=== PATIENT | female | born 1940 | race Caucasian/White ===

== ENCOUNTER 2017-06-26 | Emergency (ER) | payer MEDICARE, MEDICAID ==
[~2017-06-26] VITALS: Ht 157.5 cm; Wt 59.0 kg
[2017-06-26] VITALS: BP 177/62
[~2017-06-26] MED LIST: ATORVASTATIN CA20 MG GT; CELEBREX100 MG GT; DIGOXIN125 MCG GT; KEPPRA500 MG ORAL; LEVOTHYROXINE137 MCG ORAL; LINZESS290 MCG PO; METOPROLOL TART25 MG GT; Morphine Sulfate 2mg/ml Inj IVP ONE; PROCHLORPERAZINE5 MG GT; TEGRETOL100 MG/5 M GT; TRICOR145 MG GT; XARELTO15 MG ORAL; ZANTAC150 MG ORAL
--- NOTE | 2017-06-26 00:02 | Emergency Room Report ---
History of Present Illness General Chief Complaint: Multiple Trauma/Fall Source: Patient Present Illness HPI [facility] She states that her left leg is weak. She hit her hip and also her knee. She has pain there. Worsened when she moves. She denies loss of consciousness. There's no chest pain, cough , nausea, vomiting, diarrhea, dysuria. Pain rated at 3/10, more when pushed or moved. Radiates both hip and knee. She states she fractured her left ankle in the past. She's on Xeralto. Post CVA with L weakness. Post seizures on Tegretal. No observed seizure activity at SNF. She suffers from dementia. Allergies: Coded Allergies: INFLIXIMAB (Verified Allergy, Intermediate, 04/20/16) NIACIN (Verified Allergy, Intermediate, 04/20/16) SULFA (SULFONAMIDE ANTIBIOTICS) (Verified Allergy, Intermediate, 04/20/16) Patient History Past Medical History: see triage record Past Surgical History: other - prior G tube - fracture L hip Social History: Denies: smoking, alcohol use, drug use Social History Narrative Born in [place] Now: No Reviewed Nursing Documentation: PMH: Agreed, PSxH: Agreed Nursing Documentation-PMH Past Medical History: No History, Except For Hx Hypertension: Yes - Atherosclerotic heart disease Hx Diabetes: Yes - Type 2 Review of Systems All Other Systems: negative except mentioned in HPI Physical Exam Vital Signs Date Time Temp Pulse Resp B/P (MAP) Pulse Ox O2 Delivery O2 Flow Rate FiO2 06/25/17 23:40 99.3 71 18 177/62 97 Room Air Sp02 EP Interpretation: reviewed, normal General Appearance: well appearing, no apparent distress, GCS 15 Head: normocephalic Eyes: bilateral eye normal inspection, bilateral eye PERRL ENT: moist mucus membranes, other - Slight facial asymmetry Neck: supple Respiratory: lungs clear, normal breath sounds Cardiovascular #1: regular rate, rhythm Cardiovascular #2: 2+ radial (R) Gastrointestinal: normal inspection, normal bowel sounds, non tender, no mass, non-distended Musculoskeletal: back normal, normal range of motion - but with some pain in knee and hip, pelvis stable, tender - Left hip and left knee. Ligaments are stable. 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 Differential includes contusion, fracture amongst others. X-rays are indicated. In addition to that the patient be treated with analgesics. No labs indicated as not syncopal episode and no seizure noted. Improved with analgesia. Xrays without fractures. Patient stable for outpatient observation and treatment. Other X-Ray Diagnostic Results Other X-Ray Diagnostic Results #1: X-Ray ordered: L hip # of Views/Limited Vs Complete: 3 View Indication: Other Interpretation: no dislocation, no soft tissue swelling, no fractures, other - DJD and old surgery L hip Impression: Other Electronically Signed by: Electronically signed by Joshua Tejada MD Other X-Ray Diagnostic Results #2: X-Ray ordered: L knee # of Views/Limited Vs Complete: 3 View Indication: Other Interpretation: no dislocation, no soft tissue swelling, no fractures, other - DJD Impression: Other Electronically Signed by: Electronically signed by Joshua Tejada MD Other X-Ray Diagnostic Results #3: X-Ray ordered: ap pelvis # of Views/Limited Vs Complete: 1 View Interpretation: no dislocation, no soft tissue swelling, no fractures, other - Prior hip surgery, impaction Impression: Other Electronically Signed by: Electronically signed by Joshua Tejada MD Last Vital Signs Date Time Temp Pulse Resp B/P (MAP) Pulse Ox O2 Delivery O2 Flow Rate FiO2 06/26/17 05:10 99.3 72 16 125/55 97 Room Air Status: improved Disposition: XFER SNF Condition: Improved Scripts Acetaminophen (Tylenol) 325 Mg Tablet 650 MG ORAL Q6H Y for Prn Pain/Headache/Temp > 101, #30 TAB 0 Refills Prov: Joshua Tejada M.D. 06/26/17 Joshua Tejada M.D. Jun 26, 2017 00:02
[2017-06-26 02:00] VITALS: BP 141/59
[2017-06-26] MEDS ORDERED: TYLENOL325 MG ORAL (03:55)
[2017-06-26 04:30] VITALS: BP 125/55
[2017-06-26 05:10] VITALS: BP 125/55
--- NOTE | 2017-06-26 09:39 | Diagnostic Imaging Report ---
Indication: Reason For Exam: TRAUMA Technique: XRAY Pelvis 1v Comparison: None. Findings: The bones are osteopenic. There are screws in the left hip. A large amount of fecal material is noted in the rectum. No fracture. No bone destruction. Impression: Internal fixation of the left hip. Large amount of fecal material in the rectum, likely representing fecal impaction.
--- NOTE | 2017-06-26 09:40 | Diagnostic Imaging Report ---
Indication: Reason For Exam: TRAUMA Technique: XRAY Hip Routine 2v+ L Comparison: None. Findings: 2 views of the left hip demonstrate 3 screws in the hip fixing a previous femoral neck fracture. Vascular calcifications are noted. Large amount of fecal material is noted in the rectum. There is narrowing of the left hip joint with some spurring and irregularity. Impression: Internal fixation of left hip. Degenerative change in the left hip. Fecal impaction. Atherosclerotic change.
--- NOTE | 2017-06-26 09:41 | Diagnostic Imaging Report ---
Indication: Reason For Exam: TRAUMA Technique: XRAY Knee 3v L Comparison: None. Findings: The bones are osteopenic. There is calcification of the vascular structures. No fracture. No bone destruction. No effusion. Impression: Osteopenia. Atherosclerotic change.
== END 2017-06-26 05:10 ==
LOC: EDBD → EMR 00:05
DX: S70.02XA Contusion of left hip, initial encounter (principal); S80.02XA Contusion of left knee, initial encounter; G30.9 Alzheimer's disease, unspecified; F02.80 Dementia in other diseases classified elsewhere, unspecified severity, without behavioral disturbance, psychotic disturbance, mood disturbance, and anxiety; I69.854 Hemiplegia and hemiparesis following other cerebrovascular disease affecting left non-dominant side; K56.41 Fecal impaction; E11.9 Type 2 diabetes mellitus without complications; I25.10 Atherosclerotic heart disease of native coronary artery without angina pectoris; Z88.2 Allergy status to sulfonamides; Z88.8 Allergy status to other drugs, medicaments and biological substances; Z79.01 Long term (current) use of anticoagulants; W18.30XA Fall on same level, unspecified, initial encounter; Y92.129 Unspecified place in nursing home as the place of occurrence of the external cause
CPT/HCPCS: 72170; 73502; 73562; 96374; 96375; 99284; J2270; J2405

== ENCOUNTER 2018-04-28 01:28 | Inpatient (IN) | payer MEDICARE, OTHER ==
[~2018-04-28] VITALS: Ht 157.5 cm; Wt 54.9 kg
[2018-04-28] VITALS (7 sets, daily range): BP systolic 109–157; BP diastolic 60–87
[~2018-04-28 01:28] MED LIST changes: -Morphine Sulfate 2mg/ml Inj IVP ONE; +TYLENOL325 MG ORAL
--- NOTE | 2018-04-28 01:32 | Emergency Room Report ---
History of Present Illness General Chief Complaint: Chest Pain Source: Patient, EMS Present Illness HPI Patient presents from nursing facility with reports of chest pain Patient is a poor historian and cannot provide appropriate history History of present illness remains significantly limited when asked regarding her pain patient reports that she has dental pain Denies any back or flank pain Otherwise not able to answer most questions appropriately Allergies: Coded Allergies: INFLIXIMAB (Verified Allergy, Intermediate, 04/20/16) NIACIN (Verified Allergy, Intermediate, 04/20/16) SULFA (SULFONAMIDE ANTIBIOTICS) (Verified Allergy, Intermediate, 04/20/16) Uncoded Allergies: SULFONAMIDES (Allergy, Unknown, 04/28/18) Patient History Limited by: medical condition Past Medical History: see triage record Pertinent Family History: unable to obtain Last Menstrual Period: na Now: No Reviewed Nursing Documentation: PMH: Agreed; PSxH: Agreed Nursing Documentation-PMH Hx Cardiac Problems: Yes Hx Hypertension: Yes Hx Diabetes: Yes Hx Cancer: No Hx Gastrointestinal Problems: Yes Hx Neurological Problems: Yes Hx Cerebrovascular Accident: Yes Hx Seizures: Yes Hx Epilepsy: Yes Review of Systems All Other Systems: limited - Other than the ones mentioned in the history of present illness all others are reviewed however they do stay limited due to the patient's mental status Physical Exam Vital Signs Date Time Temp Pulse Resp B/P (MAP) Pulse Ox O2 Delivery O2 Flow Rate FiO2 04/28/18 01:02 97.5 130 18 146/91 96 Sp02 EP Interpretation: reviewed, normal General Appearance: no apparent distress Head: normocephalic, atraumatic Eyes: bilateral eye PERRL, bilateral eye EOMI ENT: hearing grossly normal, normal pharynx Neck: full range of motion Respiratory: lungs clear Cardiovascular #1: tachycardia, irregularly irregular Gastrointestinal: non tender, soft Genitourinary: no CVA tenderness Musculoskeletal: other - Patient is drooling, from the left corner of her mouth , I cannot appreciate any obvious focal weakness in the upper extremity Neurologic: alert - Patient is awake and responsive, responsive Skin: normal color, no rash Lymphatic: no adenopathy Medical Decision Making Diagnostic Impression: Primary Impression: Acute coronary syndrome ER Course Patient is a fairly complex patient with multiple differential to consideration including but not limited to cardiac cardiopulmonary and vascular emergencies Patient's initial troponin is borderline intermediate Blood work otherwise appropriate Patient remains improved and asymptomatic EKG is abnormal however no obvious ST elevation patient stable for close inpatient care Labs Test 04/28/18 01:15 04/28/18 02:10 04/28/18 06:50 04/28/18 15:00 White Blood Count 6.2 K/UL (4.8-10.8) Red Blood Count 4.42 M/UL (4.20-5.40) Hemoglobin 12.9 G/DL (12.0-16.0) Hematocrit 38.0 % (37.0-47.0) Mean Corpuscular Volume 86 FL (80-99) Mean Corpuscular Hemoglobin 29.2 PG (27.0-31.0) Mean Corpuscular Hemoglobin Concent 33.9 G/DL (32.0-36.0) Red Cell Distribution Width 11.6 % (11.6-14.8) Platelet Count 113 K/UL (150-450) Mean Platelet Volume 5.8 FL (6.5-10.1) Neutrophils (%) (Auto) 76.3 % (45.0-75.0) Lymphocytes (%) (Auto) 16.3 % (20.0-45.0) Monocytes (%) (Auto) 5.8 % (1.0-10.0) Eosinophils (%) (Auto) 1.3 % (0.0-3.0) Basophils (%) (Auto) 0.3 % (0.0-2.0) Prothrombin Time 10.8 SEC (9.30-11.50) Prothromb Time International Ratio 1.0 (0.9-1.1) Activated Partial Thromboplast Time 26 SEC (23-33) Sodium Level 144 MMOL/L (136-145) Potassium Level 4.0 MMOL/L (3.5-5.1) Chloride Level 106 MMOL/L (98-107) Carbon Dioxide Level 31 MMOL/L (21-32) Anion Gap 7 mmol/L (5-15) Blood Urea Nitrogen 15 mg/dL (7-18) Creatinine 0.9 MG/DL (0.55-1.30) Estimat Glomerular Filtration Rate mL/min (>60) Glucose Level 119 MG/DL (74-106) Lactic Acid Level 0.80 mmol/L (0.4-2.0) Calcium Level 9.5 MG/DL (8.5-10.1) Total Bilirubin 0.5 MG/DL (0.2-1.0) Aspartate Amino Transf (AST/SGOT) 14 U/L (15-37) Alanine Aminotransferase (ALT/SGPT) 14 U/L (12-78) Alkaline Phosphatase 90 U/L (46-116) Total Creatine Kinase 24 U/L (26-308) Creatine Kinase MB < 0.5 NG/ML (0.0-3.6) Creatine Kinase MB Relative Index 2.0 Troponin I 0.042 ng/mL (0.000-0.056) 0.172 ng/mL (0.000-0.056) 0.359 ng/mL (0.000-0.056) Pro-B-Type Natriuretic Peptide 609 pg/mL (0-125) Total Protein 7.6 G/DL (6.4-8.2) Albumin 3.7 G/DL (3.4-5.0) Globulin 3.9 g/dL Albumin/Globulin Ratio 0.9 (1.0-2.7) Lipase 254 U/L (73-393) Urine Color Yellow Urine Appearance Slightly cloudy Urine pH 5 (4.5-8.0) Urine Specific [place] 1.020 (1.005-1.035) Urine Protein 1+ (NEGATIVE) Urine Glucose (UA) Negative (NEGATIVE) Urine Ketones Negative (NEGATIVE) Urine Blood Negative (NEGATIVE) Urine Nitrite Negative (NEGATIVE) Urine Bilirubin Negative (NEGATIVE) Urine Urobilinogen Normal MG/DL (0.0-1.0) Urine Leukocyte Esterase 1+ (NEGATIVE) Urine RBC 2-4 /HPF (0 - 2) Urine WBC 0-2 /HPF (0 - 2) Urine Squamous Epithelial Cells Moderate /LPF (NONE/OCC) Urine Bacteria Few /HPF (NONE) Test 04/29/18 05:20 04/30/18 06:10 White Blood Count 3.8 K/UL (4.8-10.8) Red Blood Count 3.91 M/UL (4.20-5.40) Hemoglobin 11.4 G/DL (12.0-16.0) Hematocrit 33.9 % (37.0-47.0) Mean Corpuscular Volume 87 FL (80-99) Mean Corpuscular Hemoglobin 29.2 PG (27.0-31.0) Mean Corpuscular Hemoglobin Concent 33.8 G/DL (32.0-36.0) Red Cell Distribution Width 11.6 % (11.6-14.8) Platelet Count 101 K/UL (150-450) Mean Platelet Volume 5.9 FL (6.5-10.1) Neutrophils (%) (Auto) 65.7 % (45.0-75.0) Lymphocytes (%) (Auto) 22.6 % (20.0-45.0) Monocytes (%) (Auto) 10.5 % (1.0-10.0) Eosinophils (%) (Auto) 0.9 % (0.0-3.0) Basophils (%) (Auto) 0.4 % (0.0-2.0) Prothrombin Time 13.0 SEC (9.30-11.50) Prothromb Time International Ratio 1.2 (0.9-1.1) Activated Partial Thromboplast Time 42 SEC (23-33) Sodium Level 141 MMOL/L (136-145) Potassium Level 3.9 MMOL/L (3.5-5.1) Chloride Level 105 MMOL/L (98-107) Carbon Dioxide Level 28 MMOL/L (21-32) Anion Gap 8 mmol/L (5-15) Blood Urea Nitrogen 22 mg/dL (7-18) Creatinine 1.0 MG/DL (0.55-1.30) Estimat Glomerular Filtration Rate mL/min (>60) Glucose Level 92 MG/DL (74-106) Hemoglobin A1c 5.1 % (4.3-6.0) Calcium Level 8.8 MG/DL (8.5-10.1) Troponin I 0.215 ng/mL (0.000-0.056) C-Reactive Protein, Quantitative 11.6 mg/dL (0.00-0.90) Pro-B-Type Natriuretic Peptide 1825 pg/mL (0-125) Triglycerides Level 93 MG/DL (30-150) Cholesterol Level 206 MG/DL (< 200) LDL Cholesterol 129 mg/dL (<100) HDL Cholesterol 53 MG/DL (40-60) Cholesterol/HDL Ratio 3.9 (3.3-4.4) Thyroid Stimulating Hormone (TSH) 2.285 uiU/mL (0.358-3.740) EKG Diagnostic Results Rate: normal Rhythm: NSR ST Segments: other - Nonspecific ST changes, no obvious ST elevation Rhythm Strip Diag. Results EP Interpretation: yes Rate: 66 Rhythm: NSR, no PVC's, no ectopy Chest X-Ray Diagnostic Results Chest X-Ray Diagnostic Results : Chest X-Ray Ordered: Yes # of Views/Limited/Complete: 1 View Indication: Chest Pain EP Interpretation: Yes Interpretation: no consolidation, no pneumothorax, other - Mild pulmonary edema, left lower lobe atelectasis, heart size normal Impression: Other - Left lower lobe atelectasis Last Vital Signs Date Time Temp Pulse Resp B/P (MAP) Pulse Ox O2 Delivery O2 Flow Rate FiO2 04/28/18 01:02 97.5 130 18 146/91 96 Status: improved Disposition: ADMITTED INPATIENT Condition: Serious Marisol Pandey DO Apr 28, 2018 01:32
[2018-04-28 01:47] LABS: BASOPHILS % (AUTO) 0.3 % (0.0-2.0); EOSINOPHILS % (AUTO) 1.3 % (0.0-3.0); HEMOGLOBIN 12.9 G/DL (12.0-16.0); LYMPHOCYTES % (AUTO) 16.3 % (20.0-45.0); MEAN CORPUSCULAR VOLUME 86 FL (80-99); MONOCYTES % (AUTO) 5.8 % (1.0-10.0); NEUTROPHILS % (AUTO) 76.3 % (45.0-75.0); PLATELET COUNT 113 K/UL (150-450); RED BLOOD COUNT 4.42 M/UL (4.20-5.40); RED CELL DISTRIBUTION WIDTH 11.6 % (11.6-14.8); WHITE BLOOD COUNT 6.2 K/UL (4.8-10.8)
[2018-04-28 02:00] LABS: ANION GAP 7 mmol/L (5-15); BLOOD UREA NITROGEN 15 mg/dL (7-18); CALCIUM 9.5 MG/DL (8.5-10.1); CARBON DIOXIDE 31 MMOL/L (21-32); CHLORIDE 106 MMOL/L (98-107); CREATININE 0.9 MG/DL (0.55-1.30); SODIUM 144 MMOL/L (136-145)
[2018-04-28 02:13] LABS: ALANINE AMINOTRANSFERASE 14 U/L (12-78); ALBUMIN 3.7 G/DL (3.4-5.0); ALBUMIN/GLOBULIN RATIO 0.9 (1.0-2.7); ALKALINE PHOSPHATASE 90 U/L (46-116); ASPARTATE AMINO TRANSFERASE 14 U/L (15-37); BILIRUBIN,TOTAL 0.5 MG/DL (0.2-1.0); CKMB < 0.5 NG/ML (0.0-3.6); CREATINE KINASE 24 U/L (26-308)
[2018-04-28] MEDS ORDERED: dilTIAZem HCl 25mg/5ml Inj IVP ONE (02:30)
[2018-04-28 02:35] LABS: APPEARANCE,URINE SLIGHTLY CLOUDY; BILIRUBIN, URINE NEGATIVE (NEGATIVE); GLUCOSE, URINE (UA) NEGATIVE (NEGATIVE); KETONES,URINE NEGATIVE (NEGATIVE); LEUKOCYTE ESTERASE ,URINE 1+ (NEGATIVE); NITRITE,URINE NEGATIVE (NEGATIVE); PH,URINE 5 (4.5-8.0); PROTEIN,URINE 1+ (NEGATIVE); UROBILINOGEN,URINE NORMAL MG/DL (0.0-1.0)
[2018-04-28 02:50] LABS: COLOR,URINE YELLOW
--- NOTE | 2018-04-28 03:14 | Diagnostic Imaging Report ---
EXAM: XR Chest, 1 View CLINICAL HISTORY: CP TECHNIQUE: Frontal view of the chest. COMPARISON: 04/24/16 FINDINGS: Lungs: Mild diffuse interstitial opacities in both lungs. Questionable small consolidation/airspace opacities over left retrocardiac region. Pleural space: Small left pleural effusion. No pneumothorax. Heart: Coronary stent prosthetic heart valve are again noted. Mediastinum: Unremarkable. Bones/joints: Sternal wires. IMPRESSION: 1. Mild pulmonary edema. 2. suspect superimposed left lower lung zone atelectasis and/or pneumonia versus aspiration. 3. Small left pleural effusion.
[2018-04-28] MEDS ORDERED: dilTIAZem HCl 50mg/10ml Inj IVP ONE (03:15)
[2018-04-28] MEDS ORDERED: LINZESS290 MCG PO (04:21)
[2018-04-28] MEDS ORDERED: ZANTAC150 MG ORAL (04:21)
[2018-04-28] MEDS ORDERED: ATORVASTATIN CA10 MG ORAL (04:21)
[2018-04-28] MEDS ORDERED: SENNA8.6 M2 PO (04:21)
[2018-04-28] MEDS ORDERED: SIMETHICONE80 MG ORAL (04:21)
[2018-04-28] MEDS ORDERED: ACETAMINOPHEN325 M1 ORAL (04:21)
[2018-04-28] MEDS ORDERED: FISH OIL 1,2001 EAC2 PO (04:21)
[2018-04-28] MEDS ORDERED: TRAMADOL HCL50 MG ORAL (04:21)
[2018-04-28] MEDS ORDERED: DIGOXIN250 MCG/1 IV (04:21)
[2018-04-28] MEDS ORDERED: MIRALAX17 G2 ORAL (04:21)
[2018-04-28] MEDS ORDERED: SYNTHROID50 MCG ORAL (04:21)
[2018-04-28] MEDS ORDERED: MAG-OX 400400 MG ORAL (04:21)
[2018-04-28] MEDS ORDERED: XARELTO15 MG ORAL ×2 (04:21)
[2018-04-28] MEDS ORDERED: FOLIC ACID1 MG ORAL (04:21)
[2018-04-28] MEDS ORDERED: METOPROLOL TART25 MG ORAL (04:21)
[2018-04-28] MEDS ORDERED: TYLENOL EXTRA500 MG ORAL (04:21)
[2018-04-28] MEDS ORDERED: CARBAMAZEPINE200 M4 ORAL (04:21)
[2018-04-28] MEDS ORDERED: SINEMET 25-1001 EAC1 ORAL (04:21)
[2018-04-28] MEDS ORDERED: ASPIRIN81 MG ORAL (04:21)
[2018-04-28] MEDS ORDERED: DOCUSATE SODIU100 MG ORAL (04:21)
[2018-04-28] MEDS ORDERED: CRANBERRY450 M4 PO (04:21)
[2018-04-28] MEDS ORDERED: MILK OF MA400 MG/51 ORAL (04:21)
[2018-04-28] MEDS ORDERED: NITROSTAT0.4 M1 SL (04:22)
[2018-04-28] MEDS ORDERED: Nitroglycerin Subl 0.4mg tab SL PRN (05:00)
[2018-04-28] MEDS ORDERED: Enalaprilat 2.5mg/2ml Inj IV PRN (05:00)
[2018-04-28] MEDS ORDERED: Ketorolac 30mg Inj IV PRN (05:00)
[2018-04-28] MEDS ORDERED: Morphine Sulfate 2mg/ml Inj IVP PRN (05:00)
[2018-04-28] MEDS ORDERED: traMADol 50mg tab ORAL PRN (05:00)
[2018-04-28] MEDS ORDERED: Miralax 17gm pkt ORAL PRN (05:00)
[2018-04-28] MEDS ORDERED: Albuterol/Ipratropium 3ml neb HHN PRN (05:00)
[2018-04-28] MEDS ORDERED: dilTIAZem HCl 25mg/5ml Inj IV PRN (05:00)
[2018-04-28] MEDS: Metoprolol 25mg tab ORAL SCH ×2 (08:07→20:52)
[2018-04-28] MEDS: Levodopa/Carbidopa 25/100 tab ORAL SCH ×3 (08:07→17:39)
--- NOTE | 2018-04-28 08:34 | Consultation ---
History of Present Illness General Date patient seen: Apr 28, 2018 Time patient seen: 08:00 Chief Complaint: Chest Pain Referring physician: dr Junior Reason for Consultation: pulm. consult Present Illness HPI 78 years old female with past medical history of hypertension hyperlipidemia, A fib, history of CVA ,Parkinson disease , seizure disorder , hx of G tube, DNR/ DNI status, was sent from the custodial [facility] [place] for evaluation of chest pain. Patient by herself extremely poor historian unable to provide any information. Upon evaluation patient was tachycardic blood pressure 146/91 pulse oximetry initially was stable in room air. Laboratory workup revealed no leukocytosis stable hemoglobin and hematocrit on urinalysis negative for evidence of [place] First troponin was negative, and the second was elevated 0.172 , pro BNP 699 ECG with A fib with RVR albumin low chest x-ray revealed mild pulmonary edema patient admitted with diagnosis of chest pain , possible acute coronary syndrome Allergies: Coded Allergies: INFLIXIMAB (Verified Allergy, Intermediate, 04/20/16) NIACIN (Verified Allergy, Intermediate, 04/20/16) SULFA (SULFONAMIDE ANTIBIOTICS) (Verified Allergy, Intermediate, 04/20/16) Uncoded Allergies: SULFONAMIDES (Allergy, Unknown, 04/28/18) Medication History Scheduled Aspirin* (Aspirin*), 81 MG ORAL DAILY, (Reported) Atorvastatin Calcium* (Lipitor*), 10 MG ORAL BEDTIME, (Reported) Carbamazepine (Carbamazepine), 200 MG ORAL TWICE A DAY, (Reported) Carbidopa/Levodopa 25-100 Mg* (Sinemet 25-100 Mg Tablet*), 1 TAB ORAL THREE TIMES A DAY, (Reported) Cranberry Fruit Concentrate (Cranberry), 450 MG PO DAILY, (Reported) Digoxin* (Digoxin*), 250 MCG IV DAILY, (Reported) Docusate Sodium* (Docusate Sodium*), 100 MG ORAL TWICE A DAY, (Reported) Fish Oil/Dha/Epa (Fish Oil 1,200 Mg Fish Oil), 2 EACH PO BID, (Reported) Folic Acid* (Folic Acid*), 1 MG ORAL DAILY, (Reported) Levothyroxine Sodium (Synthroid), 50 MCG ORAL DAILY, (Reported) Linaclotide (Linzess), 290 MCG PO AC, (Reported) Magnesium Oxide (Magnesium Oxide), 400 MG ORAL DAILY, (Reported) Metoprolol Tartrate* (Metoprolol Tartrate*), 12.5 MG ORAL EVERY 12 HOURS, ( Reported) Ranitidine Hcl* (Zantac*), 150 MG ORAL TWICE A DAY, (Reported) Rivaroxaban (Xarelto), 15 MG ORAL DAILY, (Reported) Sennosides (Senna), 17.2 MG PO QHS, (Reported) Simethicone* (Simethicone*), 80 MG ORAL TID, (Reported) Scheduled PRN Acetaminophen* (Tylenol Extra Strength*), 500 MG ORAL Q6H PRN for Mild Pain/ Temp > 100.5, (Reported) Acetaminophen* (Acetaminophen 325MG Tablet*), 650 MG ORAL Q6H PRN for Moderate Pain (Pain Scale 4-6), (Reported) Magnesium Hydroxide* (Milk Of Magnesia*), 30 ML ORAL DAILY PRN for Constipation, (Reported) Nitroglycerin (Nitrostat), 0.4 MG SL Q5M X3 DOSES PRN for CHEST PAIN, (Reported) Polyethylene Glycol 3350* (Miralax*), 17 GM ORAL DAILY PRN for Constipation, ( Reported) Tramadol Hcl* (Ultram*), 50 MG ORAL Q6H PRN for Severe Pain (Pain Scale 7-10), ( Reported) Miscellaneous Medications Rivaroxaban (Xarelto), 15 MG ORAL, (Reported) Patient History Healthcare decision maker Resuscitation status DNR/DNI Advanced Directive on File Past Medical/Surgical History Past Medical/Surgical History: (1) Feeding by G-tube (2) 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 (3) Seizure disorder (4) Alzheimer's dementia (5) Dementia Review of Systems ROS Narrative unable to obtain due to patient being a poor historian Physical Exam General Appearance: no apparent distress, alert Lines, tubes and drains: peripheral HEENT: normocephalic, atraumatic Neck: non-tender, supple Cardiovascular/Chest: normal peripheral pulses, irregularly irregular - A fib, rate controlled Abdomen: normal bowel sounds, non tender, soft Extremities: no edema Skin Exam: warm/dry Neurologic: abnormal gait, alert Musculoskeletal: atrophy - BLE Last 24 Hour Vital Signs Date Time Temp Pulse Resp B/P (MAP) Pulse Ox O2 Delivery O2 Flow Rate FiO2 04/28/18 08:07 100 157/74 04/28/18 08:05 98.6 100 20 157/74 (101) 100 04/28/18 04:05 Nasal Cannula 2.0 04/28/18 04:00 128 04/28/18 04:00 98.3 99 20 142/87 (105) 99 04/28/18 03:20 97.6 108 18 112/68 99 Nasal Cannula 2.0 04/28/18 03:20 97.6 108 18 112/68 99 Nasal Cannula 2.0 04/28/18 03:15 135 155/92 04/28/18 02:33 135 158/86 04/28/18 01:40 97.5 115 18 143/80 99 Nasal Cannula 2.0 04/28/18 01:40 115 18 Nasal Cannula 2.0 04/28/18 01:02 97.5 130 18 146/91 96 Laboratory Tests Test 04/28/18 01:15 04/28/18 02:10 04/28/18 06:50 White Blood Count 6.2 K/UL (4.8-10.8) Red Blood Count 4.42 M/UL (4.20-5.40) Hemoglobin 12.9 G/DL (12.0-16.0) Hematocrit 38.0 % (37.0-47.0) Mean Corpuscular Volume 86 FL (80-99) Mean Corpuscular Hemoglobin 29.2 PG (27.0-31.0) Mean Corpuscular Hemoglobin Concent 33.9 G/DL (32.0-36.0) Red Cell Distribution Width 11.6 % (11.6-14.8) Platelet Count 113 K/UL (150-450) L Mean Platelet Volume 5.8 FL (6.5-10.1) L Neutrophils (%) (Auto) 76.3 % (45.0-75.0) H Lymphocytes (%) (Auto) 16.3 % (20.0-45.0) L Monocytes (%) (Auto) 5.8 % (1.0-10.0) Eosinophils (%) (Auto) 1.3 % (0.0-3.0) Basophils (%) (Auto) 0.3 % (0.0-2.0) Prothrombin Time 10.8 SEC (9.30-11.50) Prothromb Time International Ratio 1.0 (0.9-1.1) Activated Partial Thromboplast Time 26 SEC (23-33) Sodium Level 144 MMOL/L (136-145) Potassium Level 4.0 MMOL/L (3.5-5.1) Chloride Level 106 MMOL/L (98-107) Carbon Dioxide Level 31 MMOL/L (21-32) Anion Gap 7 mmol/L (5-15) Blood Urea Nitrogen 15 mg/dL (7-18) Creatinine 0.9 MG/DL (0.55-1.30) Estimat Glomerular Filtration Rate mL/min (>60) Glucose Level 119 MG/DL (74-106) H Lactic Acid Level 0.80 mmol/L (0.4-2.0) Calcium Level 9.5 MG/DL (8.5-10.1) Total Bilirubin 0.5 MG/DL (0.2-1.0) Aspartate Amino Transf (AST/SGOT) 14 U/L (15-37) L Alanine Aminotransferase (ALT/SGPT) 14 U/L (12-78) Alkaline Phosphatase 90 U/L (46-116) Total Creatine Kinase 24 U/L (26-308) L Creatine Kinase MB < 0.5 NG/ML (0.0-3.6) Creatine Kinase MB Relative Index 2.0 Troponin I 0.042 ng/mL (0.000-0.056) 0.172 ng/mL (0.000-0.056) Pro-B-Type Natriuretic Peptide 609 pg/mL (0-125) H Total Protein 7.6 G/DL (6.4-8.2) Albumin 3.7 G/DL (3.4-5.0) Globulin 3.9 g/dL Albumin/Globulin Ratio 0.9 (1.0-2.7) L Lipase 254 U/L (73-393) Urine Color Yellow Urine Appearance Slightly cloudy Urine pH 5 (4.5-8.0) Urine Specific [place] 1.020 (1.005-1.035) Urine Protein 1+ (NEGATIVE) H Urine Glucose (UA) Negative (NEGATIVE) Urine Ketones Negative (NEGATIVE) Urine Blood Negative (NEGATIVE) Urine Nitrite Negative (NEGATIVE) Urine Bilirubin Negative (NEGATIVE) Urine Urobilinogen Normal MG/DL (0.0-1.0) Urine Leukocyte Esterase 1+ (NEGATIVE) H Urine RBC 2-4 /HPF (0 - 2) H Urine WBC 0-2 /HPF (0 - 2) Urine Squamous Epithelial Cells Moderate /LPF (NONE/OCC) H Urine Bacteria Few /HPF (NONE) Microbiology Date/Time Source Procedure Growth Status 04/28/18 02:10 Rectum Received Height (Feet): 5 Height (Inches): 2.00 Weight (Pounds): 107 Medications Current Medications Medications (Trade) Dose Ordered Sig/Zee Route PRN Reason Start Time Stop Time Status Last Admin Dose Admin Acetaminophen (Tylenol) 650 mg Q4H PRN ORAL FEVER 04/28/18 05:00 05/28/18 04:59 Albuterol/ Ipratropium (Albuterol/ Ipratropium) 3 ml Q4H PRN HHN Shortness of Breath 04/28/18 05:00 05/03/18 04:59 Aspirin (ASA) 162 mg DAILY ORAL 04/28/18 09:00 05/28/18 08:59 Carbidopa/Levodopa (Sinemet 25/100) 1 tab THREE TIMES A DAY ORAL 04/28/18 09:00 05/28/18 08:59 04/28/18 08:07 Diltiazem HCl (Cardizem) 10 mg Q1H PRN IV heart rate more than 120, 04/28/18 05:00 05/28/18 04:59 Enalaprilat (Vasotec) 2.5 mg Q6H PRN IV sbp more than 160 04/28/18 05:00 05/28/18 04:59 Ketorolac Tromethamine (Toradol 30mg) 30 mg Q6HR PRN IV moderate pain ( 4-6) 04/28/18 05:00 05/03/18 04:59 UNV Levothyroxine Sodium (Synthroid) 50 mcg DAILY@0600 ORAL 04/28/18 06:00 05/28/18 05:59 04/28/18 05:52 Metoprolol Tartrate (Lopressor) 12.5 mg EVERY 12 HOURS ORAL 04/28/18 09:00 05/28/18 08:59 04/28/18 08:07 Morphine Sulfate (Morphine Sulfate) 2 mg Q4H PRN IVP severe Pain (Pain Scale 7-10) 04/28/18 05:00 05/05/18 04:59 Nitroglycerin (Ntg) 0.4 mg Q5M PRN SL Prn Chest Pain 04/28/18 05:00 05/28/18 04:59 Ondansetron HCl (Zofran) 4 mg Q6H PRN IVP Nausea & Vomiting 04/28/18 05:00 05/28/18 04:59 Polyethylene Glycol (Miralax) 17 gm DAILYPRN PRN ORAL Constipation 04/28/18 05:00 05/28/18 04:59 Rivaroxaban (Xarelto) 15 mg BIOTEC ORAL 04/28/18 21:00 05/28/18 20:59 Temazepam (Restoril) 15 mg HSPRN PRN ORAL Insomnia 04/28/18 05:00 05/05/18 04:59 Tramadol HCl (Ultram) 50 mg Q6H PRN ORAL Severe Pain (Pain Scale 7-10) 04/28/18 05:00 05/05/18 04:59 Assessment/Plan Assessment/Plan ASSESSMENT Chest pain possible acute coronary syndrome atrial fibrillation with rapid ventricular response mild pulmonary edema hypertension diabetes mellitus history of CVA hyperlipidemia Parkinson disease protein calorie malnutrition hypothyroidism PLAN OF CARE SABINO status Serial troponin and EKG Cardio eval ECHO antiplatelet therapy with ASA, on BB and statin/check lipid panel O2 titrate to keep pulse ox above 92 %, pulmonary toilet prn anticoagulation with Xarelto low dose of diuretic with close monitoring of volumes and renal parameters fup with CXR on Monday Venous duplex bilateral lower extremity Pain management nitroglycerin prn resume Sinemet and levothyroxine/ check TSH Blood sugar management with sensitive SSI prn /check hemoglobin A1c dietary evaluation bedside swallow evaluation Supportive care DNR/DNI status case discussed and evaluated by supervising physician Mesha Rosario NP Apr 28, 2018 08:34
[2018-04-28] MEDS ORDERED: Aspirin Baby 81mg ORAL SCH (09:00)
[2018-04-28] MEDS: NovoLOG Insulin Flexpen SUBQ SCH ×3 (13:00→20:53)
--- NOTE | 2018-04-28 13:54 | Cardiology Progress Note ---
Assessment/Plan Assessment/Plan ACS / NSTEMI CAD HS LEFT ATRIAL ONELIA VS ARTIFACT AVR / MVR BIOPROSTHESIS CVA HS REEPAT CARDAIDC ENZYEM EKG WILL KEEP ON ASA / SATIN BB AND DC XARELTO STAT O HEPARIN TOMORROW NEED TO COSNDIER CATH IF AGGRESSIVE CARE IS DESIRED WILL NEED RAGHAV WELL [id number] Objective Last 24 Hour Vital Signs Date Time Temp Pulse Resp B/P (MAP) Pulse Ox O2 Delivery O2 Flow Rate FiO2 04/28/18 12:00 98.7 76 18 109/60 (76) 100 04/28/18 09:00 Nasal Cannula 2.0 04/28/18 08:49 78 04/28/18 08:07 100 157/74 04/28/18 08:05 98.6 100 20 157/74 (101) 100 04/28/18 04:05 Nasal Cannula 2.0 04/28/18 04:00 128 04/28/18 04:00 98.3 99 20 142/87 (105) 99 04/28/18 03:20 97.6 108 18 112/68 99 Nasal Cannula 2.0 04/28/18 03:20 97.6 108 18 112/68 99 Nasal Cannula 2.0 04/28/18 03:15 135 155/92 04/28/18 02:33 135 158/86 04/28/18 01:40 97.5 115 18 143/80 99 Nasal Cannula 2.0 04/28/18 01:40 115 18 Nasal Cannula 2.0 04/28/18 01:02 97.5 130 18 146/91 96 Intake and Output 04/27/18 04/28/18 18:59 06:59 # Voids 1 Laboratory Tests Test 04/28/18 01:15 04/28/18 02:10 04/28/18 06:50 White Blood Count 6.2 K/UL (4.8-10.8) Red Blood Count 4.42 M/UL (4.20-5.40) Hemoglobin 12.9 G/DL (12.0-16.0) Hematocrit 38.0 % (37.0-47.0) Mean Corpuscular Volume 86 FL (80-99) Mean Corpuscular Hemoglobin 29.2 PG (27.0-31.0) Mean Corpuscular Hemoglobin Concent 33.9 G/DL (32.0-36.0) Red Cell Distribution Width 11.6 % (11.6-14.8) Platelet Count 113 K/UL (150-450) L Mean Platelet Volume 5.8 FL (6.5-10.1) L Neutrophils (%) (Auto) 76.3 % (45.0-75.0) H Lymphocytes (%) (Auto) 16.3 % (20.0-45.0) L Monocytes (%) (Auto) 5.8 % (1.0-10.0) Eosinophils (%) (Auto) 1.3 % (0.0-3.0) Basophils (%) (Auto) 0.3 % (0.0-2.0) Prothrombin Time 10.8 SEC (9.30-11.50) Prothromb Time International Ratio 1.0 (0.9-1.1) Activated Partial Thromboplast Time 26 SEC (23-33) Sodium Level 144 MMOL/L (136-145) Potassium Level 4.0 MMOL/L (3.5-5.1) Chloride Level 106 MMOL/L (98-107) Carbon Dioxide Level 31 MMOL/L (21-32) Anion Gap 7 mmol/L (5-15) Blood Urea Nitrogen 15 mg/dL (7-18) Creatinine 0.9 MG/DL (0.55-1.30) Estimat Glomerular Filtration Rate mL/min (>60) Glucose Level 119 MG/DL (74-106) H Lactic Acid Level 0.80 mmol/L (0.4-2.0) Calcium Level 9.5 MG/DL (8.5-10.1) Total Bilirubin 0.5 MG/DL (0.2-1.0) Aspartate Amino Transf (AST/SGOT) 14 U/L (15-37) L Alanine Aminotransferase (ALT/SGPT) 14 U/L (12-78) Alkaline Phosphatase 90 U/L (46-116) Total Creatine Kinase 24 U/L (26-308) L Creatine Kinase MB < 0.5 NG/ML (0.0-3.6) Creatine Kinase MB Relative Index 2.0 Troponin I 0.042 ng/mL (0.000-0.056) 0.172 ng/mL (0.000-0.056) Pro-B-Type Natriuretic Peptide 609 pg/mL (0-125) H Total Protein 7.6 G/DL (6.4-8.2) Albumin 3.7 G/DL (3.4-5.0) Globulin 3.9 g/dL Albumin/Globulin Ratio 0.9 (1.0-2.7) L Lipase 254 U/L (73-393) Urine Color Yellow Urine Appearance Slightly cloudy Urine pH 5 (4.5-8.0) Urine Specific [place] 1.020 (1.005-1.035) Urine Protein 1+ (NEGATIVE) H Urine Glucose (UA) Negative (NEGATIVE) Urine Ketones Negative (NEGATIVE) Urine Blood Negative (NEGATIVE) Urine Nitrite Negative (NEGATIVE) Urine Bilirubin Negative (NEGATIVE) Urine Urobilinogen Normal MG/DL (0.0-1.0) Urine Leukocyte Esterase 1+ (NEGATIVE) H Urine RBC 2-4 /HPF (0 - 2) H Urine WBC 0-2 /HPF (0 - 2) Urine Squamous Epithelial Cells Moderate /LPF (NONE/OCC) H Urine Bacteria Few /HPF (NONE) Microbiology Date/Time Source Procedure Growth Status 04/28/18 02:10 Rectum Received Barber Mack MD Apr 28, 2018 13:54
--- NOTE | 2018-04-28 16:31 | History & Physical ---
History and Physical History & Physicial Dictated for Int Med-Dr Junior no. [id number]. Bryan Jackson MD Apr 28, 2018 16:31
[2018-04-28] MEDS: Nitroglycerin 2% oint pkt TOPIC SCH (17:39)
[2018-04-28] MEDS: Atorvastatin 20mg tab ORAL SCH (20:52)
[2018-04-28] MEDS ORDERED: Xarelto 15mg tab ORAL SCH (21:00)
--- NOTE | 2018-04-28 23:18 | Consultation ---
History of Present Illness General Chief Complaint: Chest Pain Referring physician: dr Junior Reason for Consultation: pulm. consult Present Illness HPI 78-year-old female, presents with chief complaint of chest pain. the pt has hx of anxiety and dementia and is the residence of [facility]. the pt came in due to chest pain the pt is anxious and concern about medical condition. the pt appears older than stated stage and appears depressed and low energy. she is forgetful and has memory impairment. Allergies: Coded Allergies: INFLIXIMAB (Verified Allergy, Intermediate, 04/20/16) NIACIN (Verified Allergy, Intermediate, 04/20/16) SULFA (SULFONAMIDE ANTIBIOTICS) (Verified Allergy, Intermediate, 04/20/16) Uncoded Allergies: SULFONAMIDES (Allergy, Unknown, 04/28/18) Medication History Scheduled Aspirin* (Aspirin*), 81 MG ORAL DAILY, (Reported) Atorvastatin Calcium* (Lipitor*), 10 MG ORAL BEDTIME, (Reported) Carbamazepine (Carbamazepine), 200 MG ORAL TWICE A DAY, (Reported) Carbidopa/Levodopa 25-100 Mg* (Sinemet 25-100 Mg Tablet*), 1 TAB ORAL THREE TIMES A DAY, (Reported) Cranberry Fruit Concentrate (Cranberry), 450 MG PO DAILY, (Reported) Digoxin* (Digoxin*), 250 MCG IV DAILY, (Reported) Docusate Sodium* (Docusate Sodium*), 100 MG ORAL TWICE A DAY, (Reported) Fish Oil/Dha/Epa (Fish Oil 1,200 Mg Fish Oil), 2 EACH PO BID, (Reported) Folic Acid* (Folic Acid*), 1 MG ORAL DAILY, (Reported) Levothyroxine Sodium (Synthroid), 50 MCG ORAL DAILY, (Reported) Linaclotide (Linzess), 290 MCG PO AC, (Reported) Magnesium Oxide (Magnesium Oxide), 400 MG ORAL DAILY, (Reported) Metoprolol Tartrate* (Metoprolol Tartrate*), 12.5 MG ORAL EVERY 12 HOURS, ( Reported) Ranitidine Hcl* (Zantac*), 150 MG ORAL TWICE A DAY, (Reported) Rivaroxaban (Xarelto), 15 MG ORAL DAILY, (Reported) Sennosides (Senna), 17.2 MG PO QHS, (Reported) Simethicone* (Simethicone*), 80 MG ORAL TID, (Reported) Scheduled PRN Acetaminophen* (Tylenol Extra Strength*), 500 MG ORAL Q6H PRN for Mild Pain/ Temp > 100.5, (Reported) Acetaminophen* (Acetaminophen 325MG Tablet*), 650 MG ORAL Q6H PRN for Moderate Pain (Pain Scale 4-6), (Reported) Magnesium Hydroxide* (Milk Of Magnesia*), 30 ML ORAL DAILY PRN for Constipation, (Reported) Nitroglycerin (Nitrostat), 0.4 MG SL Q5M X3 DOSES PRN for CHEST PAIN, (Reported) Polyethylene Glycol 3350* (Miralax*), 17 GM ORAL DAILY PRN for Constipation, ( Reported) Tramadol Hcl* (Ultram*), 50 MG ORAL Q6H PRN for Severe Pain (Pain Scale 7-10), ( Reported) Miscellaneous Medications Rivaroxaban (Xarelto), 15 MG ORAL, (Reported) Patient History Healthcare decision maker Resuscitation status Advanced Directive on File Review of Systems Psychiatric: Reports: prior hx, anxiety, depressed feelings, emotional problems Physical Exam General Appearance: alert, moderate distress Neurologic: oriented x 3, responsive, depressed affect Last 24 Hour Vital Signs Date Time Temp Pulse Resp B/P (MAP) Pulse Ox O2 Delivery O2 Flow Rate FiO2 04/28/18 20:52 86 122/71 04/28/18 20:00 98.6 91 20 122/71 (88) 100 04/28/18 20:00 86 04/28/18 17:39 120/67 04/28/18 16:00 79 04/28/18 15:55 98.3 107 18 120/67 (84) 97 04/28/18 12:00 125 04/28/18 12:00 98.7 76 18 109/60 (76) 100 04/28/18 09:00 Nasal Cannula 2.0 04/28/18 08:49 78 04/28/18 08:07 100 157/74 04/28/18 08:05 98.6 100 20 157/74 (101) 100 04/28/18 04:05 Nasal Cannula 2.0 04/28/18 04:00 128 04/28/18 04:00 98.3 99 20 142/87 (105) 99 04/28/18 03:20 97.6 108 18 112/68 99 Nasal Cannula 2.0 04/28/18 03:20 97.6 108 18 112/68 99 Nasal Cannula 2.0 04/28/18 03:15 135 155/92 04/28/18 02:33 135 158/86 04/28/18 01:40 97.5 115 18 143/80 99 Nasal Cannula 2.0 04/28/18 01:40 115 18 Nasal Cannula 2.0 04/28/18 01:02 97.5 130 18 146/91 96 Intake and Output 04/27/18 04/28/18 19:00 07:00 # Voids 1 Laboratory Tests Test 04/28/18 01:15 04/28/18 02:10 04/28/18 06:50 04/28/18 15:00 White Blood Count 6.2 K/UL (4.8-10.8) Red Blood Count 4.42 M/UL (4.20-5.40) Hemoglobin 12.9 G/DL (12.0-16.0) Hematocrit 38.0 % (37.0-47.0) Mean Corpuscular Volume 86 FL (80-99) Mean Corpuscular Hemoglobin 29.2 PG (27.0-31.0) Mean Corpuscular Hemoglobin Concent 33.9 G/DL (32.0-36.0) Red Cell Distribution Width 11.6 % (11.6-14.8) Platelet Count 113 K/UL (150-450) L Mean Platelet Volume 5.8 FL (6.5-10.1) L Neutrophils (%) (Auto) 76.3 % (45.0-75.0) H Lymphocytes (%) (Auto) 16.3 % (20.0-45.0) L Monocytes (%) (Auto) 5.8 % (1.0-10.0) Eosinophils (%) (Auto) 1.3 % (0.0-3.0) Basophils (%) (Auto) 0.3 % (0.0-2.0) Prothrombin Time 10.8 SEC (9.30-11.50) Prothromb Time International Ratio 1.0 (0.9-1.1) Activated Partial Thromboplast Time 26 SEC (23-33) Sodium Level 144 MMOL/L (136-145) Potassium Level 4.0 MMOL/L (3.5-5.1) Chloride Level 106 MMOL/L (98-107) Carbon Dioxide Level 31 MMOL/L (21-32) Anion Gap 7 mmol/L (5-15) Blood Urea Nitrogen 15 mg/dL (7-18) Creatinine 0.9 MG/DL (0.55-1.30) Estimat Glomerular Filtration Rate mL/min (>60) Glucose Level 119 MG/DL (74-106) H Lactic Acid Level 0.80 mmol/L (0.4-2.0) Calcium Level 9.5 MG/DL (8.5-10.1) Total Bilirubin 0.5 MG/DL (0.2-1.0) Aspartate Amino Transf (AST/SGOT) 14 U/L (15-37) L Alanine Aminotransferase (ALT/SGPT) 14 U/L (12-78) Alkaline Phosphatase 90 U/L (46-116) Total Creatine Kinase 24 U/L (26-308) L Creatine Kinase MB < 0.5 NG/ML (0.0-3.6) Creatine Kinase MB Relative Index 2.0 Troponin I 0.042 ng/mL (0.000-0.056) 0.172 ng/mL (0.000-0.056) 0.359 ng/mL (0.000-0.056) Pro-B-Type Natriuretic Peptide 609 pg/mL (0-125) H Total Protein 7.6 G/DL (6.4-8.2) Albumin 3.7 G/DL (3.4-5.0) Globulin 3.9 g/dL Albumin/Globulin Ratio 0.9 (1.0-2.7) L Lipase 254 U/L (73-393) Urine Color Yellow Urine Appearance Slightly cloudy Urine pH 5 (4.5-8.0) Urine Specific [place] 1.020 (1.005-1.035) Urine Protein 1+ (NEGATIVE) H Urine Glucose (UA) Negative (NEGATIVE) Urine Ketones Negative (NEGATIVE) Urine Blood Negative (NEGATIVE) Urine Nitrite Negative (NEGATIVE) Urine Bilirubin Negative (NEGATIVE) Urine Urobilinogen Normal MG/DL (0.0-1.0) Urine Leukocyte Esterase 1+ (NEGATIVE) H Urine RBC 2-4 /HPF (0 - 2) H Urine WBC 0-2 /HPF (0 - 2) Urine Squamous Epithelial Cells Moderate /LPF (NONE/OCC) H Urine Bacteria Few /HPF (NONE) Microbiology Date/Time Source Procedure Growth Status 04/28/18 02:10 Rectum Received Height (Feet): 5 Height (Inches): 2.00 Weight (Pounds): 107 Medications Current Medications Medications (Trade) Dose Ordered Sig/Zee Route PRN Reason Start Time Stop Time Status Last Admin Dose Admin Acetaminophen (Tylenol) 650 mg Q4H PRN ORAL FEVER 04/28/18 05:00 05/28/18 04:59 Albuterol/ Ipratropium (Albuterol/ Ipratropium) 3 ml Q4H PRN HHN Shortness of Breath 04/28/18 05:00 05/03/18 04:59 Aspirin (ASA) 81 mg DAILY ORAL 04/29/18 09:00 05/29/18 08:59 Atorvastatin Calcium (Lipitor) 40 mg BEDTIME ORAL 04/28/18 21:00 05/28/18 20:59 04/28/18 20:52 Carbidopa/Levodopa (Sinemet 25/100) 1 tab THREE TIMES A DAY ORAL 04/28/18 09:00 05/28/18 08:59 04/28/18 17:39 Dextrose (Dextrose 50%) 25 ml Q30M PRN IV Hypoglycemia 04/28/18 08:30 05/28/18 08:29 Dextrose (Dextrose 50%) 50 ml Q30M PRN IV Hypoglycemia 04/28/18 08:30 05/28/18 08:29 Diltiazem HCl (Cardizem) 10 mg Q1H PRN IV heart rate more than 120, 04/28/18 05:00 05/28/18 04:59 Enalaprilat (Vasotec) 2.5 mg Q6H PRN IV sbp more than 160 04/28/18 05:00 05/28/18 04:59 Furosemide (Lasix) 20 mg DAILY IV 04/28/18 14:00 05/28/18 13:59 04/28/18 15:12 Insulin Aspart (NovoLOG) BEFORE MEALS AND HS SUBQ 04/28/18 11:30 05/28/18 11:29 04/28/18 13:00 Ketorolac Tromethamine (Toradol 30mg) 15 mg Q6HR PRN IV moderate pain ( 4-6) 04/28/18 05:00 05/03/18 04:59 Levothyroxine Sodium (Synthroid) 50 mcg DAILY@0600 ORAL 04/28/18 06:00 05/28/18 05:59 04/28/18 05:52 Metoprolol Tartrate (Lopressor) 12.5 mg EVERY 12 HOURS ORAL 04/28/18 09:00 05/28/18 08:59 04/28/18 20:52 Morphine Sulfate (Morphine Sulfate) 2 mg Q4H PRN IVP severe Pain (Pain Scale 7-10) 04/28/18 05:00 05/05/18 04:59 Nitroglycerin (Nitro-Bid) 1 inch TID@0600,1200,1800 TOPIC 04/28/18 18:00 05/28/18 17:59 04/28/18 17:39 Nitroglycerin (Ntg) 0.4 mg Q5M PRN SL Prn Chest Pain 04/28/18 05:00 05/28/18 04:59 Ondansetron HCl (Zofran) 4 mg Q6H PRN IVP Nausea & Vomiting 04/28/18 05:00 05/28/18 04:59 Polyethylene Glycol (Miralax) 17 gm DAILYPRN PRN ORAL Constipation 04/28/18 05:00 05/28/18 04:59 Rivaroxaban (Xarelto) 15 mg BIOTEC ORAL 04/28/18 21:00 05/28/18 20:59 04/28/18 20:52 Temazepam (Restoril) 15 mg HSPRN PRN ORAL Insomnia 04/28/18 05:00 05/05/18 04:59 Tramadol HCl (Ultram) 50 mg Q6H PRN ORAL Severe Pain (Pain Scale 7-10) 04/28/18 05:00 05/05/18 04:59 Assessment/Plan Status: unchanged Assessment/Plan Anxiety d/o depressive d/o dementia -ativan prn -provided marium/Bryan Venegas MD Apr 28, 2018 23:18
--- NOTE | 2018-04-28 23:30 | History and Physical Report ---
DATE OF ADMISSION: 04/28/2018 CHIEF COMPLAINT: The patient is a 78-year-old female, presents with chief complaint of chest pain. HISTORY OF PRESENT ILLNESS: The patient is a resident of [facility]. According to staff at [facility], history of present illness began yesterday. The patient states she began to experience right lower molar pain. The patient states the pain then radiated to her chest. The patient states the pain then radiated to her stomach. The patient presented to [place] emergency room. The patient is admitted for chest pain to rule out acute coronary syndrome. REVIEW OF SYSTEMS: CONSTITUTIONAL: The patient denies weight loss or weight gain. The patient denies fevers or chills. HEENT: The patient complains of tooth pain as above. The patient denies headache or throat pain. CARDIOVASCULAR: The patient denies palpitations. The patient complains of chest pain as above. ABDOMEN: The patient denies nausea, vomiting, diarrhea, or constipation. GENITOURINARY: The patient denies dysuria or increased of frequency urination. NEUROMUSCULAR: The patient denies generalized weakness. The patient does have a history of seizures. PAST MEDICAL HISTORY: Significant for: 1. Atrial fibrillation. 2. History of coronary artery disease. 3. Diabetes type 2. 4. History of deep venous thrombosis. 5. Hypertension. 6. Hypothyroidism. 7. Seizure disorder. 8. History of cerebrovascular accident. 9. Left hemiparesis. 10. History of subdural hematoma. PAST SURGICAL HISTORY: Significant for: 1. Coronary artery bypass graft. 2. Craniotomy, secondary to subdural hematoma. CURRENT MEDICATIONS: 1. Folic acid 1 mg p.o. daily. 2. Levoxyl 0.05 mg by p.o. daily. 3. Lipitor 10 mg p.o. daily. 4. Magnesium oxide 400 mg p.o. daily. 5. Metoprolol 25 mg one-half tablet p.o. twice daily. 6. Zantac 150 mg p.o. twice daily. 7. Sinemet 25/100 one tablet p.o. three times daily. 8. Carbamazepine 200 mg p.o. twice daily. 9. Xarelto 15 mg p.o. daily. 10. Digoxin 0.25 mg p.o. daily. 11. Aspirin 81 mg p.o. daily. 12. Linzess 290 mcg p.o. daily. ALLERGIES: Sulfa. 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 The patient denies tobacco or alcohol use. PHYSICAL EXAMINATION: VITAL SIGNS: Temperature 98.6, respirations 20, pulse 100, and blood pressure 157/74. GENERAL: The patient is a well-developed and well-nourished white female, in no apparent distress. HEENT: Eyes, pupils equal and responsive to light and accommodation. Extraocular movements are intact. NECK: Supple without lymphadenopathy. CHEST: Lungs are clear to auscultation bilaterally without wheezes or rales. CARDIOVASCULAR: Regular rate. S1, S2 normal without murmurs, rubs, or gallops. ABDOMEN: Soft, nontender, and nondistended. Positive bowel sounds. No evidence of hepatosplenomegaly. Currently, no rebound or guarding noted. EXTREMITIES: Negative for clubbing, cyanosis, or edema. RECTAL: Refused. GENITAL: Refused. NEUROLOGIC: Cranial nerves II through XII are grossly are intact without focal deficits. Motor strength is 5/5 bilaterally. Deep tendon reflexes are 2+ plantar. LABORATORY STUDIES: WBC 6.2, hemoglobin 12.9, hematocrit 36.0, and platelets 113,000. Sodium 144, potassium 4.0, chloride 106, CO2 15, BUN 0.9, and glucose 119. Troponin elevated at 0.042. ASSESSMENT: This is a 78-year-old white female with: 1. Chest pain. 2. Tooth pain. 3. History of coronary artery disease. 4. Diabetes type 2. 5. Hypertension. 6. Hypothyroidism. 7. Seizure disorder. 8. Cerebrovascular disease. 9. Left hemiparesis. 10. History of subdural hematoma. 11. History of deep venous thrombosis. 12. Hypercholesterolemia. TREATMENT: 1. Chest pain. A Cardiology consultation has been obtained with Dr. Barber Mack. We will follow recommendations of Cardiology. Serial troponin levels will be performed. 2. Diabetes type 2. The patient is currently not on antihyperglycemic medications. Serial laboratory studies will be performed. 3. Hypertension. Continue metoprolol as above. 4. Hypothyroidism. Continue Levoxyl as above. 5. Seizure disorder. Continue carbamazepine as above. 6. Cerebrovascular disease. 7. Left hemiparesis. 8. History of subdural hematoma. 9. History of deep venous thrombosis. 10. Hypercholesterolemia. Continue Lipitor as above. Bryan Jackson M.D. DR: ALOK JOB#: [id number] CC:
[2018-04-29] VITALS: BP 130/61
--- NOTE | 2018-04-29 02:30 | Consultation ---
DATE OF CONSULTATION: 04/28/2018 CARDIOLOGY CONSULTATION CONSULTING PHYSICIAN: Barber Mack M.D. REFERRING PHYSICIAN: Carlos Junior M.D. REASON FOR REFERRAL: Abnormal cardiac enzymes. HISTORY OF PRESENT ILLNESS: This is a 78-year-old female, who has a history of multiple medical problems as delineated below. The patient's information was obtained from the patient as well as review of the records from [facility] where she previously had most of her care. She is a resident of [facility] facility came into the hospital because of burning sensation that started in the stomach up to her chest. She states that she had a similar event approximately one week ago and stayed there for all day and then again yesterday. She did get nitroglycerin and some liquid medication for stomach and she tells that seems to have helped. She does not have any chest pain at the present time. She does not have any shortness of breath. There is no PND or orthopnea. She occasionally feels her heart beating fast and she is able to take her pulse, she states. She is comfortable at the present time. PAST MEDICAL HISTORY: From [facility] records is positive for history of coronary artery disease for which she underwent a coronary bypass grafting in 2007 with BELCHER to LAD and saphenous vein graft to right posterior descending artery. She also has a bovine pericardial prosthesis in the aortic valve and [place] epic porcine prosthesis in the mitral valve position, underwent cryo-maze procedure as well at that time. She also has a history of a prior history of prosthetic valve endocarditis, renal failure, atrial fibrillation, history of hypertension, hyperlipidemia, cerebrovascular accident, left-sided hemiparesis, psoriasis, psoriatic arthritis, urinary tract infections. She has had a CVA, chronic constipation, hypothyroidism, anemia of chronic disease and hemorrhoids as well as deep venous thromboses and pulmonary hypertension, history of craniotomy, evaluation of hematoma back in 2013, hypothyroidism, history of transient ischemic attacks, subdural hematoma for which she underwent craniotomy. SOCIAL HISTORY: [facility]. No alcohol, smoking, or tobacco use. 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 She is originally immigrant from [place]. She tells me her old sister and brother have passed on. She has one brother who is not doing well but otherwise she does not have any kids or any other family members to help her make decisions. ALLERGIES: She is allergic to sulfa and infliximab which cause pruritus and also niacin. REVIEW OF SYSTEMS: GASTROINTESTINAL: As mentioned with burning sensation started in the stomach to the chest. No nausea. She did have diarrhea she says. She did have some nausea and vomiting as well. No bloody stools or black tarry stools. She has chronic constipation. CONSTITUTIONAL: Denies any fever, chills, night sweats. PULMONARY: Denies any coughing or wheezing. NEUROLOGIC: Basically limited mobility. She does walk around the facility at times when she has taken around. PHYSICAL EXAMINATION: GENERAL: Shows to be elderly female, in no respiratory distress. NECK: Supple. No jugular venous distention. LUNGS: Appear to be clear to auscultation and percussion. CARDIAC: S1 is normal. S2 is normal. Regular rate and rhythm. No heaves, thrills, gallops, or rubs are noted. ABDOMEN: Soft and nontender. Positive bowel sounds. EXTREMITIES: There is no clubbing, cyanosis, or edema. NEUROLOGIC: She is awake, alert, responsive, in no apparent respiratory distress. LABORATORY AND DIAGNOSTIC DATA: A set of cardiac enzymes from yesterday 0.042 subsequent 0.172 early this morning. The rest of her laboratories, sodium 144, potassium 4.0, chloride 106, bicarb 31, BUN 15, creatinine 0.9, glucose of 119. Liver test relatively normal. CK of 24. ProBNP of only 609 and lipase of 254 which is normal at this hospital. Coags, INR 1.0, PTT of 26. Her urinalysis is rbc's Did have x-ray of her chest that was performed yesterday that basically showed mild pulmonary edema, suspected to be superimposed, left lower lobe atelectasis or pneumonia versus aspiration, small left pleural effusion being noted. EKG basically shows sinus rhythm with ST and T-wave changes and depression, II, III, and aVF, V4, V5, and V6. She does have a history of a bout of tachycardia for which she was admitted to the hospital. The heart rate is 123, possible atrial fibrillation with ST segment depressions being noted. In direct comparison with EKGs from [facility], the last being performed back in 2016 some of those EKG changes in II, III, and aVF were present but the remainder in V4, V5, and V6 are new. Echocardiogram performed which I reviewed LV function was normal. She does have a prior bioprosthetic aortic mitral valve, gradients are not significantly elevated. She does have some increased echoes almost masslike structure in the posterior wall of the left atrium, this mass structure does not appear to be mobile in the limited views that was visualized and I actually had a chance to review the echocardiogram from [facility] personally and in direct comparison it was not present at that time. This requires further evaluation as well. ASSESSMENT AND PLAN: 1. Epigastric chest pain. 2. Proximal episodes of atrial fibrillation. 3. 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 4. Acute coronary syndrome. 5. Coronary artery disease status post coronary artery bypass grafting. 6. History of aortic and mitral valve bioprosthetic replacement. 7. History of endocarditis of the prosthetic valve previously. 8. History of CVA previously. Dr. Junior, this patient was seen in cardiac consultation. Because of her cardiac enzymes being abnormal, I would recommend she be on anticoagulation with heparin if she has not been receiving any anticoagulation. I would discontinue use of Xarelto and then consider putting on anticoagulation with heparin and she will likely require further testing may be invasive cardiac ischemia evaluation and also possibly transesophageal echocardiogram for further delineation of left atrial abnormality noted on the echocardiogram here at [facility]. Beta-blockers should be administered for continuation of heart rate control and low-dose aspirin will be provided in light of chest pain and abnormal cardiac enzymes. Statins will be continued. Digoxin level will be checked. Nitroglycerin paste will be administered. Protonix be administered as well in light of the symptoms some of which may be GI in origin. Barber Mack M.D. DR: James JOB#: [id number] CC:
[2018-04-29 04:00] VITALS: BP 98/46
[2018-04-29] MEDS: Nitroglycerin 2% oint pkt TOPIC SCH ×3 (05:57→18:09)
[2018-04-29] MEDS: NovoLOG Insulin Flexpen SUBQ SCH ×5 (05:57→20:29)
[2018-04-29 07:13] LABS: BASOPHILS % (AUTO) 0.4 % (0.0-2.0); EOSINOPHILS % (AUTO) 0.9 % (0.0-3.0); HEMATOCRIT 33.9 % (37.0-47.0); HEMOGLOBIN 11.4 G/DL (12.0-16.0); LYMPHOCYTES % (AUTO) 22.6 % (20.0-45.0); MEAN CORPUSCULAR VOLUME 87 FL (80-99); MONOCYTES % (AUTO) 10.5 % (1.0-10.0); NEUTROPHILS % (AUTO) 65.7 % (45.0-75.0); PLATELET COUNT 101 K/UL (150-450); RED BLOOD COUNT 3.91 M/UL (4.20-5.40); RED CELL DISTRIBUTION WIDTH 11.6 % (11.6-14.8); WHITE BLOOD COUNT 3.8 K/UL (4.8-10.8)
[2018-04-29 07:27] LABS: INR 1.2 (0.9-1.1)
[2018-04-29 07:38] LABS: ANION GAP 8 mmol/L (5-15); BLOOD UREA NITROGEN 22 mg/dL (7-18); CALCIUM 8.8 MG/DL (8.5-10.1); CARBON DIOXIDE 28 MMOL/L (21-32); CHLORIDE 105 MMOL/L (98-107); POTASSIUM 3.9 MMOL/L (3.5-5.1); SODIUM 141 MMOL/L (136-145)
[2018-04-29 07:54] LABS: CHOLESTEROL 206 MG/DL (< 200); HDL CHOLESTEROL 53 MG/DL (40-60); TRIGLYCERIDES 93 MG/DL (30-150)
[2018-04-29 08:00] VITALS: BP 116/53
--- NOTE | 2018-04-29 08:00 | Pulmonology Progress Note ---
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 elevated troponin, possible ACS mild pulm edema hypertension hypercholesteremia diabetes mellitus history of CVA hyperlipidemia hx of endocarditis Parkinson disease protein calorie malnutrition hypothyroidism moderate pulm HTN PLAN OF CARE tele troponin this am with mild elevation, but trending down ; prior two elevated cardio eval noted and appreciated Cardio recommended a/coagulation with heparin ( and dc Xarelto) , ischemia evaluation and RAGHAV to check for suspected left atrial mass at this time on Xarelto ECHO with pEF 65-70%, RVSP with 46 c/w moderate pulmonary HTN ; +echogenic material L atrium antiplatelet therapy with ASA, on BB and statin lipid panel with elevated TC and LDL , statin dose increased by cardio nitroglycerin prn further management as per cardio - conservative Rx vs transfer to [facility] O2 titrate to keep pulse ox above 92 %, pulmonary toilet prn pro BNP trending up, fup with CXR low dose of diuretic with close monitoring of cardiorenal parameters and volumes Venous duplex bilateral lower extremity Pain management Sinemet and levothyroxine resumed, TSH WNL Blood sugar management with sensitive SSI prn / hemoglobin A1c-5.1 dietary evaluation bedside swallow evaluation Supportive care DNR/DNI status case discussed and evaluated by supervising physician Subjective Allergies: Coded Allergies: INFLIXIMAB (Verified Allergy, Intermediate, 04/20/16) NIACIN (Verified Allergy, Intermediate, 04/20/16) SULFA (SULFONAMIDE ANTIBIOTICS) (Verified Allergy, Intermediate, 04/20/16) Uncoded Allergies: SULFONAMIDES (Allergy, Unknown, 04/28/18) Subjective troponin still with mild elevation, trending down ; prior two troponin elevated cardio seen and evaluated Objective Last 24 Hour Vital Signs Date Time Temp Pulse Resp B/P (MAP) Pulse Ox O2 Delivery O2 Flow Rate FiO2 04/29/18 05:57 90/46 04/29/18 04:00 97.0 71 20 98/46 (63) 97 04/29/18 04:00 59 04/29/18 00:00 98.0 78 20 130/61 (84) 95 04/29/18 00:00 80 04/28/18 21:00 Nasal Cannula 2.0 04/28/18 20:52 86 122/71 04/28/18 20:00 98.6 91 20 122/71 (88) 100 04/28/18 20:00 86 04/28/18 17:39 120/67 04/28/18 16:00 79 04/28/18 15:55 98.3 107 18 120/67 (84) 97 04/28/18 12:00 125 04/28/18 12:00 98.7 76 18 109/60 (76) 100 04/28/18 09:00 Nasal Cannula 2.0 04/28/18 08:49 78 04/28/18 08:07 100 157/74 04/28/18 08:05 98.6 100 20 157/74 (101) 100 Intake and Output 04/28/18 04/29/18 19:00 07:00 Intake Total 360 ml 180 ml Balance 360 ml 180 ml Intake Oral 360 ml 180 ml # Voids 3 4 # Bowel Movements 1 Objective General Appearance: no apparent distress, alert HEENT: normocephalic, atraumatic, awake, responsive Neck: non-tender, supple Cardiovascular/Chest: normal peripheral pulses, SR on tele Abdomen: normal bowel sounds, non tender, soft Extremities: no edema Skin Exam: warm/dry Neurologic: abnormal gait, alert, awake and resposnive Musculoskeletal: atrophy - BLE Microbiology Date/Time Source Procedure Growth Status 04/28/18 02:10 Rectum Received Laboratory Tests 04/28/18 15:00: Troponin I 0.359H 04/29/18 05:20: Troponin I [Pending], White Blood Count 3.8L, Red Blood Count 3.91L, Hemoglobin 11.4L, Hematocrit 33.9L, Mean Corpuscular Volume 87, Mean Corpuscular Hemoglobin 29.2, Mean Corpuscular Hemoglobin Concent 33.8, Red Cell Distribution Width 11.6, Platelet Count 101L, Mean Platelet Volume 5.9L, Neutrophils (%) (Auto) 65.7, Lymphocytes (%) (Auto) 22.6, Monocytes (%) (Auto) 10.5H, Eosinophils (%) (Auto) 0.9, Basophils (%) (Auto) 0.4, Prothrombin Time 13.0H, Prothromb Time International Ratio 1.2H, Activated Partial Thromboplast Time 42H, Sodium Level 141, Potassium Level 3.9, Chloride Level 105, Carbon Dioxide Level 28, Anion Gap 8, Blood Urea Nitrogen 22H, Creatinine 1.0, Estimat Glomerular Filtration Rate , Glucose Level 92, Hemoglobin A1c 5.1, Calcium Level 8.8, C-Reactive Protein, Quantitative [Pending], Pro-B-Type Natriuretic Peptide [Pending], Triglycerides Level [Pending], Cholesterol Level [Pending], LDL Cholesterol [Pending], HDL Cholesterol [Pending], Cholesterol/HDL Ratio [ Pending], Thyroid Stimulating Hormone (TSH) [Pending] Current Medications Medications (Trade) Dose Ordered Sig/Zee Route PRN Reason Start Time Stop Time Status Last Admin Dose Admin Acetaminophen (Tylenol) 650 mg Q4H PRN ORAL FEVER 04/28/18 05:00 05/28/18 04:59 Albuterol/ Ipratropium (Albuterol/ Ipratropium) 3 ml Q4H PRN HHN Shortness of Breath 04/28/18 05:00 05/03/18 04:59 Aspirin (ASA) 81 mg DAILY ORAL 04/29/18 09:00 05/29/18 08:59 Atorvastatin Calcium (Lipitor) 40 mg BEDTIME ORAL 04/28/18 21:00 05/28/18 20:59 04/28/18 20:52 Carbidopa/Levodopa (Sinemet 25/100) 1 tab THREE TIMES A DAY ORAL 04/28/18 09:00 05/28/18 08:59 04/28/18 17:39 Dextrose (Dextrose 50%) 25 ml Q30M PRN IV Hypoglycemia 04/28/18 08:30 05/28/18 08:29 Dextrose (Dextrose 50%) 50 ml Q30M PRN IV Hypoglycemia 04/28/18 08:30 05/28/18 08:29 Diltiazem HCl (Cardizem) 10 mg Q1H PRN IV heart rate more than 120, 04/28/18 05:00 05/28/18 04:59 Enalaprilat (Vasotec) 2.5 mg Q6H PRN IV sbp more than 160 04/28/18 05:00 05/28/18 04:59 Furosemide (Lasix) 20 mg DAILY IV 04/28/18 14:00 05/28/18 13:59 04/28/18 15:12 Insulin Aspart (NovoLOG) BEFORE MEALS AND HS SUBQ 04/28/18 11:30 05/28/18 11:29 04/28/18 13:00 Ketorolac Tromethamine (Toradol 30mg) 15 mg Q6HR PRN IV moderate pain ( 4-6) 04/28/18 05:00 05/03/18 04:59 Levothyroxine Sodium (Synthroid) 50 mcg DAILY@0600 ORAL 04/28/18 06:00 05/28/18 05:59 04/29/18 06:00 Metoprolol Tartrate (Lopressor) 12.5 mg EVERY 12 HOURS ORAL 04/28/18 09:00 05/28/18 08:59 04/28/18 20:52 Morphine Sulfate (Morphine Sulfate) 2 mg Q4H PRN IVP severe Pain (Pain Scale 7-10) 04/28/18 05:00 05/05/18 04:59 Nitroglycerin (Nitro-Bid) 1 inch TID@0600,1200,1800 TOPIC 04/28/18 18:00 05/28/18 17:59 04/28/18 17:39 Nitroglycerin (Ntg) 0.4 mg Q5M PRN SL Prn Chest Pain 04/28/18 05:00 05/28/18 04:59 Ondansetron HCl (Zofran) 4 mg Q6H PRN IVP Nausea & Vomiting 04/28/18 05:00 05/28/18 04:59 Polyethylene Glycol (Miralax) 17 gm DAILYPRN PRN ORAL Constipation 04/28/18 05:00 05/28/18 04:59 Rivaroxaban (Xarelto) 15 mg QHS ORAL 04/29/18 21:00 05/28/18 20:59 Temazepam (Restoril) 15 mg HSPRN PRN ORAL Insomnia 04/28/18 05:00 05/05/18 04:59 Tramadol HCl (Ultram) 50 mg Q6H PRN ORAL Severe Pain (Pain Scale 7-10) 04/28/18 05:00 05/05/18 04:59 Mesha Rosario EDUCATIONAL ADVISER Apr 29, 2018 08:00
[2018-04-29] MEDS: Levodopa/Carbidopa 25/100 tab ORAL SCH ×3 (08:58→18:09)
[2018-04-29] MEDS: Aspirin Baby 81mg ORAL SCH (08:58)
[2018-04-29] MEDS: Metoprolol 25mg tab ORAL SCH ×2 (08:58→20:26)
[2018-04-29 12:00] VITALS: BP 103/53
--- NOTE | 2018-04-29 13:10 | Internal Med Progress Note ---
Subjective Date of Service: Apr 29, 2018 Physician Name Jackson,Bryan Attending Physician Carlos Junior MD Current Medications Medications (Trade) Dose Ordered Sig/Zee Route PRN Reason Start Time Stop Time Status Last Admin Dose Admin Acetaminophen (Tylenol) 650 mg Q4H PRN ORAL FEVER 04/28/18 05:00 05/28/18 04:59 Albuterol/ Ipratropium (Albuterol/ Ipratropium) 3 ml Q4H PRN HHN Shortness of Breath 04/28/18 05:00 05/03/18 04:59 Aspirin (ASA) 81 mg DAILY ORAL 04/29/18 09:00 05/29/18 08:59 04/29/18 08:58 Atorvastatin Calcium (Lipitor) 40 mg BEDTIME ORAL 04/28/18 21:00 05/28/18 20:59 04/28/18 20:52 Carbidopa/Levodopa (Sinemet 25/100) 1 tab THREE TIMES A DAY ORAL 04/28/18 09:00 05/28/18 08:59 04/29/18 08:58 Dextrose (Dextrose 50%) 25 ml Q30M PRN IV Hypoglycemia 04/28/18 08:30 05/28/18 08:29 Dextrose (Dextrose 50%) 50 ml Q30M PRN IV Hypoglycemia 04/28/18 08:30 05/28/18 08:29 Diltiazem HCl (Cardizem) 10 mg Q1H PRN IV heart rate more than 120, 04/28/18 05:00 05/28/18 04:59 Enalaprilat (Vasotec) 2.5 mg Q6H PRN IV sbp more than 160 04/28/18 05:00 05/28/18 04:59 Furosemide (Lasix) 20 mg DAILY IV 04/28/18 14:00 05/28/18 13:59 04/29/18 08:59 Insulin Aspart (NovoLOG) BEFORE MEALS AND HS SUBQ 04/28/18 11:30 05/28/18 11:29 04/28/18 13:00 Ketorolac Tromethamine (Toradol 30mg) 15 mg Q6HR PRN IV moderate pain ( 4-6) 04/28/18 05:00 05/03/18 04:59 Levothyroxine Sodium (Synthroid) 50 mcg DAILY@0600 ORAL 04/28/18 06:00 05/28/18 05:59 04/29/18 06:00 Metoprolol Tartrate (Lopressor) 12.5 mg EVERY 12 HOURS ORAL 04/28/18 09:00 05/28/18 08:59 04/29/18 08:58 Morphine Sulfate (Morphine Sulfate) 2 mg Q4H PRN IVP severe Pain (Pain Scale 7-10) 04/28/18 05:00 05/05/18 04:59 Nitroglycerin (Nitro-Bid) 1 inch TID@0600,1200,1800 TOPIC 04/28/18 18:00 05/28/18 17:59 04/28/18 17:39 Nitroglycerin (Ntg) 0.4 mg Q5M PRN SL Prn Chest Pain 04/28/18 05:00 05/28/18 04:59 Ondansetron HCl (Zofran) 4 mg Q6H PRN IVP Nausea & Vomiting 04/28/18 05:00 05/28/18 04:59 Polyethylene Glycol (Miralax) 17 gm DAILYPRN PRN ORAL Constipation 04/28/18 05:00 05/28/18 04:59 Rivaroxaban (Xarelto) 15 mg QHS ORAL 04/29/18 21:00 05/28/18 20:59 Temazepam (Restoril) 15 mg HSPRN PRN ORAL Insomnia 04/28/18 05:00 05/05/18 04:59 Tramadol HCl (Ultram) 50 mg Q6H PRN ORAL Severe Pain (Pain Scale 7-10) 04/28/18 05:00 05/05/18 04:59 Allergies: Coded Allergies: INFLIXIMAB (Verified Allergy, Intermediate, 04/20/16) NIACIN (Verified Allergy, Intermediate, 04/20/16) SULFA (SULFONAMIDE ANTIBIOTICS) (Verified Allergy, Intermediate, 04/20/16) Uncoded Allergies: SULFONAMIDES (Allergy, Unknown, 04/28/18) ROS Limited/Unobtainable: No Constitutional: Reports: no symptoms HEENT: Reports: no symptoms Cardiovascular: Reports: no symptoms Respiratory: Reports: no symptoms Gastrointestinal/Abdominal: Reports: no symptoms Genitourinary: Reports: no symptoms Neurologic/Psychiatric: Reports: no symptoms Subjective 78 YO F admitted with chief complaint chest pain. Now elevated cardiac enzymes. Cover for Int Med-Dr Junior. Objective Last Vital Signs Date Time Temp Pulse Resp B/P (MAP) Pulse Ox O2 Delivery O2 Flow Rate FiO2 04/29/18 12:00 63 04/29/18 12:00 97.8 18 103/53 (70) 99 04/29/18 09:00 Nasal Cannula 2.0 General Appearance: WD/WN, no apparent distress, alert EENT: PERRL/EOMI, normal ENT inspection Neck: non-tender, normal alignment, supple, normal inspection Cardiovascular: normal peripheral pulses, normal rate, regular rhythm, no gallop/murmur, no JVD Respiratory/Chest: chest wall non-tender, lungs clear, normal breath sounds, no respiratory distress, no accessory muscle use Abdomen: normal bowel sounds, non tender, soft, no organomegaly, no mass Extremities: normal range of motion, non-tender 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 II-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 grossly normal, no motor/sensory deficits Skin: normal pigmentation, warm/dry Laboratory Tests Test 04/28/18 15:00 04/29/18 05:20 Troponin I 0.359 ng/mL (0.000-0.056) 0.215 ng/mL (0.000-0.056) White Blood Count 3.8 K/UL (4.8-10.8) L Red Blood Count 3.91 M/UL (4.20-5.40) L Hemoglobin 11.4 G/DL (12.0-16.0) L Hematocrit 33.9 % (37.0-47.0) L Mean Corpuscular Volume 87 FL (80-99) Mean Corpuscular Hemoglobin 29.2 PG (27.0-31.0) Mean Corpuscular Hemoglobin Concent 33.8 G/DL (32.0-36.0) Red Cell Distribution Width 11.6 % (11.6-14.8) Platelet Count 101 K/UL (150-450) L Mean Platelet Volume 5.9 FL (6.5-10.1) L Neutrophils (%) (Auto) 65.7 % (45.0-75.0) Lymphocytes (%) (Auto) 22.6 % (20.0-45.0) Monocytes (%) (Auto) 10.5 % (1.0-10.0) H Eosinophils (%) (Auto) 0.9 % (0.0-3.0) Basophils (%) (Auto) 0.4 % (0.0-2.0) Prothrombin Time 13.0 SEC (9.30-11.50) H Prothromb Time International Ratio 1.2 (0.9-1.1) H Activated Partial Thromboplast Time 42 SEC (23-33) H Sodium Level 141 MMOL/L (136-145) Potassium Level 3.9 MMOL/L (3.5-5.1) Chloride Level 105 MMOL/L (98-107) Carbon Dioxide Level 28 MMOL/L (21-32) Anion Gap 8 mmol/L (5-15) Blood Urea Nitrogen 22 mg/dL (7-18) H Creatinine 1.0 MG/DL (0.55-1.30) Estimat Glomerular Filtration Rate mL/min (>60) Glucose Level 92 MG/DL (74-106) Hemoglobin A1c 5.1 % (4.3-6.0) Calcium Level 8.8 MG/DL (8.5-10.1) C-Reactive Protein, Quantitative 11.6 mg/dL (0.00-0.90) H Pro-B-Type Natriuretic Peptide 1825 pg/mL (0-125) H Triglycerides Level 93 MG/DL (30-150) Cholesterol Level 206 MG/DL (< 200) H LDL Cholesterol 129 mg/dL (<100) H HDL Cholesterol 53 MG/DL (40-60) Cholesterol/HDL Ratio 3.9 (3.3-4.4) Thyroid Stimulating Hormone (TSH) 2.285 uiU/mL (0.358-3.740) Microbiology Date/Time Source Procedure Growth Status 04/28/18 01:45 Blood Blood Culture - Preliminary NO GROWTH AFTER 24 HOURS Resulted 04/28/18 01:30 Blood Blood Culture - Preliminary NO GROWTH AFTER 24 HOURS Resulted 04/28/18 02:10 Rectum Received Intake and Output 04/28/18 04/29/18 19:00 07:00 Intake Total 360 ml 180 ml Balance 360 ml 180 ml Intake Oral 360 ml 180 ml # Voids 3 4 # Bowel Movements 1 Assessment/Plan Problem List: (1) Cerebral vascular disease (2) Left hemiparesis (3) Hypercholesterolemia Assessment & Plan: Continue lipitor (4) History of DVT (deep vein thrombosis) (5) History of subdural hematoma (6) Elevated troponin Assessment & Plan: See cardiology note. (7) CHF (congestive heart failure) (8) CAD (coronary artery disease) (9) Diabetes mellitus type II, controlled Assessment & Plan: continue novolog sliding scale (10) HTN (hypertension) Assessment & Plan: continue lopressor (11) Hypothyroidism Assessment & Plan: continue levoxyl (12) Chest pain (13) Seizure disorder (14) Tooth abscess Assessment & Plan: continue augmentin Status: stable Bryan Jackson MD Apr 29, 2018 13:10
--- NOTE | 2018-04-29 14:03 | Cardiology Progress Note ---
Assessment/Plan Assessment/Plan 1. Epigastric chest pain /NSTEMI 2. Proximal episodes of atrial fibrillation. 3. 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 4. Acute coronary syndrome. 5. Coronary artery disease status post coronary artery bypass grafting. 6. History of aortic and mitral valve bioprosthetic replacement. 7. History of endocarditis of the prosthetic valve previously. 8. History of CVA previously. trop patterne suggestive of nstemi trop now down trending i have d/s tp option on invasive [facility] with it associated risk for coronary events i have also d/w pt regarding need to [facility] to idenitify if lesion in the left atrium is a true mass vs artifact she wants to think about the options she will let me know for nwo on xarelto and ecotrin and lipitor ekg still show s st depression in inferolateral lead (bnew in v4-v6) repeat trop in am Subjective Cardiovascular: Denies: chest pain, lightheadedness, palpitations Respiratory: Denies: shortness of breath Gastrointestinal/Abdominal: Denies: abdominal pain Genitourinary: Denies: burning Objective Last 24 Hour Vital Signs Date Time Temp Pulse Resp B/P (MAP) Pulse Ox O2 Delivery O2 Flow Rate FiO2 04/29/18 12:00 63 04/29/18 12:00 97.8 66 18 103/53 (70) 99 04/29/18 12:00 103/53 04/29/18 09:00 Nasal Cannula 2.0 04/29/18 08:58 68 116/53 04/29/18 08:00 71 04/29/18 08:00 97.9 68 18 116/53 (74) 98 04/29/18 05:57 90/46 04/29/18 04:00 97.0 71 20 98/46 (63) 97 04/29/18 04:00 59 04/29/18 00:00 98.0 78 20 130/61 (84) 95 04/29/18 00:00 80 04/28/18 21:00 Nasal Cannula 2.0 04/28/18 20:52 86 122/71 04/28/18 20:00 98.6 91 20 122/71 (88) 100 04/28/18 20:00 86 04/28/18 17:39 120/67 04/28/18 16:00 79 04/28/18 15:55 98.3 107 18 120/67 (84) 97 General Appearance: no apparent distress, alert Neck: non-tender Cardiovascular: normal rate, regular rhythm Respiratory/Chest: lungs clear Abdomen: normal bowel sounds, non tender, soft Extremities: no swelling Intake and Output 04/28/18 04/29/18 18:59 06:59 Intake Total 360 ml 180 ml Balance 360 ml 180 ml Intake Oral 360 ml 180 ml # Voids 3 4 # Bowel Movements 1 Laboratory Tests Test 04/28/18 15:00 04/29/18 05:20 Troponin I 0.359 ng/mL (0.000-0.056) 0.215 ng/mL (0.000-0.056) White Blood Count 3.8 K/UL (4.8-10.8) L Red Blood Count 3.91 M/UL (4.20-5.40) L Hemoglobin 11.4 G/DL (12.0-16.0) L Hematocrit 33.9 % (37.0-47.0) L Mean Corpuscular Volume 87 FL (80-99) Mean Corpuscular Hemoglobin 29.2 PG (27.0-31.0) Mean Corpuscular Hemoglobin Concent 33.8 G/DL (32.0-36.0) Red Cell Distribution Width 11.6 % (11.6-14.8) Platelet Count 101 K/UL (150-450) L Mean Platelet Volume 5.9 FL (6.5-10.1) L Neutrophils (%) (Auto) 65.7 % (45.0-75.0) Lymphocytes (%) (Auto) 22.6 % (20.0-45.0) Monocytes (%) (Auto) 10.5 % (1.0-10.0) H Eosinophils (%) (Auto) 0.9 % (0.0-3.0) Basophils (%) (Auto) 0.4 % (0.0-2.0) Prothrombin Time 13.0 SEC (9.30-11.50) H Prothromb Time International Ratio 1.2 (0.9-1.1) H Activated Partial Thromboplast Time 42 SEC (23-33) H Sodium Level 141 MMOL/L (136-145) Potassium Level 3.9 MMOL/L (3.5-5.1) Chloride Level 105 MMOL/L (98-107) Carbon Dioxide Level 28 MMOL/L (21-32) Anion Gap 8 mmol/L (5-15) Blood Urea Nitrogen 22 mg/dL (7-18) H Creatinine 1.0 MG/DL (0.55-1.30) Estimat Glomerular Filtration Rate mL/min (>60) Glucose Level 92 MG/DL (74-106) Hemoglobin A1c 5.1 % (4.3-6.0) Calcium Level 8.8 MG/DL (8.5-10.1) C-Reactive Protein, Quantitative 11.6 mg/dL (0.00-0.90) H Pro-B-Type Natriuretic Peptide 1825 pg/mL (0-125) H Triglycerides Level 93 MG/DL (30-150) Cholesterol Level 206 MG/DL (< 200) H LDL Cholesterol 129 mg/dL (<100) H HDL Cholesterol 53 MG/DL (40-60) Cholesterol/HDL Ratio 3.9 (3.3-4.4) Thyroid Stimulating Hormone (TSH) 2.285 uiU/mL (0.358-3.740) Microbiology Date/Time Source Procedure Growth Status 04/28/18 01:45 Blood Blood Culture - Preliminary NO GROWTH AFTER 24 HOURS Resulted 04/28/18 01:30 Blood Blood Culture - Preliminary NO GROWTH AFTER 24 HOURS Resulted 04/28/18 02:10 Rectum Received Barber Mack MD Apr 29, 2018 14:03
--- NOTE | 2018-04-29 14:24 | Cardiology Report ---
APPROVED REPORT EXAM: Two-dimensional and M-mode echocardiogram with Doppler and color Doppler. INDICATION LV FUNCTION M-Mode DIMENSIONS IVSd1.4 (0.7-1.1cm)Left Atrium (MM)4.0 (1.6-4.0cm) LVDd4.4 (3.5-5.6cm)Aortic Root2.8 (2.0-3.7cm) PWd1.3 (0.7-1.1cm)Aortic Cusp Exc.1.0 (1.5-2.0cm) IVSs1.6 cm LVDs3.4 (2.5-4.0cm) PWs1.9 cm Technically difficult study due to poor acoustical windows. Normal left ventricular chamber size, abnormal septal motion , basal hypokinesis. Left ventricular ejection fraction estimated to be 65-70 %. Study quality precludes accurate assessment of regional wall motion. Mild left ventricular hypertrophy. No evidence of pericardial effusion. Mild Left atrial enlargement. Bright echogenic material at size 3.1 x2.8 cm on left atrial chamber posterior wall is noted on the apical views , there does not appear to be any mobility of this mass , reverberration artrifact is felt to be less likley. IN MY DIRECT REVIEW OF ECHOCARDIOGRAM IMAGES AT [facility] PERFORMED IN 2010 THIS ECHOGENESITY WAS NOT PRESENT TO SUGGEST REVERBERRATION ARTIFACT. RAGHAV MAY BE INDICATED TO FURTHER CLARIFY IF AGGRESSIVE MANAGMENT IS DESIRED Right cardiac chamber sizes are within normal limits. Aortic valve bioprothesis is noted Mitral vavle bioprostheis is noted Pulmonic valve not well visualized. Normal tricuspid valve structure. A color flow and spectral Doppler study was performed and revealed: Mild aortic regurgitation.Peak gradient recorded across the aortic valve is 10 mmhg and mean gradient is 5 mmhg Peak gwen valve gradient of 15 mm Hg and a mean of 4 mmHg. Mild mitral regurgitation. Left ventricular diastolic function can not determined due to arrhythmia . Mild to Moderate tricuspid regurgitation. Tricuspid systolic velocities suggests peak right ventricular systolic pressure of 46 mmHg,consistent with moderate pulmonary hypertension. Trace Pulmonic regurgitation present.
[2018-04-29 16:00] VITALS: BP 123/52
[2018-04-29 20:00] VITALS: BP 110/57
[2018-04-29] MEDS: Atorvastatin 20mg tab ORAL SCH (20:25)
[2018-04-29] MEDS: Xarelto 15mg tab ORAL SCH (20:26)
[2018-04-30] VITALS: BP 109/57
[2018-04-30 04:00] VITALS: BP 125/69
[2018-04-30] MEDS: Nitroglycerin 2% oint pkt TOPIC SCH ×3 (06:06→17:30)
[2018-04-30] MEDS: NovoLOG Insulin Flexpen SUBQ SCH ×4 (06:08→21:00)
[2018-04-30 06:50] LABS: HEMATOCRIT 34.1 % (37.0-47.0); HEMOGLOBIN 11.6 G/DL (12.0-16.0); MEAN CORPUSCULAR VOLUME 86 FL (80-99); PLATELET COUNT 106 K/UL (150-450); RED BLOOD COUNT 3.95 M/UL (4.20-5.40); RED CELL DISTRIBUTION WIDTH 11.7 % (11.6-14.8); WHITE BLOOD COUNT 3.2 K/UL (4.8-10.8)
[2018-04-30 07:13] LABS: ANION GAP 6 mmol/L (5-15); BLOOD UREA NITROGEN 25 mg/dL (7-18); CARBON DIOXIDE 29 MMOL/L (21-32); CHLORIDE 106 MMOL/L (98-107); CREATININE 0.8 MG/DL (0.55-1.30); POTASSIUM 3.9 MMOL/L (3.5-5.1); SODIUM 141 MMOL/L (136-145)
[2018-04-30 07:53] VITALS: BP 144/61
[2018-04-30] MEDS: Metoprolol 25mg tab ORAL SCH ×2 (09:01→21:15)
[2018-04-30] MEDS: Aspirin Baby 81mg ORAL SCH (09:01)
[2018-04-30] MEDS: Levodopa/Carbidopa 25/100 tab ORAL SCH ×3 (09:01→17:29)
--- NOTE | 2018-04-30 11:18 | Pulmonology Progress Note ---
Assessment/Plan Problems: (1) Non-ST elevation (NSTEMI) myocardial infarction (2) Acute coronary syndrome (3) History of subdural hematoma (4) History of DVT (deep vein thrombosis) (5) Alzheimer's dementia (6) Diabetes mellitus type II, controlled (7) HTN (hypertension) (8) Left hemiparesis Assessment/Plan troponin trending down f/u cardiology recommendation symptomatic treatment might need transfer to higher level of care on Xarelto and Ecotrin for now Subjective ROS Limited/Unobtainable: No Constitutional: Reports: no symptoms Respiratory: Reports: no symptoms Allergies: Coded Allergies: INFLIXIMAB (Verified Allergy, Intermediate, 04/20/16) NIACIN (Verified Allergy, Intermediate, 04/20/16) SULFA (SULFONAMIDE ANTIBIOTICS) (Verified Allergy, Intermediate, 04/20/16) Uncoded Allergies: SULFONAMIDES (Allergy, Unknown, 04/28/18) Objective Last 24 Hour Vital Signs Date Time Temp Pulse Resp B/P (MAP) Pulse Ox O2 Delivery O2 Flow Rate FiO2 04/30/18 09:01 70 144/61 04/30/18 09:00 Nasal Cannula 2.0 04/30/18 08:00 90 04/30/18 07:53 97.6 70 20 144/61 (88) 95 04/30/18 06:06 125/69 04/30/18 04:00 97.0 69 20 125/69 (87) 97 04/30/18 04:00 67 04/30/18 00:00 97.2 60 18 109/57 (74) 98 04/30/18 00:00 80 04/29/18 21:00 Nasal Cannula 2.0 04/29/18 20:26 61 110/57 04/29/18 20:00 60 04/29/18 20:00 97.3 61 20 110/57 (74) 97 04/29/18 18:09 127/65 04/29/18 16:00 98.1 64 18 123/52 (75) 98 04/29/18 16:00 63 04/29/18 12:00 63 04/29/18 12:00 97.8 66 18 103/53 (70) 99 04/29/18 12:00 103/53 Intake and Output 04/29/18 04/30/18 19:00 07:00 Intake Total 420 ml 120 ml Output Total 250 ml Balance 170 ml 120 ml Intake Oral 420 ml 120 ml Output Urine Total 250 ml # Voids 4 General Appearance: WD/WN HEENT: normocephalic, atraumatic Respiratory/Chest: chest wall non-tender, lungs clear Abdomen: normal bowel sounds, soft, non tender Genitourinary: normal external genitalia Extremities: no clubbing Skin: no rash Microbiology Date/Time Source Procedure Growth Status 04/28/18 01:45 Blood Blood Culture - Preliminary NO GROWTH AFTER 48 HOURS Resulted 04/28/18 01:30 Blood Blood Culture - Preliminary NO GROWTH AFTER 48 HOURS Resulted 04/28/18 02:10 Nasal Nares MRSA Culture - Final NO METHICILLIN RESISTANT STAPH AUREUS... Complete 04/28/18 02:10 Rectum - Final NO CARBAPENEM-RESISTANT ENTEROBACTERI... Complete 04/28/18 02:10 Rectum VRE Culture - Final Enterococcus Faecalis - Vre Complete Laboratory Tests 04/30/18 06:10: White Blood Count 3.2L, Red Blood Count 3.95L, Hemoglobin 11.6L, Hematocrit 34.1L, Mean Corpuscular Volume 86, Mean Corpuscular Hemoglobin 29.4, Mean Corpuscular Hemoglobin Concent 34.0, Red Cell Distribution Width 11.7, Platelet Count 106L, Mean Platelet Volume 6.3L, Neutrophils (%) (Auto) , Lymphocytes (%) (Auto) , Monocytes (%) (Auto) , Eosinophils (%) (Auto) , Basophils (%) (Auto) , Neutrophils % (Manual) [Pending], Lymphocytes % (Manual) [Pending], Platelet Estimate [Pending], Platelet Morphology [Pending], Sodium Level 141, Potassium Level 3.9, Chloride Level 106, Carbon Dioxide Level 29, Anion Gap 6, Blood Urea Nitrogen 25H, Creatinine 0.8, Estimat Glomerular Filtration Rate , Glucose Level 98, Calcium Level 9.0, Troponin I 0.140H, Pro-B-Type Natriuretic Peptide 581H Current Medications Medications (Trade) Dose Ordered Sig/Zee Route PRN Reason Start Time Stop Time Status Last Admin Dose Admin Acetaminophen (Tylenol) 650 mg Q4H PRN ORAL FEVER 04/28/18 05:00 05/28/18 04:59 Albuterol/ Ipratropium (Albuterol/ Ipratropium) 3 ml Q4H PRN HHN Shortness of Breath 04/28/18 05:00 05/03/18 04:59 Aspirin (ASA) 81 mg DAILY ORAL 04/29/18 09:00 05/29/18 08:59 04/30/18 09:01 Atorvastatin Calcium (Lipitor) 40 mg BEDTIME ORAL 04/28/18 21:00 05/28/18 20:59 04/29/18 20:25 Carbidopa/Levodopa (Sinemet 25/100) 1 tab THREE TIMES A DAY ORAL 04/28/18 09:00 05/28/18 08:59 04/30/18 09:01 Dextrose (Dextrose 50%) 25 ml Q30M PRN IV Hypoglycemia 04/28/18 08:30 05/28/18 08:29 Dextrose (Dextrose 50%) 50 ml Q30M PRN IV Hypoglycemia 04/28/18 08:30 05/28/18 08:29 Diltiazem HCl (Cardizem) 10 mg Q1H PRN IV heart rate more than 120, 04/28/18 05:00 05/28/18 04:59 Enalaprilat (Vasotec) 2.5 mg Q6H PRN IV sbp more than 160 04/28/18 05:00 05/28/18 04:59 Furosemide (Lasix) 20 mg DAILY IV 04/28/18 14:00 05/28/18 13:59 04/30/18 09:01 Insulin Aspart (NovoLOG) BEFORE MEALS AND HS SUBQ 04/28/18 11:30 05/28/18 11:29 04/30/18 06:08 Ketorolac Tromethamine (Toradol 30mg) 15 mg Q6HR PRN IV moderate pain ( 4-6) 04/28/18 05:00 05/03/18 04:59 Levothyroxine Sodium (Synthroid) 50 mcg DAILY@0600 ORAL 04/28/18 06:00 05/28/18 05:59 04/30/18 06:06 Metoprolol Tartrate (Lopressor) 12.5 mg EVERY 12 HOURS ORAL 04/28/18 09:00 05/28/18 08:59 04/30/18 09:01 Morphine Sulfate (Morphine Sulfate) 2 mg Q4H PRN IVP severe Pain (Pain Scale 7-10) 04/28/18 05:00 05/05/18 04:59 Nitroglycerin (Nitro-Bid) 1 inch TID@0600,1200,1800 TOPIC 04/28/18 18:00 05/28/18 17:59 04/30/18 06:06 Nitroglycerin (Ntg) 0.4 mg Q5M PRN SL Prn Chest Pain 04/28/18 05:00 05/28/18 04:59 Ondansetron HCl (Zofran) 4 mg Q6H PRN IVP Nausea & Vomiting 04/28/18 05:00 05/28/18 04:59 Polyethylene Glycol (Miralax) 17 gm DAILYPRN PRN ORAL Constipation 04/28/18 05:00 05/28/18 04:59 Rivaroxaban (Xarelto) 15 mg QHS ORAL 04/29/18 21:00 05/28/18 20:59 04/29/18 20:26 Temazepam (Restoril) 15 mg HSPRN PRN ORAL Insomnia 04/28/18 05:00 05/05/18 04:59 Tramadol HCl (Ultram) 50 mg Q6H PRN ORAL Severe Pain (Pain Scale 7-10) 04/28/18 05:00 05/05/18 04:59 Koko Gee MD Apr 30, 2018 11:18
[2018-04-30 12:00] VITALS: BP 129/85
--- NOTE | 2018-04-30 12:18 | Diagnostic Imaging Report ---
APPROVED REPORT CPT Code: 77999 Present Symptoms Comments: R/O DVT BILATERAL: Imaging reveals a patent deep venous system bilaterally. There is no evidence of thrombus within the femoral, popliteal or tibial segments. The greater saphenous veins are also within normal limits. Doppler indicates normal spontaneous flow within these segments.
--- NOTE | 2018-04-30 13:13 | Diagnostic Imaging Report ---
Indication: Dyspnea Comparison: 04/28/2018 A single view chest radiograph was obtained. Findings: Mechanical aortic valve again noted with cardiomegaly and mild left basilar reticulation probably fibrosis. No infiltrate identified. Bones are osteopenic. IMPRESSION: No acute findings
--- NOTE | 2018-04-30 15:17 | General Progress Note ---
Assessment/Plan Assessment/Plan Anxiety d/o depressive d/o dementia -ativan prn -provided ro/st Subjective Date patient seen: Apr 30, 2018 Neurologic/Psychiatric: Reports: anxiety, depressed, emotional problems Allergies: Coded Allergies: INFLIXIMAB (Verified Allergy, Intermediate, 04/20/16) NIACIN (Verified Allergy, Intermediate, 04/20/16) SULFA (SULFONAMIDE ANTIBIOTICS) (Verified Allergy, Intermediate, 04/20/16) Uncoded Allergies: SULFONAMIDES (Allergy, Unknown, 04/28/18) Subjective the pt had concerns about POTTS Objective Last 24 Hour Vital Signs Date Time Temp Pulse Resp B/P (MAP) Pulse Ox O2 Delivery O2 Flow Rate FiO2 04/30/18 12:03 129/85 04/30/18 12:00 97.9 93 20 129/85 (100) 93 04/30/18 09:01 70 144/61 04/30/18 09:00 Nasal Cannula 2.0 04/30/18 08:00 90 04/30/18 07:53 97.6 70 20 144/61 (88) 95 04/30/18 06:06 125/69 04/30/18 04:00 97.0 69 20 125/69 (87) 97 04/30/18 04:00 67 04/30/18 00:00 97.2 60 18 109/57 (74) 98 04/30/18 00:00 80 04/29/18 21:00 Nasal Cannula 2.0 04/29/18 20:26 61 110/57 04/29/18 20:00 60 04/29/18 20:00 97.3 61 20 110/57 (74) 97 04/29/18 18:09 127/65 04/29/18 16:00 98.1 64 18 123/52 (75) 98 04/29/18 16:00 63 Intake and Output 04/29/18 04/30/18 19:00 07:00 Intake Total 420 ml 120 ml Output Total 250 ml Balance 170 ml 120 ml Intake Oral 420 ml 120 ml Output Urine Total 250 ml # Voids 4 Laboratory Tests 04/30/18 06:10: White Blood Count 3.2L, Red Blood Count 3.95L, Hemoglobin 11.6L, Hematocrit 34.1L, Mean Corpuscular Volume 86, Mean Corpuscular Hemoglobin 29.4, Mean Corpuscular Hemoglobin Concent 34.0, Red Cell Distribution Width 11.7, Platelet Count 106L, Mean Platelet Volume 6.3L, Neutrophils (%) (Auto) , Lymphocytes (%) (Auto) , Monocytes (%) (Auto) , Eosinophils (%) (Auto) , Basophils (%) (Auto) , Differential Total Cells Counted 100, Neutrophils % (Manual) 56, Lymphocytes % ( Manual) 30, Monocytes % (Manual) 12H, Eosinophils % (Manual) 2, Basophils % ( Manual) 0, Band Neutrophils 0, Platelet Estimate DecreasedL, Platelet Morphology Normal, Hypochromasia 1+, Anisocytosis 1+, Sodium Level 141, Potassium Level 3.9, Chloride Level 106, Carbon Dioxide Level 29, Anion Gap 6, Blood Urea Nitrogen 25H, Creatinine 0.8, Estimat Glomerular Filtration Rate , Glucose Level 98, Calcium Level 9.0, Troponin I 0.140H, Pro-B-Type Natriuretic Peptide 581H Height (Feet): 5 Height (Inches): 2.00 Weight (Pounds): 120 General Appearance: WD/WN, alert, mild distress Neurologic: depressed affect Bryan Spears MD Apr 30, 2018 15:17
--- NOTE | 2018-04-30 15:18 | Psych Consult Progress Note ---
Psych Consult Progress Note Consult 04/29/18 Vital Signs Last 24 Hour Vital Signs Date Time Temp Pulse Resp B/P (MAP) Pulse Ox O2 Delivery O2 Flow Rate FiO2 04/30/18 12:03 129/85 04/30/18 12:00 97.9 93 20 129/85 (100) 93 04/30/18 09:01 70 144/61 04/30/18 09:00 Nasal Cannula 2.0 04/30/18 08:00 90 04/30/18 07:53 97.6 70 20 144/61 (88) 95 04/30/18 06:06 125/69 04/30/18 04:00 97.0 69 20 125/69 (87) 97 04/30/18 04:00 67 04/30/18 00:00 97.2 60 18 109/57 (74) 98 04/30/18 00:00 80 04/29/18 21:00 Nasal Cannula 2.0 04/29/18 20:26 61 110/57 04/29/18 20:00 60 04/29/18 20:00 97.3 61 20 110/57 (74) 97 04/29/18 18:09 127/65 04/29/18 16:00 98.1 64 18 123/52 (75) 98 04/29/18 16:00 63 Labs Laboratory Tests Test 04/30/18 06:10 White Blood Count 3.2 K/UL (4.8-10.8) L Red Blood Count 3.95 M/UL (4.20-5.40) L Hemoglobin 11.6 G/DL (12.0-16.0) L Hematocrit 34.1 % (37.0-47.0) L Mean Corpuscular Volume 86 FL (80-99) Mean Corpuscular Hemoglobin 29.4 PG (27.0-31.0) Mean Corpuscular Hemoglobin Concent 34.0 G/DL (32.0-36.0) Red Cell Distribution Width 11.7 % (11.6-14.8) Platelet Count 106 K/UL (150-450) L Mean Platelet Volume 6.3 FL (6.5-10.1) L Neutrophils (%) (Auto) % (45.0-75.0) Lymphocytes (%) (Auto) % (20.0-45.0) Monocytes (%) (Auto) % (1.0-10.0) Eosinophils (%) (Auto) % (0.0-3.0) Basophils (%) (Auto) % (0.0-2.0) Differential Total Cells Counted 100 Neutrophils % (Manual) 56 % (45-75) Lymphocytes % (Manual) 30 % (20-45) Monocytes % (Manual) 12 % (1-10) H Eosinophils % (Manual) 2 % (0-3) Basophils % (Manual) 0 % (0-2) Band Neutrophils 0 % (0-8) Platelet Estimate Decreased L Platelet Morphology Normal Hypochromasia 1+ Anisocytosis 1+ Sodium Level 141 MMOL/L (136-145) Potassium Level 3.9 MMOL/L (3.5-5.1) Chloride Level 106 MMOL/L (98-107) Carbon Dioxide Level 29 MMOL/L (21-32) Anion Gap 6 mmol/L (5-15) Blood Urea Nitrogen 25 mg/dL (7-18) H Creatinine 0.8 MG/DL (0.55-1.30) Estimat Glomerular Filtration Rate mL/min (>60) Glucose Level 98 MG/DL (74-106) Calcium Level 9.0 MG/DL (8.5-10.1) Troponin I 0.140 ng/mL (0.000-0.056) Pro-B-Type Natriuretic Peptide 581 pg/mL (0-125) H Medications Current Medications Medications (Trade) Dose Ordered Sig/Zee Route PRN Reason Start Time Stop Time Status Last Admin Dose Admin Acetaminophen (Tylenol) 650 mg Q4H PRN ORAL FEVER 04/28/18 05:00 05/28/18 04:59 Albuterol/ Ipratropium (Albuterol/ Ipratropium) 3 ml Q4H PRN HHN Shortness of Breath 04/28/18 05:00 05/03/18 04:59 Aspirin (ASA) 81 mg DAILY ORAL 04/29/18 09:00 05/29/18 08:59 04/30/18 09:01 Atorvastatin Calcium (Lipitor) 40 mg BEDTIME ORAL 04/28/18 21:00 05/28/18 20:59 04/29/18 20:25 Carbidopa/Levodopa (Sinemet 25/100) 1 tab THREE TIMES A DAY ORAL 04/28/18 09:00 05/28/18 08:59 04/30/18 12:03 Dextrose (Dextrose 50%) 25 ml Q30M PRN IV Hypoglycemia 04/28/18 08:30 05/28/18 08:29 Dextrose (Dextrose 50%) 50 ml Q30M PRN IV Hypoglycemia 04/28/18 08:30 05/28/18 08:29 Diltiazem HCl (Cardizem) 10 mg Q1H PRN IV heart rate more than 120, 04/28/18 05:00 05/28/18 04:59 Furosemide (Lasix) 20 mg DAILY IV 04/28/18 14:00 05/28/18 13:59 04/30/18 09:01 Insulin Aspart (NovoLOG) BEFORE MEALS AND HS SUBQ 04/28/18 11:30 05/28/18 11:29 04/30/18 06:08 Levothyroxine Sodium (Synthroid) 50 mcg DAILY@0600 ORAL 04/28/18 06:00 05/28/18 05:59 04/30/18 06:06 Metoprolol Tartrate (Lopressor) 12.5 mg EVERY 12 HOURS ORAL 04/28/18 09:00 05/28/18 08:59 04/30/18 09:01 Morphine Sulfate (Morphine Sulfate) 2 mg Q4H PRN IVP severe Pain (Pain Scale 7-10) 04/28/18 05:00 05/05/18 04:59 Nitroglycerin (Nitro-Bid) 1 inch TID@0600,1200,1800 TOPIC 04/28/18 18:00 05/28/18 17:59 04/30/18 12:03 Nitroglycerin (Ntg) 0.4 mg Q5M PRN SL Prn Chest Pain 04/28/18 05:00 05/28/18 04:59 Ondansetron HCl (Zofran) 4 mg Q6H PRN IVP Nausea & Vomiting 04/28/18 05:00 05/28/18 04:59 Rivaroxaban (Xarelto) 15 mg QHS ORAL 04/29/18 21:00 05/28/18 20:59 04/29/18 20:26 Temazepam (Restoril) 15 mg HSPRN PRN ORAL Insomnia 04/28/18 05:00 05/05/18 04:59 Problems: (1) Anxiety Assessment & Plan: Anxiety d/o depressive d/o dementia -ativan prn -provided ro/st (2) Alzheimer's dementia Bryan Spears MD Apr 30, 2018 15:18
[2018-04-30] MEDS ORDERED: LORazepam 1mg tab ORAL PRN (15:20)
[2018-04-30 16:00] VITALS: BP 118/65
--- NOTE | 2018-04-30 18:36 | Internal Med Progress Note ---
Subjective Date of Service: Apr 30, 2018 Physician Name Bryan Jackson Attending Physician Carlos Junior MD Current Medications Medications (Trade) Dose Ordered Sig/Zee Route PRN Reason Start Time Stop Time Status Last Admin Dose Admin Acetaminophen (Tylenol) 650 mg Q4H PRN ORAL FEVER 04/28/18 05:00 05/28/18 04:59 Albuterol/ Ipratropium (Albuterol/ Ipratropium) 3 ml Q4H PRN HHN Shortness of Breath 04/28/18 05:00 05/03/18 04:59 Aspirin (ASA) 81 mg DAILY ORAL 04/29/18 09:00 05/29/18 08:59 04/30/18 09:01 Atorvastatin Calcium (Lipitor) 40 mg BEDTIME ORAL 04/28/18 21:00 05/28/18 20:59 04/29/18 20:25 Carbidopa/Levodopa (Sinemet 25/100) 1 tab THREE TIMES A DAY ORAL 04/28/18 09:00 05/28/18 08:59 04/30/18 17:29 Dextrose (Dextrose 50%) 25 ml Q30M PRN IV Hypoglycemia 04/28/18 08:30 05/28/18 08:29 Dextrose (Dextrose 50%) 50 ml Q30M PRN IV Hypoglycemia 04/28/18 08:30 05/28/18 08:29 Diltiazem HCl (Cardizem) 10 mg Q1H PRN IV heart rate more than 120, 04/28/18 05:00 05/28/18 04:59 Furosemide (Lasix) 20 mg DAILY IV 04/28/18 14:00 05/28/18 13:59 04/30/18 09:01 Insulin Aspart (NovoLOG) BEFORE MEALS AND HS SUBQ 04/28/18 11:30 05/28/18 11:29 04/30/18 06:08 Levothyroxine Sodium (Synthroid) 50 mcg DAILY@0600 ORAL 04/28/18 06:00 05/28/18 05:59 04/30/18 06:06 Lorazepam (Ativan) 1 mg Q6H PRN ORAL For Anxiety 04/30/18 15:20 05/07/18 15:19 Metoprolol Tartrate (Lopressor) 12.5 mg EVERY 12 HOURS ORAL 04/28/18 09:00 05/28/18 08:59 04/30/18 09:01 Morphine Sulfate (Morphine Sulfate) 2 mg Q4H PRN IVP severe Pain (Pain Scale 7-10) 04/28/18 05:00 05/05/18 04:59 Nitroglycerin (Nitro-Bid) 1 inch TID@0600,1200,1800 TOPIC 04/28/18 18:00 05/28/18 17:59 04/30/18 17:30 Nitroglycerin (Ntg) 0.4 mg Q5M PRN SL Prn Chest Pain 04/28/18 05:00 05/28/18 04:59 Ondansetron HCl (Zofran) 4 mg Q6H PRN IVP Nausea & Vomiting 04/28/18 05:00 05/28/18 04:59 Rivaroxaban (Xarelto) 15 mg QHS ORAL 04/29/18 21:00 05/28/18 20:59 04/29/18 20:26 Temazepam (Restoril) 15 mg HSPRN PRN ORAL Insomnia 04/28/18 05:00 05/05/18 04:59 Allergies: Coded Allergies: INFLIXIMAB (Verified Allergy, Intermediate, 04/20/16) NIACIN (Verified Allergy, Intermediate, 04/20/16) SULFA (SULFONAMIDE ANTIBIOTICS) (Verified Allergy, Intermediate, 04/20/16) Uncoded Allergies: SULFONAMIDES (Allergy, Unknown, 04/28/18) ROS Limited/Unobtainable: No Constitutional: Reports: no symptoms HEENT: Reports: no symptoms Cardiovascular: Reports: chest pain Respiratory: Reports: no symptoms Gastrointestinal/Abdominal: Reports: no symptoms Genitourinary: Reports: no symptoms Neurologic/Psychiatric: Reports: no symptoms Subjective 78 YO F admitted with chief complaint chest pain. Now elevated cardiac enzymes. Cover for Int [facility]-Dr Junior. Objective Last Vital Signs Date Time Temp Pulse Resp B/P (MAP) Pulse Ox O2 Delivery O2 Flow Rate FiO2 04/30/18 17:30 118/65 04/30/18 16:00 97.5 100 20 95 04/30/18 09:00 Nasal Cannula 2.0 Laboratory Tests Test 04/30/18 06:10 White Blood Count 3.2 K/UL (4.8-10.8) L Red Blood Count 3.95 M/UL (4.20-5.40) L Hemoglobin 11.6 G/DL (12.0-16.0) L Hematocrit 34.1 % (37.0-47.0) L Mean Corpuscular Volume 86 FL (80-99) Mean Corpuscular Hemoglobin 29.4 PG (27.0-31.0) Mean Corpuscular Hemoglobin Concent 34.0 G/DL (32.0-36.0) Red Cell Distribution Width 11.7 % (11.6-14.8) Platelet Count 106 K/UL (150-450) L Mean Platelet Volume 6.3 FL (6.5-10.1) L Neutrophils (%) (Auto) % (45.0-75.0) Lymphocytes (%) (Auto) % (20.0-45.0) Monocytes (%) (Auto) % (1.0-10.0) Eosinophils (%) (Auto) % (0.0-3.0) Basophils (%) (Auto) % (0.0-2.0) Differential Total Cells Counted 100 Neutrophils % (Manual) 56 % (45-75) Lymphocytes % (Manual) 30 % (20-45) Monocytes % (Manual) 12 % (1-10) H Eosinophils % (Manual) 2 % (0-3) Basophils % (Manual) 0 % (0-2) Band Neutrophils 0 % (0-8) Platelet Estimate Decreased L Platelet Morphology Normal Hypochromasia 1+ Anisocytosis 1+ Sodium Level 141 MMOL/L (136-145) Potassium Level 3.9 MMOL/L (3.5-5.1) Chloride Level 106 MMOL/L (98-107) Carbon Dioxide Level 29 MMOL/L (21-32) Anion Gap 6 mmol/L (5-15) Blood Urea Nitrogen 25 mg/dL (7-18) H Creatinine 0.8 MG/DL (0.55-1.30) Estimat Glomerular Filtration Rate mL/min (>60) Glucose Level 98 MG/DL (74-106) Calcium Level 9.0 MG/DL (8.5-10.1) Troponin I 0.140 ng/mL (0.000-0.056) Pro-B-Type Natriuretic Peptide 581 pg/mL (0-125) H Microbiology Date/Time Source Procedure Growth Status 04/28/18 01:45 Blood Blood Culture - Preliminary NO GROWTH AFTER 48 HOURS Resulted 04/28/18 01:30 Blood Blood Culture - Preliminary NO GROWTH AFTER 48 HOURS Resulted 04/28/18 02:10 Nasal Nares MRSA Culture - Final NO METHICILLIN RESISTANT STAPH AUREUS... Complete 04/28/18 02:10 Rectum - Final NO CARBAPENEM-RESISTANT ENTEROBACTERI... Complete 04/28/18 02:10 Rectum VRE Culture - Final Enterococcus Faecalis - Vre Complete Intake and Output 04/29/18 04/30/18 18:59 06:59 Intake Total 420 ml 120 ml Output Total 250 ml Balance 170 ml 120 ml Intake Oral 420 ml 120 ml Output Urine Total 250 ml # Voids 4 Objective General Appearance: WD/WN, no apparent distress, alert EENT: PERRL/EOMI, normal ENT inspection Neck: non-tender, normal alignment, supple, normal inspection Cardiovascular: normal peripheral pulses, normal rate, regular rhythm, no gallop/murmur, no JVD Respiratory/Chest: chest wall non-tender, lungs clear, normal breath sounds, no respiratory distress, no accessory muscle use Abdomen: normal bowel sounds, non tender, soft, no organomegaly, no mass Extremities: normal range of motion, non-tender Neurologic: car mover II-XII grossly normal, no motor/sensory deficits Skin: normal pigmentation, warm/dry Assessment/Plan Problem List: (1) Cerebral vascular disease (2) Left hemiparesis (3) Hypercholesterolemia Assessment & Plan: Continue lipitor (4) History of DVT (deep vein thrombosis) (5) History of subdural hematoma (6) CAD (coronary artery disease) (7) Diabetes mellitus type II, controlled Assessment & Plan: continue novolog sliding scale (8) HTN (hypertension) Assessment & Plan: continue lopressor (9) Hypothyroidism Assessment & Plan: continue levoxyl (10) Seizure disorder Status: not improved Bryan Jackson MD Apr 30, 2018 18:36
[2018-04-30 19:57] VITALS: BP 134/78
--- NOTE | 2018-04-30 20:33 | Cardiology Progress Note ---
Assessment/Plan Assessment/Plan 1. Epigastric chest pain /NSTEMI 2. Proximal episodes of atrial fibrillation. 3. 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 4. Acute coronary syndrome. 5. Coronary artery disease status post coronary artery bypass grafting. 6. History of aortic and mitral valve bioprosthetic replacement. 7. History of endocarditis of the prosthetic valve previously. 8. History of CVA previously. trop pattern suggestive of nstemi trop now down trending i have d/pt option on invasive treatment fo which she will need transfer to [facility] vs conservative managment with it associated risk for coronary events i have also d/w pt regarding need to [facility] to idenitify if lesion in the left atrium is a true mass vs artifact pt has decided she dose not want to have either procedure now but wants to go back to her rehab to arrange her stuf first but thisnk will have done in near futuer for nwo on xarelto and ecotrin and lipitor adn metorpolol repoeat trop appear to be down trending still Subjective Cardiovascular: Denies: chest pain, lightheadedness, palpitations Respiratory: Denies: shortness of breath Gastrointestinal/Abdominal: Denies: abdominal pain Genitourinary: Denies: burning Objective Last 24 Hour Vital Signs Date Time Temp Pulse Resp B/P (MAP) Pulse Ox O2 Delivery O2 Flow Rate FiO2 04/30/18 19:57 97.5 96 16 134/78 (96) 97 04/30/18 17:30 118/65 04/30/18 16:00 97.5 100 20 118/65 (82) 95 04/30/18 16:00 96 04/30/18 12:03 129/85 04/30/18 12:00 90 04/30/18 12:00 97.9 93 20 129/85 (100) 93 04/30/18 09:01 70 144/61 04/30/18 09:00 Nasal Cannula 2.0 04/30/18 08:00 90 04/30/18 07:53 97.6 70 20 144/61 (88) 95 04/30/18 06:06 125/69 04/30/18 04:00 97.0 69 20 125/69 (87) 97 04/30/18 04:00 67 04/30/18 00:00 97.2 60 18 109/57 (74) 98 04/30/18 00:00 80 04/29/18 21:00 Nasal Cannula 2.0 General Appearance: no apparent distress, alert Cardiovascular: normal rate Respiratory/Chest: lungs clear Abdomen: normal bowel sounds, non tender, soft Extremities: no swelling Intake and Output 04/29/18 04/30/18 18:59 06:59 Intake Total 420 ml 120 ml Output Total 250 ml Balance 170 ml 120 ml Intake Oral 420 ml 120 ml Output Urine Total 250 ml # Voids 4 Laboratory Tests Test 04/30/18 06:10 White Blood Count 3.2 K/UL (4.8-10.8) L Red Blood Count 3.95 M/UL (4.20-5.40) L Hemoglobin 11.6 G/DL (12.0-16.0) L Hematocrit 34.1 % (37.0-47.0) L Mean Corpuscular Volume 86 FL (80-99) Mean Corpuscular Hemoglobin 29.4 PG (27.0-31.0) Mean Corpuscular Hemoglobin Concent 34.0 G/DL (32.0-36.0) Red Cell Distribution Width 11.7 % (11.6-14.8) Platelet Count 106 K/UL (150-450) L Mean Platelet Volume 6.3 FL (6.5-10.1) L Neutrophils (%) (Auto) % (45.0-75.0) Lymphocytes (%) (Auto) % (20.0-45.0) Monocytes (%) (Auto) % (1.0-10.0) Eosinophils (%) (Auto) % (0.0-3.0) Basophils (%) (Auto) % (0.0-2.0) Differential Total Cells Counted 100 Neutrophils % (Manual) 56 % (45-75) Lymphocytes % (Manual) 30 % (20-45) Monocytes % (Manual) 12 % (1-10) H Eosinophils % (Manual) 2 % (0-3) Basophils % (Manual) 0 % (0-2) Band Neutrophils 0 % (0-8) Platelet Estimate Decreased L Platelet Morphology Normal Hypochromasia 1+ Anisocytosis 1+ Sodium Level 141 MMOL/L (136-145) Potassium Level 3.9 MMOL/L (3.5-5.1) Chloride Level 106 MMOL/L (98-107) Carbon Dioxide Level 29 MMOL/L (21-32) Anion Gap 6 mmol/L (5-15) Blood Urea Nitrogen 25 mg/dL (7-18) H Creatinine 0.8 MG/DL (0.55-1.30) Estimat Glomerular Filtration Rate mL/min (>60) Glucose Level 98 MG/DL (74-106) Calcium Level 9.0 MG/DL (8.5-10.1) Troponin I 0.140 ng/mL (0.000-0.056) Pro-B-Type Natriuretic Peptide 581 pg/mL (0-125) H Microbiology Date/Time Source Procedure Growth Status 04/28/18 01:45 Blood Blood Culture - Preliminary NO GROWTH AFTER 48 HOURS Resulted 04/28/18 01:30 Blood Blood Culture - Preliminary NO GROWTH AFTER 48 HOURS Resulted 04/28/18 02:10 Nasal Nares MRSA Culture - Final NO METHICILLIN RESISTANT STAPH AUREUS... Complete 04/28/18 02:10 Rectum - Final NO CARBAPENEM-RESISTANT ENTEROBACTERI... Complete 04/28/18 02:10 Rectum VRE Culture - Final Enterococcus Faecalis - Vre Complete Barber Mack MD Apr 30, 2018 20:33
[2018-04-30] MEDS: Xarelto 15mg tab ORAL SCH (21:15)
[2018-04-30] MEDS: Atorvastatin 20mg tab ORAL SCH (21:15)
[2018-05-01] VITALS: BP 114/74
[2018-05-01 04:00] VITALS: BP 102/53
[2018-05-01] MEDS: Nitroglycerin 2% oint pkt TOPIC SCH ×2 (06:25→11:58)
[2018-05-01] MEDS: NovoLOG Insulin Flexpen SUBQ SCH ×2 (06:26→11:30)
[2018-05-01 07:38] LABS: BASOPHILS % (AUTO) 0.3 % (0.0-2.0); EOSINOPHILS % (AUTO) 1.9 % (0.0-3.0); HEMATOCRIT 33.6 % (37.0-47.0); HEMOGLOBIN 11.8 G/DL (12.0-16.0); LYMPHOCYTES % (AUTO) 26.1 % (20.0-45.0); MEAN CORPUSCULAR VOLUME 86 FL (80-99); MONOCYTES % (AUTO) 8.7 % (1.0-10.0); PLATELET COUNT 123 K/UL (150-450); RED BLOOD COUNT 3.92 M/UL (4.20-5.40); RED CELL DISTRIBUTION WIDTH 11.6 % (11.6-14.8)
[2018-05-01 08:00] VITALS: BP 108/53
[2018-05-01 08:07] LABS: ALANINE AMINOTRANSFERASE 13 U/L (12-78); ALBUMIN 3.2 G/DL (3.4-5.0); ALKALINE PHOSPHATASE 76 U/L (46-116); ANION GAP 6 mmol/L (5-15); ASPARTATE AMINO TRANSFERASE 16 U/L (15-37); BILIRUBIN,TOTAL 0.3 MG/DL (0.2-1.0); BLOOD UREA NITROGEN 24 mg/dL (7-18); CARBON DIOXIDE 31 MMOL/L (21-32); CHLORIDE 104 MMOL/L (98-107); CREATININE 0.7 MG/DL (0.55-1.30); PHOSPHORUS 3.6 MG/DL (2.5-4.9); POTASSIUM 3.7 MMOL/L (3.5-5.1); SODIUM 141 MMOL/L (136-145)
[2018-05-01] MEDS: Levodopa/Carbidopa 25/100 tab ORAL SCH ×2 (08:28→12:16)
[2018-05-01] MEDS: Aspirin Baby 81mg ORAL SCH (08:28)
[2018-05-01] MEDS: Metoprolol 25mg tab ORAL SCH (08:30)
--- NOTE | 2018-05-01 09:53 | Pulmonology Progress Note ---
Assessment/Plan Problems: (1) Non-ST elevation (NSTEMI) myocardial infarction (2) Acute coronary syndrome (3) History of subdural hematoma (4) History of DVT (deep vein thrombosis) (5) Alzheimer's dementia (6) Diabetes mellitus type II, controlled (7) HTN (hypertension) (8) Left hemiparesis Assessment/Plan troponin trending down f/u cardiology recommendation, pt doesn't want any aggressive treatment for now symptomatic treatment on Xarelto and Ecotrin for now dc planning Subjective ROS Limited/Unobtainable: No Constitutional: Reports: no symptoms HEENT: Repors: no symptoms Respiratory: Reports: no symptoms Cardiovascular: Reports: no symptoms Allergies: Coded Allergies: INFLIXIMAB (Verified Allergy, Intermediate, 04/20/16) NIACIN (Verified Allergy, Intermediate, 04/20/16) SULFA (SULFONAMIDE ANTIBIOTICS) (Verified Allergy, Intermediate, 04/20/16) Uncoded Allergies: SULFONAMIDES (Allergy, Unknown, 04/28/18) Objective Last 24 Hour Vital Signs Date Time Temp Pulse Resp B/P (MAP) Pulse Ox O2 Delivery O2 Flow Rate FiO2 05/01/18 09:00 Room Air 05/01/18 08:30 69 108/53 05/01/18 08:00 56 05/01/18 08:00 97.2 69 16 108/53 (71) 93 05/01/18 06:25 129/57 05/01/18 04:00 97.3 60 20 102/53 (69) 98 05/01/18 04:00 60 05/01/18 00:00 96.8 90 19 114/74 (87) 99 04/30/18 23:23 66 04/30/18 21:15 96 134/78 04/30/18 21:00 Nasal Cannula 2.0 04/30/18 19:57 97.5 96 16 134/78 (96) 97 04/30/18 19:03 97 04/30/18 17:30 118/65 04/30/18 16:00 97.5 100 20 118/65 (82) 95 04/30/18 16:00 96 04/30/18 12:03 129/85 04/30/18 12:00 90 04/30/18 12:00 97.9 93 20 129/85 (100) 93 Intake and Output 04/30/18 05/01/18 19:00 07:00 Intake Total 630 ml Output Total 500 ml Balance 130 ml Intake Oral 630 ml Output Urine Total 500 ml # Voids 3 3 # Bowel Movements 1 General Appearance: WD/WN HEENT: normocephalic, anicteric Respiratory/Chest: chest wall non-tender, lungs clear Cardiovascular: normal peripheral pulses, normal rate Abdomen: normal bowel sounds, soft, non tender Extremities: no cyanosis Neurologic/Psychiatric: automatic pilot 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 II-XII grossly normal, no motor/sensory deficits Laboratory Tests 05/01/18 06:22: White Blood Count 4.0L, Red Blood Count 3.92L, Hemoglobin 11.8L, Hematocrit 33.6L, Mean Corpuscular Volume 86, Mean Corpuscular Hemoglobin 30.1, Mean Corpuscular Hemoglobin Concent 35.1, Red Cell Distribution Width 11.6, Platelet Count 123L, Mean Platelet Volume 6.0L, Neutrophils (%) (Auto) 63.0, Lymphocytes (%) (Auto) 26.1, Monocytes (%) (Auto) 8.7, Eosinophils (%) (Auto) 1.9, Basophils (%) (Auto) 0.3, Erythrocyte Sedimentation Rate 44H, Sodium Level 141, Potassium Level 3.7, Chloride Level 104, Carbon Dioxide Level 31, Anion Gap 6, Blood Urea Nitrogen 24H, Creatinine 0.7, Estimat Glomerular Filtration Rate , Glucose Level 97, Calcium Level 9.0, Phosphorus Level 3.6, Magnesium Level 1.6L , Total Bilirubin 0.3, Aspartate Amino Transf (AST/SGOT) 16, Alanine Aminotransferase (ALT/SGPT) 13, Alkaline Phosphatase 76, Troponin I 0.062H, Total Protein 6.5, Albumin 3.2L, Globulin 3.3, Albumin/Globulin Ratio 1.0 Current Medications Medications (Trade) Dose Ordered Sig/Zee Route PRN Reason Start Time Stop Time Status Last Admin Dose Admin Acetaminophen (Tylenol) 650 mg Q4H PRN ORAL FEVER 04/28/18 05:00 05/28/18 04:59 Albuterol/ Ipratropium (Albuterol/ Ipratropium) 3 ml Q4H PRN HHN Shortness of Breath 04/28/18 05:00 05/03/18 04:59 Aspirin (ASA) 81 mg DAILY ORAL 04/29/18 09:00 05/29/18 08:59 05/01/18 08:28 Atorvastatin Calcium (Lipitor) 40 mg BEDTIME ORAL 04/28/18 21:00 05/28/18 20:59 04/30/18 21:15 Carbidopa/Levodopa (Sinemet 25/100) 1 tab THREE TIMES A DAY ORAL 04/28/18 09:00 05/28/18 08:59 05/01/18 08:28 Dextrose (Dextrose 50%) 25 ml Q30M PRN IV Hypoglycemia 04/28/18 08:30 05/28/18 08:29 Dextrose (Dextrose 50%) 50 ml Q30M PRN IV Hypoglycemia 04/28/18 08:30 05/28/18 08:29 Diltiazem HCl (Cardizem) 10 mg Q1H PRN IV heart rate more than 120, 04/28/18 05:00 05/28/18 04:59 Furosemide (Lasix) 20 mg DAILY IV 04/28/18 14:00 05/28/18 13:59 05/01/18 08:28 Insulin Aspart (NovoLOG) BEFORE MEALS AND HS SUBQ 04/28/18 11:30 05/28/18 11:29 04/30/18 06:08 Levothyroxine Sodium (Synthroid) 50 mcg DAILY@0600 ORAL 04/28/18 06:00 05/28/18 05:59 05/01/18 06:24 Lorazepam (Ativan) 1 mg Q6H PRN ORAL For Anxiety 04/30/18 15:20 05/07/18 15:19 Metoprolol Tartrate (Lopressor) 12.5 mg EVERY 12 HOURS ORAL 04/28/18 09:00 05/28/18 08:59 05/01/18 08:30 Morphine Sulfate (Morphine Sulfate) 2 mg Q4H PRN IVP severe Pain (Pain Scale 7-10) 04/28/18 05:00 05/05/18 04:59 Nitroglycerin (Nitro-Bid) 1 inch TID@0600,1200,1800 TOPIC 04/28/18 18:00 05/28/18 17:59 05/01/18 06:25 Nitroglycerin (Ntg) 0.4 mg Q5M PRN SL Prn Chest Pain 04/28/18 05:00 05/28/18 04:59 Ondansetron HCl (Zofran) 4 mg Q6H PRN IVP Nausea & Vomiting 04/28/18 05:00 05/28/18 04:59 Rivaroxaban (Xarelto) 15 mg QHS ORAL 04/29/18 21:00 05/28/18 20:59 04/30/18 21:15 Temazepam (Restoril) 15 mg HSPRN PRN ORAL Insomnia 04/28/18 05:00 05/05/18 04:59 Koko Gee MD May 01, 2018 09:53
[2018-05-01 12:00] VITALS: BP 111/57
[2018-05-01 16:00] VITALS: BP 107/51
--- NOTE | 2018-05-01 16:42 | Internal Med Progress Note ---
Subjective Date of Service: May 01, 2018 Physician Name Bryan Jackson Attending Physician Carlos Junior MD Current Medications Medications (Trade) Dose Ordered Sig/Zee Route PRN Reason Start Time Stop Time Status Last Admin Dose Admin Acetaminophen (Tylenol) 650 mg Q4H PRN ORAL FEVER 04/28/18 05:00 05/28/18 04:59 Albuterol/ Ipratropium (Albuterol/ Ipratropium) 3 ml Q4H PRN HHN Shortness of Breath 04/28/18 05:00 05/03/18 04:59 Aspirin (ASA) 81 mg DAILY ORAL 04/29/18 09:00 05/29/18 08:59 05/01/18 08:28 Atorvastatin Calcium (Lipitor) 40 mg BEDTIME ORAL 04/28/18 21:00 05/28/18 20:59 04/30/18 21:15 Carbidopa/Levodopa (Sinemet 25/100) 1 tab THREE TIMES A DAY ORAL 04/28/18 09:00 05/28/18 08:59 05/01/18 12:16 Dextrose (Dextrose 50%) 25 ml Q30M PRN IV Hypoglycemia 04/28/18 08:30 05/28/18 08:29 Dextrose (Dextrose 50%) 50 ml Q30M PRN IV Hypoglycemia 04/28/18 08:30 05/28/18 08:29 Diltiazem HCl (Cardizem) 10 mg Q1H PRN IV heart rate more than 120, 04/28/18 05:00 05/28/18 04:59 Furosemide (Lasix) 20 mg DAILY IV 04/28/18 14:00 05/28/18 13:59 05/01/18 08:28 Insulin Aspart (NovoLOG) BEFORE MEALS AND HS SUBQ 04/28/18 11:30 05/28/18 11:29 04/30/18 06:08 Levothyroxine Sodium (Synthroid) 50 mcg DAILY@0600 ORAL 04/28/18 06:00 05/28/18 05:59 05/01/18 06:24 Lorazepam (Ativan) 1 mg Q6H PRN ORAL For Anxiety 04/30/18 15:20 05/07/18 15:19 Metoprolol Tartrate (Lopressor) 12.5 mg EVERY 12 HOURS ORAL 04/28/18 09:00 05/28/18 08:59 05/01/18 08:30 Morphine Sulfate (Morphine Sulfate) 2 mg Q4H PRN IVP severe Pain (Pain Scale 7-10) 04/28/18 05:00 05/05/18 04:59 Nitroglycerin (Nitro-Bid) 1 inch TID@0600,1200,1800 TOPIC 04/28/18 18:00 05/28/18 17:59 05/01/18 11:58 Nitroglycerin (Ntg) 0.4 mg Q5M PRN SL Prn Chest Pain 04/28/18 05:00 05/28/18 04:59 Ondansetron HCl (Zofran) 4 mg Q6H PRN IVP Nausea & Vomiting 04/28/18 05:00 05/28/18 04:59 Rivaroxaban (Xarelto) 15 mg QHS ORAL 04/29/18 21:00 05/28/18 20:59 04/30/18 21:15 Temazepam (Restoril) 15 mg HSPRN PRN ORAL Insomnia 04/28/18 05:00 05/05/18 04:59 Allergies: Coded Allergies: INFLIXIMAB (Verified Allergy, Intermediate, 04/20/16) NIACIN (Verified Allergy, Intermediate, 04/20/16) SULFA (SULFONAMIDE ANTIBIOTICS) (Verified Allergy, Intermediate, 04/20/16) Uncoded Allergies: SULFONAMIDES (Allergy, Unknown, 04/28/18) ROS Limited/Unobtainable: No Constitutional: Reports: no symptoms HEENT: Reports: no symptoms Cardiovascular: Reports: no symptoms Respiratory: Reports: no symptoms Gastrointestinal/Abdominal: Reports: no symptoms Genitourinary: Reports: no symptoms Neurologic/Psychiatric: Reports: no symptoms Subjective 78 YO F admitted with chief complaint chest pain. Now elevated cardiac enzymes. Cover for Int Tr[place]-Dr Junior. Objective Last Vital Signs Date Time Temp Pulse Resp B/P (MAP) Pulse Ox O2 Delivery O2 Flow Rate FiO2 05/01/18 16:00 97.2 64 16 107/51 (69) 99 05/01/18 09:00 Room Air 04/30/18 21:00 2.0 Laboratory Tests Test 05/01/18 06:22 White Blood Count 4.0 K/UL (4.8-10.8) L Red Blood Count 3.92 M/UL (4.20-5.40) L Hemoglobin 11.8 G/DL (12.0-16.0) L Hematocrit 33.6 % (37.0-47.0) L Mean Corpuscular Volume 86 FL (80-99) Mean Corpuscular Hemoglobin 30.1 PG (27.0-31.0) Mean Corpuscular Hemoglobin Concent 35.1 G/DL (32.0-36.0) Red Cell Distribution Width 11.6 % (11.6-14.8) Platelet Count 123 K/UL (150-450) L Mean Platelet Volume 6.0 FL (6.5-10.1) L Neutrophils (%) (Auto) 63.0 % (45.0-75.0) Lymphocytes (%) (Auto) 26.1 % (20.0-45.0) Monocytes (%) (Auto) 8.7 % (1.0-10.0) Eosinophils (%) (Auto) 1.9 % (0.0-3.0) Basophils (%) (Auto) 0.3 % (0.0-2.0) Erythrocyte Sedimentation Rate 44 MM/HR (0-30) H Sodium Level 141 MMOL/L (136-145) Potassium Level 3.7 MMOL/L (3.5-5.1) Chloride Level 104 MMOL/L (98-107) Carbon Dioxide Level 31 MMOL/L (21-32) Anion Gap 6 mmol/L (5-15) Blood Urea Nitrogen 24 mg/dL (7-18) H Creatinine 0.7 MG/DL (0.55-1.30) Estimat Glomerular Filtration Rate mL/min (>60) Glucose Level 97 MG/DL (74-106) Calcium Level 9.0 MG/DL (8.5-10.1) Phosphorus Level 3.6 MG/DL (2.5-4.9) Magnesium Level 1.6 MG/DL (1.8-2.4) L Total Bilirubin 0.3 MG/DL (0.2-1.0) Aspartate Amino Transf (AST/SGOT) 16 U/L (15-37) Alanine Aminotransferase (ALT/SGPT) 13 U/L (12-78) Alkaline Phosphatase 76 U/L (46-116) Troponin I 0.062 ng/mL (0.000-0.056) Total Protein 6.5 G/DL (6.4-8.2) Albumin 3.2 G/DL (3.4-5.0) L Globulin 3.3 g/dL Albumin/Globulin Ratio 1.0 (1.0-2.7) Intake and Output 04/30/18 05/01/18 19:00 07:00 Intake Total 630 ml Output Total 500 ml Balance 130 ml Intake Oral 630 ml Output Urine Total 500 ml # Voids 3 3 # Bowel Movements 1 Objective General Appearance: WD/WN, no apparent distress, alert EENT: PERRL/EOMI, normal ENT inspection Neck: non-tender, normal alignment, supple, normal inspection Cardiovascular: normal peripheral pulses, normal rate, regular rhythm, no gallop/murmur, no JVD Respiratory/Chest: chest wall non-tender, lungs clear, normal breath sounds, no respiratory distress, no accessory muscle use Abdomen: normal bowel sounds, non tender, soft, no organomegaly, no mass Extremities: normal range of motion, non-tender Neurologic: director of music therapy II-XII grossly normal, no motor/sensory deficits Skin: normal pigmentation, warm/dry Assessment/Plan Problem List: (1) Cerebral vascular disease (2) Left hemiparesis (3) Hypercholesterolemia Assessment & Plan: Continue lipitor (4) History of DVT (deep vein thrombosis) (5) History of subdural hematoma (6) CAD (coronary artery disease) (7) Diabetes mellitus type II, controlled Assessment & Plan: continue novolog sliding scale (8) HTN (hypertension) Assessment & Plan: continue lopressor (9) Hypothyroidism Assessment & Plan: continue levoxyl (10) Seizure disorder (11) Non-ST elevation (NSTEMI) myocardial infarction Assessment & Plan: Patient refused procedures-see cardiology note. Assessment/Plan D/C to [facility] today Bryan Jackson MD May 01, 2018 16:42
--- NOTE | 2018-05-01 18:25 | Cardiology Report ---
APPROVED REPORT EKG Measurement Heart [id number] [id number] Normal sinus rhythm Right axis deviation Incomplete right bundle branch block Possible Right ventricular hypertrophy Septal infarct, age undetermined Abnormal ECG
--- NOTE | 2018-05-01 23:25 | General Progress Note ---
Assessment/Plan Problem List: (1) Anxiety Assessment & Plan: Anxiety d/o depressive d/o dementia -ativan prn -provided ro/st ICD Codes: F41.9 - Anxiety disorder, unspecified SNOMED: 60355487 (2) Alzheimer's dementia ICD Codes: G30.9 - Alzheimer's disease, unspecified SNOMED: [id number] Status: stable, progressing Assessment/Plan Anxiety d/o depressive d/o dementia -ativan prn -provided ro/st Subjective Neurologic/Psychiatric: Reports: anxiety, depressed, emotional problems Allergies: Coded Allergies: INFLIXIMAB (Verified Allergy, Intermediate, 04/20/16) NIACIN (Verified Allergy, Intermediate, 04/20/16) SULFA (SULFONAMIDE ANTIBIOTICS) (Verified Allergy, Intermediate, 04/20/16) Uncoded Allergies: SULFONAMIDES (Allergy, Unknown, 04/28/18) Subjective doing better Objective Last 24 Hour Vital Signs Date Time Temp Pulse Resp B/P (MAP) Pulse Ox O2 Delivery O2 Flow Rate FiO2 05/01/18 16:00 97.2 64 16 107/51 (69) 99 05/01/18 12:00 59 05/01/18 12:00 98.0 62 16 111/57 (75) 99 05/01/18 11:58 108/53 05/01/18 09:00 Room Air 05/01/18 08:30 69 108/53 05/01/18 08:00 56 05/01/18 08:00 97.2 69 16 108/53 (71) 93 05/01/18 06:25 129/57 05/01/18 04:00 97.3 60 20 102/53 (69) 98 05/01/18 04:00 60 05/01/18 00:00 96.8 90 19 114/74 (87) 99 Intake and Output 04/30/18 05/01/18 18:59 06:59 Intake Total 630 ml Output Total 500 ml Balance 130 ml Intake Oral 630 ml Output Urine Total 500 ml # Voids 3 3 # Bowel Movements 1 Laboratory Tests 05/01/18 06:22: White Blood Count 4.0L, Red Blood Count 3.92L, Hemoglobin 11.8L, Hematocrit 33.6L, Mean Corpuscular Volume 86, Mean Corpuscular Hemoglobin 30.1, Mean Corpuscular Hemoglobin Concent 35.1, Red Cell Distribution Width 11.6, Platelet Count 123L, Mean Platelet Volume 6.0L, Neutrophils (%) (Auto) 63.0, Lymphocytes (%) (Auto) 26.1, Monocytes (%) (Auto) 8.7, Eosinophils (%) (Auto) 1.9, Basophils (%) (Auto) 0.3, Erythrocyte Sedimentation Rate 44H, Sodium Level 141, Potassium Level 3.7, Chloride Level 104, Carbon Dioxide Level 31, Anion Gap 6, Blood Urea Nitrogen 24H, Creatinine 0.7, Estimat Glomerular Filtration Rate , Glucose Level 97, Calcium Level 9.0, Phosphorus Level 3.6, Magnesium Level 1.6L , Total Bilirubin 0.3, Aspartate Amino Transf (AST/SGOT) 16, Alanine Aminotransferase (ALT/SGPT) 13, Alkaline Phosphatase 76, Troponin I 0.062H, Total Protein 6.5, Albumin 3.2L, Globulin 3.3, Albumin/Globulin Ratio 1.0 Height (Feet): 5 Height (Inches): 2.00 Weight (Pounds): 121 General Appearance: WD/WN, no apparent distress, alert Neurologic: alert, oriented x 3, responsive, normal mood/affect Bryan Spears MD May 01, 2018 23:25
--- NOTE | 2018-05-02 13:33 | Discharge Summary ---
Discharge Summary Discharge Summary _ DATE OF ADMISSION: 04/28/2018 DATE OF DISCHARGE: 05/01/2018 REASON FOR ADMISSION: 78 years old female with past medical history of hypertension, hyperlipidemia, atrial fibrillation, history of CVA, Parkinson disease, seizure disorder, history of G-tube, DNR/DNI status, was sent from the long-term facility for evaluation of chest pain. Patient by herself extremely poor historian and was unable to provide much of information. Upon evaluation patient was tachycardic, blood pressure was 146/91, pulse oximetry initially was stable on room air. Laboratory workup revealed no leukocytosis, stable hemoglobin and hematocrit. Urinalysis was negative for evidence of UTI. First troponin was negative and the second was elevated 0.172. Pro BNP 699. EKG revealed atrial fibrillation with rapid ventricular response. Albumin was low. Chest x-ray revealed mild pulmonary edema. Patient admitted with diagnosis of chest pain, possible acute coronary syndrome CONSULTANTS: life skills educator Dr. Mack pulmonary Dr. Gee psychiatrist HOSPITAL COURSE: Patient admitted to telemetry floor. Serial troponin trending down, last troponin- 0.062. Echocardiogram revealed preserved ejection fraction of 65-70%, right ventricular systolic pressure of 46 , consistent with moderate pulmonary hypertension and echogenic material on left atrium., not present on prior ECHO done at [facility]. Patient was on anticoagulation with Xarelto. Patient was on antiplatelet therapy with aspirin. Beta sudheer and statin continued. Lipid panel revealed elevated total cholesterol and LDL. Statin dose was increased. Nitroglycerin was on board as needed. Supplemental oxygen titrated to keep pulse oximetry above 92%. Pulmonary toilet provided as needed. Venous duplex bilateral lower extremity revealed no evidence of acute DVT. Patient was on low dose of Lasix with close monitoring of cardiorenal parameters and volumes. Follow-up chest x-ray revealed no acute findings. Pro BNP trending down to 581. Per life skills educator, troponin pattern was suggestive for NSTEMI. Troponin was downtrending. Field Aide discussed option of invasive treatment (for which she would need transfer to [facility]) versus conservative management with associated risks for coronary events. Patient was also explained need for RAGHAV to identify lesion in the left atrium : true mass versus artifact. Patient decided , that she did not want either of the procedures at this time and requested transfer back to long-term facility . Patient stated, that she may think about it and may proceed in a near future. Pain management was addressed as needed. Sinemet and levothyroxine resumed. TSH was within normal limits. Blood sugar was managed with sensitive sliding scale insulin on as needed basis only, hemoglobin A1c 5.1. [employer] Hazmat Driver's recommendation implemented in plan of care . Bedside swallow evaluation revealed silent aspiration risk. Diet modified as per speech therapist recommendations with strict aspiration / reflux precaution. Supportive care provided. Patient with DNR/DNI status. 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 DISCHARGE INSTRUCTIONS: Patient was discharged to the long-term facility. Follow up with medical doctor at the facility. Mesha Rosario NP May 02, 2018 13:33
== END 2018-05-01 17:25 | DRG 281 ==
LOC: EDBD 01:28 → EMR 01:30 → 2W 02:12 → EDBEDREQ 02:31 → 2E 10:08
DX: I21.4 Non-ST elevation (NSTEMI) myocardial infarction (principal); E46 Unspecified protein-calorie malnutrition; I69.354 Hemiplegia and hemiparesis following cerebral infarction affecting left non-dominant side; Z43.1 Encounter for attention to gastrostomy; Z68.1 Body mass index [BMI] 19.9 or less, adult; I48.91 Unspecified atrial fibrillation; Z88.2 Allergy status to sulfonamides; Z95.2 Presence of prosthetic heart valve; E78.00 Pure hypercholesterolemia, unspecified; E11.9 Type 2 diabetes mellitus without complications; Z86.73 Personal history of transient ischemic attack (TIA), and cerebral infarction without residual deficits; G20 Parkinson's disease; I11.0 Hypertensive heart disease with heart failure; E03.9 Hypothyroidism, unspecified; F32.9 Major depressive disorder, single episode, unspecified; F03.90 Unspecified dementia, unspecified severity, without behavioral disturbance, psychotic disturbance, mood disturbance, and anxiety; F41.9 Anxiety disorder, unspecified; Z88.8 Allergy status to other drugs, medicaments and biological substances; G40.909 Epilepsy, unspecified, not intractable, without status epilepticus; G30.9 Alzheimer's disease, unspecified; F02.80 Dementia in other diseases classified elsewhere, unspecified severity, without behavioral disturbance, psychotic disturbance, mood disturbance, and anxiety; Z66 Do not resuscitate; I25.10 Atherosclerotic heart disease of native coronary artery without angina pectoris; Z95.1 Presence of aortocoronary bypass graft; R93.1 Abnormal findings on diagnostic imaging of heart and coronary circulation; I27.20 Pulmonary hypertension, unspecified; Z86.718 Personal history of other venous thrombosis and embolism; Z79.01 Long term (current) use of anticoagulants; K04.7 Periapical abscess without sinus
CPT/HCPCS: 36415; 71045; 80048; 80053; 80061; 81003; 82550; 82553; 82962; 83036; 83605; 83690; 83735; 83880; 84100; 84443; 84484; 85007; 85025; 85610; 85651; 85730; 86140; 87040; 87081; 93005; 93306; 93970; 96361; 96374; 96375; 99285; J1815

== ENCOUNTER 2019-09-21 10:09 | Inpatient (IN) | payer MEDICARE, OTHER ==
[~2019-09-21] VITALS: Ht 157.5 cm; Wt 51.7 kg
[2019-09-21 10:09] VITALS: BP 153/73
[~2019-09-21 10:09] MED LIST changes: +ACETAMINOPHEN325 M1 ORAL; +ASPIRIN81 MG ORAL; +ATORVASTATIN CA10 MG ORAL; +CARBAMAZEPINE200 M4 ORAL; +CRANBERRY450 M4 PO; +DIGOXIN250 MCG/1 IV; +DOCUSATE SODIU100 MG ORAL; +FISH OIL 1,2001 EAC2 PO; +FOLIC ACID1 MG ORAL; +MAG-OX 400400 MG ORAL; +METOPROLOL TART25 MG ORAL; +MILK OF MA400 MG/51 ORAL; +MIRALAX17 G2 ORAL; +NITROSTAT0.4 M1 SL; +SENNA8.6 M2 PO; +SIMETHICONE80 MG ORAL; +SINEMET 25-1001 EAC1 ORAL; +SYNTHROID50 MCG ORAL; +TRAMADOL HCL50 MG ORAL; +TYLENOL EXTRA500 MG ORAL
[2019-09-21] MEDS ORDERED: Omnipaque-300 100ml vial INJ PRN (10:45)
--- NOTE | 2019-09-21 11:03 | Diagnostic Imaging Report ---
EXAM: XR Chest, 1 View CLINICAL HISTORY: SOB TECHNIQUE: Frontal view of the chest. COMPARISON: Compared to chest x-ray report 04/30/18, images not available. FINDINGS: Lungs: Mild interstitial prominence. No focal infiltrate or consolidation. Pleural space: Tiny left pleural effusion. No pneumothorax. Heart: Aortic valve prosthesis. Mediastinum: Unremarkable. Bones/joints: Median sternotomy. Thoracolumbar scoliosis. IMPRESSION: Mild interstitial prominence and tiny left pleural effusion may be mild CHF.
[2019-09-21 11:08] LABS: ANION GAP 13 mmol/L (5-15); BLOOD UREA NITROGEN 36 mg/dL (7-18); CALCIUM 9.8 MG/DL (8.5-10.1); CARBON DIOXIDE 26 MMOL/L (21-32); CHLORIDE 104 MMOL/L (98-107); CREATININE 1.2 MG/DL (0.55-1.30); POTASSIUM 3.7 MMOL/L (3.5-5.1); SODIUM 143 MMOL/L (136-145)
[2019-09-21 11:19] LABS: HEMATOCRIT 35.7 % (37.0-47.0); HEMOGLOBIN 12.2 G/DL (12.0-16.0); MEAN CORPUSCULAR VOLUME 87 FL (80-99); PLATELET COUNT 183 K/UL (150-450); RED BLOOD COUNT 4.11 M/UL (4.20-5.40); RED CELL DISTRIBUTION WIDTH 12.2 % (11.6-14.8); WHITE BLOOD COUNT 11.7 K/UL (4.8-10.8)
[2019-09-21 11:20] LABS: ALANINE AMINOTRANSFERASE 24 U/L (12-78); ALBUMIN 3.5 G/DL (3.4-5.0); ALBUMIN/GLOBULIN RATIO 0.7 (1.0-2.7); ALKALINE PHOSPHATASE 59 U/L (46-116); ASPARTATE AMINO TRANSFERASE 26 U/L (15-37); BILIRUBIN,TOTAL 0.7 MG/DL (0.2-1.0)
[2019-09-21] MEDS ORDERED: Metoprolol Tartrate 5mg/5ml Inj IVP SCH (11:30)
--- NOTE | 2019-09-21 11:52 | Emergency Room Report ---
History of Present Illness General Chief Complaint: Abdominal Pain Source: Patient, Medical Record, EMS Present Illness HPI 79-year-old female presents for evaluation. Brought in by EMS from [facility] facility. Noted to have cough and shortness of breath x1 day. Denies chest pain. Denies fevers or chills. Also has abdominal pain with distention x1 day. Dull, 5 out of 10, nonradiating. Notes one episode of vomiting. No other aggravating relieving factors. Denies any other associated symptoms COVID-19 risk:Contact w/high r: No COVID-19 risk:Travel to affect: No Has patient experienced [place]: No Coronavirus symptoms experienc: Shortness of Breath Allergies: Coded Allergies: INFLIXIMAB (Verified Allergy, Intermediate, 04/20/16) NIACIN (Verified Allergy, Intermediate, 04/20/16) SULFA (SULFONAMIDE ANTIBIOTICS) (Verified Allergy, Intermediate, 04/20/16) Uncoded Allergies: SULFONAMIDES (Allergy, Unknown, 04/28/18) Patient History Past Medical History: DM, HTN, AFib, GERD, CVA/TIA, dementia Pertinent Family History: none Social History: Denies: smoking, alcohol use, drug use Now: No Immunizations: UTD Reviewed Nursing Documentation: PMH: Agreed; PSxH: Agreed Nursing Documentation-PMH Hx Cardiac Problems: Yes - A-fib, Dysphagia, hyperlipidemia, TIA Hx Hypertension: Yes Hx Diabetes: Yes - Type 2 Hx Cancer: No Hx Gastrointestinal Problems: Yes - GERD History Of Psychiatric Problem: Yes - Alzheimer's, Dementia Hx Transient Ischemic Attacks: Yes Hx Seizures: Yes Hx Epilepsy: Yes Review of Systems All Other Systems: negative except mentioned in HPI Physical Exam Vital Signs Date Time Temp Pulse Resp B/P (MAP) Pulse Ox O2 Delivery O2 Flow Rate FiO2 09/21/19 10:00 97.9 102 18 153/73 (99) 94 Nasal Cannula 09/21/19 10:09 2.0 Sp02 EP Interpretation: reviewed, normal General Appearance: no apparent distress, alert, GCS 15, non-toxic Head: normocephalic, atraumatic Eyes: bilateral eye normal inspection, bilateral eye PERRL ENT: hearing grossly normal, normal pharynx, no angioedema, normal voice Neck: full range of motion, supple/symm/no masses Respiratory: chest non-tender, crackles, speaking full sentences Cardiovascular #1: no edema, tachycardia Cardiovascular #2: 2+ carotid (R), 2+ carotid (L), 2+ radial (R), 2+ radial (L) , 2+ dorsalis pedis (R), 2+ dorsalis pedis (L) Gastrointestinal: normal bowel sounds, soft, non-distended, no guarding, no rebound, tenderness Rectal: deferred Genitourinary: normal inspection, no CVA tenderness Musculoskeletal: back normal, normal range of motion, gait/station normal, non- tender Neurologic: alert, motor strength/tone normal, oriented x3, sensory intact, responsive, speech normal Psychiatric: judgement/insight normal, memory normal, mood/affect normal, no suicidal/homicidal ideation Reflexes: 3+ bicep (R), 3+ bicep (L), 3+ tricep (R), 3+ tricep (L), 3+ knee (R) , 3+ knee (L) Skin: other - see nursing skin notes Lymphatic: no adenopathy Procedures Critical Care Time Critical Care Time i. I feel this is a highly complex case requiring extensive working including EKG/Rhythm strip, Xray/CT/US, Blood/urine lab work, repeat exams while in ED, and administration of strong opiates/narcotics for pain control, admission to hospital or close patient follow up. Total time: 30 min bedside evaluation and treatment excludes procedures (EKG). Reason for critical care: SVT Possible complications: hypotension, hypertension, OK, shock, arrhythmias, metabolic acidosis, end organ damage, respiratory failure. Interventions: labs, EKg, CXR, CT, Pepcid, Zofran Lopressor, IVFs Course: Presenting with shortness of breath. Abdominal pain. Chest x-ray shows cardiomegaly with possible infiltrate. Patient developed SVT in ED. Converted after Lopressor. Consultations: nursing staff, EMS, family Performed by: Dr Hernández Tolerated well condition = serious j. because of unstable vital signs this patient had a condition that could potentially threaten life or limb. I feel this is a critical patient who required my full attention while patient was considered critical. Total Critical Care Time excluding procedures was greater than 35 minutes Medical Decision Making Diagnostic Impression: Primary Impression: CHF (congestive heart failure) Qualified Codes: I50.9 - Heart failure, unspecified Additional Impressions: Abdominal pain Qualified Codes: R10.9 - Unspecified abdominal pain SVT (supraventricular tachycardia) ER Course Hospital Course 79-year-old female presents with shortness of breath. Abdominal pain and vomiting Differential diagnoses include: BPH, cystitis, pyelonephritis, kidney stone Clinical course Patient placed on stretcher. recruitment assistant. After initial history and physical I ordered labs, IV fluids, UA, zofran, pepcid, CXR and CT scan Labs - minimal leukocytosis, Hb/Hct stable. electrolytes ok, trop 0.041, BNP 1464 repeat EKG shows SVT patient given lopressor with cardioversion achieved CXR- cardiomegaly, sternotomy wires CT abdomen and pelvis - colonic impaction ? obstruction Case discussed with Dr. Junior and he agreed to accept the patient to his service for further care and support I feel this is a highly complex case requiring extensive working including EKG/ Rhythm strip, Xray/CT/US, Blood/urine lab work, repeat exams while in ED, and administration of strong opiates/narcotics for pain control, admission to hospital or close patient follow up. Diagnosis - CHF, abdominal pain, SVT Patient admitted to telemetry in serious condition Labs Test 09/21/19 10:28 White Blood Count 11.7 K/UL (4.8-10.8) Red Blood Count 4.11 M/UL (4.20-5.40) Hemoglobin 12.2 G/DL (12.0-16.0) Hematocrit 35.7 % (37.0-47.0) Mean Corpuscular Volume 87 FL (80-99) Mean Corpuscular Hemoglobin 29.6 PG (27.0-31.0) Mean Corpuscular Hemoglobin Concent 34.1 G/DL (32.0-36.0) Red Cell Distribution Width 12.2 % (11.6-14.8) Platelet Count 183 K/UL (150-450) Mean Platelet Volume 5.9 FL (6.5-10.1) Neutrophils (%) (Auto) % (45.0-75.0) Lymphocytes (%) (Auto) % (20.0-45.0) Monocytes (%) (Auto) % (1.0-10.0) Eosinophils (%) (Auto) % (0.0-3.0) Basophils (%) (Auto) % (0.0-2.0) Sodium Level 143 MMOL/L (136-145) Potassium Level 3.7 MMOL/L (3.5-5.1) Chloride Level 104 MMOL/L (98-107) Carbon Dioxide Level 26 MMOL/L (21-32) Anion Gap 13 mmol/L (5-15) Blood Urea Nitrogen 36 mg/dL (7-18) Creatinine 1.2 MG/DL (0.55-1.30) Estimat Glomerular Filtration Rate 43.6 mL/min (>60) Glucose Level 143 MG/DL (74-106) Calcium Level 9.8 MG/DL (8.5-10.1) Total Bilirubin 0.7 MG/DL (0.2-1.0) Aspartate Amino Transf (AST/SGOT) 26 U/L (15-37) Alanine Aminotransferase (ALT/SGPT) 24 U/L (12-78) Alkaline Phosphatase 59 U/L (46-116) Troponin I 0.041 ng/mL (0.000-0.056) Pro-B-Type Natriuretic Peptide 1464 pg/mL (0-125) Total Protein 8.3 G/DL (6.4-8.2) Albumin 3.5 G/DL (3.4-5.0) Globulin 4.8 g/dL Albumin/Globulin Ratio 0.7 (1.0-2.7) EKG Diagnostic Results Rate: tachycardiac Rhythm: other - SVT ST Segments: other - ST depressions in lateral leads ASA given to the pt in ED: No Rhythm Strip Diag. Results EP Interpretation: yes Rhythm: no PVC's, no ectopy Chest X-Ray Diagnostic Results Chest X-Ray Diagnostic Results : Chest X-Ray Ordered: Yes # of Views/Limited/Complete: 1 View Indication: Shortness of Breath EP Interpretation: Yes Interpretation: no pneumothorax, other - cardiomegaly. interstitial congestion. sternotomy wires Impression: Other - chf Electronically Signed by: Electronically signed by Angel Hernández MD CT/MRI/US Diagnostic Results CT/MRI/US Diagnostic Results : Imaging Test Ordered: CT A/P Impression IMPRESSION: 1. Dilated rectosigmoid colon to 11.3 cm., large amount of stool in the remainder of the colon. Mild thickening of the colonic wall. Findings may be due to fecal impaction with obstipation. Differential includes Colonic ileus or distal colonic obstruction and early stercoral colitis. Trace free fluid. No free air or abscess. 2. Mild bilateral hydronephrosis, greater on the right, may be due to external compression of the distal ureters from the overly distended rectum. 3. Right lower lobe of the lung small consolidation and mild bibasilar lung septal thickening. 4. Fatty prominent liver. Distended gallbladder. Last Vital Signs Date Time Temp Pulse Resp B/P (MAP) Pulse Ox O2 Delivery O2 Flow Rate FiO2 09/21/19 11:35 152 169/86 09/21/19 10:09 97.9 18 94 Nasal Cannula 2.0 Status: improved Disposition: ADMITTED INPATIENT Condition: Serious Referrals: NON PHYSICIAN (PCP) Angel Hernández MD Sep 21, 2019 11:52
[2019-09-21 12:09] VITALS: BP 155/81
[2019-09-21 12:24] LABS: BILIRUBIN, URINE 1+ (NEGATIVE); COLOR,URINE BROWN; GLUCOSE, URINE (UA) NEGATIVE (NEGATIVE); KETONES,URINE 2+ (NEGATIVE); NITRITE,URINE NEGATIVE (NEGATIVE); PH,URINE 5 (4.5-8.0); PROTEIN,URINE 3+ (NEGATIVE); UROBILINOGEN,URINE 4 MG/DL (0.0-1.0)
[2019-09-21 12:48] LABS: APPEARANCE,URINE SLIGHTLY CLOUDY
[2019-09-21 12:49] LABS: LEUKOCYTE ESTERASE ,URINE TRACE (NEGATIVE)
--- NOTE | 2019-09-21 13:24 | Diagnostic Imaging Report ---
EXAM: CT Abdomen and Pelvis With Intravenous Contrast CLINICAL HISTORY: ABD PAIN TECHNIQUE: Axial computed tomography images of the abdomen and pelvis with intravenous contrast. CTDI is 6.4 mGy and DLP is 192.3 mGy-cm. One or more of the following dose reduction techniques were used: automated exposure control, adjustment of the mA and/or kV according to patient size, use of iterative reconstruction technique. COMPARISON: No relevant prior studies available. FINDINGS: Lung bases: Right lower lobe of the lung small consolidation and mild bibasilar lung septal thickening. Heart: Cardiomegaly. Mitral valve prosthesis. ABDOMEN: Liver: Fatty prominent liver. Gallbladder and bile ducts: Distended gallbladder. No calcified stones. No ductal dilation. Pancreas: Unremarkable. No mass. No ductal dilation. Spleen: Unremarkable. No splenomegaly. Adrenals: Unremarkable. No mass. Kidneys and ureters: Mild bilateral hydronephrosis, greater on the right, may be due to external compression of the distal ureters from the overly distended rectum. Stomach and bowel: Dilated rectosigmoid colon to 11.3 cm., large amount of stool in the remainder of the colon. Findings may be due to fecal impaction with obstipation. Differential includes Colonic ileus or distal colonic obstruction and early stercoral colitis. Trace free fluid. No free air or abscess. PELVIS: Appendix: No findings to suggest acute appendicitis. Bladder: See below. Reproductive: Uterus and urinary bladder anteriorly placed from the markedly distended rectum. ABDOMEN and PELVIS: Intraperitoneal space: See above. Bones/joints: Mild superior endplate compression of L5 likely chronic. Dynamic left hip screws. No dislocation. Soft tissues: Unremarkable. Vasculature: Atherosclerotic vascular disease. No abdominal aortic aneurysm. Lymph nodes: Unremarkable. No enlarged lymph nodes. IMPRESSION: 1. Dilated rectosigmoid colon to 11.3 cm., large amount of stool in the remainder of the colon. Mild thickening of the colonic wall. Findings may be due to fecal impaction with obstipation. Differential includes Colonic ileus or distal colonic obstruction and early stercoral colitis. Trace free fluid. No free air or abscess. 2. Mild bilateral hydronephrosis, greater on the right, may be due to external compression of the distal ureters from the overly distended rectum. 3. Right lower lobe of the lung small consolidation and mild bibasilar lung septal thickening. 4. Fatty prominent liver. Distended gallbladder.
[2019-09-21] MEDS ORDERED: CRANBERRY450 M5 PO (13:41)
[2019-09-21] MEDS ORDERED: DIGOXIN250 MCG ORAL (13:41)
[2019-09-21] MEDS ORDERED: LIPITOR40 MG ORAL (13:44)
[2019-09-21] MEDS ORDERED: EUTHYROX100 MCG PO (13:44)
[2019-09-21 14:09] VITALS: BP 150/79
[2019-09-21] MEDS ORDERED: Albuterol/Ipratropium 3ml neb HHN PRN (16:45)
[2019-09-21] MEDS ORDERED: Promethazine/Codeine 5ml UD ORAL PRN (16:45)
[2019-09-21] MEDS ORDERED: Nitroglycerin Subl 0.4mg tab SL PRN (16:45)
[2019-09-21] MEDS ORDERED: Miralax 17gm pkt ORAL PRN (16:45)
[2019-09-21] MEDS ORDERED: Cefepime HCl 1 GM in D5W 55 ML IV SCH (18:00)
[2019-09-21] MEDS: Levodopa/Carbidopa 25/100 tab ORAL SCH (19:08)
[2019-09-21 20:00] VITALS: BP 147/86
[2019-09-21] MEDS ORDERED: Vancomycin 1gm in D5W 275ml IVPB ONE (20:00)
[2019-09-21] MEDS: Heparin 5000 units/ml inj SUBQ SCH (21:00)
[2019-09-21] MEDS: Cefepime HCl 1 GM in D5W 55 ML IV SCH (22:00)
[2019-09-21] MEDS: Metoprolol Tartrate 12.5mg TAB ORAL SCH (23:20)
[2019-09-22] VITALS: BP 149/74
[2019-09-22 04:00] VITALS: BP 118/60
[2019-09-22 07:18] LABS: BASOPHILS % (AUTO) 0.2 % (0.0-2.0); EOSINOPHILS % (AUTO) 0.3 % (0.0-3.0); HEMATOCRIT 28.6 % (37.0-47.0); HEMOGLOBIN 9.7 G/DL (12.0-16.0); MEAN CORPUSCULAR VOLUME 86 FL (80-99); MONOCYTES % (AUTO) 8.6 % (1.0-10.0); NEUTROPHILS % (AUTO) 81.9 % (45.0-75.0); PLATELET COUNT 170 K/UL (150-450); RED BLOOD COUNT 3.32 M/UL (4.20-5.40); RED CELL DISTRIBUTION WIDTH 11.9 % (11.6-14.8); WHITE BLOOD COUNT 9.6 K/UL (4.8-10.8)
[2019-09-22 08:00] VITALS: BP 121/56
[2019-09-22 08:11] LABS: ALBUMIN 2.8 G/DL (3.4-5.0); ANION GAP 12 mmol/L (5-15); BLOOD UREA NITROGEN 33 mg/dL (7-18); CALCIUM 8.8 MG/DL (8.5-10.1); CARBON DIOXIDE 25 MMOL/L (21-32); CHLORIDE 105 MMOL/L (98-107); PHOSPHORUS 2.3 MG/DL (2.5-4.9); POTASSIUM 3.8 MMOL/L (3.5-5.1); SODIUM 142 MMOL/L (136-145)
[2019-09-22] MEDS: Heparin 5000 units/ml inj SUBQ SCH ×2 (09:00→21:40)
--- NOTE | 2019-09-22 09:08 | Consultation ---
History of Present Illness General Date patient seen: Sep 22, 2019 Time patient seen: 08:30 Chief Complaint: Abdominal Pain Referring physician: Dr Junior Reason for Consultation: SOB Present Illness HPI 79 years old female with PMH of HTN, atrial fibrillation, dyslipidemia, GERD, Alzheimer's dementia, seizure disorder, TIA , DNR/DNI status, presented for evaluation from the SNF due to cough and shortness of breath for 1 day. No reported fever or chills. No chest pain. Also reported abdominal pain with distention for 1 day . Abd pain reported as dull, nonradiating, 5 out of 10 with one episode of nonbloody vomiting. Patient required supplemental oxygen to keep appropriate oxygenation . Patient was afebrile with low-grade tachycardia . Mild leukocytosis WBC 11.7, stable hemoglobin ,hematocrit and platelet count. Stable electrolytes . BUN 36, creatinine 1.2. Glucose 143. Troponin 0.041 pro BNP 1464. EKG revealed supraventricular tachycardia with ST depression in lateral leads. Stable LFT. CXR revealed mild interstitial prominence and tiny left pleural effusion, possibly mild CHF. CT scan of the abdomen and pelvis demonstrated dilated rectosigmoid colon with large amount of stool in the remainder of colon. Thickening of the colonic wall. Findings liekly represent fecal impaction with obstipation but can t rule out colonic ileus or distal colonic obstruction and early stercoral colitis. Mild bilateral hydronephrosis greater on the right , possibly due to external compression of the distal ureters from the overly distended rectum. Right lower lobe of the lung small consolidation and mild bibasilar lung septal thickening. Fatty prominent fever. In emergency department patient received Pepcid , Zofran, 500 mL of fluid . Patient also received IV Lopressor with cardioversion achieved. Urinalysis revealed no evidence of urinary tract infection , +3 protein. Patient subsequently admitted for further management. Allergies: Coded Allergies: INFLIXIMAB (Verified Allergy, Intermediate, 04/20/16) NIACIN (Verified Allergy, Intermediate, 04/20/16) SULFA (SULFONAMIDE ANTIBIOTICS) (Verified Allergy, Intermediate, 04/20/16) Uncoded Allergies: SULFONAMIDES (Allergy, Unknown, 04/28/18) Medication History Scheduled Aspirin* (Aspirin*), 81 MG ORAL DAILY, (Reported) Atorvastatin Calcium* (Lipitor*), 10 MG ORAL BEDTIME, (Reported) Atorvastatin Calcium* (Lipitor*), 40 MG ORAL BEDTIME, (Reported) Carbamazepine (Carbamazepine), 200 MG ORAL TWICE A DAY, (Reported) Carbidopa/Levodopa 25-100 Mg* (Sinemet 25-100 Mg Tablet*), 1 TAB ORAL THREE TIMES A DAY, (Reported) Cranberry Fruit (Cranberry), 450 MG PO DAILY, (Reported) Cranberry Fruit Concentrate (Cranberry), 450 MG PO DAILY, (Reported) Digoxin* (Digoxin*), 250 MCG IV DAILY, (Reported) Digoxin* (Digoxin*), 0.25 MG ORAL DAILY, (Reported) Docusate Sodium* (Docusate Sodium*), 100 MG ORAL TWICE A DAY, (Reported) Fish Oil/Dha/Epa (Fish Oil 1,200 Mg Fish Oil), 2 EACH PO BID, (Reported) Folic Acid* (Folic Acid*), 1 MG ORAL DAILY, (Reported) Levothyroxine Sodium (Synthroid), 50 MCG ORAL DAILY, (Reported) Levothyroxine Sodium (Euthyrox), 100 MCG PO DAILY, (Reported) Linaclotide (Linzess), 290 MCG PO AC, (Reported) Magnesium Oxide (Magnesium Oxide), 400 MG ORAL DAILY, (Reported) Metoprolol Tartrate* (Metoprolol Tartrate*), 12.5 MG ORAL EVERY 12 HOURS, ( Reported) Ranitidine Hcl* (Zantac*), 150 MG ORAL TWICE A DAY, (Reported) Rivaroxaban (Xarelto), 15 MG ORAL DAILY, (Reported) Sennosides (Senna), 17.2 MG PO QHS, (Reported) Simethicone* (Simethicone*), 80 MG ORAL TID, (Reported) Scheduled PRN Acetaminophen* (Tylenol Extra Strength*), 500 MG ORAL Q6H PRN for Mild Pain/ Temp > 100.5, (Reported) Acetaminophen* (Acetaminophen 325MG Tablet*), 650 MG ORAL Q6H PRN for Moderate Pain (Pain Scale 4-6), (Reported) Magnesium Hydroxide* (Milk Of Magnesia*), 30 ML ORAL DAILY PRN for Constipation, (Reported) Nitroglycerin (Nitrostat), 0.4 MG SL Q5M X3 DOSES PRN for CHEST PAIN, (Reported) Polyethylene Glycol 3350* (Miralax*), 17 GM ORAL DAILY PRN for Constipation, ( Reported) Tramadol Hcl* (Ultram*), 50 MG ORAL Q6H PRN for Severe Pain (Pain Scale 7-10), ( Reported) Miscellaneous Medications Rivaroxaban (Xarelto), 15 MG ORAL, (Reported) Patient History Healthcare decision maker Resuscitation status Full Code Advanced Directive on File No Past Medical/Surgical History Past Medical/Surgical History: (1) Alzheimer's dementia (2) Seizure disorder (3) CHF (congestive heart failure) (4) Diabetes mellitus type II, controlled (5) HTN (hypertension) (6) Hypothyroidism (7) Hypercholesterolemia (8) CAD (coronary artery disease) (9) 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 (10) History of DVT (deep vein thrombosis) Review of Systems ROS Narrative unable to obtain due to dementia, very limited answers Physical Exam General Appearance: no apparent distress, cachetic, other - elderly female in NAD, demented Lines, tubes and drains: peripheral HEENT: normocephalic, atraumatic, anicteric Neck: non-tender, supple Respiratory/Chest: lungs clear, no respiratory distress, no accessory muscle use Cardiovascular/Chest: normal peripheral pulses, normal rate Abdomen: soft - distended, hypoactive bowel sounds Skin Exam: warm/dry Neurologic: abnormal gait, alert, responsive - confused, demented Musculoskeletal: atrophy Last 24 Hour Vital Signs Date Time Temp Pulse Resp B/P (MAP) Pulse Ox O2 Delivery O2 Flow Rate FiO2 09/22/19 08:31 Room Air 09/22/19 08:00 97.7 67 20 121/56 (77) 96 09/22/19 07:05 91 18 95 Room Air 21 09/22/19 07:05 92 18 95 Room Air 21 09/22/19 04:00 90 09/22/19 04:00 2.0 09/22/19 04:00 98.1 69 17 118/60 (79) 96 09/22/19 03:26 Room Air 21 09/22/19 03:26 Room Air 21 09/22/19 00:00 97.7 91 18 149/74 (99) 96 09/22/19 00:00 2.0 09/22/19 00:00 91 09/21/19 23:47 Room Air 21 09/21/19 23:47 Room Air 21 09/21/19 23:20 99 147/86 09/21/19 21:00 Room Air 09/21/19 20:00 2.0 09/21/19 20:00 97 09/21/19 20:00 99.1 99 21 147/86 (106) 96 09/21/19 19:49 95 18 97 Room Air 21 09/21/19 19:44 94 18 96 Room Air 21 09/21/19 19:44 94 18 96 Room Air 21 09/21/19 16:00 Room Air 09/21/19 16:00 94 09/21/19 15:58 Room Air 09/21/19 14:17 98.0 85 18 154/78 94 Nasal Cannula 2.0 09/21/19 14:09 97.5 86 16 150/79 94 Nasal Cannula 2.0 09/21/19 12:09 98.0 88 18 155/81 94 Nasal Cannula 2.0 09/21/19 11:35 152 169/86 09/21/19 10:09 97.9 102 18 153/73 94 Nasal Cannula 2.0 09/21/19 10:09 102 18 Nasal Cannula 2.0 09/21/19 10:00 97.9 102 18 153/73 (99) 94 Nasal Cannula Intake and Output 09/21/19 09/22/19 19:00 07:00 Intake Total 120 ml 260 ml Output Total 1500 ml Balance -1380 ml 260 ml Intake Oral 120 ml Other 260 ml Output Urine Total 1500 ml # Voids 4 2 # Bowel Movements 1 1 Laboratory Tests Test 09/21/19 10:28 09/21/19 12:05 09/22/19 05:35 White Blood Count 11.7 K/UL (4.8-10.8) H 9.6 K/UL (4.8-10.8) Red Blood Count 4.11 M/UL (4.20-5.40) L 3.32 M/UL (4.20-5.40) L Hemoglobin 12.2 G/DL (12.0-16.0) 9.7 G/DL (12.0-16.0) L Hematocrit 35.7 % (37.0-47.0) L 28.6 % (37.0-47.0) L Mean Corpuscular Volume 87 FL (80-99) 86 FL (80-99) Mean Corpuscular Hemoglobin 29.6 PG (27.0-31.0) 29.2 PG (27.0-31.0) Mean Corpuscular Hemoglobin Concent 34.1 G/DL (32.0-36.0) 33.9 G/DL (32.0-36.0) Red Cell Distribution Width 12.2 % (11.6-14.8) 11.9 % (11.6-14.8) Platelet Count 183 K/UL (150-450) 170 K/UL (150-450) Mean Platelet Volume 5.9 FL (6.5-10.1) L 5.9 FL (6.5-10.1) L Neutrophils (%) (Auto) % (45.0-75.0) 81.9 % (45.0-75.0) H Lymphocytes (%) (Auto) % (20.0-45.0) 9.0 % (20.0-45.0) L Monocytes (%) (Auto) % (1.0-10.0) 8.6 % (1.0-10.0) Eosinophils (%) (Auto) % (0.0-3.0) 0.3 % (0.0-3.0) Basophils (%) (Auto) % (0.0-2.0) 0.2 % (0.0-2.0) Differential Total Cells Counted 100 Neutrophils % (Manual) 87 % (45-75) H Lymphocytes % (Manual) 7 % (20-45) L Monocytes % (Manual) 5 % (1-10) Eosinophils % (Manual) 1 % (0-3) Basophils % (Manual) 0 % (0-2) Band Neutrophils 0 % (0-8) Platelet Estimate Adequate Platelet Morphology Normal Red Blood Cell Morphology Normal Sodium Level 143 MMOL/L (136-145) 142 MMOL/L (136-145) Potassium Level 3.7 MMOL/L (3.5-5.1) 3.8 MMOL/L (3.5-5.1) Chloride Level 104 MMOL/L (98-107) 105 MMOL/L (98-107) Carbon Dioxide Level 26 MMOL/L (21-32) 25 MMOL/L (21-32) Anion Gap 13 mmol/L (5-15) 12 mmol/L (5-15) Blood Urea Nitrogen 36 mg/dL (7-18) H 33 mg/dL (7-18) H Creatinine 1.2 MG/DL (0.55-1.30) 1.0 MG/DL (0.55-1.30) Estimat Glomerular Filtration Rate 43.6 mL/min (>60) 53.8 mL/min (>60) Glucose Level 143 MG/DL (74-106) H 97 MG/DL (74-106) Calcium Level 9.8 MG/DL (8.5-10.1) 8.8 MG/DL (8.5-10.1) Total Bilirubin 0.7 MG/DL (0.2-1.0) Aspartate Amino Transf (AST/SGOT) 26 U/L (15-37) Alanine Aminotransferase (ALT/SGPT) 24 U/L (12-78) Alkaline Phosphatase 59 U/L (46-116) Troponin I 0.041 ng/mL (0.000-0.056) Pro-B-Type Natriuretic Peptide 1464 pg/mL (0-125) H Total Protein 8.3 G/DL (6.4-8.2) H Albumin 3.5 G/DL (3.4-5.0) 2.8 G/DL (3.4-5.0) L Globulin 4.8 g/dL Albumin/Globulin Ratio 0.7 (1.0-2.7) L Urine Color Brown Urine Appearance Slightly cloudy Urine pH 5 (4.5-8.0) Urine Specific [place] 1.020 (1.005-1.035) Urine Protein 3+ (NEGATIVE) H Urine Glucose (UA) Negative (NEGATIVE) Urine Ketones 2+ (NEGATIVE) H Urine Blood Negative (NEGATIVE) Urine Nitrite Negative (NEGATIVE) Urine Bilirubin 1+ (NEGATIVE) H Urine Ictotest Negative (NEGATIVE) Urine Urobilinogen 4 MG/DL (0.0-1.0) H Urine Leukocyte Esterase Trace (NEGATIVE) H Urine RBC 0-2 /HPF (0 - 2) Urine WBC 2-4 /HPF (0 - 2) Urine Squamous Epithelial Cells Moderate /LPF (NONE/OCC) H Urine Bacteria Few /HPF (NONE) Phosphorus Level 2.3 MG/DL (2.5-4.9) L Microbiology Date/Time Source Procedure Growth Status 09/21/19 11:08 Nasal Nares - Final Complete 09/21/19 11:08 Nasal Nares - Final Complete Height (Feet): 5 Height (Inches): 2.00 Weight (Pounds): 103 Medications Current Medications Medications (Trade) Dose Ordered Sig/Zee Route PRN Reason Start Time Stop Time Status Last Admin Dose Admin Acetaminophen (Tylenol) 650 mg Q4H PRN ORAL fever 09/21/19 16:45 10/21/19 16:44 Albuterol/ Ipratropium (Albuterol/ Ipratropium) 3 ml Q4H PRN HHN Shortness of Breath 09/21/19 16:45 09/26/19 16:44 Atorvastatin Calcium (Lipitor) 10 mg BEDTIME ORAL 09/21/19 21:00 12/20/19 20:59 09/21/19 23:20 Carbidopa/Levodopa (Sinemet 25/100) 1 tab THREE TIMES A DAY ORAL 09/21/19 18:00 10/21/19 17:59 09/21/19 19:08 Cefepime HCl 1 gm/ Dextrose 55 ml @ 110 mls/hr Q12H IV 09/21/19 22:00 09/28/19 21:59 09/21/19 22:00 Heparin Sodium (Porcine) (Heparin 5000 units/ml) 5,000 units EVERY 12 HOURS SUBQ 09/21/19 21:00 11/05/19 20:59 Iohexol (OMNIPAQUE-300 100ml) 100 ml NOW PRN INJ Radiology Procedure 09/21/19 10:45 09/23/19 10:33 Levothyroxine Sodium (Synthroid) 100 mcg ACBREAKFAST ORAL 09/22/19 06:30 10/22/19 06:29 09/22/19 07:11 Metoprolol Tartrate (Lopressor) 5 mg Q5MIN X 3 IVP 09/21/19 11:30 12/20/19 11:29 09/21/19 11:35 Metoprolol Tartrate (Lopressor) 12.5 mg EVERY 12 HOURS ORAL 09/21/19 21:00 12/20/19 20:59 09/21/19 23:20 Nitroglycerin (Ntg) 0.4 mg Q5M PRN SL Prn Chest Pain 09/21/19 16:45 10/21/19 16:44 Ondansetron HCl (Zofran) 4 mg Q6H PRN IVP Nausea & Vomiting 09/21/19 16:45 10/21/19 16:44 Polyethylene Glycol (Miralax) 17 gm DAILYPRN PRN ORAL Constipation 09/21/19 16:45 10/21/19 16:44 Promethazine HCl/ Codeine (Phenergan with Codeine) 5 ml Q4H PRN ORAL For Cough 09/21/19 16:45 10/21/19 16:44 Temazepam (Restoril) 15 mg HSPRN PRN ORAL Insomnia 09/21/19 16:45 09/28/19 16:44 Vancomycin HCl (Vanco rx to dose) 1 ea DAILY PRN MISC Per rx protocol 09/21/19 16:45 10/21/19 16:44 Assessment/Plan Assessment/Plan: ASSESSMENT Shortness of breath Possible pneumonia SVT/A. fib Fecal impaction, r/o colonic ileus/obstruction Acute kidney injury ? due to dehydration Hypertension Hyperlipidemia GERD Alzheimer dementia History of CVA Hypothyroidism Hx of DVT Protein calorie malnutrition PLAN OF CARE tele O2 titrate to keep sat above 92% HHN venous Duplex ECHO emp abx fup with cx CXR in am DVT prophylaxis BB for rate control continue SNF meds GI consult bowel regimen NPO until seen by GI swallow eval in am IVF monitor renal parameters, lytes, correct as needed, avoid nephrotoxics BP management with current regimen, optimize as heeded remains in SR on tele TSH WNL, continue current dose of levothyroxine HgA1c -4.9 no need for accoucheur, monitor am glucose dietary eval DNR/DNI status case discussed and evaluated by supervising physician Mesha Rosario MARSHMALLOW MAKER Sep 22, 2019 09:08
[2019-09-22] MEDS: Metoprolol Tartrate 12.5mg TAB ORAL SCH ×2 (09:18→21:41)
[2019-09-22] MEDS: Levodopa/Carbidopa 25/100 tab ORAL SCH ×3 (09:18→18:15)
[2019-09-22] MEDS: Cefepime HCl 1 GM in D5W 55 ML IV SCH ×2 (09:18→21:40)
[2019-09-22] MEDS: Aspirin Baby 81mg ORAL SCH (09:18)
[2019-09-22 12:00] VITALS: BP 102/50
[2019-09-22] MEDS ORDERED: Fleet's Enema 133ml RECTAL SCH (12:00)
[2019-09-22] MEDS: D5 1/2NS 1,000 ML IV SCH (12:04)
--- NOTE | 2019-09-22 15:23 | History & Physical ---
History and Physical History & Physicial Dictated for Int Med-DR Junior no [id number] Bryan Jackson MD Sep 22, 2019 15:23
[2019-09-22 16:00] VITALS: BP 109/59
[2019-09-22] MEDS: Lactulose 20gm/30ml UDC ORAL SCH (18:15)
[2019-09-22] MEDS: Docusate 100mg cap ORAL SCH (18:15)
--- NOTE | 2019-09-22 18:45 | History and Physical Report ---
DATE OF ADMISSION: 09/21/2019 CHIEF COMPLAINT: The patient is a 79-year-old female who presents with a chief complaint of abdominal pain, cough and wheezing. HISTORY OF PRESENT ILLNESS: The patient states she has been constipated for some time. The patient states she is unable to have a bowel movement without laxatives. The patient is a resident of [facility] facility. The patient states she began to have cough two days ago. Cough is nonproductive. She has some wheezing. The patient presented to [place] emergency room. The patient was admitted with chief complaint of abdominal pain, cough and wheezing to rule out coronavirus. REVIEW OF SYSTEMS: CONSTITUTIONAL: The patient denies weight loss or weight gain. The patient denies fevers or chills. HEENT: The patient denies ear or throat pain. The patient denies headache. CARDIOVASCULAR: The patient denies palpitations or chest pain. CHEST: The patient complains of cough and wheeze as above. The patient denies sputum production. ABDOMEN: The patient complains of abdominal pain and distention. The patient denies nausea, vomiting, or diarrhea. The patient complains of constipation. NEUROMUSCULAR: The patient has a history of seizure disorder. The patient denies generalized weakness. GENITOURINARY: The patient denies dysuria or increased frequency of urination. PAST MEDICAL HISTORY: Significant for: 1. Atrial fibrillation. 2. History of coronary artery disease. 3. Diabetes type 2. 4. History of deep venous thrombosis. 5. Hypertension. 6. Hypothyroidism. 7. Seizure disorder. 8. History of cerebrovascular accident. 9. Left hemiparesis. 10. History of subdural hematoma. 11. Parkinson's disease. 12. Hypercholesterolemia. 13. Alzheimer's dementia. 14. Trigeminal neuralgia. PAST SURGICAL HISTORY: Significant for: 1. Coronary artery bypass graft in 1970. 2. Craniotomy secondary to subdural hematoma. 3. Aortic and mitral valve bioprosthetic replacement. CURRENT MEDICATIONS: 1. Aspirin 81 mg one tablet p.o. daily. 2. Atorvastatin 10 mg p.o. nightly. 3. Carbamazepine 200 mg p.o. twice daily. 4. Sinemet 25/100 mg one tablet p.o. three times daily. 5. Digoxin 0.25 mg p.o. daily. 6. [place]-3 1 g p.o. twice daily. 7. Folic acid 1 mg p.o. daily. 8. Synthroid 50 mcg p.o. daily. 9. Linzess 290 mcg p.o daily. 10. Magnesium oxide 400 mg p.o. daily. 11. MiraLAX 17 g p.o. daily. 12. Zantac 150 mg p.o. twice daily. 13. Xarelto 15 mg p.o. daily. 14. Tramadol 50 mg p.o. q.6 h. p.r.n. ALLERGIES: Sulfa. SOCIAL HISTORY: The patient is single and is a resident of [facility]. The patient denies tobacco or alcohol use. PHYSICAL EXAMINATION: VITAL SIGNS: Temperature 97.9, respirations 18, pulse 102, and blood pressure 153/72. Pulse oximetry 94% on 2 liters per nasal cannula. GENERAL: The patient is a well-developed and well-nourished thin-appearing female, in no apparent distress. HEENT: Eyes, pupils are equal and responsive to light and accommodation. Extraocular movements are intact. NECK: Supple without lymphadenopathy. CHEST: Lungs are clear to auscultation bilaterally without wheezes or rales. CARDIOVASCULAR: Regular rate. S1 and S2 normal without murmurs, rubs, or gallops. ABDOMEN: Soft, distended with decreased bowel sounds. There is increased tympany. There is tenderness to palpation in all four quadrants. There is no rebound or guarding noted. EXTREMITIES: Negative for clubbing, cyanosis, or edema. RECTAL/GENITAL: Not performed. NEUROLOGIC: Cranial nerves II through XII are grossly intact without focal deficits. Motor strength is 5/5 bilaterally. Deep tendon reflexes are 2+ plantar. LABORATORY STUDIES: WBC 11.7, hemoglobin 12.2, hematocrit 35.7, and platelets 183,000. Sodium 143, potassium 3.7, chloride 104, CO2 26, BUN 36, and creatinine 1.2. Glucose 143. BNP elevated at 1464. Chest x-ray was reported as interstitial edema consistent with congestive heart failure. A CT scan of the abdomen and pelvis was reported as dilated rectosigmoid colon with large amount of stool with thickening of the colonic wall consistent with ileus or colonic obstruction versus colitis. ASSESSMENT: This is a 79-year-old female with: 1. Abdominal pain. 2. Congestive heart failure. 3. Right lower lobe pneumonia. 4. Atrial fibrillation. 5. Coronary artery disease. 6. Diabetes type 2. 7. Hypertension. 8. Hypercholesterolemia. 9. Hypothyroidism. 10. Seizure disorder. 11. Cerebrovascular disease. 12. Left hemiparesis. 13. Subdural hematoma. 14. History of deep venous thrombosis. 15. Mitral and aortic valve biosynthetic prosthesis. TREATMENT: 1. Abdominal pain/distention. A General Surgery consultation has been obtained with Dr. Hirsch. A Gastroenterology consultation has been obtained with Dr. Abhishek Langford. Differential includes impaction versus obstruction. We will follow recommendations of General Surgery and Gastroenterology. 2. Congestive heart failure. Cardiology consultation has been obtained with Dr. Barber Mack. The patient has been started empirically on intravenous Lasix. An echocardiogram is pending. 3. Right lower lobe pneumonia. A Pulmonary consultation has been obtained with Dr. Koko Gee. The patient has been started empirically on cefepime and vancomycin. We will follow recommendations of Pulmonary. 4. Atrial fibrillation. As above, a Cardiology consultation has been obtained with Dr. Barber Mack. 5. Coronary artery disease. The patient is status post coronary artery bypass graft. 6. Diabetes type 2. The patient is not on any antihyperglycemic medication at the residential. 7. Hypertension. Continue metoprolol as above. 8. Hypercholesteremia. Continue atorvastatin as above. 9. Hypothyroidism. Continue levothyroxine as above. 10. Seizure disorder. Continue carbamazepine as above. 11. Cerebrovascular disease. 12. Left hemiparesis. 13. History of subdural hematoma. 14. History of deep venous thrombosis. 15. History of mitral and aortic valve bioprosthesis replacement. Bryan Jackson M.D. DR: MONICO JOB#: [id number] CC:
[2019-09-22 20:00] VITALS: BP 106/68
[2019-09-22] MEDS: Miralax 17gm pkt ORAL SCH (21:40)
[2019-09-23] VITALS: BP 110/64
[2019-09-23] MEDS: D5 1/2NS 1,000 ML IV SCH ×2 (01:27→14:21)
[2019-09-23 04:00] VITALS: BP 135/58
[2019-09-23 07:34] LABS: BASOPHILS % (AUTO) 0.4 % (0.0-2.0); EOSINOPHILS % (AUTO) 1.7 % (0.0-3.0); HEMATOCRIT 28.4 % (37.0-47.0); HEMOGLOBIN 9.5 G/DL (12.0-16.0); LYMPHOCYTES % (AUTO) 11.7 % (20.0-45.0); MEAN CORPUSCULAR VOLUME 87 FL (80-99); MONOCYTES % (AUTO) 8.5 % (1.0-10.0); NEUTROPHILS % (AUTO) 77.7 % (45.0-75.0); PLATELET COUNT 149 K/UL (150-450); RED BLOOD COUNT 3.25 M/UL (4.20-5.40); RED CELL DISTRIBUTION WIDTH 11.9 % (11.6-14.8); WHITE BLOOD COUNT 4.6 K/UL (4.8-10.8)
[2019-09-23 08:00] VITALS: BP 132/57
[2019-09-23 08:13] LABS: ALANINE AMINOTRANSFERASE 19 U/L (12-78); ALBUMIN 2.5 G/DL (3.4-5.0); ALBUMIN/GLOBULIN RATIO 0.6 (1.0-2.7); ALKALINE PHOSPHATASE 46 U/L (46-116); ANION GAP 12 mmol/L (5-15); ASPARTATE AMINO TRANSFERASE 17 U/L (15-37); BILIRUBIN,TOTAL 0.4 MG/DL (0.2-1.0); BLOOD UREA NITROGEN 25 mg/dL (7-18); CALCIUM 8.7 MG/DL (8.5-10.1); CARBON DIOXIDE 23 MMOL/L (21-32); CHLORIDE 106 MMOL/L (98-107); CREATININE 0.8 MG/DL (0.55-1.30); POTASSIUM 2.9 MMOL/L (3.5-5.1); SODIUM 141 MMOL/L (136-145)
[2019-09-23] MEDS: Metoprolol Tartrate 12.5mg TAB ORAL SCH ×2 (10:00→21:37)
[2019-09-23] MEDS: Aspirin Baby 81mg ORAL SCH (10:00)
[2019-09-23] MEDS: Lactulose 20gm/30ml UDC ORAL SCH ×2 (10:00→17:17)
[2019-09-23] MEDS: Docusate 100mg cap ORAL SCH ×2 (10:00→17:16)
[2019-09-23] MEDS: Levodopa/Carbidopa 25/100 tab ORAL SCH ×3 (10:00→17:16)
[2019-09-23] MEDS: Vancomycin 500 MG in NS 110 ML IVPB SCH (10:01)
[2019-09-23] MEDS: Cefepime HCl 1 GM in D5W 55 ML IV SCH ×2 (10:01→22:00)
[2019-09-23] MEDS: Heparin 5000 units/ml inj SUBQ SCH ×2 (10:05→21:00)
[2019-09-23 12:00] VITALS: BP 125/56
--- NOTE | 2019-09-23 12:09 | Diagnostic Imaging Report ---
Indication: Right lower extremity pain and swelling. TECHNIQUE: Real-time sonographic imaging of the deep veins in both lower extremities performed. Findings: Grayscale and color flow imaging of the deep veins of the lower extremities were performed from the common femoral veins at both groins to the popliteal veins at the knees. The veins are 100% compressible. Doppler evaluation shows good respiratory phasicity on waveform analysis and good augmentation at the common femoral veins bilaterally. Impression: Negative ultrasound evaluation of the deep veins of both lower extremities. No evidence of thrombosis.
--- NOTE | 2019-09-23 13:18 | Diagnostic Imaging Report ---
Indication: Abdominal pain Comparison: None Single view of the abdomen obtained Findings: Bowel gas pattern is nonspecific. Moderate stool noted within the colon. No mass, ectopic calcifications, or abnormal gas collections are identified. Partially imaged tendons noted in the left hip. The bones are osteopenic. Impression: No acute findings
--- NOTE | 2019-09-23 13:32 | Diagnostic Imaging Report ---
Indication: Dyspnea Comparison: 09/21/2019 A single view chest radiograph was obtained. Findings: There are suspected patchy infiltrates involving the lung bases. There is evidence of extensive chronic lung disease with hyperinflation and bronchiectasis and fibrosis involving the lung bases. Sternotomy is noted. The heart is enlarged. Aorta is moderately calcified. Bones are osteopenic. IMPRESSION: Chronic lung disease. Suspected patchy superimposed infiltrates at the lung bases. No significant change from 09/21/2019
--- NOTE | 2019-09-23 15:18 | Consultation ---
History of Present Illness General Date patient seen: Sep 23, 2019 Reason for Hospitalization: Abdominal Pain Present Illness HPI This is a very pleasant 79-year-old female with multi-medical comorbidities including hypertension, atrial fibrillation, dyslipidemia, GERD, Alzheimer's, seizure disorder, TIA, constipation who presented to the emergency room at [facility] complaining of abdominal pain, shortness of breath, cough. Patient was admitted for further care and management. CT was ordered and identified as below. Surgery was called to evaluate and assist with care. Patient seen, patient evaluated, chart reviewed. Pain described as cramping generalized abdominal pain. Feels full. Distended. 4 out of 10 pain. No radiation. Cannot recall last bowel movement. Feels she is passing flatus. Allergies: Coded Allergies: INFLIXIMAB (Verified Allergy, Intermediate, 04/20/16) NIACIN (Verified Allergy, Intermediate, 04/20/16) SULFA (SULFONAMIDE ANTIBIOTICS) (Verified Allergy, Intermediate, 04/20/16) Uncoded Allergies: SULFONAMIDES (Allergy, Unknown, 04/28/18) Medication History Scheduled Aspirin* (Aspirin*), 81 MG ORAL DAILY, (Reported) Atorvastatin Calcium* (Lipitor*), 10 MG ORAL BEDTIME, (Reported) Atorvastatin Calcium* (Lipitor*), 40 MG ORAL BEDTIME, (Reported) Carbamazepine (Carbamazepine), 200 MG ORAL TWICE A DAY, (Reported) Carbidopa/Levodopa 25-100 Mg* (Sinemet 25-100 Mg Tablet*), 1 TAB ORAL THREE TIMES A DAY, (Reported) Cranberry Fruit (Cranberry), 450 MG PO DAILY, (Reported) Cranberry Fruit Concentrate (Cranberry), 450 MG PO DAILY, (Reported) Digoxin* (Digoxin*), 250 MCG IV DAILY, (Reported) Digoxin* (Digoxin*), 0.25 MG ORAL DAILY, (Reported) Docusate Sodium* (Docusate Sodium*), 100 MG ORAL TWICE A DAY, (Reported) Fish Oil/Dha/Epa (Fish Oil 1,200 Mg Fish Oil), 2 EACH PO BID, (Reported) Folic Acid* (Folic Acid*), 1 MG ORAL DAILY, (Reported) Levothyroxine Sodium (Synthroid), 50 MCG ORAL DAILY, (Reported) Levothyroxine Sodium (Euthyrox), 100 MCG PO DAILY, (Reported) Linaclotide (Linzess), 290 MCG PO AC, (Reported) Magnesium Oxide (Magnesium Oxide), 400 MG ORAL DAILY, (Reported) Metoprolol Tartrate* (Metoprolol Tartrate*), 12.5 MG ORAL EVERY 12 HOURS, ( Reported) Ranitidine Hcl* (Zantac*), 150 MG ORAL TWICE A DAY, (Reported) Rivaroxaban (Xarelto), 15 MG ORAL DAILY, (Reported) Sennosides (Senna), 17.2 MG PO QHS, (Reported) Simethicone* (Simethicone*), 80 MG ORAL TID, (Reported) Scheduled PRN Acetaminophen* (Tylenol Extra Strength*), 500 MG ORAL Q6H PRN for Mild Pain/ Temp > 100.5, (Reported) Acetaminophen* (Acetaminophen 325MG Tablet*), 650 MG ORAL Q6H PRN for Moderate Pain (Pain Scale 4-6), (Reported) Magnesium Hydroxide* (Milk Of Magnesia*), 30 ML ORAL DAILY PRN for Constipation, (Reported) Nitroglycerin (Nitrostat), 0.4 MG SL Q5M X3 DOSES PRN for CHEST PAIN, (Reported) Polyethylene Glycol 3350* (Miralax*), 17 GM ORAL DAILY PRN for Constipation, ( Reported) Tramadol Hcl* (Ultram*), 50 MG ORAL Q6H PRN for Severe Pain (Pain Scale 7-10), ( Reported) Miscellaneous Medications Rivaroxaban (Xarelto), 15 MG ORAL, (Reported) Patient History Limited by: age, medical condition History Provided By: Medical Record, PMD Healthcare decision maker Resuscitation status Full Code Advanced Directive on File No Past Medical/Surgical History Past Medical/Surgical History: (1) CHF (congestive heart failure) (2) Abdominal pain (3) SVT (supraventricular tachycardia) (4) UTI (urinary tract infection) (5) Fecal impaction in rectum (6) Feeding by G-tube (7) Seizure disorder (8) Alzheimer's dementia (9) 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 (10) CAD (coronary artery disease) (11) Hypercholesterolemia (12) Hypothyroidism (13) HTN (hypertension) (14) Diabetes mellitus type II, controlled (15) Cerebral vascular disease (16) Left hemiparesis (17) Anxiety (18) History of DVT (deep vein thrombosis) (19) History of subdural hematoma (20) Acute coronary syndrome (21) Non-ST elevation (NSTEMI) myocardial infarction Review of Systems Review of Symptoms General ROS: no weight loss or fever Psychological ROS: no depression or mood changes, no memory loss Ophthalmic ROS: no visual changes or eye irritation ENT ROS: no nasal congestion, hearing loss, dizziness Allergy and Immunology ROS: no allergic symptoms or urticaria Hematological and Lymphatic ROS: no swollen glands, unusual bleeding or bruising Endocrine ROS: no polyuria, polydipsia, weight changes, temperature intolerance Respiratory ROS: no cough, shortness of breath, or wheezing Cardiovascular ROS: no chest pain or dyspnea on exertion Gastrointestinal ROS: abdominal pain, bright red blood in stool. Musculoskeletal ROS: no myalgias or arthralgias Neurological ROS: no TIA or stroke symptoms Dermatological ROS: no new or changing skin lesions, rashes or pruritis Physical Exam Physical Exam General appearance: alert, cooperative, no distress, appears stated age Head: Normocephalic, without obvious abnormality, atraumatic Eyes: conjunctivae/corneas clear. PERRL, EOM's intact. Fundi benign Throat: Lips, mucosa, and tongue normal. Teeth and gums normal Neck: supple, symmetrical, trachea midline, no adenopathy, thyroid: not enlarged, symmetric, no tenderness/mass/nodules, no carotid bruit and no JVD Lungs: clear to auscultation bilaterally Heart: regular rate and rhythm, S1, S2 normal, no murmur, click, rub or gallop Abdomen: soft, non-tender. Bowel sounds normal. No masses, no organomegaly Extremities: extremities normal, atraumatic, no cyanosis or edema Pulses: 2+ and symmetric Skin: Skin color, texture, turgor normal. No rashes or lesions Neurologic: Grossly normal Last 24 Hour Vital Signs Date Time Temp Pulse Resp B/P (MAP) Pulse Ox O2 Delivery O2 Flow Rate FiO2 09/23/19 11:16 Room Air 21 09/23/19 11:16 Room Air 21 09/23/19 10:00 58 132/57 09/23/19 09:00 Nasal Cannula 2.0 09/23/19 08:00 97.0 58 18 132/57 (82) 100 09/23/19 08:00 54 09/23/19 07:10 100 Nasal Cannula 2.0 28 09/23/19 07:10 58 18 100 Nasal Cannula 2.0 28 09/23/19 07:10 58 18 100 Nasal Cannula 2.0 28 09/23/19 04:00 97.9 59 18 135/58 (83) 98 09/23/19 04:00 65 09/23/19 03:08 Room Air 21 09/23/19 03:08 Room Air 21 09/23/19 00:00 58 09/23/19 00:00 98.6 71 18 110/64 (79) 98 09/22/19 23:50 Room Air 21 09/22/19 23:50 Room Air 21 09/22/19 21:41 68 106/68 09/22/19 21:00 Nasal Cannula 2.0 09/22/19 20:00 69 09/22/19 20:00 98.0 68 18 106/68 (81) 99 09/22/19 19:44 73 18 99 Nasal Cannula 2.0 28 09/22/19 19:39 71 18 99 Nasal Cannula 2.0 28 09/22/19 19:39 99 Nasal Cannula 2.0 28 09/22/19 16:00 97.3 66 16 109/59 (76) 96 09/22/19 16:00 63 09/22/19 15:18 Room Air 21 09/22/19 15:18 Room Air 21 Intake and Output 09/22/19 09/23/19 19:00 07:00 # Voids 3 1 # Bowel Movements 1 3 Laboratory Tests Test 09/23/19 06:45 White Blood Count 4.6 K/UL (4.8-10.8) #L Red Blood Count 3.25 M/UL (4.20-5.40) L Hemoglobin 9.5 G/DL (12.0-16.0) L Hematocrit 28.4 % (37.0-47.0) L Mean Corpuscular Volume 87 FL (80-99) Mean Corpuscular Hemoglobin 29.2 PG (27.0-31.0) Mean Corpuscular Hemoglobin Concent 33.4 G/DL (32.0-36.0) Red Cell Distribution Width 11.9 % (11.6-14.8) Platelet Count 149 K/UL (150-450) L Mean Platelet Volume 5.8 FL (6.5-10.1) L Neutrophils (%) (Auto) 77.7 % (45.0-75.0) H Lymphocytes (%) (Auto) 11.7 % (20.0-45.0) L Monocytes (%) (Auto) 8.5 % (1.0-10.0) Eosinophils (%) (Auto) 1.7 % (0.0-3.0) Basophils (%) (Auto) 0.4 % (0.0-2.0) Erythrocyte Sedimentation Rate 102 MM/HR (0-30) H Prothrombin Time 10.4 SEC (9.30-11.50) Prothromb Time International Ratio 1.0 (0.9-1.1) Activated Partial Thromboplast Time 38 SEC (23-33) H Sodium Level 141 MMOL/L (136-145) Potassium Level 2.9 MMOL/L (3.5-5.1) L Chloride Level 106 MMOL/L (98-107) Carbon Dioxide Level 23 MMOL/L (21-32) Anion Gap 12 mmol/L (5-15) Blood Urea Nitrogen 25 mg/dL (7-18) H Creatinine 0.8 MG/DL (0.55-1.30) Estimat Glomerular Filtration Rate > 60 mL/min (>60) Glucose Level 119 MG/DL (74-106) H Lactic Acid Level 0.30 mmol/L (0.4-2.0) L Calcium Level 8.7 MG/DL (8.5-10.1) Total Bilirubin 0.4 MG/DL (0.2-1.0) Aspartate Amino Transf (AST/SGOT) 17 U/L (15-37) Alanine Aminotransferase (ALT/SGPT) 19 U/L (12-78) Alkaline Phosphatase 46 U/L (46-116) C-Reactive Protein, Quantitative 22.2 mg/dL (0.00-0.90) H Total Protein 6.4 G/DL (6.4-8.2) Albumin 2.5 G/DL (3.4-5.0) L Globulin 3.9 g/dL Albumin/Globulin Ratio 0.6 (1.0-2.7) L Amylase Level 52 U/L (25-115) Lipase 222 U/L (73-393) Thyroid Stimulating Hormone (TSH) 2.122 uiU/mL (0.358-3.740) Random Vancomycin Level 4.4 ug/mL Height (Feet): 5 Height (Inches): 2.00 Weight (Pounds): 103 Medications Current Medications Medications (Trade) Dose Ordered Sig/Zee Route PRN Reason Start Time Stop Time Status Last Admin Dose Admin Acetaminophen (Tylenol) 650 mg Q4H PRN ORAL fever 09/21/19 16:45 10/21/19 16:44 Albuterol/ Ipratropium (Albuterol/ Ipratropium) 3 ml Q4H PRN HHN Shortness of Breath 09/21/19 16:45 09/26/19 16:44 Aspirin (ASA) 81 mg DAILY ORAL 09/22/19 09:15 11/06/19 09:14 09/23/19 10:00 Atorvastatin Calcium (Lipitor) 10 mg BEDTIME ORAL 09/21/19 21:00 12/20/19 20:59 09/22/19 21:26 Carbidopa/Levodopa (Sinemet 25/100) 1 tab THREE TIMES A DAY ORAL 09/21/19 18:00 10/21/19 17:59 09/23/19 12:52 Cefepime HCl 1 gm/ Dextrose 55 ml @ 110 mls/hr Q12H IV 09/21/19 22:00 09/28/19 21:59 09/23/19 10:01 Dextrose/Sodium Chloride 1,000 ml @ 75 mls/hr [id number] IV 09/22/19 11:45 10/22/19 11:44 09/23/19 14:21 Docusate Sodium (Colace) 100 mg TWICE A DAY ORAL 09/22/19 18:00 10/22/19 17:59 09/23/19 10:00 Heparin Sodium (Porcine) (Heparin 5000 units/ml) 5,000 units EVERY 12 HOURS SUBQ 09/21/19 21:00 11/05/19 20:59 09/23/19 10:05 Lactulose (Cephulac) 30 gm BID ORAL 09/22/19 18:00 10/22/19 17:59 09/23/19 10:00 Levothyroxine Sodium (Synthroid) 100 mcg ACBREAKFAST ORAL 09/22/19 06:30 10/22/19 06:29 09/23/19 06:04 Linaclotide (Linzess) 290 mcg BEFORE BREAKFAST ORAL 09/24/19 06:30 12/23/19 06:29 Metoprolol Tartrate (Lopressor) 12.5 mg EVERY 12 HOURS ORAL 09/21/19 21:00 12/20/19 20:59 09/23/19 10:00 Nitroglycerin (Ntg) 0.4 mg Q5M PRN SL Prn Chest Pain 09/21/19 16:45 10/21/19 16:44 Ondansetron HCl (Zofran) 4 mg Q6H PRN IVP Nausea & Vomiting 09/21/19 16:45 10/21/19 16:44 Polyethylene Glycol (Miralax) 17 gm BEDTIME ORAL 09/22/19 21:00 10/22/19 20:59 09/22/19 21:40 Polyethylene Glycol (Miralax) 17 gm DAILYPRN PRN ORAL Constipation 09/21/19 16:45 10/21/19 16:44 Promethazine HCl/ Codeine (Phenergan with Codeine) 5 ml Q4H PRN ORAL For Cough 09/21/19 16:45 10/21/19 16:44 Temazepam (Restoril) 15 mg HSPRN PRN ORAL Insomnia 09/21/19 16:45 09/28/19 16:44 Vancomycin HCl (Vanco rx to dose) 1 ea DAILY PRN MISC Per rx protocol 09/21/19 16:45 10/21/19 16:44 Vancomycin HCl 500 mg/Sodium Chloride 110 ml @ 110 mls/hr Q24H IVPB 09/23/19 10:00 09/28/19 09:59 09/23/19 10:01 Assessment/Plan Problem List: (1) Abdominal pain Assessment & Plan: 79-year-old female with abdominal pain generalized no nausea vomiting fever chills. Cough and shortness of breath. Labs noted. CT reviewed. KUB ordered for 323 and reviewed. Improving now since admission. Currently states she is hungry and wants food. Abdominal exam stable improved otherwise. Bowel sounds noted. distended gb stable as asymptomatic and likely from age No acute surgical intervention planned Okay for diet from surgical standpoint Bowel regimen stool softeners Nutritional evaluation enema prn will follow with recommendations thank you for let me participate in patient's care FINDINGS: Lung bases: Right lower lobe of the lung small consolidation and mild bibasilar lung septal thickening. Heart: Cardiomegaly. Mitral valve prosthesis. ABDOMEN: Liver: Fatty prominent liver. Gallbladder and bile ducts: Distended gallbladder. No calcified stones. No ductal dilation. Pancreas: Unremarkable. No mass. No ductal dilation. Spleen: Unremarkable. No splenomegaly. Adrenals: Unremarkable. No mass. Kidneys and ureters: Mild bilateral hydronephrosis, greater on the right, may be due to external compression of the distal ureters from the overly distended rectum. Stomach and bowel: Dilated rectosigmoid colon to 11.3 cm., large amount of stool in the remainder of the colon. Findings may be due to fecal impaction with obstipation. Differential includes Colonic ileus or distal colonic obstruction and early stercoral colitis. Trace free fluid. No free air or abscess. PELVIS: Appendix: No findings to suggest acute appendicitis. Bladder: See below. Reproductive: Uterus and urinary bladder anteriorly placed from the markedly distended rectum. ABDOMEN and PELVIS: Intraperitoneal space: See above. Bones/joints: Mild superior endplate compression of L5 likely chronic. Dynamic left hip screws. No dislocation. Soft tissues: Unremarkable. Vasculature: Atherosclerotic vascular disease. No abdominal aortic aneurysm. Lymph nodes: Unremarkable. No enlarged lymph nodes. IMPRESSION: 1. Dilated rectosigmoid colon to 11.3 cm., large amount of stool in the remainder of the colon. Mild thickening of the colonic wall. Findings may be due to fecal impaction with obstipation. Differential includes Colonic ileus or distal colonic obstruction and early stercoral colitis. Trace free fluid. No free air or abscess. 2. Mild bilateral hydronephrosis, greater on the right, may be due to external compression of the distal ureters from the overly distended rectum. 3. Right lower lobe of the lung small consolidation and mild bibasilar lung septal thickening. 4. Fatty prominent liver. Distended gallbladder. ICD Codes: R10.9 - Unspecified abdominal pain SNOMED: [id number] Qualifiers: Qualified Codes: R10.9 - Unspecified abdominal pain Noe Hirsch Sep 23, 2019 15:18
[2019-09-23 15:56] VITALS: BP 115/61
--- NOTE | 2019-09-23 17:15 | Consultation ---
DATE OF CONSULTATION: 09/23/2019 CONSULTING PHYSICIAN: Abhishek Langford M.D. CHIEF COMPLAINT: Fecal impaction. HISTORY OF PRESENT ILLNESS: Most of the history per chart. This is a 79-year-old female came from a [facility], complained of constipation. The patient also complained of cough, admitted for that. PAST MEDICAL HISTORY: 1. Atrial fibrillation. 2. History of coronary artery disease. 3. Diabetes type 2. 4. DVT. 5. Hypertension. 6. Hypothyroidism. 7. Seizure disorder. 8. History of CVA. 9. History of subdural hematoma. 10. Parkinson's. 11. Hypercholesteremia. 12. Dementia. 13. Trigeminal neuralgia. PAST SURGICAL HISTORY: 1. Coronary bypass in 1970. 2. Craniotomy for subdural hematoma. 3. Aortic and mitral valve bioprosthetic replacement. MEDICATIONS: Please see medication reconciliation list. ALLERGIES: To sulfa. SOCIAL HISTORY: Currently lives in a [facility]. No history of tobacco, alcohol, or drug abuse. REVIEW OF SYSTEMS: Limited. PHYSICAL EXAMINATION: VITAL SIGNS: Temperature is 97, pulse is 58, respirations 18, blood pressure is . HEENT: Normocephalic, atraumatic. Sclerae anicteric. NECK: Supple. No evidence of obvious adenopathy. CARDIOVASCULAR: Regular rate and rhythm. Plus S1 and S2. LUNGS: Decreased breath sounds bilaterally based on the supine exam. ABDOMEN: Soft. Mildly distended. Mildly tender. No rebound. No guarding. No peritoneal sign. EXTREMITIES: No cyanosis, no clubbing, no edema. LABORATORY DATA: White count is 4.6, hemoglobin 9.5, hematocrit 28, platelet count is 149. CT of the abdomen and pelvis showed evidence of distended gallbladder, fatty liver, possible stool impaction. ASSESSMENT AND PLAN: This is a 79-year-old female with GI standpoint problems including stool impaction, constipation, anemia, fatty liver, distended gallbladder, hypoalbuminemia. Plan, the patient had lactulose, Colace, MiraLAX yesterday with a dose of enema and Dulcolax suppository. Apparently, she had a moderate amount of stool today. Plan will be t6o start the patient on Linzess 290 mcg p.o. daily. Continue on Colace, MiraLAX, and lactulose. We are going to give her another dose of mineral oil today. We are going to get a KUB to follow up on the CT to see if the colonic distention is improving. In terms of anemia, it is something new for her. We are going to do a workup including anemia workup. Stool OB, iron panel, B12, folate. In terms of dysphagia, the patient has been evaluated by speech therapist. We will see what the recommendation will be in terms of starting diet. In terms of fatty liver and distended gallbladder. At this time, asymptomatic. We will follow. I want to thank, Dr. Junior, for this kind referral. Abhishek Langford M.D. DR: JODI JOB#: [id number] CC: Carlos Junior M.D.; Fax#: [phone]
--- NOTE | 2019-09-23 17:34 | Pulmonology Progress Note ---
Assessment/Plan Problems: (1) Nosocomial pneumonia (2) SVT (supraventricular tachycardia) (3) Hypothyroidism (4) Alzheimer's dementia (5) Seizure disorder (6) Cerebral vascular disease (7) Diabetes mellitus type II, controlled (8) HTN (hypertension) Assessment/Plan check sputum swallow study iv abx echo sliding scale dvt prophylaxis Subjective ROS Limited/Unobtainable: No Allergies: Coded Allergies: INFLIXIMAB (Verified Allergy, Intermediate, 04/20/16) NIACIN (Verified Allergy, Intermediate, 04/20/16) SULFA (SULFONAMIDE ANTIBIOTICS) (Verified Allergy, Intermediate, 04/20/16) Uncoded Allergies: SULFONAMIDES (Allergy, Unknown, 04/28/18) Objective Last 24 Hour Vital Signs Date Time Temp Pulse Resp B/P (MAP) Pulse Ox O2 Delivery O2 Flow Rate FiO2 09/23/19 16:00 62 09/23/19 15:56 97.3 59 18 115/61 (79) 99 09/23/19 12:00 55 09/23/19 12:00 97.3 76 18 125/56 (79) 98 09/23/19 11:16 Room Air 21 09/23/19 11:16 Room Air 21 09/23/19 10:00 58 132/57 09/23/19 09:00 Nasal Cannula 2.0 09/23/19 08:00 97.0 58 18 132/57 (82) 100 09/23/19 08:00 54 09/23/19 07:10 100 Nasal Cannula 2.0 28 09/23/19 07:10 58 18 100 Nasal Cannula 2.0 28 09/23/19 07:10 58 18 100 Nasal Cannula 2.0 28 09/23/19 04:00 97.9 59 18 135/58 (83) 98 09/23/19 04:00 65 09/23/19 03:08 Room Air 21 09/23/19 03:08 Room Air 21 09/23/19 00:00 58 09/23/19 00:00 98.6 71 18 110/64 (79) 98 09/22/19 23:50 Room Air 21 09/22/19 23:50 Room Air 21 09/22/19 21:41 68 106/68 09/22/19 21:00 Nasal Cannula 2.0 09/22/19 20:00 69 3/22/20 20:00 98.0 68 18 106/68 (81) 99 09/22/19 19:44 73 18 99 Nasal Cannula 2.0 28 09/22/19 19:39 71 18 99 Nasal Cannula 2.0 28 09/22/19 19:39 99 Nasal Cannula 2.0 28 Intake and Output 09/22/19 09/23/19 19:00 07:00 # Voids 3 1 # Bowel Movements 1 3 Objective General Appearance: WD/WN HEENT: normocephalic, atraumatic Respiratory/Chest: chest wall non-tender,rhonchi Breasts: no masses Cardiovascular: normal peripheral pulses Abdomen: normal bowel sounds, soft, non tender Genitourinary: normal external genitalia Extremities: no cyanosis Skin: no rash Microbiology Date/Time Source Procedure Growth Status 09/21/19 10:28 Blood Blood Culture - Preliminary NO GROWTH AFTER 24 HOURS Resulted 09/21/19 10:28 Blood Blood Culture - Preliminary NO GROWTH AFTER 24 HOURS Resulted 09/21/19 14:00 Nasal Nares MRSA Culture - Final NO METHICILLIN RESISTANT STAPH AUREUS... Complete 09/21/19 11:08 Nasal Nares - Final Complete 09/21/19 11:08 Nasal Nares - Final Complete 09/21/19 14:00 Rectum VRE Culture - Final NO VANCOMYCIN RESISTANT ENTEROCOCCUS ... Complete Laboratory Tests 09/23/19 06:45: White Blood Count 4.6#L, Red Blood Count 3.25L, Hemoglobin 9.5L, Hematocrit 28.4L, Mean Corpuscular Volume 87, Mean Corpuscular Hemoglobin 29.2, Mean Corpuscular Hemoglobin Concent 33.4, Red Cell Distribution Width 11.9, Platelet Count 149L, Mean Platelet Volume 5.8L, Neutrophils (%) (Auto) 77.7H, Lymphocytes (%) (Auto) 11.7L, Monocytes (%) (Auto) 8.5, Eosinophils (%) (Auto) 1.7, Basophils (%) (Auto) 0.4, Erythrocyte Sedimentation Rate 102H, Prothrombin Time 10.4, Prothromb Time International Ratio 1.0, Activated Partial Thromboplast Time 38H, Sodium Level 141, Potassium Level 2.9L, Chloride Level 106, Carbon Dioxide Level 23, Anion Gap 12, Blood Urea Nitrogen 25H, Creatinine 0.8, Estimat Glomerular Filtration Rate > 60, Glucose Level 119H, Lactic Acid Level 0.30L, Calcium Level 8.7, Total Bilirubin 0.4, Aspartate Amino Transf (AST /SGOT) 17, Alanine Aminotransferase (ALT/SGPT) 19, Alkaline Phosphatase 46, C- Reactive Protein, Quantitative 22.2H, Total Protein 6.4, Albumin 2.5L, Globulin 3.9, Albumin/Globulin Ratio 0.6L, Amylase Level 52, Lipase 222, Thyroid Stimulating Hormone (TSH) 2.122, Random Vancomycin Level 4.4 Current Medications Medications (Trade) Dose Ordered Sig/Zee Route PRN Reason Start Time Stop Time Status Last Admin Dose Admin Acetaminophen (Tylenol) 650 mg Q4H PRN ORAL fever 09/21/19 16:45 10/21/19 16:44 Albuterol/ Ipratropium (Albuterol/ Ipratropium) 3 ml Q4H PRN HHN Shortness of Breath 09/21/19 16:45 09/26/19 16:44 Aspirin (ASA) 81 mg DAILY ORAL 09/22/19 09:15 11/06/19 09:14 09/23/19 10:00 Atorvastatin Calcium (Lipitor) 10 mg BEDTIME ORAL 09/21/19 21:00 12/20/19 20:59 09/22/19 21:26 Carbidopa/Levodopa (Sinemet 25/100) 1 tab THREE TIMES A DAY ORAL 09/21/19 18:00 10/21/19 17:59 09/23/19 17:16 Cefepime HCl 1 gm/ Dextrose 55 ml @ 110 mls/hr Q12H IV 09/21/19 22:00 09/28/19 21:59 09/23/19 10:01 Dextrose/Sodium Chloride 1,000 ml @ 75 mls/hr [id number] IV 09/22/19 11:45 10/22/19 11:44 09/23/19 14:21 Docusate Sodium (Colace) 100 mg TWICE A DAY ORAL 09/22/19 18:00 10/22/19 17:59 09/23/19 17:16 Heparin Sodium (Porcine) (Heparin 5000 units/ml) 5,000 units EVERY 12 HOURS SUBQ 09/21/19 21:00 11/05/19 20:59 09/23/19 10:05 Lactulose (Cephulac) 30 gm BID ORAL 09/22/19 18:00 10/22/19 17:59 09/23/19 17:17 Levothyroxine Sodium (Synthroid) 100 mcg ACBREAKFAST ORAL 09/22/19 06:30 10/22/19 06:29 09/23/19 06:04 Linaclotide (Linzess) 290 mcg BEFORE BREAKFAST ORAL 09/24/19 06:30 12/23/19 06:29 Metoprolol Tartrate (Lopressor) 12.5 mg EVERY 12 HOURS ORAL 09/21/19 21:00 12/20/19 20:59 09/23/19 10:00 Nitroglycerin (Ntg) 0.4 mg Q5M PRN SL Prn Chest Pain 09/21/19 16:45 10/21/19 16:44 Ondansetron HCl (Zofran) 4 mg Q6H PRN IVP Nausea & Vomiting 09/21/19 16:45 10/21/19 16:44 Polyethylene Glycol (Miralax) 17 gm BEDTIME ORAL 09/22/19 21:00 10/22/19 20:59 09/22/19 21:40 Polyethylene Glycol (Miralax) 17 gm DAILYPRN PRN ORAL Constipation 09/21/19 16:45 10/21/19 16:44 Promethazine HCl/ Codeine (Phenergan with Codeine) 5 ml Q4H PRN ORAL For Cough 09/21/19 16:45 10/21/19 16:44 Temazepam (Restoril) 15 mg HSPRN PRN ORAL Insomnia 09/21/19 16:45 09/28/19 16:44 Vancomycin HCl (Vanco rx to dose) 1 ea DAILY PRN MISC Per rx protocol 09/21/19 16:45 10/21/19 16:44 Vancomycin HCl 500 mg/Sodium Chloride 110 ml @ 110 mls/hr Q24H IVPB 09/23/19 10:00 09/28/19 09:59 09/23/19 10:01 Koko Gee MD Sep 23, 2019 17:34
--- NOTE | 2019-09-23 18:50 | Internal Med Progress Note ---
Subjective Physician Name Bryan Jackson Attending Physician Carlos Junior MD Current Medications Medications (Trade) Dose Ordered Sig/Zee Route PRN Reason Start Time Stop Time Status Last Admin Dose Admin Acetaminophen (Tylenol) 650 mg Q4H PRN ORAL fever 09/21/19 16:45 10/21/19 16:44 Albuterol/ Ipratropium (Albuterol/ Ipratropium) 3 ml Q4H PRN HHN Shortness of Breath 09/21/19 16:45 09/26/19 16:44 Aspirin (ASA) 81 mg DAILY ORAL 09/22/19 09:15 11/06/19 09:14 09/23/19 10:00 Atorvastatin Calcium (Lipitor) 10 mg BEDTIME ORAL 09/21/19 21:00 12/20/19 20:59 09/22/19 21:26 Carbidopa/Levodopa (Sinemet 25/100) 1 tab THREE TIMES A DAY ORAL 09/21/19 18:00 10/21/19 17:59 09/23/19 17:16 Cefepime HCl 1 gm/ Dextrose 55 ml @ 110 mls/hr Q12H IV 09/21/19 22:00 09/28/19 21:59 09/23/19 10:01 Dextrose/Sodium Chloride 1,000 ml @ 75 mls/hr [id number] IV 09/22/19 11:45 10/22/19 11:44 09/23/19 14:21 Docusate Sodium (Colace) 100 mg TWICE A DAY ORAL 09/22/19 18:00 10/22/19 17:59 09/23/19 17:16 Heparin Sodium (Porcine) (Heparin 5000 units/ml) 5,000 units EVERY 12 HOURS SUBQ 09/21/19 21:00 11/05/19 20:59 09/23/19 10:05 Lactulose (Cephulac) 30 gm BID ORAL 09/22/19 18:00 10/22/19 17:59 09/23/19 17:17 Levothyroxine Sodium (Synthroid) 100 mcg ACBREAKFAST ORAL 09/22/19 06:30 10/22/19 06:29 09/23/19 06:04 Linaclotide (Linzess) 290 mcg BEFORE BREAKFAST ORAL 09/24/19 06:30 12/23/19 06:29 Metoprolol Tartrate (Lopressor) 12.5 mg EVERY 12 HOURS ORAL 09/21/19 21:00 12/20/19 20:59 09/23/19 10:00 Nitroglycerin (Ntg) 0.4 mg Q5M PRN SL Prn Chest Pain 09/21/19 16:45 10/21/19 16:44 Ondansetron HCl (Zofran) 4 mg Q6H PRN IVP Nausea & Vomiting 09/21/19 16:45 10/21/19 16:44 Polyethylene Glycol (Miralax) 17 gm BEDTIME ORAL 09/22/19 21:00 10/22/19 20:59 09/22/19 21:40 Polyethylene Glycol (Miralax) 17 gm DAILYPRN PRN ORAL Constipation 09/21/19 16:45 10/21/19 16:44 Promethazine HCl/ Codeine (Phenergan with Codeine) 5 ml Q4H PRN ORAL For Cough 09/21/19 16:45 10/21/19 16:44 Temazepam (Restoril) 15 mg HSPRN PRN ORAL Insomnia 09/21/19 16:45 09/28/19 16:44 Vancomycin HCl (Vanco rx to dose) 1 ea DAILY PRN MISC Per rx protocol 09/21/19 16:45 10/21/19 16:44 Vancomycin HCl 500 mg/Sodium Chloride 110 ml @ 110 mls/hr Q24H IVPB 09/23/19 10:00 09/28/19 09:59 09/23/19 10:01 Allergies: Coded Allergies: INFLIXIMAB (Verified Allergy, Intermediate, 04/20/16) NIACIN (Verified Allergy, Intermediate, 04/20/16) SULFA (SULFONAMIDE ANTIBIOTICS) (Verified Allergy, Intermediate, 04/20/16) Uncoded Allergies: SULFONAMIDES (Allergy, Unknown, 04/28/18) Objective Last Vital Signs Date Time Temp Pulse Resp B/P (MAP) Pulse Ox O2 Delivery O2 Flow Rate FiO2 09/23/19 16:00 62 09/23/19 15:56 97.3 18 115/61 (79) 99 09/23/19 11:16 Room Air 21 09/23/19 09:00 2.0 Laboratory Tests Test 09/23/19 06:45 White Blood Count 4.6 K/UL (4.8-10.8) #L Red Blood Count 3.25 M/UL (4.20-5.40) L Hemoglobin 9.5 G/DL (12.0-16.0) L Hematocrit 28.4 % (37.0-47.0) L Mean Corpuscular Volume 87 FL (80-99) Mean Corpuscular Hemoglobin 29.2 PG (27.0-31.0) Mean Corpuscular Hemoglobin Concent 33.4 G/DL (32.0-36.0) Red Cell Distribution Width 11.9 % (11.6-14.8) Platelet Count 149 K/UL (150-450) L Mean Platelet Volume 5.8 FL (6.5-10.1) L Neutrophils (%) (Auto) 77.7 % (45.0-75.0) H Lymphocytes (%) (Auto) 11.7 % (20.0-45.0) L Monocytes (%) (Auto) 8.5 % (1.0-10.0) Eosinophils (%) (Auto) 1.7 % (0.0-3.0) Basophils (%) (Auto) 0.4 % (0.0-2.0) Erythrocyte Sedimentation Rate 102 MM/HR (0-30) H Prothrombin Time 10.4 SEC (9.30-11.50) Prothromb Time International Ratio 1.0 (0.9-1.1) Activated Partial Thromboplast Time 38 SEC (23-33) H Sodium Level 141 MMOL/L (136-145) Potassium Level 2.9 MMOL/L (3.5-5.1) L Chloride Level 106 MMOL/L (98-107) Carbon Dioxide Level 23 MMOL/L (21-32) Anion Gap 12 mmol/L (5-15) Blood Urea Nitrogen 25 mg/dL (7-18) H Creatinine 0.8 MG/DL (0.55-1.30) Estimat Glomerular Filtration Rate > 60 mL/min (>60) Glucose Level 119 MG/DL (74-106) H Lactic Acid Level 0.30 mmol/L (0.4-2.0) L Calcium Level 8.7 MG/DL (8.5-10.1) Total Bilirubin 0.4 MG/DL (0.2-1.0) Aspartate Amino Transf (AST/SGOT) 17 U/L (15-37) Alanine Aminotransferase (ALT/SGPT) 19 U/L (12-78) Alkaline Phosphatase 46 U/L (46-116) C-Reactive Protein, Quantitative 22.2 mg/dL (0.00-0.90) H Total Protein 6.4 G/DL (6.4-8.2) Albumin 2.5 G/DL (3.4-5.0) L Globulin 3.9 g/dL Albumin/Globulin Ratio 0.6 (1.0-2.7) L Amylase Level 52 U/L (25-115) Lipase 222 U/L (73-393) Thyroid Stimulating Hormone (TSH) 2.122 uiU/mL (0.358-3.740) Random Vancomycin Level 4.4 ug/mL Microbiology Date/Time Source Procedure Growth Status 09/21/19 10:28 Blood Blood Culture - Preliminary NO GROWTH AFTER 24 HOURS Resulted 09/21/19 10:28 Blood Blood Culture - Preliminary NO GROWTH AFTER 24 HOURS Resulted 09/21/19 14:00 Nasal Nares MRSA Culture - Final NO METHICILLIN RESISTANT STAPH AUREUS... Complete 09/21/19 11:08 Nasal Nares - Final Complete 09/21/19 11:08 Nasal Nares - Final Complete 09/21/19 14:00 Rectum VRE Culture - Final NO VANCOMYCIN RESISTANT ENTEROCOCCUS ... Complete Intake and Output 09/22/19 09/23/19 19:00 07:00 # Voids 3 1 # Bowel Movements 1 3 Assessment/Plan Assessment/Plan ASSESSMENT: This is a 79-year-old female with: 1. Abdominal pain. 2. Congestive heart failure. 3. Right lower lobe pneumonia. 4. Atrial fibrillation. 5. Coronary artery disease. 6. Diabetes type 2. 7. Hypertension. 8. Hypercholesterolemia. 9. Hypothyroidism. 10. Seizure disorder. 11. Cerebrovascular disease. 12. Left hemiparesis. 13. Subdural hematoma. 14. History of deep venous thrombosis. 15. Mitral and aortic valve biosynthetic prosthesis. 16. Anemia TREATMENT: 1. Abdominal pain/distention. A General Surgery consultation has been obtained with Dr. Hirsch. A Gastroenterology consultation has been obtained with Dr. Abhishek Langford. Differential includes impaction versus obstruction. We will follow recommendations of General Surgery and Gastroenterology. 2. Congestive heart failure. Cardiology consultation has been obtained with Dr. Barber Mack. The patient has been started empirically on intravenous Lasix. An echocardiogram is pending. 3. Right lower lobe pneumonia. A Pulmonary consultation has been obtained with Dr. Koko Gee. The patient has been started empirically on cefepime and vancomycin. We will follow recommendations of Pulmonary. 4. Atrial fibrillation. As above, a Cardiology consultation has been obtained with Dr. Barber Mack. 5. Coronary artery disease. The patient is status post coronary artery bypass graft. 6. Diabetes type 2. The patient is not on any antihyperglycemic medication at the correction. 7. Hypertension. Continue metoprolol as above. 8. Hypercholesteremia. Continue atorvastatin as above. 9. Hypothyroidism. Continue levothyroxine as above. 10. Seizure disorder. Continue carbamazepine as above. 11. Cerebrovascular disease. 12. Left hemiparesis. 13. History of subdural hematoma. 14. History of deep venous thrombosis. 15. History of mitral and aortic valve bioprosthesis replacement. 16. Anemia workup per Bryan Strauss MD Sep 23, 2019 18:50
[2019-09-23] MEDS ORDERED: GUAIFENESIN DM118 M1 ORAL (19:43)
[2019-09-23] MEDS ORDERED: FENOFIBRIC ACID35 MG PO (19:43)
[2019-09-23] MEDS ORDERED: ADULT GLYCERIN1 EACH RECTAL (19:43)
[2019-09-23] MEDS ORDERED: ACETAMINOPHEN500 M3 ORAL (19:43)
[2019-09-23] MEDS ORDERED: BISACODYL10 M1 RC (19:43)
[2019-09-23] MEDS ORDERED: DOCUSATE SODIU100 M2 ORAL (19:43)
[2019-09-23] MEDS ORDERED: CARBAMAZEPINE200 MG ORAL (19:43)
[2019-09-23 20:00] VITALS: BP 150/64
[2019-09-23] MEDS: Miralax 17gm pkt ORAL SCH (21:38)
[2019-09-24] VITALS: BP 149/72
[2019-09-24 04:00] VITALS: BP 137/68
[2019-09-24] MEDS: D5 1/2NS 1,000 ML IV SCH ×2 (04:49→17:34)
[2019-09-24 07:23] LABS: BASOPHILS % (AUTO) 0.4 % (0.0-2.0); HEMATOCRIT 27.5 % (37.0-47.0); HEMOGLOBIN 9.5 G/DL (12.0-16.0); LYMPHOCYTES % (AUTO) 14.5 % (20.0-45.0); MEAN CORPUSCULAR VOLUME 86 FL (80-99); MONOCYTES % (AUTO) 8.7 % (1.0-10.0); NEUTROPHILS % (AUTO) 74.4 % (45.0-75.0); PLATELET COUNT 177 K/UL (150-450); RED BLOOD COUNT 3.22 M/UL (4.20-5.40); RED CELL DISTRIBUTION WIDTH 11.5 % (11.6-14.8); WHITE BLOOD COUNT 4.1 K/UL (4.8-10.8)
[2019-09-24 07:37] LABS: ALANINE AMINOTRANSFERASE 18 U/L (12-78); ALBUMIN 2.4 G/DL (3.4-5.0); ALBUMIN/GLOBULIN RATIO 0.6 (1.0-2.7); ALKALINE PHOSPHATASE 43 U/L (46-116); ANION GAP 11 mmol/L (5-15); ASPARTATE AMINO TRANSFERASE 21 U/L (15-37); BILIRUBIN,TOTAL 0.3 MG/DL (0.2-1.0); BLOOD UREA NITROGEN 14 mg/dL (7-18); CALCIUM 8.4 MG/DL (8.5-10.1); CARBON DIOXIDE 22 MMOL/L (21-32); CHLORIDE 107 MMOL/L (98-107); CREATININE 0.7 MG/DL (0.55-1.30); POTASSIUM 3.9 MMOL/L (3.5-5.1); SODIUM 140 MMOL/L (136-145)
[2019-09-24 08:00] VITALS: BP 159/65
[2019-09-24 08:11] LABS: % IRON SATURATION 19 % (15-50); IRON 36 ug/dL (50-175); TOTAL IRON BINDING CAPACITY 189 ug/dL (250-450)
--- NOTE | 2019-09-24 08:36 | General Progress Note ---
Assessment/Plan Assessment/Plan: 1. Atrial fibrillation. 2. History of coronary artery disease. 3. Diabetes type 2. 4. DVT. 5. Hypertension. 6. Hypothyroidism. 7. Seizure disorder. 8. History of CVA. 9. History of subdural hematoma. 10. Parkinson's. 11. Hypercholesteremia. 12. Dementia. 13. Trigeminal neuralgia. 14. Anemia 15. stool impaction 16. fatty liver multiple BM dc lactulose cont linzess and colace kub reviewed fu labs Subjective ROS Limited/Unobtainable: No Allergies: Coded Allergies: INFLIXIMAB (Verified Allergy, Intermediate, 04/20/16) NIACIN (Verified Allergy, Intermediate, 04/20/16) SULFA (SULFONAMIDE ANTIBIOTICS) (Verified Allergy, Intermediate, 04/20/16) Uncoded Allergies: SULFONAMIDES (Allergy, Unknown, 04/28/18) Objective Last 24 Hour Vital Signs Date Time Temp Pulse Resp B/P (MAP) Pulse Ox O2 Delivery O2 Flow Rate FiO2 09/24/19 08:00 97.9 65 18 159/65 (96) 100 09/24/19 07:04 Room Air 21 09/24/19 07:04 Room Air 21 09/24/19 06:37 98 Nasal Cannula 2.0 28 09/24/19 04:00 97.7 66 20 137/68 (91) 98 09/24/19 04:00 66 09/24/19 03:55 Room Air 21 09/24/19 03:55 Room Air 21 09/24/19 00:00 97.2 64 20 149/72 (97) 99 09/24/19 00:00 71 09/23/19 23:00 Room Air 21 09/23/19 23:00 Room Air 21 09/23/19 21:37 66 150/64 09/23/19 21:00 Nasal Cannula 2.0 09/23/19 20:00 97.7 66 20 150/64 (92) 99 09/23/19 20:00 66 09/23/19 19:43 Room Air 21 09/23/19 19:43 99 Nasal Cannula 2.0 28 09/23/19 19:43 Room Air 21 09/23/19 16:00 62 09/23/19 15:56 97.3 59 18 115/61 (79) 99 09/23/19 12:00 55 09/23/19 12:00 97.3 76 18 125/56 (79) 98 09/23/19 11:16 Room Air 21 09/23/19 11:16 Room Air 21 09/23/19 10:00 58 132/57 09/23/19 09:00 Nasal Cannula 2.0 Intake and Output 09/23/19 09/24/19 19:00 07:00 Intake Total 240 ml Balance 240 ml Intake Oral 240 ml # Voids 1 1 # Bowel Movements 1 1 Laboratory Tests 09/24/19 06:00: Stool Occult Blood [Pending] 09/24/19 06:20: White Blood Count 4.1L, Red Blood Count 3.22L, Hemoglobin 9.5L, Hematocrit 27.5L , Mean Corpuscular Volume 86, Mean Corpuscular Hemoglobin 29.6, Mean Corpuscular Hemoglobin Concent 34.7, Red Cell Distribution Width 11.5L, Platelet Count 177, Mean Platelet Volume 5.9L, Neutrophils (%) (Auto) 74.4, Lymphocytes (%) (Auto) 14.5L, Monocytes (%) (Auto) 8.7, Eosinophils (%) (Auto) 2.0, Basophils (%) (Auto) 0.4, Sodium Level 140, Potassium Level 3.9, Chloride Level 107, Carbon Dioxide Level 22, Anion Gap 11, Blood Urea Nitrogen 14, Creatinine 0.7, Estimat Glomerular Filtration Rate > 60, Glucose Level 118H, Calcium Level 8.4L, Iron Level 36L, Total Iron Binding Capacity 189L, Percent Iron Saturation 19, Unsaturated Iron Binding 153, Total Bilirubin 0.3, Aspartate Amino Transf (AST/SGOT) 21, Alanine Aminotransferase (ALT/SGPT) 18, Alkaline Phosphatase 43L, Total Protein 6.1L, Albumin 2.4L, Globulin 3.7, Albumin/Globulin Ratio 0.6L, Folate 42.1, Free Thyroxine 1.20, Hepatitis A IgM Antibody [Pending], Hepatitis B Surface Antigen [Pending], Hepatitis B Core IgM Antibody [Pending], Hepatitis C Antibody [Pending] Height (Feet): 5 Height (Inches): 2.00 Weight (Pounds): 103 General Appearance: alert EENT: normal ENT inspection Neck: supple Cardiovascular: normal rate Respiratory/Chest: decreased breath sounds Abdomen: normal bowel sounds, non tender, soft Extremities: non-tender Abhishek Langford MD Sep 24, 2019 08:36
[2019-09-24] MEDS: Metoprolol Tartrate 12.5mg TAB ORAL SCH ×2 (09:39→20:46)
[2019-09-24] MEDS: Levodopa/Carbidopa 25/100 tab ORAL SCH ×3 (09:39→17:34)
[2019-09-24] MEDS: Aspirin Baby 81mg ORAL SCH (09:39)
[2019-09-24] MEDS: Docusate 100mg cap ORAL SCH ×2 (09:39→17:34)
[2019-09-24] MEDS: Cefepime HCl 1 GM in D5W 55 ML IV SCH ×2 (09:40→21:57)
[2019-09-24] MEDS: Vancomycin 500 MG in NS 110 ML IVPB SCH (09:40)
[2019-09-24] MEDS: Heparin 5000 units/ml inj SUBQ SCH ×2 (09:45→20:53)
[2019-09-24 12:00] VITALS: BP 126/74
--- NOTE | 2019-09-24 13:04 | Pulmonology Progress Note ---
Assessment/Plan Problems: (1) Nosocomial pneumonia (2) SVT (supraventricular tachycardia) (3) Hypothyroidism (4) Alzheimer's dementia (5) Seizure disorder (6) Cerebral vascular disease (7) Diabetes mellitus type II, controlled (8) HTN (hypertension) Assessment/Plan check sputum swallow study: CONSIDER MODIFIED BARIUM SWALLOW STUDY MBSS TO FURTHER ASSESS SWALLOWING ANATOMY AND PHYSIOLOGY, R/O SILENT ASPIRATION/ETIOLOGY, AND ATTEMPT TRIAL TX TECHNIQUES. IF PO GIVEN FOR QUALITY OF LIFE (PATIENT WANTS PO INTAKE), CONSIDER INITIATING A [facility] SOFT CHOPPED DIET AND THIN LIQUIDS WITH POSTED ASPIRATION AND REFLUX PRECAUTIONS WITH ONE TO ONE ASSIST WITH MEALS. iv abx echo reviewed EF of 65% sliding scale dvt prophylaxis Subjective ROS Limited/Unobtainable: No Constitutional: Reports: no symptoms HEENT: Repors: no symptoms Allergies: Coded Allergies: INFLIXIMAB (Verified Allergy, Intermediate, 04/20/16) NIACIN (Verified Allergy, Intermediate, 04/20/16) SULFA (SULFONAMIDE ANTIBIOTICS) (Verified Allergy, Intermediate, 04/20/16) Uncoded Allergies: SULFONAMIDES (Allergy, Unknown, 04/28/18) Objective Last 24 Hour Vital Signs Date Time Temp Pulse Resp B/P (MAP) Pulse Ox O2 Delivery O2 Flow Rate FiO2 09/24/19 12:13 80 22 100 Nasal Cannula 2.0 28 09/24/19 12:10 70 20 100 Nasal Cannula 2.0 28 09/24/19 12:00 97.7 66 18 126/74 (91) 100 09/24/19 12:00 59 09/24/19 09:39 65 159/65 09/24/19 09:00 65 09/24/19 09:00 Nasal Cannula 2.0 09/24/19 08:00 97.9 65 18 159/65 (96) 100 09/24/19 07:04 Room Air 21 09/24/19 07:04 Room Air 21 09/24/19 06:37 98 Nasal Cannula 2.0 28 09/24/19 04:00 97.7 66 20 137/68 (91) 98 09/24/19 04:00 66 09/24/19 03:55 Room Air 21 09/24/19 03:55 Room Air 21 09/24/19 00:00 97.2 64 20 149/72 (97) 99 09/24/19 00:00 71 09/23/19 23:00 Room Air 21 09/23/19 23:00 Room Air 21 09/23/19 21:37 66 150/64 09/23/19 21:00 Nasal Cannula 2.0 09/23/19 20:00 97.7 66 20 150/64 (92) 99 09/23/19 20:00 66 09/23/19 19:43 Room Air 21 09/23/19 19:43 99 Nasal Cannula 2.0 28 09/23/19 19:43 Room Air 21 09/23/19 16:00 62 09/23/19 15:56 97.3 59 18 115/61 (79) 99 Intake and Output 09/23/19 09/24/19 19:00 07:00 Intake Total 240 ml Balance 240 ml Intake Oral 240 ml # Voids 1 1 # Bowel Movements 1 1 Objective General Appearance: WD/WN HEENT: normocephalic, atraumatic Respiratory/Chest: chest wall non-tender,rhonchi Breasts: no masses Cardiovascular: normal peripheral pulses Abdomen: normal bowel sounds, soft, non tender Genitourinary: normal external genitalia Extremities: no cyanosis Skin: no rash Microbiology Date/Time Source Procedure Growth Status 09/21/19 14:00 Nasal Nares MRSA Culture - Final NO METHICILLIN RESISTANT STAPH AUREUS... Complete 09/21/19 14:00 Rectum VRE Culture - Final NO VANCOMYCIN RESISTANT ENTEROCOCCUS ... Complete Laboratory Tests 09/24/19 06:00: Stool Occult Blood Negative 09/24/19 06:20: White Blood Count 4.1L, Red Blood Count 3.22L, Hemoglobin 9.5L, Hematocrit 27.5L , Mean Corpuscular Volume 86, Mean Corpuscular Hemoglobin 29.6, Mean Corpuscular Hemoglobin Concent 34.7, Red Cell Distribution Width 11.5L, Platelet Count 177, Mean Platelet Volume 5.9L, Neutrophils (%) (Auto) 74.4, Lymphocytes (%) (Auto) 14.5L, Monocytes (%) (Auto) 8.7, Eosinophils (%) (Auto) 2.0, Basophils (%) (Auto) 0.4, Sodium Level 140, Potassium Level 3.9, Chloride Level 107, Carbon Dioxide Level 22, Anion Gap 11, Blood Urea Nitrogen 14, Creatinine 0.7, Estimat Glomerular Filtration Rate > 60, Glucose Level 118H, Calcium Level 8.4L, Iron Level 36L, Total Iron Binding Capacity 189L, Percent Iron Saturation 19, Unsaturated Iron Binding 153, Total Bilirubin 0.3, Aspartate Amino Transf (AST/SGOT) 21, Alanine Aminotransferase (ALT/SGPT) 18, Alkaline Phosphatase 43L, Total Protein 6.1L, Albumin 2.4L, Globulin 3.7, Albumin/Globulin Ratio 0.6L, Folate 42.1, Free Thyroxine 1.20, Hepatitis A IgM Antibody [Pending], Hepatitis B Surface Antigen [Pending], Hepatitis B Core IgM Antibody [Pending], Hepatitis C Antibody [Pending] Current Medications Medications (Trade) Dose Ordered Sig/Zee Route PRN Reason Start Time Stop Time Status Last Admin Dose Admin Acetaminophen (Tylenol) 650 mg Q4H PRN ORAL fever 09/21/19 16:45 10/21/19 16:44 Albuterol/ Ipratropium (Albuterol/ Ipratropium) 3 ml Q4H PRN HHN Shortness of Breath 09/21/19 16:45 09/26/19 16:44 Aspirin (ASA) 81 mg DAILY ORAL 09/22/19 09:15 11/06/19 09:14 09/24/19 09:39 Atorvastatin Calcium (Lipitor) 10 mg BEDTIME ORAL 09/21/19 21:00 12/20/19 20:59 09/23/19 21:38 Carbidopa/Levodopa (Sinemet 25/100) 1 tab THREE TIMES A DAY ORAL 09/21/19 18:00 10/21/19 17:59 09/24/19 12:38 Cefepime HCl 1 gm/ Dextrose 55 ml @ 110 mls/hr Q12H IV 09/21/19 22:00 09/28/19 21:59 09/24/19 09:40 Dextrose/Sodium Chloride 1,000 ml @ 75 mls/hr [id number] IV 09/22/19 11:45 10/22/19 11:44 09/24/19 04:49 Docusate Sodium (Colace) 100 mg TWICE A DAY ORAL 09/22/19 18:00 10/22/19 17:59 09/24/19 09:39 Heparin Sodium (Porcine) (Heparin 5000 units/ml) 5,000 units EVERY 12 HOURS SUBQ 09/21/19 21:00 11/05/19 20:59 09/24/19 09:45 Levothyroxine Sodium (Synthroid) 100 mcg ACBREAKFAST ORAL 09/22/19 06:30 10/22/19 06:29 09/24/19 06:45 Linaclotide (Linzess) 290 mcg BEFORE BREAKFAST ORAL 09/25/19 06:30 12/24/19 06:29 Metoprolol Tartrate (Lopressor) 12.5 mg EVERY 12 HOURS ORAL 09/21/19 21:00 12/20/19 20:59 09/24/19 09:39 Nitroglycerin (Ntg) 0.4 mg Q5M PRN SL Prn Chest Pain 09/21/19 16:45 10/21/19 16:44 Ondansetron HCl (Zofran) 4 mg Q6H PRN IVP Nausea & Vomiting 09/21/19 16:45 10/21/19 16:44 Polyethylene Glycol (Miralax) 17 gm BEDTIME ORAL 09/22/19 21:00 10/22/19 20:59 09/23/19 21:38 Polyethylene Glycol (Miralax) 17 gm DAILYPRN PRN ORAL Constipation 09/21/19 16:45 10/21/19 16:44 Promethazine HCl/ Codeine (Phenergan with Codeine) 5 ml Q4H PRN ORAL For Cough 09/21/19 16:45 10/21/19 16:44 Temazepam (Restoril) 15 mg HSPRN PRN ORAL Insomnia 09/21/19 16:45 09/28/19 16:44 Vancomycin HCl (Vanco rx to dose) 1 ea DAILY PRN MISC Per rx protocol 09/21/19 16:45 10/21/19 16:44 Vancomycin HCl 500 mg/Sodium Chloride 110 ml @ 110 mls/hr Q24H IVPB 09/23/19 10:00 09/28/19 09:59 09/24/19 09:40 Koko Gee MD Sep 24, 2019 13:04
--- NOTE | 2019-09-24 13:15 | Surgery Progress Note ---
Surgery Progress Note Subjective Additional Comments no acute events resting comfortable no n/v/f/c labs noted Objective Last 24 Hour Vital Signs Date Time Temp Pulse Resp B/P (MAP) Pulse Ox O2 Delivery O2 Flow Rate FiO2 09/24/19 12:13 80 22 100 Nasal Cannula 2.0 28 09/24/19 12:10 70 20 100 Nasal Cannula 2.0 28 09/24/19 12:00 97.7 66 18 126/74 (91) 100 09/24/19 12:00 59 09/24/19 09:39 65 159/65 09/24/19 09:00 65 09/24/19 09:00 Nasal Cannula 2.0 09/24/19 08:00 97.9 65 18 159/65 (96) 100 09/24/19 07:04 Room Air 21 09/24/19 07:04 Room Air 21 09/24/19 06:37 98 Nasal Cannula 2.0 28 09/24/19 04:00 97.7 66 20 137/68 (91) 98 09/24/19 04:00 66 09/24/19 03:55 Room Air 21 09/24/19 03:55 Room Air 21 09/24/19 00:00 97.2 64 20 149/72 (97) 99 09/24/19 00:00 71 09/23/19 23:00 Room Air 21 09/23/19 23:00 Room Air 21 09/23/19 21:37 66 150/64 09/23/19 21:00 Nasal Cannula 2.0 09/23/19 20:00 97.7 66 20 150/64 (92) 99 09/23/19 20:00 66 09/23/19 19:43 Room Air 21 09/23/19 19:43 99 Nasal Cannula 2.0 28 09/23/19 19:43 Room Air 21 09/23/19 16:00 62 09/23/19 15:56 97.3 59 18 115/61 (79) 99 I&O Intake and Output 09/23/19 09/24/19 19:00 07:00 Intake Total 240 ml Balance 240 ml Intake Oral 240 ml # Voids 1 1 # Bowel Movements 1 1 Laboratory Tests Test 09/24/19 06:00 09/24/19 06:20 Stool Occult Blood Negative (NEGATIVE) White Blood Count 4.1 K/UL (4.8-10.8) L Red Blood Count 3.22 M/UL (4.20-5.40) L Hemoglobin 9.5 G/DL (12.0-16.0) L Hematocrit 27.5 % (37.0-47.0) L Mean Corpuscular Volume 86 FL (80-99) Mean Corpuscular Hemoglobin 29.6 PG (27.0-31.0) Mean Corpuscular Hemoglobin Concent 34.7 G/DL (32.0-36.0) Red Cell Distribution Width 11.5 % (11.6-14.8) L Platelet Count 177 K/UL (150-450) Mean Platelet Volume 5.9 FL (6.5-10.1) L Neutrophils (%) (Auto) 74.4 % (45.0-75.0) Lymphocytes (%) (Auto) 14.5 % (20.0-45.0) L Monocytes (%) (Auto) 8.7 % (1.0-10.0) Eosinophils (%) (Auto) 2.0 % (0.0-3.0) Basophils (%) (Auto) 0.4 % (0.0-2.0) Sodium Level 140 MMOL/L (136-145) Potassium Level 3.9 MMOL/L (3.5-5.1) Chloride Level 107 MMOL/L (98-107) Carbon Dioxide Level 22 MMOL/L (21-32) Anion Gap 11 mmol/L (5-15) Blood Urea Nitrogen 14 mg/dL (7-18) Creatinine 0.7 MG/DL (0.55-1.30) Estimat Glomerular Filtration Rate > 60 mL/min (>60) Glucose Level 118 MG/DL (74-106) H Calcium Level 8.4 MG/DL (8.5-10.1) L Iron Level 36 ug/dL (50-175) L Total Iron Binding Capacity 189 ug/dL (250-450) L Percent Iron Saturation 19 % (15-50) Unsaturated Iron Binding 153 ug/dL (112-346) Total Bilirubin 0.3 MG/DL (0.2-1.0) Aspartate Amino Transf (AST/SGOT) 21 U/L (15-37) Alanine Aminotransferase (ALT/SGPT) 18 U/L (12-78) Alkaline Phosphatase 43 U/L (46-116) L Total Protein 6.1 G/DL (6.4-8.2) L Albumin 2.4 G/DL (3.4-5.0) L Globulin 3.7 g/dL Albumin/Globulin Ratio 0.6 (1.0-2.7) L Folate 42.1 NG/ML (8.6-58.9) Free Thyroxine 1.20 NG/DL (0.76-1.46) Hepatitis A IgM Antibody Pending Hepatitis B Surface Antigen Pending Hepatitis B Core IgM Antibody Pending Hepatitis C Antibody Pending Assessment Post-op Diagnosis Abdominal pain Assessment & Plan: Asked by Dr. Jackson to evaluate for abdominal pain, r/o obstruction vs impaction 79-year-old female with abdominal pain generalized no nausea vomiting fever chills. Cough and shortness of breath. Labs noted. CT reviewed. KUB ordered for 09/22 and reviewed. Improving now since admission. Currently states she is hungry and wants food. Abdominal exam stable improved otherwise. Bowel sounds noted. distended gb stable as asymptomatic and likely from age No acute surgical intervention planned Okay for diet from surgical standpoint Bowel regimen stool softeners appreciate GI input Nutritional evaluation enema prn will follow with recommendations thank you for let me participate in patient's care FINDINGS: Lung bases: Right lower lobe of the lung small consolidation and mild bibasilar lung septal thickening. Heart: Cardiomegaly. Mitral valve prosthesis. ABDOMEN: Liver: Fatty prominent liver. Gallbladder and bile ducts: Distended gallbladder. No calcified stones. No ductal dilation. Pancreas: Unremarkable. No mass. No ductal dilation. Spleen: Unremarkable. No splenomegaly. Adrenals: Unremarkable. No mass. Kidneys and ureters: Mild bilateral hydronephrosis, greater on the right, may be due to external compression of the distal ureters from the overly distended rectum. Stomach and bowel: Dilated rectosigmoid colon to 11.3 cm., large amount of stool in the remainder of the colon. Findings may be due to fecal impaction with obstipation. Differential includes Colonic ileus or distal colonic obstruction and early stercoral colitis. Trace free fluid. No free air or abscess. PELVIS: Appendix: No findings to suggest acute appendicitis. Bladder: See below. Reproductive: Uterus and urinary bladder anteriorly placed from the markedly distended rectum. ABDOMEN and PELVIS: Intraperitoneal space: See above. Bones/joints: Mild superior endplate compression of L5 likely chronic. Dynamic left hip screws. No dislocation. Soft tissues: Unremarkable. Vasculature: Atherosclerotic vascular disease. No abdominal aortic aneurysm. Lymph nodes: Unremarkable. No enlarged lymph nodes. IMPRESSION: 1. Dilated rectosigmoid colon to 11.3 cm., large amount of stool in the remainder of the colon. Mild thickening of the colonic wall. Findings may be due to fecal impaction with obstipation. Differential includes Colonic ileus or distal colonic obstruction and early stercoral colitis. Trace free fluid. No free air or abscess. 2. Mild bilateral hydronephrosis, greater on the right, may be due to external compression of the distal ureters from the overly distended rectum. 3. Right lower lobe of the lung small consolidation and mild bibasilar lung septal thickening. 4. Fatty prominent liver. Distended gallbladder. ICD Codes: R10.9 - Unspecified abdominal pain SNOMED: [id number] Qualifiers: Qualified Codes: R10.9 - Unspecified abdominal pain Noe Hirsch Sep 24, 2019 13:15
[2019-09-24 16:00] VITALS: BP 154/73
--- NOTE | 2019-09-24 17:18 | Internal Med Progress Note ---
Subjective Date of Service: Sep 24, 2019 Physician Name RenettaBryan Attending Physician Carlos Junior MD Current Medications Medications (Trade) Dose Ordered Sig/Zee Route PRN Reason Start Time Stop Time Status Last Admin Dose Admin Acetaminophen (Tylenol) 650 mg Q4H PRN ORAL fever 09/21/19 16:45 10/21/19 16:44 Albuterol/ Ipratropium (Albuterol/ Ipratropium) 3 ml Q4H PRN HHN Shortness of Breath 09/21/19 16:45 09/26/19 16:44 Aspirin (ASA) 81 mg DAILY ORAL 09/22/19 09:15 11/06/19 09:14 09/24/19 09:39 Atorvastatin Calcium (Lipitor) 10 mg BEDTIME ORAL 09/21/19 21:00 12/20/19 20:59 09/23/19 21:38 Carbidopa/Levodopa (Sinemet 25/100) 1 tab THREE TIMES A DAY ORAL 09/21/19 18:00 10/21/19 17:59 09/24/19 12:38 Cefepime HCl 1 gm/ Dextrose 55 ml @ 110 mls/hr Q12H IV 09/21/19 22:00 09/28/19 21:59 09/24/19 09:40 Dextrose/Sodium Chloride 1,000 ml @ 75 mls/hr [id number] IV 09/22/19 11:45 10/22/19 11:44 09/24/19 04:49 Docusate Sodium (Colace) 100 mg TWICE A DAY ORAL 09/22/19 18:00 10/22/19 17:59 09/24/19 09:39 Heparin Sodium (Porcine) (Heparin 5000 units/ml) 5,000 units EVERY 12 HOURS SUBQ 09/21/19 21:00 11/05/19 20:59 09/24/19 09:45 Levothyroxine Sodium (Synthroid) 100 mcg ACBREAKFAST ORAL 09/22/19 06:30 10/22/19 06:29 09/24/19 06:45 Linaclotide (Linzess) 290 mcg BEFORE BREAKFAST ORAL 09/25/19 06:30 12/24/19 06:29 Metoprolol Tartrate (Lopressor) 12.5 mg EVERY 12 HOURS ORAL 09/21/19 21:00 12/20/19 20:59 09/24/19 09:39 Nitroglycerin (Ntg) 0.4 mg Q5M PRN SL Prn Chest Pain 09/21/19 16:45 10/21/19 16:44 Ondansetron HCl (Zofran) 4 mg Q6H PRN IVP Nausea & Vomiting 09/21/19 16:45 10/21/19 16:44 Polyethylene Glycol (Miralax) 17 gm BEDTIME ORAL 09/22/19 21:00 10/22/19 20:59 09/23/19 21:38 Polyethylene Glycol (Miralax) 17 gm DAILYPRN PRN ORAL Constipation 09/21/19 16:45 10/21/19 16:44 Promethazine HCl/ Codeine (Phenergan with Codeine) 5 ml Q4H PRN ORAL For Cough 09/21/19 16:45 10/21/19 16:44 Temazepam (Restoril) 15 mg HSPRN PRN ORAL Insomnia 09/21/19 16:45 09/28/19 16:44 Vancomycin HCl (Vanco rx to dose) 1 ea DAILY PRN MISC Per rx protocol 09/21/19 16:45 10/21/19 16:44 Vancomycin HCl 500 mg/Sodium Chloride 110 ml @ 110 mls/hr Q24H IVPB 09/23/19 10:00 09/28/19 09:59 09/24/19 09:40 Allergies: Coded Allergies: INFLIXIMAB (Verified Allergy, Intermediate, 04/20/16) NIACIN (Verified Allergy, Intermediate, 04/20/16) SULFA (SULFONAMIDE ANTIBIOTICS) (Verified Allergy, Intermediate, 04/20/16) Uncoded Allergies: SULFONAMIDES (Allergy, Unknown, 04/28/18) ROS Limited/Unobtainable: No Constitutional: Reports: no symptoms HEENT: Reports: no symptoms Cardiovascular: Reports: no symptoms Respiratory: Reports: no symptoms Gastrointestinal/Abdominal: Reports: abdominal pain Genitourinary: Reports: no symptoms Neurologic/Psychiatric: Reports: no symptoms Subjective 79 YO F admitted with abdominal pain. Now constipation. Cover for Int Trisotn-DR Junior Objective Last Vital Signs Date Time Temp Pulse Resp B/P (MAP) Pulse Ox O2 Delivery O2 Flow Rate FiO2 09/24/19 16:00 97.1 61 18 154/73 (100) 99 09/24/19 12:13 Nasal Cannula 2.0 28 Laboratory Tests Test 09/24/19 06:00 09/24/19 06:20 Stool Occult Blood Negative (NEGATIVE) White Blood Count 4.1 K/UL (4.8-10.8) L Red Blood Count 3.22 M/UL (4.20-5.40) L Hemoglobin 9.5 G/DL (12.0-16.0) L Hematocrit 27.5 % (37.0-47.0) L Mean Corpuscular Volume 86 FL (80-99) Mean Corpuscular Hemoglobin 29.6 PG (27.0-31.0) Mean Corpuscular Hemoglobin Concent 34.7 G/DL (32.0-36.0) Red Cell Distribution Width 11.5 % (11.6-14.8) L Platelet Count 177 K/UL (150-450) Mean Platelet Volume 5.9 FL (6.5-10.1) L Neutrophils (%) (Auto) 74.4 % (45.0-75.0) Lymphocytes (%) (Auto) 14.5 % (20.0-45.0) L Monocytes (%) (Auto) 8.7 % (1.0-10.0) Eosinophils (%) (Auto) 2.0 % (0.0-3.0) Basophils (%) (Auto) 0.4 % (0.0-2.0) Sodium Level 140 MMOL/L (136-145) Potassium Level 3.9 MMOL/L (3.5-5.1) Chloride Level 107 MMOL/L (98-107) Carbon Dioxide Level 22 MMOL/L (21-32) Anion Gap 11 mmol/L (5-15) Blood Urea Nitrogen 14 mg/dL (7-18) Creatinine 0.7 MG/DL (0.55-1.30) Estimat Glomerular Filtration Rate > 60 mL/min (>60) Glucose Level 118 MG/DL (74-106) H Calcium Level 8.4 MG/DL (8.5-10.1) L Iron Level 36 ug/dL (50-175) L Total Iron Binding Capacity 189 ug/dL (250-450) L Percent Iron Saturation 19 % (15-50) Unsaturated Iron Binding 153 ug/dL (112-346) Total Bilirubin 0.3 MG/DL (0.2-1.0) Aspartate Amino Transf (AST/SGOT) 21 U/L (15-37) Alanine Aminotransferase (ALT/SGPT) 18 U/L (12-78) Alkaline Phosphatase 43 U/L (46-116) L Total Protein 6.1 G/DL (6.4-8.2) L Albumin 2.4 G/DL (3.4-5.0) L Globulin 3.7 g/dL Albumin/Globulin Ratio 0.6 (1.0-2.7) L Folate 42.1 NG/ML (8.6-58.9) Free Thyroxine 1.20 NG/DL (0.76-1.46) Hepatitis A IgM Antibody Pending Hepatitis B Surface Antigen Pending Hepatitis B Core IgM Antibody Pending Hepatitis C Antibody Pending Intake and Output 09/23/19 09/24/19 19:00 07:00 Intake Total 240 ml Balance 240 ml Intake Oral 240 ml # Voids 1 1 # Bowel Movements 1 1 Objective PHYSICAL EXAMINATION: GENERAL: The patient is a well-developed and well-nourished thin-appearing female, in no apparent distress. HEENT: Eyes, pupils are equal and responsive to light and accommodation. Extraocular movements are intact. NECK: Supple without lymphadenopathy. CHEST: Lungs are clear to auscultation bilaterally without wheezes or rales. CARDIOVASCULAR: Regular rate. S1 and S2 normal without murmurs, rubs, or gallops. ABDOMEN: Soft, distended with decreased bowel sounds. There is increased tympany. There is tenderness to palpation in all four quadrants. There is no rebound or guarding noted. EXTREMITIES: Negative for clubbing, cyanosis, or edema. RECTAL/GENITAL: Not performed. NEUROLOGIC: Cranial nerves II through XII are grossly intact without focal deficits. Motor strength is 5/5 bilaterally. Deep tendon reflexes are 2+ plantar. Assessment/Plan Assessment/Plan ASSESSMENT: This is a 79-year-old female with: 1. Abdominal pain. 2. Congestive heart failure. 3. Right lower lobe pneumonia. 4. Atrial fibrillation. 5. Coronary artery disease. 6. Diabetes type 2. 7. Hypertension. 8. Hypercholesterolemia. 9. Hypothyroidism. 10. Seizure disorder. 11. Cerebrovascular disease. 12. Left hemiparesis. 13. Subdural hematoma. 14. History of deep venous thrombosis. 15. Mitral and aortic valve biosynthetic prosthesis. 16. Anemia TREATMENT: 1. Abdominal pain/distention. A General Surgery consultation has been obtained with Dr. Hirsch. A Gastroenterology consultation has been obtained with Dr. Abhishek Langford. Differential includes impaction versus obstruction. We will follow recommendations of General Surgery and Gastroenterology. 2. Congestive heart failure. Cardiology consultation has been obtained with Dr. Barber Mack. The patient has been started empirically on intravenous Lasix. An echocardiogram is pending. 3. Right lower lobe pneumonia. A Pulmonary consultation has been obtained with Dr. Koko Gee. The patient has been started empirically on cefepime and vancomycin. We will follow recommendations of Pulmonary. 4. Atrial fibrillation. As above, a Cardiology consultation has been obtained with Dr. Barber Mack. 5. Coronary artery disease. The patient is status post coronary artery bypass graft. 6. Diabetes type 2. The patient is not on any antihyperglycemic medication at the alf. 7. Hypertension. Continue metoprolol as above. 8. Hypercholesteremia. Continue atorvastatin as above. 9. Hypothyroidism. Continue levothyroxine as above. 10. Seizure disorder. Continue carbamazepine as above. 11. Cerebrovascular disease. 12. Left hemiparesis. 13. History of subdural hematoma. 14. History of deep venous thrombosis. 15. History of mitral and aortic valve bioprosthesis replacement. 16. Anemia workup per Bryan Strauss MD Sep 24, 2019 17:18
[2019-09-24 20:00] VITALS: BP 148/56
[2019-09-24] MEDS: Miralax 17gm pkt ORAL SCH (20:47)
[2019-09-25] VITALS: BP 155/80
[2019-09-25 04:00] VITALS: BP 148/54
[2019-09-25] MEDS: D5 1/2NS 1,000 ML IV SCH (06:15)
[2019-09-25 07:08] LABS: HEMATOCRIT 26.4 % (37.0-47.0); HEMOGLOBIN 8.9 G/DL (12.0-16.0); MEAN CORPUSCULAR VOLUME 88 FL (80-99); PLATELET COUNT 143 K/UL (150-450); RED CELL DISTRIBUTION WIDTH 12.3 % (11.6-14.8)
[2019-09-25 07:30] LABS: ALANINE AMINOTRANSFERASE 8 U/L (12-78); ALBUMIN 2.1 G/DL (3.4-5.0); ALBUMIN/GLOBULIN RATIO 0.6 (1.0-2.7); ALKALINE PHOSPHATASE 39 U/L (46-116); ANION GAP 10 mmol/L (5-15); ASPARTATE AMINO TRANSFERASE 15 U/L (15-37); BILIRUBIN,TOTAL 0.3 MG/DL (0.2-1.0); BLOOD UREA NITROGEN 6 mg/dL (7-18); CALCIUM 7.9 MG/DL (8.5-10.1); CARBON DIOXIDE 21 MMOL/L (21-32); CHLORIDE 103 MMOL/L (98-107); CREATININE 0.6 MG/DL (0.55-1.30); POTASSIUM 3.1 MMOL/L (3.5-5.1); SODIUM 134 MMOL/L (136-145)
[2019-09-25 08:00] VITALS: BP 145/60
--- NOTE | 2019-09-25 08:56 | General Progress Note ---
Assessment/Plan Assessment/Plan: 1. Atrial fibrillation. 2. History of coronary artery disease. 3. Diabetes type 2. 4. DVT. 5. Hypertension. 6. Hypothyroidism. 7. Seizure disorder. 8. History of CVA. 9. History of subdural hematoma. 10. Parkinson's. 11. Hypercholesteremia. 12. Dementia. 13. Trigeminal neuralgia. 14. Anemia 15. stool impaction 16. fatty liver cont linzess ,colace, miralax and lactulose one dulcolax sup for today neg stool ob neg hepatitis panel kub reviewed fu labs Subjective Allergies: Coded Allergies: INFLIXIMAB (Verified Allergy, Intermediate, 04/20/16) NIACIN (Verified Allergy, Intermediate, 04/20/16) SULFA (SULFONAMIDE ANTIBIOTICS) (Verified Allergy, Intermediate, 04/20/16) Uncoded Allergies: SULFONAMIDES (Allergy, Unknown, 04/28/18) Objective Last 24 Hour Vital Signs Date Time Temp Pulse Resp B/P (MAP) Pulse Ox O2 Delivery O2 Flow Rate FiO2 09/25/19 08:33 Nasal Cannula 2.0 09/25/19 07:23 100 Nasal Cannula 2.0 28 09/25/19 04:00 54 09/25/19 04:00 97.7 59 20 148/54 (85) 100 09/25/19 02:20 Nasal Cannula 2.0 28 09/25/19 02:20 Nasal Cannula 2.0 28 09/25/19 00:00 55 09/25/19 00:00 96.4 57 20 155/80 (105) 100 09/24/19 23:11 Nasal Cannula 2.0 28 09/24/19 23:11 Nasal Cannula 2.0 28 09/24/19 21:00 Nasal Cannula 2.0 09/24/19 20:46 64 148/56 09/24/19 20:00 64 09/24/19 20:00 97.2 64 20 148/56 (86) 100 09/24/19 19:50 Nasal Cannula 2.0 28 09/24/19 19:50 98 Nasal Cannula 2.0 28 09/24/19 19:50 Nasal Cannula 2.0 28 09/24/19 16:00 97.1 61 18 154/73 (100) 99 09/24/19 16:00 63 09/24/19 15:48 60 18 100 Nasal Cannula 2.0 28 09/24/19 15:48 60 18 100 Nasal Cannula 2.0 28 09/24/19 12:13 80 22 100 Nasal Cannula 2.0 28 09/24/19 12:10 70 20 100 Nasal Cannula 2.0 28 09/24/19 12:00 97.7 66 18 126/74 (91) 100 09/24/19 12:00 59 09/24/19 09:39 65 159/65 09/24/19 09:00 65 09/24/19 09:00 Nasal Cannula 2.0 Intake and Output 09/24/19 09/25/19 19:00 07:00 Intake Total 120 ml Output Total 350 ml 800 ml Balance -230 ml -800 ml Intake Oral 120 ml Output Urine Total 350 ml 800 ml # Voids 1 # Bowel Movements 1 Laboratory Tests 09/25/19 06:14: White Blood Count 3.0L, Red Blood Count 3.00L, Hemoglobin 8.9L, Hematocrit 26.4L , Mean Corpuscular Volume 88, Mean Corpuscular Hemoglobin 29.7, Mean Corpuscular Hemoglobin Concent 33.8, Red Cell Distribution Width 12.3, Platelet Count 143L, Mean Platelet Volume 5.9L, Neutrophils (%) (Auto) , Lymphocytes (%) (Auto) , Monocytes (%) (Auto) , Eosinophils (%) (Auto) , Basophils (%) (Auto) , Neutrophils % (Manual) [Pending], Lymphocytes % (Manual) [Pending], Platelet Estimate [Pending], Platelet Morphology [Pending], Sodium Level 134L, Potassium Level 3.1L, Chloride Level 103, Carbon Dioxide Level 21, Anion Gap 10, Blood Urea Nitrogen 6L, Creatinine 0.6, Estimat Glomerular Filtration Rate > 60, Glucose Level 517#*H, Calcium Level 7.9L, Total Bilirubin 0.3, Aspartate Amino Transf (AST/SGOT) 15, Alanine Aminotransferase (ALT/SGPT) 8L, Alkaline Phosphatase 39L, Total Protein 5.5L, Albumin 2.1L, Globulin 3.4, Albumin/ Globulin Ratio 0.6L Height (Feet): 5 Height (Inches): 2.00 Weight (Pounds): 111 General Appearance: no apparent distress EENT: PERRL/EOMI Neck: supple Cardiovascular: normal rate Respiratory/Chest: decreased breath sounds Abdomen: normal bowel sounds, non tender, soft Extremities: non-tender Abhishek Langford MD Sep 25, 2019 08:56
[2019-09-25] MEDS: Heparin 5000 units/ml inj SUBQ SCH ×2 (09:00→20:08)
[2019-09-25] MEDS: Levodopa/Carbidopa 25/100 tab ORAL SCH ×3 (09:00→18:00)
[2019-09-25] MEDS: Docusate 100mg cap ORAL SCH ×2 (09:00→18:00)
[2019-09-25] MEDS: Lactulose 20gm/30ml UDC ORAL SCH ×2 (10:10→18:00)
[2019-09-25] MEDS: Metoprolol Tartrate 12.5mg TAB ORAL SCH ×2 (10:16→20:14)
[2019-09-25] MEDS: Aspirin Baby 81mg ORAL SCH (10:16)
--- NOTE | 2019-09-25 10:17 | Surgery Progress Note ---
Surgery Progress Note Subjective Additional Comments ill appearing does not say much today resting labs noted. glu? gi plan for bowel function Objective Last 24 Hour Vital Signs Date Time Temp Pulse Resp B/P (MAP) Pulse Ox O2 Delivery O2 Flow Rate FiO2 09/25/19 08:33 Nasal Cannula 2.0 09/25/19 08:00 64 09/25/19 08:00 97.1 63 19 145/60 (88) 100 09/25/19 07:23 100 Nasal Cannula 2.0 28 09/25/19 04:00 54 09/25/19 04:00 97.7 59 20 148/54 (85) 100 09/25/19 02:20 Nasal Cannula 2.0 28 09/25/19 02:20 Nasal Cannula 2.0 28 09/25/19 00:00 55 09/25/19 00:00 96.4 57 20 155/80 (105) 100 09/24/19 23:11 Nasal Cannula 2.0 28 09/24/19 23:11 Nasal Cannula 2.0 28 09/24/19 21:00 Nasal Cannula 2.0 09/24/19 20:46 64 148/56 09/24/19 20:00 64 09/24/19 20:00 97.2 64 20 148/56 (86) 100 09/24/19 19:50 Nasal Cannula 2.0 28 09/24/19 19:50 98 Nasal Cannula 2.0 28 09/24/19 19:50 Nasal Cannula 2.0 28 09/24/19 16:00 97.1 61 18 154/73 (100) 99 09/24/19 16:00 63 09/24/19 15:48 60 18 100 Nasal Cannula 2.0 28 09/24/19 15:48 60 18 100 Nasal Cannula 2.0 28 09/24/19 12:13 80 22 100 Nasal Cannula 2.0 28 09/24/19 12:10 70 20 100 Nasal Cannula 2.0 28 09/24/19 12:00 97.7 66 18 126/74 (91) 100 09/24/19 12:00 59 I&O Intake and Output 09/24/19 09/25/19 19:00 07:00 Intake Total 120 ml Output Total 350 ml 800 ml Balance -230 ml -800 ml Intake Oral 120 ml Output Urine Total 350 ml 800 ml # Voids 1 # Bowel Movements 1 Dressing: other Wound: other Drains: other Cardiovascular: RSR Respiratory: decreased breath sounds Abdomen: present bowel sounds Extremities: no cyanosis Laboratory Tests Test 09/25/19 06:14 09/25/19 09:10 White Blood Count 3.0 K/UL (4.8-10.8) L Red Blood Count 3.00 M/UL (4.20-5.40) L Hemoglobin 8.9 G/DL (12.0-16.0) L Hematocrit 26.4 % (37.0-47.0) L Mean Corpuscular Volume 88 FL (80-99) Mean Corpuscular Hemoglobin 29.7 PG (27.0-31.0) Mean Corpuscular Hemoglobin Concent 33.8 G/DL (32.0-36.0) Red Cell Distribution Width 12.3 % (11.6-14.8) Platelet Count 143 K/UL (150-450) L Mean Platelet Volume 5.9 FL (6.5-10.1) L Neutrophils (%) (Auto) % (45.0-75.0) Lymphocytes (%) (Auto) % (20.0-45.0) Monocytes (%) (Auto) % (1.0-10.0) Eosinophils (%) (Auto) % (0.0-3.0) Basophils (%) (Auto) % (0.0-2.0) Differential Total Cells Counted 100 Neutrophils % (Manual) 61 % (45-75) Lymphocytes % (Manual) 25 % (20-45) Monocytes % (Manual) 12 % (1-10) H Eosinophils % (Manual) 2 % (0-3) Basophils % (Manual) 0 % (0-2) Band Neutrophils 0 % (0-8) Platelet Estimate Decreased L Platelet Morphology Normal Hypochromasia 1+ Sodium Level 134 MMOL/L (136-145) L Potassium Level 3.1 MMOL/L (3.5-5.1) L Chloride Level 103 MMOL/L (98-107) Carbon Dioxide Level 21 MMOL/L (21-32) Anion Gap 10 mmol/L (5-15) Blood Urea Nitrogen 6 mg/dL (7-18) L Creatinine 0.6 MG/DL (0.55-1.30) Estimat Glomerular Filtration Rate > 60 mL/min (>60) Glucose Level 517 MG/DL (74-106) #*H 103 MG/DL (74-106) # Calcium Level 7.9 MG/DL (8.5-10.1) L Total Bilirubin 0.3 MG/DL (0.2-1.0) Aspartate Amino Transf (AST/SGOT) 15 U/L (15-37) Alanine Aminotransferase (ALT/SGPT) 8 U/L (12-78) L Alkaline Phosphatase 39 U/L (46-116) L Total Protein 5.5 G/DL (6.4-8.2) L Albumin 2.1 G/DL (3.4-5.0) L Globulin 3.4 g/dL Albumin/Globulin Ratio 0.6 (1.0-2.7) L Assessment Post-op Diagnosis Abdominal pain Assessment & Plan: Asked by Dr. Jackson to evaluate for abdominal pain, r/o obstruction vs impaction 79-year-old female with abdominal pain generalized no nausea vomiting fever chills. Cough and shortness of breath. Labs noted. CT reviewed. KUB ordered for 09/22 and reviewed. Improving now since admission. Currently states she is hungry and wants food. Abdominal exam stable improved otherwise. Bowel sounds noted. distended gb stable as asymptomatic and likely from age No acute surgical intervention planned Okay for diet from surgical standpoint Bowel regimen stool softeners appreciate GI input Nutritional evaluation enema prn will follow with recommendations thank you for let me participate in patient's care FINDINGS: Lung bases: Right lower lobe of the lung small consolidation and mild bibasilar lung septal thickening. Heart: Cardiomegaly. Mitral valve prosthesis. ABDOMEN: Liver: Fatty prominent liver. Gallbladder and bile ducts: Distended gallbladder. No calcified stones. No ductal dilation. Pancreas: Unremarkable. No mass. No ductal dilation. Spleen: Unremarkable. No splenomegaly. Adrenals: Unremarkable. No mass. Kidneys and ureters: Mild bilateral hydronephrosis, greater on the right, may be due to external compression of the distal ureters from the overly distended rectum. Stomach and bowel: Dilated rectosigmoid colon to 11.3 cm., large amount of stool in the remainder of the colon. Findings may be due to fecal impaction with obstipation. Differential includes Colonic ileus or distal colonic obstruction and early stercoral colitis. Trace free fluid. No free air or abscess. PELVIS: Appendix: No findings to suggest acute appendicitis. Bladder: See below. Reproductive: Uterus and urinary bladder anteriorly placed from the markedly distended rectum. ABDOMEN and PELVIS: Intraperitoneal space: See above. Bones/joints: Mild superior endplate compression of L5 likely chronic. Dynamic left hip screws. No dislocation. Soft tissues: Unremarkable. Vasculature: Atherosclerotic vascular disease. No abdominal aortic aneurysm. Lymph nodes: Unremarkable. No enlarged lymph nodes. IMPRESSION: 1. Dilated rectosigmoid colon to 11.3 cm., large amount of stool in the remainder of the colon. Mild thickening of the colonic wall. Findings may be due to fecal impaction with obstipation. Differential includes Colonic ileus or distal colonic obstruction and early stercoral colitis. Trace free fluid. No free air or abscess. 2. Mild bilateral hydronephrosis, greater on the right, may be due to external compression of the distal ureters from the overly distended rectum. 3. Right lower lobe of the lung small consolidation and mild bibasilar lung septal thickening. 4. Fatty prominent liver. Distended gallbladder. ICD Codes: R10.9 - Unspecified abdominal pain SNOMED: [id number] Qualifiers: Qualified Codes: R10.9 - Unspecified abdominal pain Noe Hirsch Sep 25, 2019 10:17
[2019-09-25] MEDS: Cefepime HCl 1 GM in D5W 55 ML IV SCH (10:25)
[2019-09-25] MEDS: Vancomycin 500 MG in NS 110 ML IVPB SCH (10:25)
[2019-09-25 11:51] VITALS: BP 150/62
--- NOTE | 2019-09-25 12:22 | Internal Med Progress Note ---
Subjective Date of Service: Sep 25, 2019 Physician Name RenettaBryan Attending Physician Carlos Junior MD Current Medications Medications (Trade) Dose Ordered Sig/Zee Route PRN Reason Start Time Stop Time Status Last Admin Dose Admin Acetaminophen (Tylenol) 650 mg Q4H PRN ORAL fever 09/21/19 16:45 10/21/19 16:44 Albuterol/ Ipratropium (Albuterol/ Ipratropium) 3 ml Q4H PRN HHN Shortness of Breath 09/21/19 16:45 09/26/19 16:44 Aspirin (ASA) 81 mg DAILY ORAL 09/22/19 09:15 11/06/19 09:14 09/25/19 10:16 Atorvastatin Calcium (Lipitor) 10 mg BEDTIME ORAL 09/21/19 21:00 12/20/19 20:59 09/24/19 20:46 Carbidopa/Levodopa (Sinemet 25/100) 1 tab THREE TIMES A DAY ORAL 09/21/19 18:00 10/21/19 17:59 09/24/19 17:34 Cefepime HCl 1 gm/ Dextrose 55 ml @ 110 mls/hr Q12H IV 09/21/19 22:00 09/28/19 21:59 09/25/19 10:25 Dextrose/Sodium Chloride 1,000 ml @ 75 mls/hr [id number] IV 09/22/19 11:45 10/22/19 11:44 09/25/19 06:15 Docusate Sodium (Colace) 100 mg TWICE A DAY ORAL 09/22/19 18:00 10/22/19 17:59 09/25/19 09:00 Heparin Sodium (Porcine) (Heparin 5000 units/ml) 5,000 units EVERY 12 HOURS SUBQ 09/21/19 21:00 11/05/19 20:59 09/24/19 20:53 Lactulose (Cephulac) 20 gm BID ORAL 09/25/19 09:00 10/25/19 08:59 09/25/19 10:10 Levothyroxine Sodium (Synthroid) 100 mcg ACBREAKFAST ORAL 09/22/19 06:30 10/22/19 06:29 09/25/19 06:08 Linaclotide (Linzess) 290 mcg BEFORE BREAKFAST ORAL 09/25/19 06:30 12/24/19 06:29 09/25/19 06:14 Metoprolol Tartrate (Lopressor) 12.5 mg EVERY 12 HOURS ORAL 09/21/19 21:00 12/20/19 20:59 09/25/19 10:16 Nitroglycerin (Ntg) 0.4 mg Q5M PRN SL Prn Chest Pain 09/21/19 16:45 10/21/19 16:44 Ondansetron HCl (Zofran) 4 mg Q6H PRN IVP Nausea & Vomiting 09/21/19 16:45 10/21/19 16:44 Polyethylene Glycol (Miralax) 17 gm BEDTIME ORAL 09/22/19 21:00 10/22/19 20:59 09/24/19 20:47 Polyethylene Glycol (Miralax) 17 gm DAILYPRN PRN ORAL Constipation 09/21/19 16:45 10/21/19 16:44 Promethazine HCl/ Codeine (Phenergan with Codeine) 5 ml Q4H PRN ORAL For Cough 09/21/19 16:45 10/21/19 16:44 Temazepam (Restoril) 15 mg HSPRN PRN ORAL Insomnia 09/21/19 16:45 09/28/19 16:44 Vancomycin HCl (Vanco rx to dose) 1 ea DAILY PRN MISC Per rx protocol 09/21/19 16:45 10/21/19 16:44 Vancomycin HCl 500 mg/Sodium Chloride 110 ml @ 110 mls/hr Q24H IVPB 09/23/19 10:00 09/28/19 09:59 09/25/19 10:25 Allergies: Coded Allergies: INFLIXIMAB (Verified Allergy, Intermediate, 04/20/16) NIACIN (Verified Allergy, Intermediate, 04/20/16) SULFA (SULFONAMIDE ANTIBIOTICS) (Verified Allergy, Intermediate, 04/20/16) Uncoded Allergies: SULFONAMIDES (Allergy, Unknown, 04/28/18) ROS Limited/Unobtainable: No Constitutional: Reports: no symptoms HEENT: Reports: no symptoms Cardiovascular: Reports: no symptoms Respiratory: Reports: no symptoms Gastrointestinal/Abdominal: Reports: abdominal pain Genitourinary: Reports: no symptoms Neurologic/Psychiatric: Reports: no symptoms Subjective 79 YO F admitted with abdominal pain. Now constipation. Cover for Int Med-DR Junior Objective Last Vital Signs Date Time Temp Pulse Resp B/P (MAP) Pulse Ox O2 Delivery O2 Flow Rate FiO2 09/25/19 11:51 98.6 65 20 150/62 (91) 96 09/25/19 08:33 Nasal Cannula 2.0 09/25/19 07:23 28 Laboratory Tests Test 09/25/19 06:14 09/25/19 09:10 White Blood Count 3.0 K/UL (4.8-10.8) L Red Blood Count 3.00 M/UL (4.20-5.40) L Hemoglobin 8.9 G/DL (12.0-16.0) L Hematocrit 26.4 % (37.0-47.0) L Mean Corpuscular Volume 88 FL (80-99) Mean Corpuscular Hemoglobin 29.7 PG (27.0-31.0) Mean Corpuscular Hemoglobin Concent 33.8 G/DL (32.0-36.0) Red Cell Distribution Width 12.3 % (11.6-14.8) Platelet Count 143 K/UL (150-450) L Mean Platelet Volume 5.9 FL (6.5-10.1) L Neutrophils (%) (Auto) % (45.0-75.0) Lymphocytes (%) (Auto) % (20.0-45.0) Monocytes (%) (Auto) % (1.0-10.0) Eosinophils (%) (Auto) % (0.0-3.0) Basophils (%) (Auto) % (0.0-2.0) Differential Total Cells Counted 100 Neutrophils % (Manual) 61 % (45-75) Lymphocytes % (Manual) 25 % (20-45) Monocytes % (Manual) 12 % (1-10) H Eosinophils % (Manual) 2 % (0-3) Basophils % (Manual) 0 % (0-2) Band Neutrophils 0 % (0-8) Platelet Estimate Decreased L Platelet Morphology Normal Hypochromasia 1+ Sodium Level 134 MMOL/L (136-145) L Potassium Level 3.1 MMOL/L (3.5-5.1) L Chloride Level 103 MMOL/L (98-107) Carbon Dioxide Level 21 MMOL/L (21-32) Anion Gap 10 mmol/L (5-15) Blood Urea Nitrogen 6 mg/dL (7-18) L Creatinine 0.6 MG/DL (0.55-1.30) Estimat Glomerular Filtration Rate > 60 mL/min (>60) Glucose Level 517 MG/DL (74-106) #*H 103 MG/DL (74-106) # Calcium Level 7.9 MG/DL (8.5-10.1) L Total Bilirubin 0.3 MG/DL (0.2-1.0) Aspartate Amino Transf (AST/SGOT) 15 U/L (15-37) Alanine Aminotransferase (ALT/SGPT) 8 U/L (12-78) L Alkaline Phosphatase 39 U/L (46-116) L Total Protein 5.5 G/DL (6.4-8.2) L Albumin 2.1 G/DL (3.4-5.0) L Globulin 3.4 g/dL Albumin/Globulin Ratio 0.6 (1.0-2.7) L Intake and Output 09/24/19 09/25/19 19:00 07:00 Intake Total 120 ml Output Total 350 ml 800 ml Balance -230 ml -800 ml Intake Oral 120 ml Output Urine Total 350 ml 800 ml # Voids 1 # Bowel Movements 1 Objective PHYSICAL EXAMINATION: GENERAL: The patient is a well-developed and well-nourished thin-appearing female, in no apparent distress. HEENT: Eyes, pupils are equal and responsive to light and accommodation. Extraocular movements are intact. NECK: Supple without lymphadenopathy. CHEST: Lungs are clear to auscultation bilaterally without wheezes or rales. CARDIOVASCULAR: Regular rate. S1 and S2 normal without murmurs, rubs, or gallops. ABDOMEN: Soft, distended with decreased bowel sounds. There is increased tympany. There is tenderness to palpation in all four quadrants. There is no rebound or guarding noted. EXTREMITIES: Negative for clubbing, cyanosis, or edema. RECTAL/GENITAL: Not performed. NEUROLOGIC: Cranial nerves II through XII are grossly intact without focal deficits. Motor strength is 5/5 bilaterally. Deep tendon reflexes are 2+ plantar. Assessment/Plan Assessment/Plan ASSESSMENT: This is a 79-year-old female with: 1. Abdominal pain. 2. Congestive heart failure. 3. Right lower lobe pneumonia. 4. Atrial fibrillation. 5. Coronary artery disease. 6. Diabetes type 2. 7. Hypertension. 8. Hypercholesterolemia. 9. Hypothyroidism. 10. Seizure disorder. 11. Cerebrovascular disease. 12. Left hemiparesis. 13. Subdural hematoma. 14. History of deep venous thrombosis. 15. Mitral and aortic valve biosynthetic prosthesis. 16. Anemia TREATMENT: 1. Abdominal pain/distention. Improved with laxatives. A General Surgery consultation has been obtained with Dr. Hirsch. A Gastroenterology consultation has been obtained with Dr. Abhishek Langford. We will follow recommendations of General Surgery and Gastroenterology. 2. Congestive heart failure. Cardiology consultation has been obtained with Dr. Barber Mack. The patient has been started empirically on intravenous Lasix. An echocardiogram is pending. 3. Right lower lobe pneumonia. A Pulmonary consultation has been obtained with Dr. Koko Gee. The patient has been started empirically on cefepime and vancomycin. We will follow recommendations of Pulmonary. 4. Atrial fibrillation. As above, a Cardiology consultation has been obtained with Dr. Barber Mack. 5. Coronary artery disease. The patient is status post coronary artery bypass graft. 6. Diabetes type 2. The patient is not on any antihyperglycemic medication at the [facility]. 7. Hypertension. Continue metoprolol as above. 8. Hypercholesteremia. Continue atorvastatin as above. 9. Hypothyroidism. Continue levothyroxine as above. 10. Seizure disorder. Continue carbamazepine as above. 11. Cerebrovascular disease. 12. Left hemiparesis. 13. History of subdural hematoma. 14. History of deep venous thrombosis. 15. History of mitral and aortic valve bioprosthesis replacement. 16. Anemia workup per GI 17. Discharge planning: [facility] Bryan Jackson MD Sep 25, 2019 12:22
--- NOTE | 2019-09-25 12:30 | Pulmonology Progress Note ---
Assessment/Plan Problems: (1) Nosocomial pneumonia (2) SVT (supraventricular tachycardia) (3) Hypothyroidism (4) Alzheimer's dementia (5) Seizure disorder (6) Diabetes mellitus type II, controlled (7) HTN (hypertension) (8) Intractable abdominal pain (9) Parkinson disease (10) History of subdural hematoma Assessment/Plan check sputum, not collected yet. VRE negative, MRSA negative swallow study: CONSIDER MODIFIED BARIUM SWALLOW STUDY MBSS TO FURTHER ASSESS SWALLOWING ANATOMY AND PHYSIOLOGY, R/O SILENT ASPIRATION/ETIOLOGY, AND ATTEMPT TRIAL TX TECHNIQUES. IF PO GIVEN FOR QUALITY OF LIFE (PATIENT WANTS PO INTAKE), CONSIDER INITIATING A [facility] SOFT CHOPPED DIET AND THIN LIQUIDS WITH POSTED ASPIRATION AND REFLUX PRECAUTIONS WITH ONE TO ONE ASSIST WITH MEALS. K supplement KUB ordered for am iv abx echo reviewed EF of 65% sliding scale dvt prophylaxis Subjective ROS Limited/Unobtainable: No Constitutional: Reports: no symptoms HEENT: Repors: no symptoms Allergies: Coded Allergies: INFLIXIMAB (Verified Allergy, Intermediate, 04/20/16) NIACIN (Verified Allergy, Intermediate, 04/20/16) SULFA (SULFONAMIDE ANTIBIOTICS) (Verified Allergy, Intermediate, 04/20/16) Uncoded Allergies: SULFONAMIDES (Allergy, Unknown, 04/28/18) Objective Last 24 Hour Vital Signs Date Time Temp Pulse Resp B/P (MAP) Pulse Ox O2 Delivery O2 Flow Rate FiO2 09/25/19 11:51 98.6 65 20 150/62 (91) 96 09/25/19 10:16 64 145/60 09/25/19 08:33 Nasal Cannula 2.0 09/25/19 08:00 64 09/25/19 08:00 97.1 63 19 145/60 (88) 100 09/25/19 07:23 100 Nasal Cannula 2.0 28 09/25/19 04:00 54 09/25/19 04:00 97.7 59 20 148/54 (85) 100 09/25/19 02:20 Nasal Cannula 2.0 28 09/25/19 02:20 Nasal Cannula 2.0 28 09/25/19 00:00 55 09/25/19 00:00 96.4 57 20 155/80 (105) 100 09/24/19 23:11 Nasal Cannula 2.0 28 09/24/19 23:11 Nasal Cannula 2.0 28 09/24/19 21:00 Nasal Cannula 2.0 09/24/19 20:46 64 148/56 09/24/19 20:00 64 09/24/19 20:00 97.2 64 20 148/56 (86) 100 09/24/19 19:50 Nasal Cannula 2.0 28 09/24/19 19:50 98 Nasal Cannula 2.0 28 09/24/19 19:50 Nasal Cannula 2.0 28 09/24/19 16:00 97.1 61 18 154/73 (100) 99 09/24/19 16:00 63 09/24/19 15:48 60 18 100 Nasal Cannula 2.0 28 09/24/19 15:48 60 18 100 Nasal Cannula 2.0 28 Intake and Output 09/24/19 09/25/19 19:00 07:00 Intake Total 120 ml Output Total 350 ml 800 ml Balance -230 ml -800 ml Intake Oral 120 ml Output Urine Total 350 ml 800 ml # Voids 1 # Bowel Movements 1 Objective General Appearance: WD/WN HEENT: normocephalic, atraumatic Respiratory/Chest: chest wall non-tender,rhonchi Breasts: no masses Cardiovascular: normal peripheral pulses Abdomen: normal bowel sounds, soft, non tender Genitourinary: normal external genitalia Extremities: no cyanosis Skin: no rash Laboratory Tests 09/25/19 06:14: White Blood Count 3.0L, Red Blood Count 3.00L, Hemoglobin 8.9L, Hematocrit 26.4L , Mean Corpuscular Volume 88, Mean Corpuscular Hemoglobin 29.7, Mean Corpuscular Hemoglobin Concent 33.8, Red Cell Distribution Width 12.3, Platelet Count 143L, Mean Platelet Volume 5.9L, Neutrophils (%) (Auto) , Lymphocytes (%) (Auto) , Monocytes (%) (Auto) , Eosinophils (%) (Auto) , Basophils (%) (Auto) , Differential Total Cells Counted 100, Neutrophils % (Manual) 61, Lymphocytes % ( Manual) 25, Monocytes % (Manual) 12H, Eosinophils % (Manual) 2, Basophils % ( Manual) 0, Band Neutrophils 0, Platelet Estimate DecreasedL, Platelet Morphology Normal, Hypochromasia 1+, Sodium Level 134L, Potassium Level 3.1L, Chloride Level 103, Carbon Dioxide Level 21, Anion Gap 10, Blood Urea Nitrogen 6L, Creatinine 0.6, Estimat Glomerular Filtration Rate > 60, Glucose Level 517#* H, Calcium Level 7.9L, Total Bilirubin 0.3, Aspartate Amino Transf (AST/SGOT) 15 , Alanine Aminotransferase (ALT/SGPT) 8L, Alkaline Phosphatase 39L, Total Protein 5.5L, Albumin 2.1L, Globulin 3.4, Albumin/Globulin Ratio 0.6L 09/25/19 09:10: Glucose Level 103# Current Medications Medications (Trade) Dose Ordered Sig/Zee Route PRN Reason Start Time Stop Time Status Last Admin Dose Admin Acetaminophen (Tylenol) 650 mg Q4H PRN ORAL fever 09/21/19 16:45 10/21/19 16:44 Albuterol/ Ipratropium (Albuterol/ Ipratropium) 3 ml Q4H PRN HHN Shortness of Breath 09/21/19 16:45 09/26/19 16:44 Aspirin (ASA) 81 mg DAILY ORAL 09/22/19 09:15 11/06/19 09:14 09/25/19 10:16 Atorvastatin Calcium (Lipitor) 10 mg BEDTIME ORAL 09/21/19 21:00 12/20/19 20:59 09/24/19 20:46 Carbidopa/Levodopa (Sinemet 25/100) 1 tab THREE TIMES A DAY ORAL 09/21/19 18:00 10/21/19 17:59 09/24/19 17:34 Cefepime HCl 1 gm/ Dextrose 55 ml @ 110 mls/hr Q12H IV 09/21/19 22:00 09/28/19 21:59 09/25/19 10:25 Docusate Sodium (Colace) 100 mg TWICE A DAY ORAL 09/22/19 18:00 10/22/19 17:59 09/25/19 09:00 Heparin Sodium (Porcine) (Heparin 5000 units/ml) 5,000 units EVERY 12 HOURS SUBQ 09/21/19 21:00 11/05/19 20:59 09/24/19 20:53 Lactulose (Cephulac) 20 gm BID ORAL 09/25/19 09:00 10/25/19 08:59 09/25/19 10:10 Levothyroxine Sodium (Synthroid) 100 mcg ACBREAKFAST ORAL 09/22/19 06:30 10/22/19 06:29 09/25/19 06:08 Linaclotide (Linzess) 290 mcg BEFORE BREAKFAST ORAL 09/25/19 06:30 12/24/19 06:29 09/25/19 06:14 Metoprolol Tartrate (Lopressor) 12.5 mg EVERY 12 HOURS ORAL 09/21/19 21:00 12/20/19 20:59 09/25/19 10:16 Nitroglycerin (Ntg) 0.4 mg Q5M PRN SL Prn Chest Pain 09/21/19 16:45 10/21/19 16:44 Ondansetron HCl (Zofran) 4 mg Q6H PRN IVP Nausea & Vomiting 09/21/19 16:45 10/21/19 16:44 Polyethylene Glycol (Miralax) 17 gm BEDTIME ORAL 09/22/19 21:00 10/22/19 20:59 09/24/19 20:47 Polyethylene Glycol (Miralax) 17 gm DAILYPRN PRN ORAL Constipation 09/21/19 16:45 10/21/19 16:44 Promethazine HCl/ Codeine (Phenergan with Codeine) 5 ml Q4H PRN ORAL For Cough 09/21/19 16:45 10/21/19 16:44 Temazepam (Restoril) 15 mg HSPRN PRN ORAL Insomnia 09/21/19 16:45 09/28/19 16:44 Vancomycin HCl (Vanco rx to dose) 1 ea DAILY PRN MISC Per rx protocol 09/21/19 16:45 10/21/19 16:44 Vancomycin HCl 500 mg/Sodium Chloride 110 ml @ 110 mls/hr Q24H IVPB 09/23/19 10:00 09/28/19 09:59 09/25/19 10:25 Koko Gee MD Sep 25, 2019 12:30
[2019-09-25 15:38] VITALS: BP 135/66
[2019-09-25 20:00] VITALS: BP 158/60
[2019-09-25] MEDS: Miralax 17gm pkt ORAL SCH (20:13)
[2019-09-26] VITALS (18 sets, daily range): BP systolic 124–162; BP diastolic 48–92
[2019-09-26] MEDS: Docusate 100mg cap ORAL SCH ×2 (08:49→17:27)
[2019-09-26] MEDS: Aspirin Baby 81mg ORAL SCH (08:49)
[2019-09-26] MEDS: Levodopa/Carbidopa 25/100 tab ORAL SCH ×3 (08:49→17:28)
[2019-09-26] MEDS: Metoprolol Tartrate 12.5mg TAB ORAL SCH ×2 (08:49→21:07)
[2019-09-26] MEDS: Lactulose 20gm/30ml UDC ORAL SCH (08:49)
[2019-09-26] MEDS: Heparin 5000 units/ml inj SUBQ SCH (08:53)
--- NOTE | 2019-09-26 09:03 | General Progress Note ---
Assessment/Plan Assessment/Plan: 1. Atrial fibrillation. 2. History of coronary artery disease. 3. Diabetes type 2. 4. DVT. 5. Hypertension. 6. Hypothyroidism. 7. Seizure disorder. 8. History of CVA. 9. History of subdural hematoma. 10. Parkinson's. 11. Hypercholesteremia. 12. Dementia. 13. Trigeminal neuralgia. 14. Anemia 15. stool impaction 16. fatty liver cont melissa ,coljean, mynoralax had 3 BM going to ICU for tachycardia neg stool ob neg hepatitis panel kub reviewed fu labs Subjective ROS Limited/Unobtainable: Yes Allergies: Coded Allergies: INFLIXIMAB (Verified Allergy, Intermediate, 04/20/16) NIACIN (Verified Allergy, Intermediate, 04/20/16) SULFA (SULFONAMIDE ANTIBIOTICS) (Verified Allergy, Intermediate, 04/20/16) Uncoded Allergies: SULFONAMIDES (Allergy, Unknown, 04/28/18) Objective Last 24 Hour Vital Signs Date Time Temp Pulse Resp B/P (MAP) Pulse Ox O2 Delivery O2 Flow Rate FiO2 09/26/19 08:49 138 160/68 09/26/19 08:45 Room Air 09/26/19 08:00 96.9 138 18 160/68 (98) 99 09/26/19 07:05 98 Nasal Cannula 2.0 28 09/26/19 07:05 60 16 98 Nasal Cannula 2.0 28 09/26/19 04:00 59 09/26/19 04:00 97.5 59 20 124/53 (76) 97 09/26/19 00:00 97.5 57 20 144/81 (102) 100 09/26/19 00:00 56 09/25/19 21:00 Nasal Cannula 2.0 09/25/19 20:14 64 158/60 09/25/19 20:11 99 Nasal Cannula 2.0 28 09/25/19 20:11 64 18 99 Nasal Cannula 2.0 28 09/25/19 20:00 70 09/25/19 20:00 97.9 64 20 158/60 (92) 100 09/25/19 16:00 64 09/25/19 15:38 98.4 76 18 135/66 (89) 96 09/25/19 12:00 65 09/25/19 11:51 98.6 65 20 150/62 (91) 96 09/25/19 10:16 64 145/60 Intake and Output 09/25/19 09/26/19 19:00 07:00 Intake Total 960 ml Balance 960 ml Intake Oral 960 ml # Voids 2 2 # Bowel Movements 2 Laboratory Tests 09/25/19 09:10: Glucose Level 103# 09/25/19 15:50: Hepatitis A IgM Antibody Negative, Hepatitis B Surface Antigen Negative, Hepatitis B Core IgM Antibody Negative, Hepatitis C Antibody 0.2 09/26/19 08:50: Glucose Level [Pending], White Blood Count [Pending], Red Blood Count [Pending] , Hemoglobin [Pending], Hematocrit [Pending], Mean Corpuscular Volume [Pending] , Mean Corpuscular Hemoglobin [Pending], Mean Corpuscular Hemoglobin Concent [ Pending], Red Cell Distribution Width [Pending], Platelet Count [Pending], Mean Platelet Volume [Pending], Neutrophils (%) (Auto) [Pending], Lymphocytes (%) ( Auto) [Pending], Monocytes (%) (Auto) [Pending], Eosinophils (%) (Auto) [Pending ], Basophils (%) (Auto) [Pending], Sodium Level [Pending], Potassium Level [ Pending], Chloride Level [Pending], Carbon Dioxide Level [Pending], Blood Urea Nitrogen [Pending], Creatinine [Pending], Estimat Glomerular Filtration Rate [ Pending], Calcium Level [Pending], Vancomycin Level Trough [Pending] Height (Feet): 5 Height (Inches): 2.00 Weight (Pounds): 111 General Appearance: alert EENT: normal ENT inspection Neck: supple Cardiovascular: tachycardia Respiratory/Chest: decreased breath sounds Abdomen: normal bowel sounds, non tender, soft Extremities: non-tender Abhsihek Langford MD Sep 26, 2019 09:03
[2019-09-26] MEDS ORDERED: Nitroglycerin Subl 0.4mg tab SL PRN (09:30)
[2019-09-26] MEDS ORDERED: dilTIAZem Premix 125mg/125ml 125 ML IVPB SCH ×2 (09:30→10:00)
[2019-09-26 09:31] LABS: ANION GAP 13 mmol/L (5-15); BLOOD UREA NITROGEN 7 mg/dL (7-18); CALCIUM 9.7 MG/DL (8.5-10.1); CARBON DIOXIDE 23 MMOL/L (21-32); CHLORIDE 105 MMOL/L (98-107); CREATININE 0.7 MG/DL (0.55-1.30); POTASSIUM 3.7 MMOL/L (3.5-5.1); SODIUM 141 MMOL/L (136-145)
[2019-09-26 09:37] LABS: BASOPHILS % (AUTO) 0.5 % (0.0-2.0); EOSINOPHILS % (AUTO) 1.9 % (0.0-3.0); HEMATOCRIT 32.5 % (37.0-47.0); HEMOGLOBIN 11.2 G/DL (12.0-16.0); LYMPHOCYTES % (AUTO) 20.8 % (20.0-45.0); MEAN CORPUSCULAR VOLUME 86 FL (80-99); NEUTROPHILS % (AUTO) 67.9 % (45.0-75.0); PLATELET COUNT 195 K/UL (150-450); RED BLOOD COUNT 3.78 M/UL (4.20-5.40); RED CELL DISTRIBUTION WIDTH 11.9 % (11.6-14.8); WHITE BLOOD COUNT 4.3 K/UL (4.8-10.8)
[2019-09-26] MEDS ORDERED: Promethazine/Codeine 5ml UD ORAL PRN (10:00)
[2019-09-26] MEDS ORDERED: Vancomycin 500 MG in NS 110 ML IVPB SCH (10:00)
[2019-09-26] MEDS ORDERED: Miralax 17gm pkt ORAL PRN (10:00)
[2019-09-26] MEDS ORDERED: Albuterol/Ipratropium 3ml neb HHN PRN (10:00)
--- NOTE | 2019-09-26 10:49 | Diagnostic Imaging Report ---
Indication: Abdominal pain Comparison: 09/23/2019 Single view of the abdomen obtained Findings: There is a moderate amount of fecal material within the colon which is distended. Small bowel gas pattern is nonobstructive. There are pins in the left hip noted. Bones are osteopenic. Vascular calcifications are present. IMPRESSION: Moderate to severe fecal retention
[2019-09-26] MEDS ORDERED: Cefepime HCl 1 GM in D5W 55 ML IV SCH (11:00)
--- NOTE | 2019-09-26 11:19 | Pulmonolgy Critical Care Note ---
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 (10) Alzheimer's dementia Respiratory: monitor respiratory rate, adjust FIO2 Cardiac: continue to monitor HR/BP, cardiac imaging, other - prn cardizem drip Renal: F/U I&O, keep IV fluid, check electrolytes Infectious Disease: check cultures Hematologic: monitor H/H, transfuse if hgb<8.5 Neurologic: PRN Morphine, keep patient comfortable Affect: PRN ativan Time Spent (Minutes): 40 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, 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, 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 with: nurses, consultants, telehealth case managerengineering manager - Objective Last 24 Hour Vital Signs Date Time Temp Pulse Resp B/P (MAP) Pulse Ox O2 Delivery O2 Flow Rate FiO2 09/26/19 08:49 138 160/68 09/26/19 08:45 Room Air 09/26/19 08:00 65 09/26/19 08:00 96.9 138 18 160/68 (98) 99 09/26/19 07:05 98 Nasal Cannula 2.0 28 09/26/19 07:05 60 16 98 Nasal Cannula 2.0 28 09/26/19 04:00 59 09/26/19 04:00 97.5 59 20 124/53 (76) 97 09/26/19 00:00 97.5 57 20 144/81 (102) 100 09/26/19 00:00 56 09/25/19 21:00 Nasal Cannula 2.0 09/25/19 20:14 64 158/60 09/25/19 20:11 99 Nasal Cannula 2.0 28 09/25/19 20:11 64 18 99 Nasal Cannula 2.0 28 09/25/19 20:00 70 09/25/19 20:00 97.9 64 20 158/60 (92) 100 09/25/19 16:00 64 09/25/19 15:38 98.4 76 18 135/66 (89) 96 09/25/19 12:00 65 09/25/19 11:51 98.6 65 20 150/62 (91) 96 Status: awake Condition: improving HEENT: atraumatic Neck: full ROM Lungs: clear Heart: HR/BP unstable Abdomen: soft, active bowel sounds, feeding tube Critical Care - Subjective Interval Events: transferred to ICU because of rapid afib of 170. cardizem drip started and the rate came down now. FI02: 28 Sputum Amount: None I&O: Intake and Output 09/25/19 09/26/19 19:00 07:00 Intake Total 960 ml Balance 960 ml Intake Oral 960 ml # Voids 2 2 # Bowel Movements 2 CXR: There is a moderate amount of fecal material within the colon which is distended. Labs: Laboratory Tests Test 09/25/19 15:50 09/26/19 08:50 Hepatitis A IgM Antibody Negative (Negative) Hepatitis B Surface Antigen Negative (Negative) Hepatitis B Core IgM Antibody Negative (Negative) Hepatitis C Antibody 0.2 s/co ratio (0.0-0.9) White Blood Count 4.3 K/UL (4.8-10.8) L Red Blood Count 3.78 M/UL (4.20-5.40) L Hemoglobin 11.2 G/DL (12.0-16.0) L Hematocrit 32.5 % (37.0-47.0) L Mean Corpuscular Volume 86 FL (80-99) Mean Corpuscular Hemoglobin 29.6 PG (27.0-31.0) Mean Corpuscular Hemoglobin Concent 34.4 G/DL (32.0-36.0) Red Cell Distribution Width 11.9 % (11.6-14.8) Platelet Count 195 K/UL (150-450) Mean Platelet Volume 6.2 FL (6.5-10.1) L Neutrophils (%) (Auto) 67.9 % (45.0-75.0) Lymphocytes (%) (Auto) 20.8 % (20.0-45.0) Monocytes (%) (Auto) 9.0 % (1.0-10.0) Eosinophils (%) (Auto) 1.9 % (0.0-3.0) Basophils (%) (Auto) 0.5 % (0.0-2.0) Sodium Level 141 MMOL/L (136-145) Potassium Level 3.7 MMOL/L (3.5-5.1) Chloride Level 105 MMOL/L (98-107) Carbon Dioxide Level 23 MMOL/L (21-32) Anion Gap 13 mmol/L (5-15) Blood Urea Nitrogen 7 mg/dL (7-18) Creatinine 0.7 MG/DL (0.55-1.30) Estimat Glomerular Filtration Rate > 60 mL/min (>60) Glucose Level 121 MG/DL (74-106) H Calcium Level 9.7 MG/DL (8.5-10.1) # Vancomycin Level Trough 2.9 ug/mL (5.0-12.0) L Koko Gee MD Sep 26, 2019 11:19
[2019-09-26] MEDS: Vancomycin 750mg/NS 275ml IVPB SCH ×4 (11:47→23:00)
--- NOTE | 2019-09-26 12:32 | Surgery Progress Note ---
Surgery Progress Note Subjective Additional Comments in ICU ill appearing tachy Cardizem gtt Objective Last 24 Hour Vital Signs Date Time Temp Pulse Resp B/P (MAP) Pulse Ox O2 Delivery O2 Flow Rate FiO2 09/26/19 12:00 90 16 137/92 (107) 100 09/26/19 12:00 72 09/26/19 11:00 96 21 141/72 (95) 100 09/26/19 10:00 102 22 136/62 (86) 100 09/26/19 09:30 169 09/26/19 09:15 129 20 157/64 (95) 100 09/26/19 08:49 138 160/68 09/26/19 08:45 Room Air 09/26/19 08:00 65 09/26/19 08:00 96.9 138 18 160/68 (98) 99 09/26/19 07:05 98 Nasal Cannula 2.0 28 09/26/19 07:05 60 16 98 Nasal Cannula 2.0 28 09/26/19 04:00 59 09/26/19 04:00 97.5 59 20 124/53 (76) 97 09/26/19 00:00 97.5 57 20 144/81 (102) 100 09/26/19 00:00 56 09/25/19 21:00 Nasal Cannula 2.0 09/25/19 20:14 64 158/60 09/25/19 20:11 99 Nasal Cannula 2.0 28 09/25/19 20:11 64 18 99 Nasal Cannula 2.0 28 09/25/19 20:00 70 09/25/19 20:00 97.9 64 20 158/60 (92) 100 09/25/19 16:00 64 09/25/19 15:38 98.4 76 18 135/66 (89) 96 I&O Intake and Output 09/25/19 09/26/19 19:00 07:00 Intake Total 960 ml Balance 960 ml Intake Oral 960 ml # Voids 2 2 # Bowel Movements 2 Cardiovascular: RSR Respiratory: clear Abdomen: soft, flat, non-tender, present bowel sounds, non-distended Extremities: no tenderness, no cyanosis Laboratory Tests Test 09/25/19 15:50 09/26/19 08:50 Hepatitis A IgM Antibody Negative (Negative) Hepatitis B Surface Antigen Negative (Negative) Hepatitis B Core IgM Antibody Negative (Negative) Hepatitis C Antibody 0.2 s/co ratio (0.0-0.9) White Blood Count 4.3 K/UL (4.8-10.8) L Red Blood Count 3.78 M/UL (4.20-5.40) L Hemoglobin 11.2 G/DL (12.0-16.0) L Hematocrit 32.5 % (37.0-47.0) L Mean Corpuscular Volume 86 FL (80-99) Mean Corpuscular Hemoglobin 29.6 PG (27.0-31.0) Mean Corpuscular Hemoglobin Concent 34.4 G/DL (32.0-36.0) Red Cell Distribution Width 11.9 % (11.6-14.8) Platelet Count 195 K/UL (150-450) Mean Platelet Volume 6.2 FL (6.5-10.1) L Neutrophils (%) (Auto) 67.9 % (45.0-75.0) Lymphocytes (%) (Auto) 20.8 % (20.0-45.0) Monocytes (%) (Auto) 9.0 % (1.0-10.0) Eosinophils (%) (Auto) 1.9 % (0.0-3.0) Basophils (%) (Auto) 0.5 % (0.0-2.0) Sodium Level 141 MMOL/L (136-145) Potassium Level 3.7 MMOL/L (3.5-5.1) Chloride Level 105 MMOL/L (98-107) Carbon Dioxide Level 23 MMOL/L (21-32) Anion Gap 13 mmol/L (5-15) Blood Urea Nitrogen 7 mg/dL (7-18) Creatinine 0.7 MG/DL (0.55-1.30) Estimat Glomerular Filtration Rate > 60 mL/min (>60) Glucose Level 121 MG/DL (74-106) H Calcium Level 9.7 MG/DL (8.5-10.1) # Vancomycin Level Trough 2.9 ug/mL (5.0-12.0) L Assessment Post-op Diagnosis Abdominal pain Assessment & Plan: Asked by Dr. Jackson to evaluate for abdominal pain, r/o obstruction vs impaction 79-year-old female with abdominal pain generalized no nausea vomiting fever chills. Cough and shortness of breath. Labs noted. CT reviewed. KUB ordered for 09/22 and reviewed. Improving now since admission. Currently states she is hungry and wants food. Abdominal exam stable improved otherwise. Bowel sounds noted. distended gb stable as asymptomatic and likely from age No acute surgical intervention planned Okay for diet from surgical standpoint Bowel regimen stool softeners appreciate GI input Nutritional evaluation enema prn will follow with recommendations thank you for let me participate in patient's care FINDINGS: Lung bases: Right lower lobe of the lung small consolidation and mild bibasilar lung septal thickening. Heart: Cardiomegaly. Mitral valve prosthesis. ABDOMEN: Liver: Fatty prominent liver. Gallbladder and bile ducts: Distended gallbladder. No calcified stones. No ductal dilation. Pancreas: Unremarkable. No mass. No ductal dilation. Spleen: Unremarkable. No splenomegaly. Adrenals: Unremarkable. No mass. Kidneys and ureters: Mild bilateral hydronephrosis, greater on the right, may be due to external compression of the distal ureters from the overly distended rectum. Stomach and bowel: Dilated rectosigmoid colon to 11.3 cm., large amount of stool in the remainder of the colon. Findings may be due to fecal impaction with obstipation. Differential includes Colonic ileus or distal colonic obstruction and early stercoral colitis. Trace free fluid. No free air or abscess. PELVIS: Appendix: No findings to suggest acute appendicitis. Bladder: See below. Reproductive: Uterus and urinary bladder anteriorly placed from the markedly distended rectum. ABDOMEN and PELVIS: Intraperitoneal space: See above. Bones/joints: Mild superior endplate compression of L5 likely chronic. Dynamic left hip screws. No dislocation. Soft tissues: Unremarkable. Vasculature: Atherosclerotic vascular disease. No abdominal aortic aneurysm. Lymph nodes: Unremarkable. No enlarged lymph nodes. IMPRESSION: 1. Dilated rectosigmoid colon to 11.3 cm., large amount of stool in the remainder of the colon. Mild thickening of the colonic wall. Findings may be due to fecal impaction with obstipation. Differential includes Colonic ileus or distal colonic obstruction and early stercoral colitis. Trace free fluid. No free air or abscess. 2. Mild bilateral hydronephrosis, greater on the right, may be due to external compression of the distal ureters from the overly distended rectum. 3. Right lower lobe of the lung small consolidation and mild bibasilar lung septal thickening. 4. Fatty prominent liver. Distended gallbladder. ICD Codes: R10.9 - Unspecified abdominal pain SNOMED: [id number] Qualifiers: Qualified Codes: R10.9 - Unspecified abdominal pain Noe Hirsch Sep 26, 2019 12:32
[2019-09-26] MEDS: Cefepime HCl 1 GM in D5W 55 ML IV SCH (12:41)
--- NOTE | 2019-09-26 16:58 | Cardiology Progress Note ---
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 pt declined work up then has been maintaien on anticoagualtion to consiteu continue bb and anticoagulation for now if no contraindication observe in icu overnite if possible and if no recurrent afib to trasfer out ot tele tomorrow Objective Last 24 Hour Vital Signs Date Time Temp Pulse Resp B/P (MAP) Pulse Ox O2 Delivery O2 Flow Rate FiO2 09/26/19 16:00 60 09/26/19 12:00 90 16 137/92 (107) 100 09/26/19 12:00 72 09/26/19 12:00 Nasal Cannula 2.0 09/26/19 11:00 96 21 141/72 (95) 100 09/26/19 10:00 102 22 136/62 (86) 100 09/26/19 10:00 Nasal Cannula 2.0 09/26/19 09:30 169 09/26/19 09:15 129 20 157/64 (95) 100 09/26/19 08:49 138 160/68 09/26/19 08:45 Room Air 09/26/19 08:00 65 09/26/19 08:00 96.9 138 18 160/68 (98) 99 09/26/19 07:05 98 Nasal Cannula 2.0 28 09/26/19 07:05 60 16 98 Nasal Cannula 2.0 28 09/26/19 04:00 59 09/26/19 04:00 97.5 59 20 124/53 (76) 97 09/26/19 00:00 97.5 57 20 144/81 (102) 100 09/26/19 00:00 56 09/25/19 21:00 Nasal Cannula 2.0 09/25/19 20:14 64 158/60 09/25/19 20:11 99 Nasal Cannula 2.0 28 09/25/19 20:11 64 18 99 Nasal Cannula 2.0 28 09/25/19 20:00 70 09/25/19 20:00 97.9 64 20 158/60 (92) 100 Intake and Output 09/25/19 09/26/19 19:00 07:00 Intake Total 960 ml Balance 960 ml Intake Oral 960 ml # Voids 2 2 # Bowel Movements 2 Laboratory Tests Test 09/26/19 08:50 White Blood Count 4.3 K/UL (4.8-10.8) L Red Blood Count 3.78 M/UL (4.20-5.40) L Hemoglobin 11.2 G/DL (12.0-16.0) L Hematocrit 32.5 % (37.0-47.0) L Mean Corpuscular Volume 86 FL (80-99) Mean Corpuscular Hemoglobin 29.6 PG (27.0-31.0) Mean Corpuscular Hemoglobin Concent 34.4 G/DL (32.0-36.0) Red Cell Distribution Width 11.9 % (11.6-14.8) Platelet Count 195 K/UL (150-450) Mean Platelet Volume 6.2 FL (6.5-10.1) L Neutrophils (%) (Auto) 67.9 % (45.0-75.0) Lymphocytes (%) (Auto) 20.8 % (20.0-45.0) Monocytes (%) (Auto) 9.0 % (1.0-10.0) Eosinophils (%) (Auto) 1.9 % (0.0-3.0) Basophils (%) (Auto) 0.5 % (0.0-2.0) Sodium Level 141 MMOL/L (136-145) Potassium Level 3.7 MMOL/L (3.5-5.1) Chloride Level 105 MMOL/L (98-107) Carbon Dioxide Level 23 MMOL/L (21-32) Anion Gap 13 mmol/L (5-15) Blood Urea Nitrogen 7 mg/dL (7-18) Creatinine 0.7 MG/DL (0.55-1.30) Estimat Glomerular Filtration Rate > 60 mL/min (>60) Glucose Level 121 MG/DL (74-106) H Calcium Level 9.7 MG/DL (8.5-10.1) # Vancomycin Level Trough 2.9 ug/mL (5.0-12.0) Barber Aguirre MD Sep 26, 2019 16:58
--- NOTE | 2019-09-26 18:02 | Internal Med Progress Note ---
Subjective Date of Service: Sep 26, 2019 Physician Name Bryan Jackson Attending Physician Carlos Junior MD Current Medications Medications (Trade) Dose Ordered Sig/Zee Route PRN Reason Start Time Stop Time Status Last Admin Dose Admin Acetaminophen (Tylenol) 650 mg Q4H PRN ORAL T>100.4 09/26/19 10:00 10/21/19 09:59 Aspirin (ASA) 81 mg DAILY ORAL 09/27/19 09:00 11/06/19 09:14 Atorvastatin Calcium (Lipitor) 10 mg BEDTIME ORAL 09/26/19 21:00 12/20/19 20:59 Carbidopa/Levodopa (Sinemet 25/100) 1 tab THREE TIMES A DAY ORAL 09/26/19 13:00 10/21/19 17:59 09/26/19 17:28 Cefepime HCl 1 gm/ Dextrose 55 ml @ 110 mls/hr Q24H IV 09/26/19 11:00 09/28/19 23:59 09/26/19 12:41 Docusate Sodium (Colace) 100 mg TWICE A DAY ORAL 09/26/19 18:00 10/22/19 17:59 09/26/19 17:27 Heparin Sodium (Porcine) (Heparin 5000 units/ml) 5,000 units EVERY 12 HOURS SUBQ 09/26/19 21:00 09/26/19 23:59 Levothyroxine Sodium (Synthroid) 100 mcg ACBREAKFAST ORAL 09/27/19 06:30 10/22/19 06:29 Linaclotide (Linzess) 290 mcg BEFORE BREAKFAST ORAL 09/27/19 06:30 12/24/19 06:29 Metoprolol Tartrate (Lopressor) 12.5 mg EVERY 12 HOURS ORAL 09/26/19 21:00 12/20/19 20:59 Nitroglycerin (Ntg) 0.4 mg Q5M PRN SL Prn Chest Pain 09/26/19 09:30 10/21/19 16:44 Ondansetron HCl (Zofran) 4 mg Q6H PRN IVP Nausea & Vomiting 09/26/19 10:00 10/21/19 09:59 Polyethylene Glycol (Miralax) 17 gm BEDTIME ORAL 09/26/19 21:00 10/22/19 20:59 Polyethylene Glycol (Miralax) 17 gm DAILYPRN PRN ORAL Constipation 09/26/19 10:00 10/21/19 09:59 Promethazine HCl/ Codeine (Phenergan with Codeine) 5 ml Q4H PRN ORAL For Cough 09/26/19 10:00 10/21/19 09:59 Rivaroxaban (Xarelto) 15 mg DAILY ORAL 09/27/19 09:00 12/26/19 08:59 Temazepam (Restoril) 15 mg HSPRN PRN ORAL Insomnia 09/26/19 21:00 09/28/19 20:59 Vancomycin HCl (Vanco rx to dose) 1 ea DAILY PRN MISC Per rx protocol 09/26/19 10:00 10/26/19 09:59 Vancomycin HCl 750 mg/Sodium Chloride 275 ml @ 183.333 mls/hr Q12H IVPB 09/26/19 11:00 10/01/19 10:59 09/26/19 11:47 Allergies: Coded Allergies: INFLIXIMAB (Verified Allergy, Intermediate, 04/20/16) NIACIN (Verified Allergy, Intermediate, 04/20/16) SULFA (SULFONAMIDE ANTIBIOTICS) (Verified Allergy, Intermediate, 04/20/16) Uncoded Allergies: SULFONAMIDES (Allergy, Unknown, 04/28/18) ROS Limited/Unobtainable: Yes Subjective 79 YO F admitted with abdominal pain. Now atrial fibrillation with rapid ventricular rate. Cover for Int Med-DR Junior ICU Objective Last Vital Signs Date Time Temp Pulse Resp B/P (MAP) Pulse Ox O2 Delivery O2 Flow Rate FiO2 09/26/19 17:00 98.6 66 22 144/55 (84) 100 09/26/19 12:00 Nasal Cannula 2.0 09/26/19 07:05 28 Laboratory Tests Test 09/26/19 08:50 White Blood Count 4.3 K/UL (4.8-10.8) L Red Blood Count 3.78 M/UL (4.20-5.40) L Hemoglobin 11.2 G/DL (12.0-16.0) L Hematocrit 32.5 % (37.0-47.0) L Mean Corpuscular Volume 86 FL (80-99) Mean Corpuscular Hemoglobin 29.6 PG (27.0-31.0) Mean Corpuscular Hemoglobin Concent 34.4 G/DL (32.0-36.0) Red Cell Distribution Width 11.9 % (11.6-14.8) Platelet Count 195 K/UL (150-450) Mean Platelet Volume 6.2 FL (6.5-10.1) L Neutrophils (%) (Auto) 67.9 % (45.0-75.0) Lymphocytes (%) (Auto) 20.8 % (20.0-45.0) Monocytes (%) (Auto) 9.0 % (1.0-10.0) Eosinophils (%) (Auto) 1.9 % (0.0-3.0) Basophils (%) (Auto) 0.5 % (0.0-2.0) Sodium Level 141 MMOL/L (136-145) Potassium Level 3.7 MMOL/L (3.5-5.1) Chloride Level 105 MMOL/L (98-107) Carbon Dioxide Level 23 MMOL/L (21-32) Anion Gap 13 mmol/L (5-15) Blood Urea Nitrogen 7 mg/dL (7-18) Creatinine 0.7 MG/DL (0.55-1.30) Estimat Glomerular Filtration Rate > 60 mL/min (>60) Glucose Level 121 MG/DL (74-106) H Calcium Level 9.7 MG/DL (8.5-10.1) # Vancomycin Level Trough 2.9 ug/mL (5.0-12.0) L Digoxin Level Pending Intake and Output 09/25/19 09/26/19 19:00 07:00 Intake Total 960 ml Balance 960 ml Intake Oral 960 ml # Voids 2 2 # Bowel Movements 2 Objective PHYSICAL EXAMINATION: GENERAL: The patient is a well-developed and well-nourished thin-appearing female, in no apparent distress. HEENT: Eyes, pupils are equal and responsive to light and accommodation. Extraocular movements are intact. NECK: Supple without lymphadenopathy. CHEST: Lungs are clear to auscultation bilaterally without wheezes or rales. CARDIOVASCULAR: Regular rate. S1 and S2 normal without murmurs, rubs, or gallops. ABDOMEN: Soft, distended with decreased bowel sounds. There is increased tympany. There is tenderness to palpation in all four quadrants. There is no rebound or guarding noted. EXTREMITIES: Negative for clubbing, cyanosis, or edema. RECTAL/GENITAL: Not performed. NEUROLOGIC: Cranial nerves II through XII are grossly intact without focal deficits. Motor strength is 5/5 bilaterally. Deep tendon reflexes are 2+ plantar. Assessment/Plan Assessment/Plan ASSESSMENT: This is a 79-year-old female with: 1. Abdominal pain. 2. Congestive heart failure. 3. Right lower lobe pneumonia. 4. Atrial fibrillation with rapid ventricular rate 5. Coronary artery disease. 6. Diabetes type 2. 7. Hypertension. 8. Hypercholesterolemia. 9. Hypothyroidism. 10. Seizure disorder. 11. Cerebrovascular disease. 12. Left hemiparesis. 13. Subdural hematoma. 14. History of deep venous thrombosis. 15. Mitral and aortic valve biosynthetic prosthesis. 16. Anemia TREATMENT: 1. Abdominal pain/distention. Improved with laxatives. A General Surgery consultation has been obtained with Dr. Hirsch. A Gastroenterology consultation has been obtained with Dr. Abhishek Langford. We will follow recommendations of General Surgery and Gastroenterology. 2. Congestive heart failure. Cardiology consultation has been obtained with Dr. Barber Mack. The patient has been started empirically on intravenous Lasix. An echocardiogram is pending. 3. Right lower lobe pneumonia. A Pulmonary consultation has been obtained with Dr. Koko Gee. The patient has been started empirically on cefepime and vancomycin. We will follow recommendations of Pulmonary. 4. Atrial fibrillation. Admit to ICU for diltiazem drip. As above, a Cardiology consultation has been obtained with Dr. Barber Mack. 5. Coronary artery disease. The patient is status post coronary artery bypass graft. 6. Diabetes type 2. The patient is not on any antihyperglycemic medication at the [facility]. 7. Hypertension. Continue metoprolol as above. 8. Hypercholesteremia. Continue atorvastatin as above. 9. Hypothyroidism. Continue levothyroxine as above. 10. Seizure disorder. Continue carbamazepine as above. 11. Cerebrovascular disease. 12. Left hemiparesis. 13. History of subdural hematoma. 14. History of deep venous thrombosis. 15. History of mitral and aortic valve bioprosthesis replacement. 16. Anemia workup per GI 17. Discharge planning: [facility] Bryan Jackson MD Sep 26, 2019 18:02
[2019-09-26] MEDS ORDERED: Heparin 5000 units/ml inj SUBQ SCH ×2 (21:00)
[2019-09-26] MEDS: Miralax 17gm pkt ORAL SCH (21:08)
[2019-09-27] VITALS (22 sets, daily range): BP systolic 118–176; BP diastolic 35–97
[2019-09-27 06:36] LABS: BASOPHILS % (AUTO) 0.2 % (0.0-2.0); EOSINOPHILS % (AUTO) 2.7 % (0.0-3.0); HEMATOCRIT 26.7 % (37.0-47.0); HEMOGLOBIN 9.2 G/DL (12.0-16.0); LYMPHOCYTES % (AUTO) 20.3 % (20.0-45.0); MEAN CORPUSCULAR VOLUME 87 FL (80-99); NEUTROPHILS % (AUTO) 66.8 % (45.0-75.0); PLATELET COUNT 187 K/UL (150-450); RED BLOOD COUNT 3.08 M/UL (4.20-5.40); RED CELL DISTRIBUTION WIDTH 11.9 % (11.6-14.8); WHITE BLOOD COUNT 4.8 K/UL (4.8-10.8)
[2019-09-27 06:51] LABS: ANION GAP 6 mmol/L (5-15); BLOOD UREA NITROGEN 8 mg/dL (7-18); CALCIUM 8.8 MG/DL (8.5-10.1); CARBON DIOXIDE 27 MMOL/L (21-32); CHLORIDE 103 MMOL/L (98-107); CREATININE 0.6 MG/DL (0.55-1.30); POTASSIUM 3.4 MMOL/L (3.5-5.1); SODIUM 136 MMOL/L (136-145)
--- NOTE | 2019-09-27 08:13 | Consultation ---
DATE OF CONSULTATION: 09/26/2019 CARDIOLOGY CONSULTATION REFERRING PHYSICIAN: 1. Koko Gee M.D. 2. Carlos Junior M.D. REASON FOR REFERRAL: Atrial fibrillation with rapid ventricular response. HISTORY OF PRESENT ILLNESS: This is an elderly female, who is known to me from one prior hospitalization back in 2019, with multiple medical problems including history of atrial fibrillation, who presented to the hospital because of abdominal pain, nausea, and vomiting. She indicated that there was some streak of blood in there. In either case, she has been admitted to the hospital, was being worked up, and was noted to be in AFib with rapid ventricular response. Cardizem was initiated. She converted spontaneously to sinus rhythm after approximately four hours being on the Cardizem drip. She denies any chest pain at the present time. She does have some shortness of breath. She has no PND, uses one pillow, and she does not really stand or walk she states. She has occasional palpitations. PAST MEDICAL HISTORY: Positive for history of coronary artery disease, status post coronary artery bypass grafting with, in 2007, BELCHER to LAD and saphenous vein graft to right posterior descending artery. She has a bovine pericardial prosthetic aortic valve and [employer] porcine prosthetic mitral valve in position. She underwent a CryoMaze procedure as well at that time. She also has a history of prosthetic valve endocarditis, renal failure, atrial fibrillation, systemic hypertension, hyperlipidemia, cerebrovascular accident, left-sided hemiparesis, psoriasis, psoriatic arthritis, and urinary tract infection. She had a CVA, chronic constipation, hypothyroidism, anemia of chronic disease, hemorrhoids, deep venous thrombosis, pulmonary hypertension, history of craniotomy, history of evaluation of hematoma back in 2003, hypothyroidism, history of transient ischemic attack, and subdural hematoma for which she underwent craniotomy. SOCIAL HISTORY: She lives in a convalescent facility. No alcohol, tobacco, or drugs. 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 She is originally immigrant from [place]. She has one brother now. States she had several sibs. No other family members to help make decisions for her. ALLERGIES: She is allergic to sulfa, infliximab causes pruritus. Also, she is allergic to niacin. REVIEW OF SYSTEMS: GASTROINTESTINAL: She has some abdominal pain and this in the stomach. She has had some nausea and vomiting recently. She has had no diarrhea. She is constipated. GENITOURINARY: She has difficulty with urination, but that is a chronic problem where she has to push on her whole abdomen to allow urine to flow. PULMONARY: No coughing or wheezing. CONSTITUTIONAL: She denies any fever, chills, or night sweats. NEUROLOGICAL: She is not able to walk around. PHYSICAL EXAMINATION: GENERAL: Shows to be elderly female, who looks rather pale. NECK: Supple. No jugular venous distention. LUNGS: Clear to auscultation and percussion. CARDIAC: S1 is normal. S2 is normal. Regular rate and rhythm. There are no heaves, thrills, or gallops. ABDOMEN: Soft and nontender. Positive bowel sounds. EXTREMITIES: There is no clubbing or cyanosis nor is there any edema. NEUROLOGICAL: She is awake, alert, responsive, and does not appear to be in any respiratory distress. LABORATORY AND DIAGNOSTIC DATA: EKG has shown sinus rhythm, now sinus bradycardia. Post conversion, she did have atrial fibrillation with rapid ventricular response with ST and T-wave abnormalities in multiple leads. Echocardiogram which shows normal left ventricular systolic function, a large echogenic mass is noted posterior to the left atrium on several images. There is a small pericardial effusion. Prosthetic aortic and mitral valve and peak mitral valve gradient of 19 with mean of 5, peak aortic valve gradient of 9 with a mean of 5, and diastolic left ventricular function cannot be determined. Other labs, white count 4.3, hemoglobin 11.2, and platelet count of 195,000. Sodium is 141, potassium 3.7, chloride 105, bicarb 22, BUN 7, creatinine 0.7, glucose 121, and calcium is 9.7. INR of 1 and PTT of 38. Urinalysis at the time of admission showed 2-4 wbc, 0-2 rbc, trace leukocyte esterase, and 4+ urobilinogen. Stool for occult blood was negative. A x-ray of the abdomen today, moderate fecal retention and x-ray of the chest that was performed a few days ago shows chronic lung disease, suspected patchy atelectasis or infiltrate in the lung bases; not significantly changed than of September 19. She did have a CT scan of the abdomen and pelvis and this showed lung bases consolidation, mild basilar lung septal thickening, cardiomegaly, mitral valve prosthesis, prominent fatty liver is noted, and dilated rectosigmoid of 11.3 cm, large amount of stool in the remainder of the colon, fecal impaction, obstipation, bilateral hydronephrosis mild that is greater on the left possibly due to extension of the rectum. [facility] records have been reviewed in July 2018. She did have an echocardiogram at [facility] that shows a large fixed echodensity in the posterior left atrium and it seems as this mass and this has been treated as if a calcified thrombus. In the meantime, the patient has been maintained on anticoagulation with Xarelto. She had remained in apparently sinus rhythm for a while, according to the [facility] records, being maintained on a combination of beta-blockers and digoxin and of course on Xarelto. She was also on aspirin for her coronary artery disease history and statins. No cardiac enzymes have been checked since when the first one was normal. Her last cardiac enzymes that were abnormal were in April 2018. At that time, she decided she did not want to have any invasive workup. ASSESSMENT AND PLAN: 1. Atrial fibrillation with rapid ventricular response, paroxysmal in nature. 2. Large left atrial presumed calcified thrombus, present since 2017. 3. Coronary artery disease, status post coronary artery bypass grafting. 4. Prosthetic mitral and aortic valve with normal function at the present time. 5. History of prosthetic valve endocarditis. 6. Fecal impaction. 7. Colonic distention secondary to fecal impaction. 8. Diabetes mellitus. 9. History of hypertension. 10. History of subdural hematoma. 11. Dementia. This patient was seen in cardiac consultation. The patient has already converted to sinus rhythm on the Cardizem drip. I do not necessarily think she needs a Cardizem drip, but may be observed for a few hours. Her beta-blockers seem to be increased. If possible, we will try to keep her off of beta-blockers just in case that may contribute to her chronic constipation. GI is following her. Cardiac enzymes will be ordered. EKG will be ordered. The echocardiogram has been reviewed as mentioned. I will follow the patient with you. Barber Mack M.D. DR: Radha JOB#: [id number] CC:
[2019-09-27] MEDS: Docusate 100mg cap ORAL SCH ×2 (08:19→17:32)
[2019-09-27] MEDS: Aspirin Baby 81mg ORAL SCH (08:19)
[2019-09-27] MEDS: Xarelto 15mg tab ORAL SCH (08:19)
[2019-09-27] MEDS: Levodopa/Carbidopa 25/100 tab ORAL SCH ×3 (08:19→17:32)
[2019-09-27] MEDS: Metoprolol Tartrate 12.5mg TAB ORAL SCH (08:20)
[2019-09-27] MEDS ORDERED: Metoprolol Tartrate 5mg/5ml Inj IVP PRN (08:45)
--- NOTE | 2019-09-27 09:19 | General Progress Note ---
Assessment/Plan Assessment/Plan: 1. Atrial fibrillation. 2. History of coronary artery disease. 3. Diabetes type 2. 4. DVT. 5. Hypertension. 6. Hypothyroidism. 7. Seizure disorder. 8. History of CVA. 9. History of subdural hematoma. 10. Parkinson's. 11. Hypercholesteremia. 12. Dementia. 13. Trigeminal neuralgia. 14. Anemia 15. stool impaction 16. fatty liver cont linzess ,colace, miralax had BM in ICU for tachycardia neg stool ob neg hepatitis panel kub reviewed fu labs Subjective ROS Limited/Unobtainable: Yes Allergies: Coded Allergies: INFLIXIMAB (Verified Allergy, Intermediate, 04/20/16) NIACIN (Verified Allergy, Intermediate, 04/20/16) SULFA (SULFONAMIDE ANTIBIOTICS) (Verified Allergy, Intermediate, 04/20/16) Uncoded Allergies: SULFONAMIDES (Allergy, Unknown, 04/28/18) Objective Last 24 Hour Vital Signs Date Time Temp Pulse Resp B/P (MAP) Pulse Ox O2 Delivery O2 Flow Rate FiO2 09/27/19 08:20 130 176/58 09/27/19 07:35 68 19 100 Nasal Cannula 2.0 28 09/27/19 07:35 100 Nasal Cannula 2.0 28 09/27/19 06:00 58 17 150/45 (80) 97 09/27/19 05:00 61 20 160/61 (94) 97 09/27/19 04:00 98.2 59 20 146/35 (72) 97 09/27/19 04:00 64 09/27/19 04:00 Nasal Cannula 2.0 09/27/19 03:00 63 21 142/97 (112) 97 09/27/19 00:00 63 09/27/19 00:00 57 13 139/45 (76) 97 09/27/19 00:00 Nasal Cannula 2.0 09/26/19 23:00 61 19 156/56 (89) 100 09/26/19 22:00 68 23 153/68 (96) 100 09/26/19 21:07 63 151/60 09/26/19 21:00 60 18 151/60 (90) 100 09/26/19 20:00 60 09/26/19 20:00 60 14 138/58 (84) 100 09/26/19 19:26 72 16 98 Nasal Cannula 2.0 28 09/26/19 19:26 98 Nasal Cannula 2.0 28 09/26/19 19:00 60 22 148/56 (86) 99 09/26/19 18:00 59 22 152/59 (90) 99 09/26/19 18:00 61 22 152/59 (90) 99 09/26/19 17:00 98.6 66 22 144/55 (84) 100 09/26/19 16:00 60 22 142/55 (84) 100 09/26/19 16:00 60 09/26/19 15:00 61 20 128/48 (74) 99 09/26/19 14:00 58 17 125/51 (75) 99 09/26/19 13:00 98.7 65 17 162/64 (96) 100 09/26/19 12:00 90 16 137/92 (107) 100 09/26/19 12:00 72 09/26/19 12:00 Nasal Cannula 2.0 09/26/19 11:00 96 21 141/72 (95) 100 09/26/19 10:00 102 22 136/62 (86) 100 09/26/19 10:00 Nasal Cannula 2.0 09/26/19 09:30 169 Intake and Output 09/26/19 09/27/19 19:00 07:00 Intake Total 699.125 ml 500 ml Output Total 200 ml Balance 699.125 ml 300 ml Intake Oral 360 ml 500 ml IV Total 339.125 ml Output Urine Total 200 ml # Voids 1 1 # Bowel Movements 3 1 Laboratory Tests 09/27/19 04:00: White Blood Count 4.8, Red Blood Count 3.08L, Hemoglobin 9.2L, Hematocrit 26.7L , Mean Corpuscular Volume 87, Mean Corpuscular Hemoglobin 29.9, Mean Corpuscular Hemoglobin Concent 34.5, Red Cell Distribution Width 11.9, Platelet Count 187, Mean Platelet Volume 5.7L, Neutrophils (%) (Auto) 66.8, Lymphocytes ( %) (Auto) 20.3, Monocytes (%) (Auto) 10.0, Eosinophils (%) (Auto) 2.7, Basophils (%) (Auto) 0.2, Sodium Level 136, Potassium Level 3.4L, Chloride Level 103, Carbon Dioxide Level 27, Anion Gap 6, Blood Urea Nitrogen 8, Creatinine 0.6, Estimat Glomerular Filtration Rate > 60, Glucose Level 87, Calcium Level 8.8 Height (Feet): 5 Height (Inches): 2.00 Weight (Pounds): 111 General Appearance: alert EENT: normal ENT inspection Neck: supple Cardiovascular: tachycardia Respiratory/Chest: decreased breath sounds Abdomen: normal bowel sounds, non tender, soft Extremities: non-tender Abhishek Langford MD Sep 27, 2019 09:19
[2019-09-27] MEDS: Cefepime HCl 1 GM in D5W 55 ML IV SCH (10:24)
[2019-09-27] MEDS: Vancomycin 750mg/NS 275ml IVPB SCH ×4 (10:50→22:38)
--- NOTE | 2019-09-27 11:51 | Pulmonolgy Critical Care Note ---
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 (10) Alzheimer's dementia Respiratory: monitor respiratory rate, adjust FIO2 Cardiac: continue to monitor HR/BP Renal: F/U I&O Infectious Disease: check cultures Gastrointestinal: abdominal imaging - US pending Endocrine: monitor blood sugar Neurologic: PRN Morphine Affect: PRN ativan Prophylaxis: Heparin 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, 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 Discussed with: nurses, consultants, clinical case managerrecords analysis manager - Objective Last 24 Hour Vital Signs Date Time Temp Pulse Resp B/P (MAP) Pulse Ox O2 Delivery O2 Flow Rate FiO2 09/27/19 10:00 129 21 151/86 (107) 100 09/27/19 09:00 98 21 135/82 (99) 100 09/27/19 08:20 130 176/58 09/27/19 08:00 98.0 58 18 176/58 (97) 100 09/27/19 07:35 68 19 100 Nasal Cannula 2.0 28 09/27/19 07:35 100 Nasal Cannula 2.0 28 09/27/19 07:00 58 17 152/62 (92) 97 09/27/19 06:00 58 17 150/45 (80) 97 09/27/19 05:00 61 20 160/61 (94) 97 09/27/19 04:00 98.2 59 20 146/35 (72) 97 09/27/19 04:00 64 09/27/19 04:00 Nasal Cannula 2.0 09/27/19 03:00 63 21 142/97 (112) 97 09/27/19 00:00 63 09/27/19 00:00 57 13 139/45 (76) 97 09/27/19 00:00 Nasal Cannula 2.0 09/26/19 23:00 61 19 156/56 (89) 100 09/26/19 22:00 68 23 153/68 (96) 100 09/26/19 21:07 63 151/60 09/26/19 21:00 60 18 151/60 (90) 100 09/26/19 20:00 60 09/26/19 20:00 60 14 138/58 (84) 100 09/26/19 19:26 72 16 98 Nasal Cannula 2.0 28 09/26/19 19:26 98 Nasal Cannula 2.0 28 09/26/19 19:00 60 22 148/56 (86) 99 09/26/19 18:00 59 22 152/59 (90) 99 09/26/19 18:00 61 22 152/59 (90) 99 09/26/19 17:00 98.6 66 22 144/55 (84) 100 09/26/19 16:00 60 22 142/55 (84) 100 09/26/19 16:00 60 09/26/19 15:00 61 20 128/48 (74) 99 09/26/19 14:00 58 17 125/51 (75) 99 09/26/19 13:00 98.7 65 17 162/64 (96) 100 09/26/19 12:00 90 16 137/92 (107) 100 09/26/19 12:00 72 09/26/19 12:00 Nasal Cannula 2.0 Status: awake Condition: critical HEENT: atraumatic Neck: full ROM Lungs: rales, rhonchi Heart: HR/BP stable Abdomen: soft, non-tender Extremities: no C/C/E Critical Care - Subjective ROS Limited/Unobtainable: No Interval Events: heart rate was controlled until this morning when she developed rapid afib again and got Lopressor FI02: 28 Sputum Amount: None I&O: Intake and Output 09/26/19 09/27/19 19:00 07:00 Intake Total 699.125 ml 500 ml Output Total 200 ml Balance 699.125 ml 300 ml Intake Oral 360 ml 500 ml IV Total 339.125 ml Output Urine Total 200 ml # Voids 1 1 # Bowel Movements 3 1 Labs: Laboratory Tests Test 09/27/19 04:00 White Blood Count 4.8 K/UL (4.8-10.8) Red Blood Count 3.08 M/UL (4.20-5.40) L Hemoglobin 9.2 G/DL (12.0-16.0) L Hematocrit 26.7 % (37.0-47.0) L Mean Corpuscular Volume 87 FL (80-99) Mean Corpuscular Hemoglobin 29.9 PG (27.0-31.0) Mean Corpuscular Hemoglobin Concent 34.5 G/DL (32.0-36.0) Red Cell Distribution Width 11.9 % (11.6-14.8) Platelet Count 187 K/UL (150-450) Mean Platelet Volume 5.7 FL (6.5-10.1) L Neutrophils (%) (Auto) 66.8 % (45.0-75.0) Lymphocytes (%) (Auto) 20.3 % (20.0-45.0) Monocytes (%) (Auto) 10.0 % (1.0-10.0) Eosinophils (%) (Auto) 2.7 % (0.0-3.0) Basophils (%) (Auto) 0.2 % (0.0-2.0) Sodium Level 136 MMOL/L (136-145) Potassium Level 3.4 MMOL/L (3.5-5.1) L Chloride Level 103 MMOL/L (98-107) Carbon Dioxide Level 27 MMOL/L (21-32) Anion Gap 6 mmol/L (5-15) Blood Urea Nitrogen 8 mg/dL (7-18) Creatinine 0.6 MG/DL (0.55-1.30) Estimat Glomerular Filtration Rate > 60 mL/min (>60) Glucose Level 87 MG/DL (74-106) Calcium Level 8.8 MG/DL (8.5-10.1) Magnesium Level 1.4 MG/DL (1.8-2.4) Koko Griffith MD Sep 27, 2019 11:51
--- NOTE | 2019-09-27 13:10 | Surgery Progress Note ---
Surgery Progress Note Subjective Symptoms: improved, tolerating diet, voiding well, passing flatus Objective Last 24 Hour Vital Signs Date Time Temp Pulse Resp B/P (MAP) Pulse Ox O2 Delivery O2 Flow Rate FiO2 09/27/19 12:00 Nasal Cannula 2.0 09/27/19 10:00 129 21 151/86 (107) 100 09/27/19 09:00 98 21 135/82 (99) 100 09/27/19 08:20 130 176/58 09/27/19 08:00 98.0 58 18 176/58 (97) 100 09/27/19 08:00 Nasal Cannula 2.0 09/27/19 07:35 68 19 100 Nasal Cannula 2.0 28 09/27/19 07:35 100 Nasal Cannula 2.0 28 09/27/19 07:00 58 17 152/62 (92) 97 09/27/19 06:00 58 17 150/45 (80) 97 09/27/19 05:00 61 20 160/61 (94) 97 09/27/19 04:00 98.2 59 20 146/35 (72) 97 09/27/19 04:00 64 09/27/19 04:00 Nasal Cannula 2.0 09/27/19 03:00 63 21 142/97 (112) 97 09/27/19 00:00 63 09/27/19 00:00 57 13 139/45 (76) 97 09/27/19 00:00 Nasal Cannula 2.0 09/26/19 23:00 61 19 156/56 (89) 100 09/26/19 22:00 68 23 153/68 (96) 100 09/26/19 21:07 63 151/60 09/26/19 21:00 60 18 151/60 (90) 100 09/26/19 20:00 60 09/26/19 20:00 60 14 138/58 (84) 100 09/26/19 19:26 72 16 98 Nasal Cannula 2.0 28 09/26/19 19:26 98 Nasal Cannula 2.0 28 09/26/19 19:00 60 22 148/56 (86) 99 09/26/19 18:00 59 22 152/59 (90) 99 09/26/19 18:00 61 22 152/59 (90) 99 09/26/19 17:00 98.6 66 22 144/55 (84) 100 3/26/20 16:00 60 22 142/55 (84) 100 09/26/19 16:00 60 09/26/19 15:00 61 20 128/48 (74) 99 09/26/19 14:00 58 17 125/51 (75) 99 I&O Intake and Output 09/26/19 09/27/19 19:00 07:00 Intake Total 699.125 ml 500 ml Output Total 200 ml Balance 699.125 ml 300 ml Intake Oral 360 ml 500 ml IV Total 339.125 ml Output Urine Total 200 ml # Voids 1 1 # Bowel Movements 3 1 Dressing: dry Wound: clean Cardiovascular: RSR Respiratory: clear, decreased breath sounds Abdomen: soft, present bowel sounds Extremities: no edema, no tenderness Laboratory Tests Test 09/27/19 04:00 White Blood Count 4.8 K/UL (4.8-10.8) Red Blood Count 3.08 M/UL (4.20-5.40) L Hemoglobin 9.2 G/DL (12.0-16.0) L Hematocrit 26.7 % (37.0-47.0) L Mean Corpuscular Volume 87 FL (80-99) Mean Corpuscular Hemoglobin 29.9 PG (27.0-31.0) Mean Corpuscular Hemoglobin Concent 34.5 G/DL (32.0-36.0) Red Cell Distribution Width 11.9 % (11.6-14.8) Platelet Count 187 K/UL (150-450) Mean Platelet Volume 5.7 FL (6.5-10.1) L Neutrophils (%) (Auto) 66.8 % (45.0-75.0) Lymphocytes (%) (Auto) 20.3 % (20.0-45.0) Monocytes (%) (Auto) 10.0 % (1.0-10.0) Eosinophils (%) (Auto) 2.7 % (0.0-3.0) Basophils (%) (Auto) 0.2 % (0.0-2.0) Sodium Level 136 MMOL/L (136-145) Potassium Level 3.4 MMOL/L (3.5-5.1) L Chloride Level 103 MMOL/L (98-107) Carbon Dioxide Level 27 MMOL/L (21-32) Anion Gap 6 mmol/L (5-15) Blood Urea Nitrogen 8 mg/dL (7-18) Creatinine 0.6 MG/DL (0.55-1.30) Estimat Glomerular Filtration Rate > 60 mL/min (>60) Glucose Level 87 MG/DL (74-106) Calcium Level 8.8 MG/DL (8.5-10.1) Magnesium Level 1.4 MG/DL (1.8-2.4) L Assessment Post-op Diagnosis Abdominal pain Assessment & Plan: Asked by Dr. Jackson to evaluate for abdominal pain, r/o obstruction vs impaction 79-year-old female with abdominal pain generalized no nausea vomiting fever chills. Cough and shortness of breath. Labs noted. CT reviewed. KUB ordered for 09/22 and reviewed. Improving now since admission. Currently states she is hungry and wants food. Abdominal exam stable improved otherwise. Bowel sounds noted. distended gb stable as asymptomatic and likely from age No acute surgical intervention planned Okay for diet from surgical standpoint Bowel regimen stool softeners appreciate GI input Nutritional evaluation enema prn will follow with recommendations thank you for let me participate in patient's care improving overall abd pain resolved no n/v/v/f FINDINGS: Lung bases: Right lower lobe of the lung small consolidation and mild bibasilar lung septal thickening. Heart: Cardiomegaly. Mitral valve prosthesis. ABDOMEN: Liver: Fatty prominent liver. Gallbladder and bile ducts: Distended gallbladder. No calcified stones. No ductal dilation. Pancreas: Unremarkable. No mass. No ductal dilation. Spleen: Unremarkable. No splenomegaly. Adrenals: Unremarkable. No mass. Kidneys and ureters: Mild bilateral hydronephrosis, greater on the right, may be due to external compression of the distal ureters from the overly distended rectum. Stomach and bowel: Dilated rectosigmoid colon to 11.3 cm., large amount of stool in the remainder of the colon. Findings may be due to fecal impaction with obstipation. Differential includes Colonic ileus or distal colonic obstruction and early stercoral colitis. Trace free fluid. No free air or abscess. PELVIS: Appendix: No findings to suggest acute appendicitis. Bladder: See below. Reproductive: Uterus and urinary bladder anteriorly placed from the markedly distended rectum. ABDOMEN and PELVIS: Intraperitoneal space: See above. Bones/joints: Mild superior endplate compression of L5 likely chronic. Dynamic left hip screws. No dislocation. Soft tissues: Unremarkable. Vasculature: Atherosclerotic vascular disease. No abdominal aortic aneurysm. Lymph nodes: Unremarkable. No enlarged lymph nodes. IMPRESSION: 1. Dilated rectosigmoid colon to 11.3 cm., large amount of stool in the remainder of the colon. Mild thickening of the colonic wall. Findings may be due to fecal impaction with obstipation. Differential includes Colonic ileus or distal colonic obstruction and early stercoral colitis. Trace free fluid. No free air or abscess. 2. Mild bilateral hydronephrosis, greater on the right, may be due to external compression of the distal ureters from the overly distended rectum. 3. Right lower lobe of the lung small consolidation and mild bibasilar lung septal thickening. 4. Fatty prominent liver. Distended gallbladder. ICD Codes: R10.9 - Unspecified abdominal pain SNOMED: [id number] Qualifiers: Qualified Codes: R10.9 - Unspecified abdominal pain Noe Hirsch Sep 27, 2019 13:10
--- NOTE | 2019-09-27 14:54 | Cardiology Progress Note ---
Assessment/Plan Assessment/Plan 1. Atrial fibrillation with rapid ventricular response, paroxysmal in nature. 2. Large left atrial presumed calcified thrombus, present since 2018. 3. Coronary artery disease, status post coronary artery bypass grafting. 4. Prosthetic mitral and aortic valve with normal function at the present time. 5. History of prosthetic valve endocarditis. 6. Fecal impaction. 7. Colonic distention secondary to fecal impaction. 8. Diabetes mellitus. 9. History of hypertension. 10. History of subdural hematoma. 11. Dementia. back in afib rvr as of this am i was notified iv bb administered will increase the po dose for now adn prn iv on xarelto for strok prevention tele reviewed ekg noted repeat cardiac enzyme will consider amiod if converts back to sinus as had had severla recurrences wehere as previsouly was stabel for a longer time devika on tele in icu if possible fro a few more hours to seee if hr increse as bb dose runs out Subjective Cardiovascular: Reports: palpitations; Denies: chest pain, lightheadedness Respiratory: Denies: shortness of breath Gastrointestinal/Abdominal: Denies: abdominal pain Genitourinary: Denies: burning Objective Last 24 Hour Vital Signs Date Time Temp Pulse Resp B/P (MAP) Pulse Ox O2 Delivery O2 Flow Rate FiO2 09/27/19 13:00 118 16 129/93 (105) 100 09/27/19 12:00 Nasal Cannula 2.0 09/27/19 12:00 97.4 119 22 130/71 (90) 100 09/27/19 12:00 120 09/27/19 11:00 123 21 144/80 (101) 100 09/27/19 10:00 129 21 151/86 (107) 100 09/27/19 09:00 98 21 135/82 (99) 100 09/27/19 08:20 130 176/58 09/27/19 08:00 61 09/27/19 08:00 98.0 58 18 176/58 (97) 100 09/27/19 08:00 Nasal Cannula 2.0 09/27/19 07:35 68 19 100 Nasal Cannula 2.0 28 09/27/19 07:35 100 Nasal Cannula 2.0 28 09/27/19 07:00 58 17 152/62 (92) 97 09/27/19 06:00 58 17 150/45 (80) 97 09/27/19 05:00 61 20 160/61 (94) 97 09/27/19 04:00 98.2 59 20 146/35 (72) 97 09/27/19 04:00 64 09/27/19 04:00 Nasal Cannula 2.0 09/27/19 03:00 63 21 142/97 (112) 97 09/27/19 00:00 63 09/27/19 00:00 57 13 139/45 (76) 97 09/27/19 00:00 Nasal Cannula 2.0 09/26/19 23:00 61 19 156/56 (89) 100 09/26/19 22:00 68 23 153/68 (96) 100 09/26/19 21:07 63 151/60 09/26/19 21:00 60 18 151/60 (90) 100 09/26/19 20:00 60 09/26/19 20:00 60 14 138/58 (84) 100 09/26/19 19:26 72 16 98 Nasal Cannula 2.0 28 09/26/19 19:26 98 Nasal Cannula 2.0 28 09/26/19 19:00 60 22 148/56 (86) 99 09/26/19 18:00 59 22 152/59 (90) 99 09/26/19 18:00 61 22 152/59 (90) 99 09/26/19 17:00 98.6 66 22 144/55 (84) 100 09/26/19 16:00 60 22 142/55 (84) 100 09/26/19 16:00 60 09/26/19 15:00 61 20 128/48 (74) 99 General Appearance: no apparent distress, alert Cardiovascular: irregularly irregular Respiratory/Chest: lungs clear Abdomen: normal bowel sounds, non tender, soft Extremities: no swelling Intake and Output 09/26/19 09/27/19 19:00 07:00 Intake Total 699.125 ml 500 ml Output Total 200 ml Balance 699.125 ml 300 ml Intake Oral 360 ml 500 ml IV Total 339.125 ml Output Urine Total 200 ml # Voids 1 1 # Bowel Movements 3 1 Laboratory Tests Test 09/27/19 04:00 White Blood Count 4.8 K/UL (4.8-10.8) Red Blood Count 3.08 M/UL (4.20-5.40) L Hemoglobin 9.2 G/DL (12.0-16.0) L Hematocrit 26.7 % (37.0-47.0) L Mean Corpuscular Volume 87 FL (80-99) Mean Corpuscular Hemoglobin 29.9 PG (27.0-31.0) Mean Corpuscular Hemoglobin Concent 34.5 G/DL (32.0-36.0) Red Cell Distribution Width 11.9 % (11.6-14.8) Platelet Count 187 K/UL (150-450) Mean Platelet Volume 5.7 FL (6.5-10.1) L Neutrophils (%) (Auto) 66.8 % (45.0-75.0) Lymphocytes (%) (Auto) 20.3 % (20.0-45.0) Monocytes (%) (Auto) 10.0 % (1.0-10.0) Eosinophils (%) (Auto) 2.7 % (0.0-3.0) Basophils (%) (Auto) 0.2 % (0.0-2.0) Sodium Level 136 MMOL/L (136-145) Potassium Level 3.4 MMOL/L (3.5-5.1) L Chloride Level 103 MMOL/L (98-107) Carbon Dioxide Level 27 MMOL/L (21-32) Anion Gap 6 mmol/L (5-15) Blood Urea Nitrogen 8 mg/dL (7-18) Creatinine 0.6 MG/DL (0.55-1.30) Estimat Glomerular Filtration Rate > 60 mL/min (>60) Glucose Level 87 MG/DL (74-106) Calcium Level 8.8 MG/DL (8.5-10.1) Magnesium Level 1.4 MG/DL (1.8-2.4) Barber Aguirre MD Sep 27, 2019 14:54
[2019-09-27] MEDS: Amiodarone 200mg tab ORAL SCH (18:58)
[2019-09-27] MEDS: Miralax 17gm pkt ORAL SCH (20:54)
--- NOTE | 2019-09-27 22:25 | Internal Med Progress Note ---
Subjective Physician Name Carlos Junior Attending Physician Carlos Junior MD Current Medications Medications (Trade) Dose Ordered Sig/Zee Route PRN Reason Start Time Stop Time Status Last Admin Dose Admin Acetaminophen (Tylenol) 650 mg Q4H PRN ORAL T>100.4 09/26/19 10:00 10/21/19 09:59 Amiodarone HCl (Cordarone) 200 mg EVERY 12 HOURS ORAL 09/27/19 19:00 12/26/19 18:59 09/27/19 18:58 Aspirin (ASA) 81 mg DAILY ORAL 09/27/19 09:00 11/06/19 09:14 09/27/19 08:19 Atorvastatin Calcium (Lipitor) 10 mg BEDTIME ORAL 09/26/19 21:00 12/20/19 20:59 09/27/19 20:56 Carbidopa/Levodopa (Sinemet 25/100) 1 tab THREE TIMES A DAY ORAL 09/26/19 13:00 10/21/19 17:59 09/27/19 17:32 Cefepime HCl 1 gm/ Dextrose 55 ml @ 110 mls/hr Q24H IV 09/26/19 11:00 09/28/19 23:59 09/27/19 10:24 Docusate Sodium (Colace) 100 mg TWICE A DAY ORAL 09/26/19 18:00 10/22/19 17:59 09/27/19 17:32 Levothyroxine Sodium (Synthroid) 100 mcg ACBREAKFAST ORAL 09/27/19 06:30 10/22/19 06:29 09/27/19 06:52 Linaclotide (Linzess) 290 mcg BEFORE BREAKFAST ORAL 09/27/19 06:30 12/24/19 06:29 Metoprolol Tartrate (Lopressor) 2.5 mg Q6H PRN IVP HR > 120 bpm 09/27/19 08:45 12/26/19 08:44 09/27/19 18:10 Metoprolol Tartrate (Lopressor) 25 mg EVERY 12 HOURS ORAL 09/27/19 21:00 12/26/19 20:59 09/27/19 20:55 Nitroglycerin (Ntg) 0.4 mg Q5M PRN SL Prn Chest Pain 09/26/19 09:30 10/21/19 16:44 Ondansetron HCl (Zofran) 4 mg Q6H PRN IVP Nausea & Vomiting 09/26/19 10:00 10/21/19 09:59 Polyethylene Glycol (Miralax) 17 gm BEDTIME ORAL 09/26/19 21:00 10/22/19 20:59 09/27/19 20:54 Polyethylene Glycol (Miralax) 17 gm DAILYPRN PRN ORAL Constipation 09/26/19 10:00 10/21/19 09:59 Promethazine HCl/ Codeine (Phenergan with Codeine) 5 ml Q4H PRN ORAL For Cough 09/26/19 10:00 10/21/19 09:59 Rivaroxaban (Xarelto) 15 mg DAILY ORAL 09/27/19 09:00 12/26/19 08:59 09/27/19 08:19 Temazepam (Restoril) 15 mg HSPRN PRN ORAL Insomnia 09/26/19 21:00 09/28/19 20:59 Vancomycin HCl (Vanco rx to dose) 1 ea DAILY PRN MISC Per rx protocol 09/26/19 10:00 10/26/19 09:59 Vancomycin HCl 750 mg/Sodium Chloride 275 ml @ 183.333 mls/hr Q12H IVPB 09/26/19 11:00 10/01/19 10:59 09/27/19 10:50 Allergies: Coded Allergies: INFLIXIMAB (Verified Allergy, Intermediate, 04/20/16) NIACIN (Verified Allergy, Intermediate, 04/20/16) SULFA (SULFONAMIDE ANTIBIOTICS) (Verified Allergy, Intermediate, 04/20/16) Uncoded Allergies: SULFONAMIDES (Allergy, Unknown, 04/28/18) Subjective in ICU, awake, alert, responsive, NAD, No CP or SOB, tachycardia with HR 100's Objective Last Vital Signs Date Time Temp Pulse Resp B/P (MAP) Pulse Ox O2 Delivery O2 Flow Rate FiO2 09/27/19 21:00 118 22 141/85 (103) 100 09/27/19 20:00 98.2 09/27/19 20:00 Nasal Cannula 2.0 09/27/19 19:14 28 Laboratory Tests Test 09/27/19 04:00 09/27/19 15:59 White Blood Count 4.8 K/UL (4.8-10.8) Red Blood Count 3.08 M/UL (4.20-5.40) L Hemoglobin 9.2 G/DL (12.0-16.0) L Hematocrit 26.7 % (37.0-47.0) L Mean Corpuscular Volume 87 FL (80-99) Mean Corpuscular Hemoglobin 29.9 PG (27.0-31.0) Mean Corpuscular Hemoglobin Concent 34.5 G/DL (32.0-36.0) Red Cell Distribution Width 11.9 % (11.6-14.8) Platelet Count 187 K/UL (150-450) Mean Platelet Volume 5.7 FL (6.5-10.1) L Neutrophils (%) (Auto) 66.8 % (45.0-75.0) Lymphocytes (%) (Auto) 20.3 % (20.0-45.0) Monocytes (%) (Auto) 10.0 % (1.0-10.0) Eosinophils (%) (Auto) 2.7 % (0.0-3.0) Basophils (%) (Auto) 0.2 % (0.0-2.0) Sodium Level 136 MMOL/L (136-145) Potassium Level 3.4 MMOL/L (3.5-5.1) L Chloride Level 103 MMOL/L (98-107) Carbon Dioxide Level 27 MMOL/L (21-32) Anion Gap 6 mmol/L (5-15) Blood Urea Nitrogen 8 mg/dL (7-18) Creatinine 0.6 MG/DL (0.55-1.30) Estimat Glomerular Filtration Rate > 60 mL/min (>60) Glucose Level 87 MG/DL (74-106) Calcium Level 8.8 MG/DL (8.5-10.1) Magnesium Level 1.4 MG/DL (1.8-2.4) L Troponin I 0.482 ng/mL (0.000-0.056) Intake and Output 09/26/19 09/27/19 19:00 07:00 Intake Total 699.125 ml 500 ml Output Total 200 ml Balance 699.125 ml 300 ml Intake Oral 360 ml 500 ml IV Total 339.125 ml Output Urine Total 200 ml # Voids 1 1 # Bowel Movements 3 1 Objective General: No acute distress, awake and alert HEENT: NCAT, sclera anicteric, PERRL, EOMI. Neck: Supple, no significant jugular venous distention, Lungs: Good inspiratory effort, no accessory muscle use, clear to auscultation bilaterally, no Wheeze or Rales. Heart: Regular rate and tachycardia, S1/S2, no murmurs. Abdomen: soft, nontender, nondistended. Normoactive bowel sounds. / Rectal: Refused and deferred. Extremities: No Cyanosis , clubbing or edema. Neuro: A&O x 3, Able to move all extremities Skin: warm, no rash. Psych: Normal mood and affect Assessment/Plan Assessment/Plan ASSESSMENT: This is a 79-year-old female with: 1. Abdominal pain. 2. Congestive heart failure. 3. Right lower lobe pneumonia. 4. Atrial fibrillation with rapid ventricular rate. 5. Coronary artery disease. 6. Diabetes type 2. 7. Hypertension. 8. Hypercholesterolemia. 9. Hypothyroidism. 10. Seizure disorder. 11. Right MCA Cerebrovascular disease s/p craniotomy with Left hemiparesis.. 12. Anemia of chronic diease 13. Subdural hematoma. 14. History of deep venous thrombosis. 15. Mitral and aortic valve biosynthetic prosthesis. TREATMENT: 1. Abdominal pain/distention. Improved with laxatives. A General Surgery consultation has been obtained with Dr. Hirsch. A Gastroenterology consultation has been obtained with Dr. Abhishek Langford. We will follow recommendations of General Surgery and Gastroenterology. 2. Congestive heart failure. Cardiology consultation has been obtained with Dr. Barber Mack. The patient has been started empirically on intravenous Lasix. An echocardiogram is pending. 3. Right lower lobe pneumonia. A Pulmonary consultation has been obtained with Dr. Koko Gee. The patient has been started empirically on cefepime and vancomycin. We will follow recommendations of Pulmonary. 4. Atrial fibrillation RVR, 5. Coronary artery disease. The patient is status post coronary artery bypass graft. 6. Diabetes type 2. The patient is not on any antihyperglycemic medication at the shelter. 7. Hypertension. Continue metoprolol as above. 8. Hypercholesteremia. Continue atorvastatin as above. 9. Hypothyroidism. Continue levothyroxine as above. 10. Seizure disorder. Continue carbamazepine as above. 11. Cerebrovascular disease. 12. Left hemiparesis. 13. History of subdural hematoma. 14. History of deep venous thrombosis. 15. History of mitral and aortic valve bioprosthesis replacement. 16. Anemia workup per GI 17. Discharge planning: [facility] On Xarelto May transfer to [facility] Abx: Vanco IV and Cefepime IV Code status: Carlos Ocampo MD Sep 27, 2019 22:25
[2019-09-28] VITALS (24 sets, daily range): BP systolic 106–148; BP diastolic 49–87
[2019-09-28 06:01] LABS: BASOPHILS % (AUTO) 0.2 % (0.0-2.0); EOSINOPHILS % (AUTO) 1.9 % (0.0-3.0); HEMATOCRIT 29.1 % (37.0-47.0); HEMOGLOBIN 10.1 G/DL (12.0-16.0); LYMPHOCYTES % (AUTO) 16.4 % (20.0-45.0); MEAN CORPUSCULAR VOLUME 85 FL (80-99); NEUTROPHILS % (AUTO) 71.4 % (45.0-75.0); PLATELET COUNT 218 K/UL (150-450); RED BLOOD COUNT 3.42 M/UL (4.20-5.40); RED CELL DISTRIBUTION WIDTH 11.9 % (11.6-14.8); WHITE BLOOD COUNT 6.2 K/UL (4.8-10.8)
--- NOTE | 2019-09-28 08:30 | Pulmonolgy Critical Care Note ---
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 (10) Alzheimer's dementia Respiratory: monitor respiratory rate, adjust FIO2 Cardiac: continue to monitor HR/BP Renal: F/U I&O Infectious Disease: check cultures Gastrointestinal: continue feedings/current rate Endocrine: monitor blood sugar Hematologic: monitor H/H, transfuse if hgb<8.5 Neurologic: PRN Ativan, keep patient comfortable Prophylaxis: Protonix Disposition: keep in ICU 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, 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, 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 with: nurses, consultants, 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 - Objective Last 24 Hour Vital Signs Date Time Temp Pulse Resp B/P (MAP) Pulse Ox O2 Delivery O2 Flow Rate FiO2 09/28/19 06:00 100 17 110/81 (91) 100 09/28/19 05:00 84 18 112/73 (86) 100 09/28/19 04:00 Nasal Cannula 2.0 09/28/19 04:00 98.2 90 19 135/75 (95) 100 09/28/19 04:00 106 09/28/19 03:00 83 19 120/68 (85) 100 09/28/19 02:00 86 20 110/62 (78) 99 09/28/19 01:00 86 20 110/62 (78) 99 09/28/19 00:00 106 09/28/19 00:00 Nasal Cannula 2.0 09/28/19 00:00 97.8 78 19 106/61 (76) 99 09/27/19 23:00 105 20 138/93 (108) 97 09/27/19 22:00 123 20 125/74 (91) 99 09/27/19 21:00 118 22 141/85 (103) 100 09/27/19 20:55 125 135/75 09/27/19 20:00 98.2 106 22 131/75 (93) 100 09/27/19 20:00 106 09/27/19 20:00 Nasal Cannula 2.0 09/27/19 19:14 93 18 99 Nasal Cannula 2.0 28 09/27/19 19:14 99 Nasal Cannula 2.0 28 09/27/19 19:00 91 21 142/68 (92) 100 09/27/19 18:10 126 146/80 09/27/19 18:00 125 21 146/80 (102) 98 09/27/19 17:00 123 22 153/79 (103) 100 09/27/19 16:00 97.8 121 20 140/88 (105) 100 09/27/19 16:00 124 09/27/19 16:00 Nasal Cannula 2.0 09/27/19 15:00 97 22 121/79 (93) 100 09/27/19 14:00 98 17 118/79 (92) 100 09/27/19 13:00 118 16 129/93 (105) 100 09/27/19 12:00 Nasal Cannula 2.0 09/27/19 12:00 97.4 119 22 130/71 (90) 100 09/27/19 12:00 120 09/27/19 11:00 123 21 144/80 (101) 100 09/27/19 10:00 129 21 151/86 (107) 100 09/27/19 09:00 98 21 135/82 (99) 100 Status: awake Condition: critical HEENT: atraumatic, normocephalic Neck: full ROM Lungs: chest wall tender Heart: HR/BP stable Abdomen: soft, non-tender Extremities: no C/C/E Critical Care - Subjective ROS Limited/Unobtainable: No Condition: critical EKG Rhythm: Sinus Rhythm FI02: 28 Sputum Amount: None I&O: Intake and Output 09/27/19 09/28/19 19:00 07:00 Intake Total 530.000 ml 275.000 ml Output Total 650 ml 840 ml Balance -120.000 ml -565.000 ml IV Total 530.000 ml 275.000 ml Output Urine Total 650 ml 840 ml Labs: Laboratory Tests Test 09/27/19 15:59 09/28/19 05:40 Troponin I 0.482 ng/mL (0.000-0.056) 0.366 ng/mL (0.000-0.056) White Blood Count 6.2 K/UL (4.8-10.8) Red Blood Count 3.42 M/UL (4.20-5.40) L Hemoglobin 10.1 G/DL (12.0-16.0) L Hematocrit 29.1 % (37.0-47.0) L Mean Corpuscular Volume 85 FL (80-99) Mean Corpuscular Hemoglobin 29.4 PG (27.0-31.0) Mean Corpuscular Hemoglobin Concent 34.5 G/DL (32.0-36.0) Red Cell Distribution Width 11.9 % (11.6-14.8) Platelet Count 218 K/UL (150-450) Mean Platelet Volume 6.0 FL (6.5-10.1) L Neutrophils (%) (Auto) 71.4 % (45.0-75.0) Lymphocytes (%) (Auto) 16.4 % (20.0-45.0) L Monocytes (%) (Auto) 10.0 % (1.0-10.0) Eosinophils (%) (Auto) 1.9 % (0.0-3.0) Basophils (%) (Auto) 0.2 % (0.0-2.0) Pro-B-Type Natriuretic Peptide 4009 pg/mL (0-125) H Koko Gee MD Sep 28, 2019 08:30
[2019-09-28] MEDS: Amiodarone 200mg tab ORAL SCH ×2 (08:44→21:02)
[2019-09-28] MEDS: Aspirin Baby 81mg ORAL SCH (08:44)
[2019-09-28] MEDS: Docusate 100mg cap ORAL SCH ×2 (08:44→17:47)
[2019-09-28] MEDS: Xarelto 15mg tab ORAL SCH (08:45)
[2019-09-28] MEDS: Levodopa/Carbidopa 25/100 tab ORAL SCH ×3 (08:45→18:00)
[2019-09-28] MEDS ORDERED: D5 1/2NS 1000ml IV ONE (09:36)
--- NOTE | 2019-09-28 11:09 | Diagnostic Imaging Report ---
EXAM: XR Chest, 1 View CLINICAL HISTORY: F/U TECHNIQUE: Frontal view of the chest. COMPARISON: Chest radiograph on 09/23/2019 FINDINGS: Hardware: None. Lungs/pleura: Similar trace left pleural effusion. Interstitial opacities throughout the lungs, most prominent at the left lung base may represent chronic interstitial lung changes with possible superimposed infectious/inflammatory process. Heart/mediastinum: Stable mild enlargement of the cardiac silhouette. Median sternotomy changes. Aortic valve prosthesis. Atherosclerotic calcifications of the aorta. Soft tissues: Unremarkable. Bones: No acute fracture. Upper abdomen: Normal. IMPRESSION: Similar trace left pleural effusion. Interstitial opacities throughout the lungs, most prominent at the left lung base may represent chronic interstitial lung changes with possible superimposed infectious/inflammatory process, stable compared to prior exam.
[2019-09-28] MEDS: Cefepime HCl 1 GM in D5W 55 ML IV SCH (11:25)
[2019-09-28] MEDS: Vancomycin 750mg/NS 275ml IVPB SCH ×2 (11:33)
--- NOTE | 2019-09-28 14:19 | Surgery Progress Note ---
Surgery Progress Note Subjective Symptoms: improved Objective Last 24 Hour Vital Signs Date Time Temp Pulse Resp B/P (MAP) Pulse Ox O2 Delivery O2 Flow Rate FiO2 09/28/19 12:00 Nasal Cannula 2.0 09/28/19 12:00 97.4 92 19 134/55 (81) 100 09/28/19 11:00 77 18 144/59 (87) 100 09/28/19 10:00 121 19 132/74 (93) 100 09/28/19 09:00 123 22 119/81 (94) 100 09/28/19 08:45 124 134/81 09/28/19 08:00 125 09/28/19 08:00 97.5 124 17 134/81 (98) 100 09/28/19 08:00 Nasal Cannula 2.0 09/28/19 07:00 106 17 113/81 (92) 100 09/28/19 06:00 100 17 110/81 (91) 100 09/28/19 05:00 84 18 112/73 (86) 100 09/28/19 04:00 Nasal Cannula 2.0 09/28/19 04:00 98.2 90 19 135/75 (95) 100 09/28/19 04:00 106 09/28/19 03:00 83 19 120/68 (85) 100 09/28/19 02:00 86 20 110/62 (78) 99 09/28/19 01:00 86 20 110/62 (78) 99 09/28/19 00:00 106 09/28/19 00:00 Nasal Cannula 2.0 09/28/19 00:00 97.8 78 19 106/61 (76) 99 09/27/19 23:00 105 20 138/93 (108) 97 09/27/19 22:00 123 20 125/74 (91) 99 09/27/19 21:00 118 22 141/85 (103) 100 09/27/19 20:55 125 135/75 09/27/19 20:00 98.2 106 22 131/75 (93) 100 09/27/19 20:00 106 09/27/19 20:00 Nasal Cannula 2.0 09/27/19 19:14 93 18 99 Nasal Cannula 2.0 28 09/27/19 19:14 99 Nasal Cannula 2.0 28 09/27/19 19:00 91 21 142/68 (92) 100 09/27/19 18:10 126 146/80 09/27/19 18:00 125 21 146/80 (102) 98 09/27/19 17:00 123 22 153/79 (103) 100 09/27/19 16:00 97.8 121 20 140/88 (105) 100 09/27/19 16:00 124 09/27/19 16:00 Nasal Cannula 2.0 09/27/19 15:00 97 22 121/79 (93) 100 I&O Intake and Output 09/27/19 09/28/19 19:00 07:00 Intake Total 530.000 ml 395.000 ml Output Total 650 ml 840 ml Balance -120.000 ml -445.000 ml Intake Oral 120 ml IV Total 530.000 ml 275.000 ml Output Urine Total 650 ml 840 ml Dressing: dry Wound: clean Cardiovascular: RSR Respiratory: clear Abdomen: non-tender, present bowel sounds Extremities: no edema, no tenderness, no cyanosis Laboratory Tests Test 09/27/19 15:59 09/28/19 05:40 09/28/19 12:00 Troponin I 0.482 ng/mL (0.000-0.056) 0.366 ng/mL (0.000-0.056) White Blood Count 6.2 K/UL (4.8-10.8) Red Blood Count 3.42 M/UL (4.20-5.40) L Hemoglobin 10.1 G/DL (12.0-16.0) L Hematocrit 29.1 % (37.0-47.0) L Mean Corpuscular Volume 85 FL (80-99) Mean Corpuscular Hemoglobin 29.4 PG (27.0-31.0) Mean Corpuscular Hemoglobin Concent 34.5 G/DL (32.0-36.0) Red Cell Distribution Width 11.9 % (11.6-14.8) Platelet Count 218 K/UL (150-450) Mean Platelet Volume 6.0 FL (6.5-10.1) L Neutrophils (%) (Auto) 71.4 % (45.0-75.0) Lymphocytes (%) (Auto) 16.4 % (20.0-45.0) L Monocytes (%) (Auto) 10.0 % (1.0-10.0) Eosinophils (%) (Auto) 1.9 % (0.0-3.0) Basophils (%) (Auto) 0.2 % (0.0-2.0) Pro-B-Type Natriuretic Peptide 4009 pg/mL (0-125) H Vancomycin Level Trough 22.5 ug/mL (5.0-12.0) H Assessment Post-op Diagnosis Abdominal pain Assessment & Plan: Asked by Dr. Jackson to evaluate for abdominal pain, r/o obstruction vs impaction 79-year-old female with abdominal pain generalized no nausea vomiting fever chills. Cough and shortness of breath. Labs noted. CT reviewed. KUB ordered for 09/22 and reviewed. Improving now since admission. Currently states she is hungry and wants food. Abdominal exam stable improved otherwise. Bowel sounds noted. distended gb stable as asymptomatic and likely from age No acute surgical intervention planned Okay for diet from surgical standpoint Bowel regimen stool softeners appreciate GI input Nutritional evaluation enema prn will follow with recommendations thank you for let me participate in patient's care improving overall abd pain resolved no n/v/v/f FINDINGS: Lung bases: Right lower lobe of the lung small consolidation and mild bibasilar lung septal thickening. Heart: Cardiomegaly. Mitral valve prosthesis. ABDOMEN: Liver: Fatty prominent liver. Gallbladder and bile ducts: Distended gallbladder. No calcified stones. No ductal dilation. Pancreas: Unremarkable. No mass. No ductal dilation. Spleen: Unremarkable. No splenomegaly. Adrenals: Unremarkable. No mass. Kidneys and ureters: Mild bilateral hydronephrosis, greater on the right, may be due to external compression of the distal ureters from the overly distended rectum. Stomach and bowel: Dilated rectosigmoid colon to 11.3 cm., large amount of stool in the remainder of the colon. Findings may be due to fecal impaction with obstipation. Differential includes Colonic ileus or distal colonic obstruction and early stercoral colitis. Trace free fluid. No free air or abscess. PELVIS: Appendix: No findings to suggest acute appendicitis. Bladder: See below. Reproductive: Uterus and urinary bladder anteriorly placed from the markedly distended rectum. ABDOMEN and PELVIS: Intraperitoneal space: See above. Bones/joints: Mild superior endplate compression of L5 likely chronic. Dynamic left hip screws. No dislocation. Soft tissues: Unremarkable. Vasculature: Atherosclerotic vascular disease. No abdominal aortic aneurysm. Lymph nodes: Unremarkable. No enlarged lymph nodes. IMPRESSION: 1. Dilated rectosigmoid colon to 11.3 cm., large amount of stool in the remainder of the colon. Mild thickening of the colonic wall. Findings may be due to fecal impaction with obstipation. Differential includes Colonic ileus or distal colonic obstruction and early stercoral colitis. Trace free fluid. No free air or abscess. 2. Mild bilateral hydronephrosis, greater on the right, may be due to external compression of the distal ureters from the overly distended rectum. 3. Right lower lobe of the lung small consolidation and mild bibasilar lung septal thickening. 4. Fatty prominent liver. Distended gallbladder. ICD Codes: R10.9 - Unspecified abdominal pain SNOMED: [id number] Qualifiers: Qualified Codes: R10.9 - Unspecified abdominal pain Noe Hirsch Sep 28, 2019 14:19
--- NOTE | 2019-09-28 16:27 | Internal Med Progress Note ---
Subjective Date of Service: Sep 28, 2019 Physician Name Jackson,Bryan Attending Physician Carlos Junior MD Current Medications Medications (Trade) Dose Ordered Sig/Zee Route PRN Reason Start Time Stop Time Status Last Admin Dose Admin Acetaminophen (Tylenol) 650 mg Q4H PRN ORAL T>100.4 09/26/19 10:00 10/21/19 09:59 Amiodarone HCl (Cordarone) 200 mg EVERY 12 HOURS ORAL 09/27/19 19:00 12/26/19 18:59 09/28/19 08:44 Aspirin (ASA) 81 mg DAILY ORAL 09/27/19 09:00 11/06/19 09:14 09/28/19 08:44 Atorvastatin Calcium (Lipitor) 10 mg BEDTIME ORAL 09/26/19 21:00 12/20/19 20:59 09/27/19 20:56 Carbidopa/Levodopa (Sinemet 25/100) 1 tab THREE TIMES A DAY ORAL 09/26/19 13:00 10/21/19 17:59 09/28/19 13:06 Cefepime HCl 1 gm/ Dextrose 55 ml @ 110 mls/hr Q24H IV 09/26/19 11:00 09/28/19 23:59 09/28/19 11:25 Docusate Sodium (Colace) 100 mg TWICE A DAY ORAL 09/26/19 18:00 10/22/19 17:59 09/28/19 08:44 Levothyroxine Sodium (Synthroid) 100 mcg ACBREAKFAST ORAL 09/27/19 06:30 10/22/19 06:29 09/28/19 06:15 Linaclotide (Linzess) 290 mcg BEFORE BREAKFAST ORAL 09/27/19 06:30 12/24/19 06:29 09/28/19 06:16 Metoprolol Tartrate (Lopressor) 2.5 mg Q6H PRN IVP HR > 120 bpm 09/27/19 08:45 12/26/19 08:44 09/27/19 18:10 Metoprolol Tartrate (Lopressor) 25 mg EVERY 12 HOURS ORAL 09/27/19 21:00 12/26/19 20:59 09/28/19 08:45 Nitroglycerin (Ntg) 0.4 mg Q5M PRN SL Prn Chest Pain 09/26/19 09:30 10/21/19 16:44 Ondansetron HCl (Zofran) 4 mg Q6H PRN IVP Nausea & Vomiting 09/26/19 10:00 10/21/19 09:59 Polyethylene Glycol (Miralax) 17 gm BEDTIME ORAL 09/26/19 21:00 10/22/19 20:59 09/27/19 20:54 Polyethylene Glycol (Miralax) 17 gm DAILYPRN PRN ORAL Constipation 09/26/19 10:00 10/21/19 09:59 09/28/19 11:35 Promethazine HCl/ Codeine (Phenergan with Codeine) 5 ml Q4H PRN ORAL For Cough 09/26/19 10:00 10/21/19 09:59 Rivaroxaban (Xarelto) 15 mg DAILY ORAL 09/27/19 09:00 12/26/19 08:59 09/28/19 08:45 Temazepam (Restoril) 15 mg HSPRN PRN ORAL Insomnia 09/26/19 21:00 09/28/19 20:59 Vancomycin HCl (Vanco rx to dose) 1 ea DAILY PRN MISC Per rx protocol 09/26/19 10:00 10/26/19 09:59 Vancomycin HCl 500 mg/Dextrose 110 ml @ 110 mls/hr Q12HR@0500,1700 IVPB 09/28/19 17:00 10/03/19 16:59 Allergies: Coded Allergies: INFLIXIMAB (Verified Allergy, Intermediate, 04/20/16) NIACIN (Verified Allergy, Intermediate, 04/20/16) SULFA (SULFONAMIDE ANTIBIOTICS) (Verified Allergy, Intermediate, 04/20/16) Uncoded Allergies: SULFONAMIDES (Allergy, Unknown, 04/28/18) ROS Limited/Unobtainable: No Constitutional: Reports: no symptoms HEENT: Reports: no symptoms Cardiovascular: Reports: no symptoms Respiratory: Reports: no symptoms Gastrointestinal/Abdominal: Reports: no symptoms Genitourinary: Reports: no symptoms Neurologic/Psychiatric: Reports: no symptoms Subjective 79 YO F admitted with abdominal pain. Now atrial fibrillation with rapid ventricular rate. Cover for Int [facility] ICU Objective Last Vital Signs Date Time Temp Pulse Resp B/P (MAP) Pulse Ox O2 Delivery O2 Flow Rate FiO2 09/28/19 14:00 83 20 127/49 (75) 99 09/28/19 12:00 Nasal Cannula 2.0 09/28/19 12:00 97.4 09/27/19 19:14 28 Laboratory Tests Test 09/28/19 05:40 09/28/19 12:00 White Blood Count 6.2 K/UL (4.8-10.8) Red Blood Count 3.42 M/UL (4.20-5.40) L Hemoglobin 10.1 G/DL (12.0-16.0) L Hematocrit 29.1 % (37.0-47.0) L Mean Corpuscular Volume 85 FL (80-99) Mean Corpuscular Hemoglobin 29.4 PG (27.0-31.0) Mean Corpuscular Hemoglobin Concent 34.5 G/DL (32.0-36.0) Red Cell Distribution Width 11.9 % (11.6-14.8) Platelet Count 218 K/UL (150-450) Mean Platelet Volume 6.0 FL (6.5-10.1) L Neutrophils (%) (Auto) 71.4 % (45.0-75.0) Lymphocytes (%) (Auto) 16.4 % (20.0-45.0) L Monocytes (%) (Auto) 10.0 % (1.0-10.0) Eosinophils (%) (Auto) 1.9 % (0.0-3.0) Basophils (%) (Auto) 0.2 % (0.0-2.0) Troponin I 0.366 ng/mL (0.000-0.056) Pro-B-Type Natriuretic Peptide 4009 pg/mL (0-125) H Vancomycin Level Trough 22.5 ug/mL (5.0-12.0) H Intake and Output 09/27/19 09/28/19 19:00 07:00 Intake Total 530.000 ml 395.000 ml Output Total 650 ml 840 ml Balance -120.000 ml -445.000 ml Intake Oral 120 ml IV Total 530.000 ml 275.000 ml Output Urine Total 650 ml 840 ml Objective PHYSICAL EXAMINATION: GENERAL: The patient is a well-developed and well-nourished thin-appearing female, in no apparent distress. HEENT: Eyes, pupils are equal and responsive to light and accommodation. Extraocular movements are intact. NECK: Supple without lymphadenopathy. CHEST: Lungs are clear to auscultation bilaterally without wheezes or rales. CARDIOVASCULAR: Regular rate. S1 and S2 normal without murmurs, rubs, or gallops. ABDOMEN: Soft, distended with decreased bowel sounds. There is increased tympany. There is tenderness to palpation in all four quadrants. There is no rebound or guarding noted. EXTREMITIES: Negative for clubbing, cyanosis, or edema. RECTAL/GENITAL: Not performed. NEUROLOGIC: Cranial nerves II through XII are grossly intact without focal deficits. Motor strength is 5/5 bilaterally. Deep tendon reflexes are 2+ plantar. Assessment/Plan Assessment/Plan ASSESSMENT: This is a 79-year-old female with: 1. Abdominal pain. 2. Congestive heart failure. 3. Right lower lobe pneumonia. 4. Atrial fibrillation with rapid ventricular rate 5. Coronary artery disease. 6. Diabetes type 2. 7. Hypertension. 8. Hypercholesterolemia. 9. Hypothyroidism. 10. Seizure disorder. 11. Cerebrovascular disease. 12. Left hemiparesis. 13. Subdural hematoma. 14. History of deep venous thrombosis. 15. Mitral and aortic valve biosynthetic prosthesis. 16. Anemia TREATMENT: 1. Abdominal pain/distention. Improved with laxatives. A General Surgery consultation has been obtained with Dr. Hirsch. A Gastroenterology consultation has been obtained with Dr. Abhishek Langford. We will follow recommendations of General Surgery and Gastroenterology. 2. Congestive heart failure. Cardiology consultation has been obtained with Dr. Barber Mack. The patient has been started empirically on intravenous Lasix. An echocardiogram is pending. 3. Right lower lobe pneumonia. A Pulmonary consultation has been obtained with Dr. Koko Gee. The patient has been started empirically on cefepime and vancomycin. We will follow recommendations of Pulmonary. 4. Atrial fibrillation. Admit to ICU for diltiazem drip. As above, a Cardiology consultation has been obtained with Dr. Barber Mack. 5. Coronary artery disease. The patient is status post coronary artery bypass graft. 6. Diabetes type 2. The patient is not on any antihyperglycemic medication at the [facility]. 7. Hypertension. Continue metoprolol as above. 8. Hypercholesteremia. Continue atorvastatin as above. 9. Hypothyroidism. Continue levothyroxine as above. 10. Seizure disorder. Continue carbamazepine as above. 11. Cerebrovascular disease. 12. Left hemiparesis. 13. History of subdural hematoma. 14. History of deep venous thrombosis. 15. History of mitral and aortic valve bioprosthesis replacement. 16. Anemia workup per GI 17. Discharge planning: [facility] Bryan Jackson MD Sep 28, 2019 16:27
--- NOTE | 2019-09-28 16:36 | Cardiology Progress Note ---
Assessment/Plan Assessment/Plan 1. Atrial fibrillation with rapid ventricular response, paroxysmal in nature. 2. Large left atrial presumed calcified thrombus, present since 2018. 3. Coronary artery disease, status post coronary artery bypass grafting. 4. Prosthetic mitral and aortic valve with normal function at the present time. 5. History of prosthetic valve endocarditis. 6. Fecal impaction. 7. Colonic distention secondary to fecal impaction. 8. Diabetes mellitus. 9. History of hypertension. 10. History of subdural hematoma. 11. Dementia. bb po dose for now adn prn iv on xarelto for stroke prevention tele reviewed ekg noted midl abn trop deu to demand po amiod bid leidy of 09/26 pm Subjective Cardiovascular: Denies: chest pain, lightheadedness, palpitations Gastrointestinal/Abdominal: Denies: abdominal pain Genitourinary: Denies: burning Subjective had a large bm Objective Last 24 Hour Vital Signs Date Time Temp Pulse Resp B/P (MAP) Pulse Ox O2 Delivery O2 Flow Rate FiO2 09/28/19 14:00 83 20 127/49 (75) 99 09/28/19 14:00 125 09/28/19 13:00 75 20 142/54 (83) 100 09/28/19 12:00 Nasal Cannula 2.0 09/28/19 12:00 97.4 92 19 134/55 (81) 100 09/28/19 11:00 77 18 144/59 (87) 100 09/28/19 10:00 121 19 132/74 (93) 100 09/28/19 09:00 123 22 119/81 (94) 100 09/28/19 08:45 124 134/81 09/28/19 08:00 125 09/28/19 08:00 97.5 124 17 134/81 (98) 100 09/28/19 08:00 Nasal Cannula 2.0 09/28/19 07:00 106 17 113/81 (92) 100 09/28/19 06:00 100 17 110/81 (91) 100 09/28/19 05:00 84 18 112/73 (86) 100 09/28/19 04:00 Nasal Cannula 2.0 09/28/19 04:00 98.2 90 19 135/75 (95) 100 09/28/19 04:00 106 09/28/19 03:00 83 19 120/68 (85) 100 09/28/19 02:00 86 20 110/62 (78) 99 09/28/19 01:00 86 20 110/62 (78) 99 09/28/19 00:00 106 09/28/19 00:00 Nasal Cannula 2.0 09/28/19 00:00 97.8 78 19 106/61 (76) 99 09/27/19 23:00 105 20 138/93 (108) 97 09/27/19 22:00 123 20 125/74 (91) 99 09/27/19 21:00 118 22 141/85 (103) 100 09/27/19 20:55 125 135/75 09/27/19 20:00 98.2 106 22 131/75 (93) 100 09/27/19 20:00 106 09/27/19 20:00 Nasal Cannula 2.0 09/27/19 19:14 93 18 99 Nasal Cannula 2.0 28 09/27/19 19:14 99 Nasal Cannula 2.0 28 09/27/19 19:00 91 21 142/68 (92) 100 09/27/19 18:10 126 146/80 09/27/19 18:00 125 21 146/80 (102) 98 09/27/19 17:00 123 22 153/79 (103) 100 General Appearance: no apparent distress, alert Neck: supple Cardiovascular: irregularly irregular Respiratory/Chest: lungs clear Abdomen: normal bowel sounds, non tender, soft Extremities: no swelling Intake and Output 09/27/19 09/28/19 19:00 07:00 Intake Total 530.000 ml 395.000 ml Output Total 650 ml 840 ml Balance -120.000 ml -445.000 ml Intake Oral 120 ml IV Total 530.000 ml 275.000 ml Output Urine Total 650 ml 840 ml Laboratory Tests Test 09/28/19 05:40 09/28/19 12:00 White Blood Count 6.2 K/UL (4.8-10.8) Red Blood Count 3.42 M/UL (4.20-5.40) L Hemoglobin 10.1 G/DL (12.0-16.0) L Hematocrit 29.1 % (37.0-47.0) L Mean Corpuscular Volume 85 FL (80-99) Mean Corpuscular Hemoglobin 29.4 PG (27.0-31.0) Mean Corpuscular Hemoglobin Concent 34.5 G/DL (32.0-36.0) Red Cell Distribution Width 11.9 % (11.6-14.8) Platelet Count 218 K/UL (150-450) Mean Platelet Volume 6.0 FL (6.5-10.1) L Neutrophils (%) (Auto) 71.4 % (45.0-75.0) Lymphocytes (%) (Auto) 16.4 % (20.0-45.0) L Monocytes (%) (Auto) 10.0 % (1.0-10.0) Eosinophils (%) (Auto) 1.9 % (0.0-3.0) Basophils (%) (Auto) 0.2 % (0.0-2.0) Troponin I 0.366 ng/mL (0.000-0.056) Pro-B-Type Natriuretic Peptide 4009 pg/mL (0-125) H Vancomycin Level Trough 22.5 ug/mL (5.0-12.0) H Barber Mack MD Sep 28, 2019 16:36
--- NOTE | 2019-09-28 17:43 | General Progress Note ---
Assessment/Plan Assessment/Plan: Assessment/Plan Assessment/Plan: 1. Atrial fibrillation. 2. History of coronary artery disease. 3. Diabetes type 2. 4. DVT. 5. Hypertension. 6. Hypothyroidism. 7. Seizure disorder. 8. History of CVA. 9. History of subdural hematoma. 10. Parkinson's. 11. Hypercholesteremia. 12. Dementia. 13. Trigeminal neuralgia. 14. Anemia 15. stool impaction 16. fatty liver Recommendations cont linzess ,colace, miralax had BM in ICU for tachycardia neg stool ob neg hepatitis panel kub reviewed fu labs Subjective Allergies: Coded Allergies: INFLIXIMAB (Verified Allergy, Intermediate, 04/20/16) NIACIN (Verified Allergy, Intermediate, 04/20/16) SULFA (SULFONAMIDE ANTIBIOTICS) (Verified Allergy, Intermediate, 04/20/16) Uncoded Allergies: SULFONAMIDES (Allergy, Unknown, 04/28/18) Subjective above noted d/w RN tolerating PO no abd complaints Objective Last 24 Hour Vital Signs Date Time Temp Pulse Resp B/P (MAP) Pulse Ox O2 Delivery O2 Flow Rate FiO2 09/28/19 16:00 86 09/28/19 16:00 Nasal Cannula 2.0 09/28/19 14:00 83 20 127/49 (75) 99 09/28/19 14:00 125 09/28/19 13:00 75 20 142/54 (83) 100 09/28/19 12:00 Nasal Cannula 2.0 09/28/19 12:00 97.4 92 19 134/55 (81) 100 09/28/19 11:00 77 18 144/59 (87) 100 09/28/19 10:00 121 19 132/74 (93) 100 09/28/19 09:00 123 22 119/81 (94) 100 09/28/19 08:45 124 134/81 09/28/19 08:00 125 09/28/19 08:00 97.5 124 17 134/81 (98) 100 09/28/19 08:00 Nasal Cannula 2.0 09/28/19 07:00 106 17 113/81 (92) 100 09/28/19 06:00 100 17 110/81 (91) 100 09/28/19 05:00 84 18 112/73 (86) 100 09/28/19 04:00 Nasal Cannula 2.0 09/28/19 04:00 98.2 90 19 135/75 (95) 100 09/28/19 04:00 106 09/28/19 03:00 83 19 120/68 (85) 100 09/28/19 02:00 86 20 110/62 (78) 99 09/28/19 01:00 86 20 110/62 (78) 99 09/28/19 00:00 106 09/28/19 00:00 Nasal Cannula 2.0 09/28/19 00:00 97.8 78 19 106/61 (76) 99 09/27/19 23:00 105 20 138/93 (108) 97 09/27/19 22:00 123 20 125/74 (91) 99 09/27/19 21:00 118 22 141/85 (103) 100 09/27/19 20:55 125 135/75 09/27/19 20:00 98.2 106 22 131/75 (93) 100 09/27/19 20:00 106 09/27/19 20:00 Nasal Cannula 2.0 09/27/19 19:14 93 18 99 Nasal Cannula 2.0 28 09/27/19 19:14 99 Nasal Cannula 2.0 28 09/27/19 19:00 91 21 142/68 (92) 100 09/27/19 18:10 126 146/80 09/27/19 18:00 125 21 146/80 (102) 98 Intake and Output 09/27/19 09/28/19 19:00 07:00 Intake Total 530.000 ml 395.000 ml Output Total 650 ml 840 ml Balance -120.000 ml -445.000 ml Intake Oral 120 ml IV Total 530.000 ml 275.000 ml Output Urine Total 650 ml 840 ml Laboratory Tests 09/28/19 05:40: White Blood Count 6.2, Red Blood Count 3.42L, Hemoglobin 10.1L, Hematocrit 29.1L , Mean Corpuscular Volume 85, Mean Corpuscular Hemoglobin 29.4, Mean Corpuscular Hemoglobin Concent 34.5, Red Cell Distribution Width 11.9, Platelet Count 218, Mean Platelet Volume 6.0L, Neutrophils (%) (Auto) 71.4, Lymphocytes ( %) (Auto) 16.4L, Monocytes (%) (Auto) 10.0, Eosinophils (%) (Auto) 1.9, Basophils (%) (Auto) 0.2, Troponin I 0.366H, Pro-B-Type Natriuretic Peptide 4009H 09/28/19 12:00: Vancomycin Level Trough 22.5H Height (Feet): 5 Height (Inches): 2.00 Weight (Pounds): 114 Objective Elderly WW NCAT supple CTA tachy abd soft NT ND no edema Jaguar Lockhart MD Sep 28, 2019 17:43
[2019-09-28] MEDS: Vancomycin 500mg/D5W 110ml IVPB SCH ×2 (18:00)
[2019-09-28] MEDS: Miralax 17gm pkt ORAL SCH (21:01)
[2019-09-29] VITALS (18 sets, daily range): BP systolic 108–158; BP diastolic 35–77
[2019-09-29] MEDS: Vancomycin 500mg/D5W 110ml IVPB SCH ×4 (04:43→18:13)
[2019-09-29 04:52] LABS: BASOPHILS % (AUTO) 0.3 % (0.0-2.0); EOSINOPHILS % (AUTO) 1.5 % (0.0-3.0); HEMATOCRIT 27.3 % (37.0-47.0); HEMOGLOBIN 9.6 G/DL (12.0-16.0); MEAN CORPUSCULAR VOLUME 85 FL (80-99); MONOCYTES % (AUTO) 8.9 % (1.0-10.0); NEUTROPHILS % (AUTO) 71.4 % (45.0-75.0); PLATELET COUNT 221 K/UL (150-450); RED CELL DISTRIBUTION WIDTH 12.1 % (11.6-14.8); WHITE BLOOD COUNT 6.3 K/UL (4.8-10.8)
[2019-09-29 05:24] LABS: ALANINE AMINOTRANSFERASE 8 U/L (12-78); ALBUMIN 2.4 G/DL (3.4-5.0); ALBUMIN/GLOBULIN RATIO 0.7 (1.0-2.7); ALKALINE PHOSPHATASE 43 U/L (46-116); ANION GAP 9 mmol/L (5-15); ASPARTATE AMINO TRANSFERASE 33 U/L (15-37); BILIRUBIN,TOTAL 0.4 MG/DL (0.2-1.0); BLOOD UREA NITROGEN 11 mg/dL (7-18); CALCIUM 8.6 MG/DL (8.5-10.1); CARBON DIOXIDE 26 MMOL/L (21-32); CHLORIDE 102 MMOL/L (98-107); CREATININE 0.7 MG/DL (0.55-1.30); PHOSPHORUS 3.6 MG/DL (2.5-4.9); POTASSIUM 3.5 MMOL/L (3.5-5.1); SODIUM 137 MMOL/L (136-145)
[2019-09-29] MEDS: Amiodarone 200mg tab ORAL SCH ×2 (08:38→20:55)
[2019-09-29] MEDS: Xarelto 15mg tab ORAL SCH (08:38)
[2019-09-29] MEDS: Levodopa/Carbidopa 25/100 tab ORAL SCH ×3 (08:38→18:13)
[2019-09-29] MEDS: Aspirin Baby 81mg ORAL SCH (08:38)
[2019-09-29] MEDS: Docusate 100mg cap ORAL SCH ×2 (08:38→18:13)
--- NOTE | 2019-09-29 09:07 | Pulmonolgy Critical Care Note ---
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 (10) Alzheimer's dementia Respiratory: monitor respiratory rate, adjust FIO2, CXR Cardiac: continue pressors, continue to monitor HR/BP Renal: F/U I&O, keep IV fluid, check electrolytes Infectious Disease: check cultures Gastrointestinal: continue feedings/current rate Endocrine: monitor blood sugar, continue sliding scale insulin Hematologic: transfuse if hgb<8.5 Neurologic: PRN Ativan, keep patient comfortable Affect: PRN ativan Prophylaxis: Protonix Disposition: keep in ICU Notes Reviewed: cardio, 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 with: nurses, consultants, manager case managementcommunications project manager - Objective Last 24 Hour Vital Signs Date Time Temp Pulse Resp B/P (MAP) Pulse Ox O2 Delivery O2 Flow Rate FiO2 09/29/19 08:38 105 141/52 09/29/19 06:00 62 19 141/52 (81) 99 09/29/19 05:00 61 19 158/57 (90) 100 09/29/19 04:00 Nasal Cannula 2.0 09/29/19 04:00 97.5 62 20 136/62 (86) 99 09/29/19 04:00 64 09/29/19 03:00 62 18 118/48 (71) 99 09/29/19 02:00 62 20 130/68 (88) 98 09/29/19 01:00 63 19 128/55 (79) 100 09/29/19 00:00 Nasal Cannula 2.0 09/29/19 00:00 62 09/29/19 00:00 97.8 63 19 140/58 (85) 100 09/28/19 23:00 63 21 132/58 (82) 100 09/28/19 22:00 89 21 126/65 (85) 100 09/28/19 21:02 100 110/68 09/28/19 21:00 105 20 118/82 (94) 100 09/28/19 20:00 106 09/28/19 20:00 97.6 96 21 110/68 (82) 100 09/28/19 20:00 Nasal Cannula 2.0 09/28/19 19:00 99 19 148/87 (107) 100 09/28/19 18:51 100 Nasal Cannula 2.0 28 09/28/19 18:51 100 20 100 Nasal Cannula 2.0 28 09/28/19 18:00 100 21 127/75 (92) 100 09/28/19 17:00 103 21 130/77 (94) 100 09/28/19 16:00 86 09/28/19 16:00 Nasal Cannula 2.0 09/28/19 16:00 97.0 90 20 129/80 (96) 100 09/28/19 15:00 90 20 130/77 (94) 100 09/28/19 14:00 83 20 127/49 (75) 99 09/28/19 14:00 125 09/28/19 13:00 75 20 142/54 (83) 100 09/28/19 12:00 Nasal Cannula 2.0 09/28/19 12:00 97.4 92 19 134/55 (81) 100 09/28/19 11:00 77 18 144/59 (87) 100 09/28/19 10:00 121 19 132/74 (93) 100 Status: awake Condition: critical HEENT: atraumatic Heart: HR/BP stable Abdomen: soft Extremities: no C/C/E Critical Care - Subjective FI02: 28 Sputum Amount: None I&O: Intake and Output 09/28/19 09/29/19 19:00 07:00 Intake Total 1260 ml 100 ml Output Total 211 ml 500 ml Balance 1049 ml -400 ml Intake Oral 1260 ml 100 ml Output Urine Total 210 ml 500 ml Stool Total 1 ml # Voids 2 # Bowel Movements 1 4 Labs: Laboratory Tests Test 09/28/19 12:00 09/29/19 03:50 Vancomycin Level Trough 22.5 ug/mL (5.0-12.0) H White Blood Count 6.3 K/UL (4.8-10.8) Red Blood Count 3.20 M/UL (4.20-5.40) L Hemoglobin 9.6 G/DL (12.0-16.0) L Hematocrit 27.3 % (37.0-47.0) L Mean Corpuscular Volume 85 FL (80-99) Mean Corpuscular Hemoglobin 30.0 PG (27.0-31.0) Mean Corpuscular Hemoglobin Concent 35.2 G/DL (32.0-36.0) Red Cell Distribution Width 12.1 % (11.6-14.8) Platelet Count 221 K/UL (150-450) Mean Platelet Volume 5.6 FL (6.5-10.1) L Neutrophils (%) (Auto) 71.4 % (45.0-75.0) Lymphocytes (%) (Auto) 18.0 % (20.0-45.0) L Monocytes (%) (Auto) 8.9 % (1.0-10.0) Eosinophils (%) (Auto) 1.5 % (0.0-3.0) Basophils (%) (Auto) 0.3 % (0.0-2.0) Erythrocyte Sedimentation Rate 50 MM/HR (0-30) H Sodium Level 137 MMOL/L (136-145) Potassium Level 3.5 MMOL/L (3.5-5.1) Chloride Level 102 MMOL/L (98-107) Carbon Dioxide Level 26 MMOL/L (21-32) Anion Gap 9 mmol/L (5-15) Blood Urea Nitrogen 11 mg/dL (7-18) Creatinine 0.7 MG/DL (0.55-1.30) Estimat Glomerular Filtration Rate > 60 mL/min (>60) Glucose Level 86 MG/DL (74-106) Calcium Level 8.6 MG/DL (8.5-10.1) Phosphorus Level 3.6 MG/DL (2.5-4.9) Magnesium Level 1.5 MG/DL (1.8-2.4) L Total Bilirubin 0.4 MG/DL (0.2-1.0) Aspartate Amino Transf (AST/SGOT) 33 U/L (15-37) Alanine Aminotransferase (ALT/SGPT) 8 U/L (12-78) L Alkaline Phosphatase 43 U/L (46-116) L C-Reactive Protein, Quantitative 2.8 mg/dL (0.00-0.90) H Total Protein 5.9 G/DL (6.4-8.2) L Albumin 2.4 G/DL (3.4-5.0) L Globulin 3.5 g/dL Albumin/Globulin Ratio 0.7 (1.0-2.7) L Koko Gee MD Sep 29, 2019 09:07
--- NOTE | 2019-09-29 13:58 | Internal Med Progress Note ---
Subjective Date of Service: Sep 29, 2019 Physician Name Jackson,Bryan Attending Physician Carlos Junior MD Current Medications Medications (Trade) Dose Ordered Sig/Zee Route PRN Reason Start Time Stop Time Status Last Admin Dose Admin Acetaminophen (Tylenol) 650 mg Q4H PRN ORAL T>100.4 09/26/19 10:00 10/21/19 09:59 Amiodarone HCl (Cordarone) 200 mg EVERY 12 HOURS ORAL 09/27/19 19:00 12/26/19 18:59 09/29/19 08:38 Aspirin (ASA) 81 mg DAILY ORAL 09/27/19 09:00 11/06/19 09:14 09/29/19 08:38 Atorvastatin Calcium (Lipitor) 10 mg BEDTIME ORAL 09/26/19 21:00 12/20/19 20:59 09/28/19 21:02 Carbidopa/Levodopa (Sinemet 25/100) 1 tab THREE TIMES A DAY ORAL 09/26/19 13:00 10/21/19 17:59 09/29/19 13:07 Docusate Sodium (Colace) 100 mg TWICE A DAY ORAL 09/26/19 18:00 10/22/19 17:59 09/29/19 08:38 Levothyroxine Sodium (Synthroid) 100 mcg ACBREAKFAST ORAL 09/27/19 06:30 10/22/19 06:29 09/29/19 05:45 Linaclotide (Linzess) 290 mcg BEFORE BREAKFAST ORAL 09/27/19 06:30 12/24/19 06:29 09/29/19 05:46 Magnesium Sulfate 100 ml @ 100 mls/hr Q1H IVPB 09/29/19 12:45 09/29/19 14:44 09/29/19 13:07 Metoprolol Tartrate (Lopressor) 2.5 mg Q6H PRN IVP HR > 120 bpm 09/27/19 08:45 12/26/19 08:44 09/27/19 18:10 Metoprolol Tartrate (Lopressor) 37.5 mg EVERY 12 HOURS ORAL 09/28/19 21:00 12/27/19 20:59 09/29/19 08:38 Nitroglycerin (Ntg) 0.4 mg Q5M PRN SL Prn Chest Pain 09/26/19 09:30 10/21/19 16:44 Ondansetron HCl (Zofran) 4 mg Q6H PRN IVP Nausea & Vomiting 09/26/19 10:00 10/21/19 09:59 Polyethylene Glycol (Miralax) 17 gm BEDTIME ORAL 09/26/19 21:00 10/22/19 20:59 09/28/19 21:01 Polyethylene Glycol (Miralax) 17 gm DAILYPRN PRN ORAL Constipation 09/26/19 10:00 10/21/19 09:59 09/28/19 11:35 Promethazine HCl/ Codeine (Phenergan with Codeine) 5 ml Q4H PRN ORAL For Cough 09/26/19 10:00 10/21/19 09:59 Rivaroxaban (Xarelto) 15 mg DAILY ORAL 09/27/19 09:00 12/26/19 08:59 09/29/19 08:38 Vancomycin HCl (Vanco rx to dose) 1 ea DAILY PRN MISC Per rx protocol 09/26/19 10:00 10/26/19 09:59 Vancomycin HCl 500 mg/Dextrose 110 ml @ 110 mls/hr Q12HR@0500,1700 IVPB 09/28/19 17:00 10/03/19 16:59 09/29/19 04:43 Allergies: Coded Allergies: INFLIXIMAB (Verified Allergy, Intermediate, 04/20/16) NIACIN (Verified Allergy, Intermediate, 04/20/16) SULFA (SULFONAMIDE ANTIBIOTICS) (Verified Allergy, Intermediate, 04/20/16) Uncoded Allergies: SULFONAMIDES (Allergy, Unknown, 04/28/18) ROS Limited/Unobtainable: No Constitutional: Reports: no symptoms HEENT: Reports: no symptoms Cardiovascular: Reports: no symptoms Respiratory: Reports: no symptoms Gastrointestinal/Abdominal: Reports: no symptoms Genitourinary: Reports: no symptoms Neurologic/Psychiatric: Reports: no symptoms Subjective 79 YO F admitted with abdominal pain. Now atrial fibrillation with rapid ventricular rate. Cover for [facility] ICU Objective Last Vital Signs Date Time Temp Pulse Resp B/P (MAP) Pulse Ox O2 Delivery O2 Flow Rate FiO2 09/29/19 12:00 Nasal Cannula 2.0 09/29/19 11:00 56 19 126/48 (74) 99 09/29/19 08:00 97.7 09/28/19 18:51 28 Laboratory Tests Test 09/29/19 03:50 White Blood Count 6.3 K/UL (4.8-10.8) Red Blood Count 3.20 M/UL (4.20-5.40) L Hemoglobin 9.6 G/DL (12.0-16.0) L Hematocrit 27.3 % (37.0-47.0) L Mean Corpuscular Volume 85 FL (80-99) Mean Corpuscular Hemoglobin 30.0 PG (27.0-31.0) Mean Corpuscular Hemoglobin Concent 35.2 G/DL (32.0-36.0) Red Cell Distribution Width 12.1 % (11.6-14.8) Platelet Count 221 K/UL (150-450) Mean Platelet Volume 5.6 FL (6.5-10.1) L Neutrophils (%) (Auto) 71.4 % (45.0-75.0) Lymphocytes (%) (Auto) 18.0 % (20.0-45.0) L Monocytes (%) (Auto) 8.9 % (1.0-10.0) Eosinophils (%) (Auto) 1.5 % (0.0-3.0) Basophils (%) (Auto) 0.3 % (0.0-2.0) Erythrocyte Sedimentation Rate 50 MM/HR (0-30) H Sodium Level 137 MMOL/L (136-145) Potassium Level 3.5 MMOL/L (3.5-5.1) Chloride Level 102 MMOL/L (98-107) Carbon Dioxide Level 26 MMOL/L (21-32) Anion Gap 9 mmol/L (5-15) Blood Urea Nitrogen 11 mg/dL (7-18) Creatinine 0.7 MG/DL (0.55-1.30) Estimat Glomerular Filtration Rate > 60 mL/min (>60) Glucose Level 86 MG/DL (74-106) Calcium Level 8.6 MG/DL (8.5-10.1) Phosphorus Level 3.6 MG/DL (2.5-4.9) Magnesium Level 1.5 MG/DL (1.8-2.4) L Total Bilirubin 0.4 MG/DL (0.2-1.0) Aspartate Amino Transf (AST/SGOT) 33 U/L (15-37) Alanine Aminotransferase (ALT/SGPT) 8 U/L (12-78) L Alkaline Phosphatase 43 U/L (46-116) L C-Reactive Protein, Quantitative 2.8 mg/dL (0.00-0.90) H Total Protein 5.9 G/DL (6.4-8.2) L Albumin 2.4 G/DL (3.4-5.0) L Globulin 3.5 g/dL Albumin/Globulin Ratio 0.7 (1.0-2.7) L Intake and Output 09/28/19 09/29/19 19:00 07:00 Intake Total 1260 ml 100 ml Output Total 211 ml 530 ml Balance 1049 ml -430 ml Intake Oral 1260 ml 100 ml Output Urine Total 210 ml 530 ml Stool Total 1 ml # Voids 2 # Bowel Movements 1 4 Objective PHYSICAL EXAMINATION: GENERAL: The patient is a well-developed and well-nourished thin-appearing female, in no apparent distress. HEENT: Eyes, pupils are equal and responsive to light and accommodation. Extraocular movements are intact. NECK: Supple without lymphadenopathy. CHEST: Lungs are clear to auscultation bilaterally without wheezes or rales. CARDIOVASCULAR: Regular rate. S1 and S2 normal without murmurs, rubs, or gallops. ABDOMEN: Soft, distended with decreased bowel sounds. There is increased tympany. There is tenderness to palpation in all four quadrants. There is no rebound or guarding noted. EXTREMITIES: Negative for clubbing, cyanosis, or edema. RECTAL/GENITAL: Not performed. NEUROLOGIC: Cranial nerves II through XII are grossly intact without focal deficits. Motor strength is 5/5 bilaterally. Deep tendon reflexes are 2+ plantar. Assessment/Plan Assessment/Plan ASSESSMENT: This is a 79-year-old female with: 1. Abdominal pain. 2. Congestive heart failure. 3. Right lower lobe pneumonia. 4. Atrial fibrillation with rapid ventricular rate 5. Coronary artery disease. 6. Diabetes type 2. 7. Hypertension. 8. Hypercholesterolemia. 9. Hypothyroidism. 10. Seizure disorder. 11. Cerebrovascular disease. 12. Left hemiparesis. 13. Subdural hematoma. 14. History of deep venous thrombosis. 15. Mitral and aortic valve biosynthetic prosthesis. 16. Anemia TREATMENT: 1. Abdominal pain/distention. Improved with laxatives. A General Surgery consultation has been obtained with Dr. Hirsch. A Gastroenterology consultation has been obtained with Dr. Abhishek Langford. We will follow recommendations of General Surgery and Gastroenterology. 2. Congestive heart failure. Cardiology consultation has been obtained with Dr. Barber Mack. The patient has been started empirically on intravenous Lasix. An echocardiogram is pending. 3. Right lower lobe pneumonia. A Pulmonary consultation has been obtained with Dr. Koko Gee. The patient has been started empirically on cefepime and vancomycin. We will follow recommendations of Pulmonary. 4. Atrial fibrillation. Admit to ICU for diltiazem drip. As above, a Cardiology consultation has been obtained with Dr. Barber Mack. Continue metoprolol and amiodarone per cardiology 5. Coronary artery disease. The patient is status post coronary artery bypass graft. 6. Diabetes type 2. The patient is not on any antihyperglycemic medication at the residential. 7. Hypertension. Continue metoprolol as above. 8. Hypercholesteremia. Continue atorvastatin as above. 9. Hypothyroidism. Continue levothyroxine as above. 10. Seizure disorder. Continue carbamazepine as above. 11. Cerebrovascular disease. 12. Left hemiparesis. 13. History of subdural hematoma. 14. History of deep venous thrombosis. 15. History of mitral and aortic valve bioprosthesis replacement. 16. Anemia workup per GI 17. Discharge planning: [facility] Bryan Jackson MD Sep 29, 2019 13:58
--- NOTE | 2019-09-29 14:35 | Cardiology Progress Note ---
Assessment/Plan Assessment/Plan 1. Atrial fibrillation with rapid ventricular response, paroxysmal in nature. now back in sinsu as of 09/28 2. Large left atrial presumed calcified thrombus, present since 2018. 3. Coronary artery disease, status post coronary artery bypass grafting. 4. Prosthetic mitral and aortic valve with normal function at the present time. 5. History of prosthetic valve endocarditis. 6. Fecal impaction. 7. Colonic distention secondary to fecal impaction. 8. Diabetes mellitus. 9. History of hypertension. 10. History of subdural hematoma. 11. Dementia. on amiod as if yest now in sinus as of this am will dc bb as borderline jinny and amiod will also cause potential jinny on xarelto for stroke prevention tele reviewed ekg noted midl abn trop due to demand po amiod bid leidy of 09/26 pm ok to tele will have prn iv bb as back up for now just incase converts back to afib Subjective Cardiovascular: Denies: chest pain, lightheadedness, palpitations Respiratory: Denies: shortness of breath Gastrointestinal/Abdominal: Denies: abdominal pain Genitourinary: Denies: burning Objective Last 24 Hour Vital Signs Date Time Temp Pulse Resp B/P (MAP) Pulse Ox O2 Delivery O2 Flow Rate FiO2 09/29/19 14:00 64 20 123/46 (71) 100 09/29/19 13:00 55 18 126/49 (74) 99 09/29/19 12:00 97.7 55 17 132/49 (76) 100 09/29/19 12:00 56 09/29/19 12:00 Nasal Cannula 2.0 09/29/19 11:00 56 19 126/48 (74) 99 09/29/19 10:00 54 18 108/35 (59) 99 09/29/19 09:00 92 18 121/48 (72) 99 09/29/19 08:38 105 141/52 09/29/19 08:00 62 09/29/19 08:00 97.7 66 18 118/77 (91) 99 09/29/19 08:00 Nasal Cannula 2.0 09/29/19 07:00 62 17 136/57 (83) 99 09/29/19 06:00 62 19 141/52 (81) 99 09/29/19 05:00 61 19 158/57 (90) 100 09/29/19 04:00 Nasal Cannula 2.0 09/29/19 04:00 97.5 62 20 136/62 (86) 99 09/29/19 04:00 64 09/29/19 03:00 62 18 118/48 (71) 99 09/29/19 02:00 62 20 130/68 (88) 98 09/29/19 01:00 63 19 128/55 (79) 100 09/29/19 00:00 Nasal Cannula 2.0 09/29/19 00:00 62 09/29/19 00:00 97.8 63 19 140/58 (85) 100 09/28/19 23:00 63 21 132/58 (82) 100 09/28/19 22:00 89 21 126/65 (85) 100 09/28/19 21:02 100 110/68 09/28/19 21:00 105 20 118/82 (94) 100 09/28/19 20:00 106 09/28/19 20:00 97.6 96 21 110/68 (82) 100 09/28/19 20:00 Nasal Cannula 2.0 09/28/19 19:00 99 19 148/87 (107) 100 09/28/19 18:51 100 Nasal Cannula 2.0 28 09/28/19 18:51 100 20 100 Nasal Cannula 2.0 28 09/28/19 18:00 100 21 127/75 (92) 100 09/28/19 17:00 103 21 130/77 (94) 100 09/28/19 16:00 86 09/28/19 16:00 Nasal Cannula 2.0 09/28/19 16:00 97.0 90 20 129/80 (96) 100 09/28/19 15:00 90 20 130/77 (94) 100 General Appearance: alert Neck: supple Cardiovascular: normal rate Respiratory/Chest: lungs clear Abdomen: normal bowel sounds, non tender, soft Extremities: no swelling Intake and Output 09/28/19 09/29/19 19:00 07:00 Intake Total 1260 ml 100 ml Output Total 211 ml 530 ml Balance 1049 ml -430 ml Intake Oral 1260 ml 100 ml Output Urine Total 210 ml 530 ml Stool Total 1 ml # Voids 2 # Bowel Movements 1 4 Laboratory Tests Test 09/29/19 03:50 White Blood Count 6.3 K/UL (4.8-10.8) Red Blood Count 3.20 M/UL (4.20-5.40) L Hemoglobin 9.6 G/DL (12.0-16.0) L Hematocrit 27.3 % (37.0-47.0) L Mean Corpuscular Volume 85 FL (80-99) Mean Corpuscular Hemoglobin 30.0 PG (27.0-31.0) Mean Corpuscular Hemoglobin Concent 35.2 G/DL (32.0-36.0) Red Cell Distribution Width 12.1 % (11.6-14.8) Platelet Count 221 K/UL (150-450) Mean Platelet Volume 5.6 FL (6.5-10.1) L Neutrophils (%) (Auto) 71.4 % (45.0-75.0) Lymphocytes (%) (Auto) 18.0 % (20.0-45.0) L Monocytes (%) (Auto) 8.9 % (1.0-10.0) Eosinophils (%) (Auto) 1.5 % (0.0-3.0) Basophils (%) (Auto) 0.3 % (0.0-2.0) Erythrocyte Sedimentation Rate 50 MM/HR (0-30) H Sodium Level 137 MMOL/L (136-145) Potassium Level 3.5 MMOL/L (3.5-5.1) Chloride Level 102 MMOL/L (98-107) Carbon Dioxide Level 26 MMOL/L (21-32) Anion Gap 9 mmol/L (5-15) Blood Urea Nitrogen 11 mg/dL (7-18) Creatinine 0.7 MG/DL (0.55-1.30) Estimat Glomerular Filtration Rate > 60 mL/min (>60) Glucose Level 86 MG/DL (74-106) Calcium Level 8.6 MG/DL (8.5-10.1) Phosphorus Level 3.6 MG/DL (2.5-4.9) Magnesium Level 1.5 MG/DL (1.8-2.4) L Total Bilirubin 0.4 MG/DL (0.2-1.0) Aspartate Amino Transf (AST/SGOT) 33 U/L (15-37) Alanine Aminotransferase (ALT/SGPT) 8 U/L (12-78) L Alkaline Phosphatase 43 U/L (46-116) L C-Reactive Protein, Quantitative 2.8 mg/dL (0.00-0.90) H Total Protein 5.9 G/DL (6.4-8.2) L Albumin 2.4 G/DL (3.4-5.0) L Globulin 3.5 g/dL Albumin/Globulin Ratio 0.7 (1.0-2.7) L Barber Mack MD Sep 29, 2019 14:35
--- NOTE | 2019-09-29 14:48 | General Progress Note ---
Assessment/Plan Assessment/Plan: Assessment/Plan Assessment/Plan: 1. Atrial fibrillation. 2. History of coronary artery disease. 3. Diabetes type 2. 4. DVT. 5. Hypertension. 6. Hypothyroidism. 7. Seizure disorder. 8. History of CVA. 9. History of subdural hematoma. 10. Parkinson's. 11. Hypercholesteremia. 12. Dementia. 13. Trigeminal neuralgia. 14. Anemia 15. stool impaction 16. fatty liver Recommendations cont linzess ,colace, miralax had BM in ICU for tachycardia neg stool ob neg hepatitis panel kub reviewed fu labs Subjective Allergies: Coded Allergies: INFLIXIMAB (Verified Allergy, Intermediate, 04/20/16) NIACIN (Verified Allergy, Intermediate, 04/20/16) SULFA (SULFONAMIDE ANTIBIOTICS) (Verified Allergy, Intermediate, 04/20/16) Uncoded Allergies: SULFONAMIDES (Allergy, Unknown, 04/28/18) Subjective above noted d/w RN tolerating PO mild abdominal discomfort Objective Last 24 Hour Vital Signs Date Time Temp Pulse Resp B/P (MAP) Pulse Ox O2 Delivery O2 Flow Rate FiO2 09/29/19 14:00 64 20 123/46 (71) 100 09/29/19 13:00 55 18 126/49 (74) 99 09/29/19 12:00 97.7 55 17 132/49 (76) 100 09/29/19 12:00 56 09/29/19 12:00 Nasal Cannula 2.0 09/29/19 11:00 56 19 126/48 (74) 99 09/29/19 10:00 54 18 108/35 (59) 99 09/29/19 09:00 92 18 121/48 (72) 99 09/29/19 08:38 105 141/52 09/29/19 08:00 62 09/29/19 08:00 97.7 66 18 118/77 (91) 99 09/29/19 08:00 Nasal Cannula 2.0 09/29/19 07:00 62 17 136/57 (83) 99 09/29/19 06:00 62 19 141/52 (81) 99 09/29/19 05:00 61 19 158/57 (90) 100 09/29/19 04:00 Nasal Cannula 2.0 09/29/19 04:00 97.5 62 20 136/62 (86) 99 09/29/19 04:00 64 09/29/19 03:00 62 18 118/48 (71) 99 09/29/19 02:00 62 20 130/68 (88) 98 09/29/19 01:00 63 19 128/55 (79) 100 09/29/19 00:00 Nasal Cannula 2.0 09/29/19 00:00 62 09/29/19 00:00 97.8 63 19 140/58 (85) 100 09/28/19 23:00 63 21 132/58 (82) 100 09/28/19 22:00 89 21 126/65 (85) 100 09/28/19 21:02 100 110/68 09/28/19 21:00 105 20 118/82 (94) 100 09/28/19 20:00 106 09/28/19 20:00 97.6 96 21 110/68 (82) 100 09/28/19 20:00 Nasal Cannula 2.0 09/28/19 19:00 99 19 148/87 (107) 100 09/28/19 18:51 100 Nasal Cannula 2.0 28 09/28/19 18:51 100 20 100 Nasal Cannula 2.0 28 09/28/19 18:00 100 21 127/75 (92) 100 09/28/19 17:00 103 21 130/77 (94) 100 09/28/19 16:00 86 09/28/19 16:00 Nasal Cannula 2.0 09/28/19 16:00 97.0 90 20 129/80 (96) 100 09/28/19 15:00 90 20 130/77 (94) 100 Intake and Output 09/28/19 09/29/19 19:00 07:00 Intake Total 1260 ml 100 ml Output Total 211 ml 530 ml Balance 1049 ml -430 ml Intake Oral 1260 ml 100 ml Output Urine Total 210 ml 530 ml Stool Total 1 ml # Voids 2 # Bowel Movements 1 4 Laboratory Tests 09/29/19 03:50: White Blood Count 6.3, Red Blood Count 3.20L, Hemoglobin 9.6L, Hematocrit 27.3L , Mean Corpuscular Volume 85, Mean Corpuscular Hemoglobin 30.0, Mean Corpuscular Hemoglobin Concent 35.2, Red Cell Distribution Width 12.1, Platelet Count 221, Mean Platelet Volume 5.6L, Neutrophils (%) (Auto) 71.4, Lymphocytes ( %) (Auto) 18.0L, Monocytes (%) (Auto) 8.9, Eosinophils (%) (Auto) 1.5, Basophils (%) (Auto) 0.3, Erythrocyte Sedimentation Rate 50H, Sodium Level 137, Potassium Level 3.5, Chloride Level 102, Carbon Dioxide Level 26, Anion Gap 9, Blood Urea Nitrogen 11, Creatinine 0.7, Estimat Glomerular Filtration Rate > 60 , Glucose Level 86, Calcium Level 8.6, Phosphorus Level 3.6, Magnesium Level 1.5L, Total Bilirubin 0.4, Aspartate Amino Transf (AST/SGOT) 33, Alanine Aminotransferase (ALT/SGPT) 8L, Alkaline Phosphatase 43L, C-Reactive Protein, Quantitative 2.8H, Total Protein 5.9L, Albumin 2.4L, Globulin 3.5, Albumin/ Globulin Ratio 0.7L Height (Feet): 5 Height (Inches): 2.00 Weight (Pounds): 114 Objective Elderly WW NCAT supple CTA tachy abd soft NT ND no edema Jaguar Lockhart MD Sep 29, 2019 14:48
--- NOTE | 2019-09-29 17:17 | Surgery Progress Note ---
Surgery Progress Note Subjective Additional Comments no acute events Objective Last 24 Hour Vital Signs Date Time Temp Pulse Resp B/P (MAP) Pulse Ox O2 Delivery O2 Flow Rate FiO2 09/29/19 16:00 97.7 55 17 121/58 (79) 100 09/29/19 16:00 Nasal Cannula 2.0 09/29/19 16:00 54 09/29/19 15:00 54 19 124/45 (71) 100 09/29/19 14:00 64 20 123/46 (71) 100 09/29/19 13:00 55 18 126/49 (74) 99 09/29/19 12:00 97.5 55 17 132/49 (76) 100 09/29/19 12:00 56 09/29/19 12:00 Nasal Cannula 2.0 09/29/19 11:00 56 19 126/48 (74) 99 09/29/19 10:00 54 18 108/35 (59) 99 09/29/19 09:00 92 18 121/48 (72) 99 09/29/19 08:38 105 141/52 09/29/19 08:00 62 09/29/19 08:00 97.7 66 18 118/77 (91) 99 09/29/19 08:00 Nasal Cannula 2.0 09/29/19 07:00 62 17 136/57 (83) 99 09/29/19 06:00 62 19 141/52 (81) 99 09/29/19 05:00 61 19 158/57 (90) 100 09/29/19 04:00 Nasal Cannula 2.0 09/29/19 04:00 97.5 62 20 136/62 (86) 99 09/29/19 04:00 64 09/29/19 03:00 62 18 118/48 (71) 99 09/29/19 02:00 62 20 130/68 (88) 98 09/29/19 01:00 63 19 128/55 (79) 100 09/29/19 00:00 Nasal Cannula 2.0 09/29/19 00:00 62 09/29/19 00:00 97.8 63 19 140/58 (85) 100 09/28/19 23:00 63 21 132/58 (82) 100 09/28/19 22:00 89 21 126/65 (85) 100 09/28/19 21:02 100 110/68 09/28/19 21:00 105 20 118/82 (94) 100 09/28/19 20:00 106 09/28/19 20:00 97.6 96 21 110/68 (82) 100 09/28/19 20:00 Nasal Cannula 2.0 09/28/19 19:00 99 19 148/87 (107) 100 09/28/19 18:51 100 Nasal Cannula 2.0 28 09/28/19 18:51 100 20 100 Nasal Cannula 2.0 28 09/28/19 18:00 100 21 127/75 (92) 100 I&O Intake and Output 09/28/19 09/29/19 19:00 07:00 Intake Total 1260 ml 100 ml Output Total 211 ml 530 ml Balance 1049 ml -430 ml Intake Oral 1260 ml 100 ml Output Urine Total 210 ml 530 ml Stool Total 1 ml # Voids 2 # Bowel Movements 1 4 Dressing: other Wound: other Drains: other Cardiovascular: RSR Respiratory: decreased breath sounds Abdomen: soft, non-tender, present bowel sounds Extremities: no cyanosis Laboratory Tests Test 09/29/19 03:50 White Blood Count 6.3 K/UL (4.8-10.8) Red Blood Count 3.20 M/UL (4.20-5.40) L Hemoglobin 9.6 G/DL (12.0-16.0) L Hematocrit 27.3 % (37.0-47.0) L Mean Corpuscular Volume 85 FL (80-99) Mean Corpuscular Hemoglobin 30.0 PG (27.0-31.0) Mean Corpuscular Hemoglobin Concent 35.2 G/DL (32.0-36.0) Red Cell Distribution Width 12.1 % (11.6-14.8) Platelet Count 221 K/UL (150-450) Mean Platelet Volume 5.6 FL (6.5-10.1) L Neutrophils (%) (Auto) 71.4 % (45.0-75.0) Lymphocytes (%) (Auto) 18.0 % (20.0-45.0) L Monocytes (%) (Auto) 8.9 % (1.0-10.0) Eosinophils (%) (Auto) 1.5 % (0.0-3.0) Basophils (%) (Auto) 0.3 % (0.0-2.0) Erythrocyte Sedimentation Rate 50 MM/HR (0-30) H Sodium Level 137 MMOL/L (136-145) Potassium Level 3.5 MMOL/L (3.5-5.1) Chloride Level 102 MMOL/L (98-107) Carbon Dioxide Level 26 MMOL/L (21-32) Anion Gap 9 mmol/L (5-15) Blood Urea Nitrogen 11 mg/dL (7-18) Creatinine 0.7 MG/DL (0.55-1.30) Estimat Glomerular Filtration Rate > 60 mL/min (>60) Glucose Level 86 MG/DL (74-106) Calcium Level 8.6 MG/DL (8.5-10.1) Phosphorus Level 3.6 MG/DL (2.5-4.9) Magnesium Level 1.5 MG/DL (1.8-2.4) L Total Bilirubin 0.4 MG/DL (0.2-1.0) Aspartate Amino Transf (AST/SGOT) 33 U/L (15-37) Alanine Aminotransferase (ALT/SGPT) 8 U/L (12-78) L Alkaline Phosphatase 43 U/L (46-116) L C-Reactive Protein, Quantitative 2.8 mg/dL (0.00-0.90) H Total Protein 5.9 G/DL (6.4-8.2) L Albumin 2.4 G/DL (3.4-5.0) L Globulin 3.5 g/dL Albumin/Globulin Ratio 0.7 (1.0-2.7) L Assessment Post-op Diagnosis Abdominal pain Assessment & Plan: Asked by Dr. Jackson to evaluate for abdominal pain, r/o obstruction vs impaction 79-year-old female with abdominal pain generalized no nausea vomiting fever chills. Cough and shortness of breath. Labs noted. CT reviewed. KUB ordered for 09/22 and reviewed. Improving now since admission. Currently states she is hungry and wants food. Abdominal exam stable improved otherwise. Bowel sounds noted. distended gb stable as asymptomatic and likely from age No acute surgical intervention planned Okay for diet from surgical standpoint Bowel regimen stool softeners appreciate GI input Nutritional evaluation enema prn will follow with recommendations thank you for let me participate in patient's care improving overall abd pain resolved no n/v/v/f FINDINGS: Lung bases: Right lower lobe of the lung small consolidation and mild bibasilar lung septal thickening. Heart: Cardiomegaly. Mitral valve prosthesis. ABDOMEN: Liver: Fatty prominent liver. Gallbladder and bile ducts: Distended gallbladder. No calcified stones. No ductal dilation. Pancreas: Unremarkable. No mass. No ductal dilation. Spleen: Unremarkable. No splenomegaly. Adrenals: Unremarkable. No mass. Kidneys and ureters: Mild bilateral hydronephrosis, greater on the right, may be due to external compression of the distal ureters from the overly distended rectum. Stomach and bowel: Dilated rectosigmoid colon to 11.3 cm., large amount of stool in the remainder of the colon. Findings may be due to fecal impaction with obstipation. Differential includes Colonic ileus or distal colonic obstruction and early stercoral colitis. Trace free fluid. No free air or abscess. PELVIS: Appendix: No findings to suggest acute appendicitis. Bladder: See below. Reproductive: Uterus and urinary bladder anteriorly placed from the markedly distended rectum. ABDOMEN and PELVIS: Intraperitoneal space: See above. Bones/joints: Mild superior endplate compression of L5 likely chronic. Dynamic left hip screws. No dislocation. Soft tissues: Unremarkable. Vasculature: Atherosclerotic vascular disease. No abdominal aortic aneurysm. Lymph nodes: Unremarkable. No enlarged lymph nodes. IMPRESSION: 1. Dilated rectosigmoid colon to 11.3 cm., large amount of stool in the remainder of the colon. Mild thickening of the colonic wall. Findings may be due to fecal impaction with obstipation. Differential includes Colonic ileus or distal colonic obstruction and early stercoral colitis. Trace free fluid. No free air or abscess. 2. Mild bilateral hydronephrosis, greater on the right, may be due to external compression of the distal ureters from the overly distended rectum. 3. Right lower lobe of the lung small consolidation and mild bibasilar lung septal thickening. 4. Fatty prominent liver. Distended gallbladder. ICD Codes: R10.9 - Unspecified abdominal pain SNOMED: [id number] Qualifiers: Qualified Codes: R10.9 - Unspecified abdominal pain Noe Hirsch Sep 29, 2019 17:17
[2019-09-29] MEDS ORDERED: Promethazine/Codeine 5ml UD ORAL PRN (18:30)
[2019-09-29] MEDS ORDERED: Nitroglycerin Subl 0.4mg tab SL PRN (18:30)
[2019-09-29] MEDS ORDERED: Miralax 17gm pkt ORAL PRN (18:30)
[2019-09-29] MEDS ORDERED: Metoprolol Tartrate 5mg/5ml Inj IVP PRN (20:45)
[2019-09-29] MEDS: Miralax 17gm pkt ORAL SCH (20:56)
[2019-09-30] VITALS: BP 146/68
[2019-09-30 04:00] VITALS: BP 120/55
[2019-09-30] MEDS ORDERED: Vancomycin 500 MG in D5W 110 ML IVPB SCH (05:00)
[2019-09-30 05:05] LABS: ANION GAP 9 mmol/L (5-15); BLOOD UREA NITROGEN 12 mg/dL (7-18); CALCIUM 8.4 MG/DL (8.5-10.1); CARBON DIOXIDE 26 MMOL/L (21-32); CHLORIDE 104 MMOL/L (98-107); CREATININE 0.7 MG/DL (0.55-1.30); POTASSIUM 3.6 MMOL/L (3.5-5.1); SODIUM 139 MMOL/L (136-145)
[2019-09-30 05:13] LABS: BASOPHILS % (AUTO) 0.4 % (0.0-2.0); EOSINOPHILS % (AUTO) 2.6 % (0.0-3.0); HEMOGLOBIN 8.4 G/DL (12.0-16.0); LYMPHOCYTES % (AUTO) 18.6 % (20.0-45.0); MEAN CORPUSCULAR VOLUME 86 FL (80-99); MONOCYTES % (AUTO) 8.4 % (1.0-10.0); NEUTROPHILS % (AUTO) 70.1 % (45.0-75.0); PLATELET COUNT 220 K/UL (150-450); RED CELL DISTRIBUTION WIDTH 12.3 % (11.6-14.8); WHITE BLOOD COUNT 5.6 K/UL (4.8-10.8)
[2019-09-30] MEDS: Vancomycin 750mg/D5W 275ml IVPB SCH ×4 (06:12→18:09)
[2019-09-30 08:00] VITALS: BP 129/69
[2019-09-30] MEDS: Docusate 100mg cap ORAL SCH ×2 (09:09→09:20)
[2019-09-30] MEDS: Levodopa/Carbidopa 25/100 tab ORAL SCH ×3 (09:10→18:13)
[2019-09-30] MEDS: Aspirin Baby 81mg ORAL SCH (09:10)
[2019-09-30] MEDS: Xarelto 15mg tab ORAL SCH (09:10)
[2019-09-30] MEDS: Amiodarone 200mg tab ORAL SCH ×2 (09:10→21:00)
--- NOTE | 2019-09-30 10:39 | Pulmonology Progress Note ---
Assessment/Plan Problems: (1) Nosocomial pneumonia (2) SVT (supraventricular tachycardia) (3) Hypothyroidism (4) Alzheimer's dementia (5) Seizure disorder (6) Diabetes mellitus type II, controlled (7) HTN (hypertension) (8) Intractable abdominal pain (9) Parkinson disease (10) History of subdural hematoma Assessment/Plan Out of ICU, doing better check sputum, not collected yet. VRE negative, MRSA negative swallow study: she will be reevaluated ID evaluation KUB ordered for am echo reviewed EF of 65% sliding scale dvt prophylaxis Subjective ROS Limited/Unobtainable: No Interval Events: heart rate controlled Constitutional: Reports: no symptoms HEENT: Repors: no symptoms Allergies: Coded Allergies: INFLIXIMAB (Verified Allergy, Intermediate, 04/20/16) NIACIN (Verified Allergy, Intermediate, 04/20/16) SULFA (SULFONAMIDE ANTIBIOTICS) (Verified Allergy, Intermediate, 04/20/16) Uncoded Allergies: SULFONAMIDES (Allergy, Unknown, 04/28/18) Objective Last 24 Hour Vital Signs Date Time Temp Pulse Resp B/P (MAP) Pulse Ox O2 Delivery O2 Flow Rate FiO2 09/30/19 04:00 53 09/30/19 04:00 97.0 50 16 120/55 (76) 99 09/30/19 00:00 97.6 52 20 146/68 (94) 100 09/30/19 00:00 55 09/29/19 21:00 Nasal Cannula 2.0 09/29/19 20:00 97.9 58 16 146/59 (88) 100 09/29/19 20:00 60 09/29/19 16:00 97.7 55 17 121/58 (79) 100 09/29/19 16:00 Nasal Cannula 2.0 09/29/19 16:00 54 09/29/19 15:00 54 19 124/45 (71) 100 09/29/19 14:00 64 20 123/46 (71) 100 09/29/19 13:00 55 18 126/49 (74) 99 09/29/19 12:00 97.5 55 17 132/49 (76) 100 09/29/19 12:00 56 09/29/19 12:00 Nasal Cannula 2.0 09/29/19 11:00 56 19 126/48 (74) 99 Intake and Output 09/29/19 09/30/19 19:00 07:00 Intake Total 833.333 ml Output Total 410 ml Balance 423.333 ml Intake Oral 340 ml IV Total 493.333 ml Output Urine Total 410 ml # Voids 2 # Bowel Movements 3 2 Objective General Appearance: WD/WN HEENT: normocephalic, atraumatic Respiratory/Chest: chest wall non-tender,rhonchi Breasts: no masses Cardiovascular: normal peripheral pulses Abdomen: normal bowel sounds, soft, non tender Genitourinary: normal external genitalia Extremities: no cyanosis Skin: no rash Laboratory Tests 09/30/19 03:30: White Blood Count 5.6, Red Blood Count 2.80L, Hemoglobin 8.4L, Hematocrit 24.0L , Mean Corpuscular Volume 86, Mean Corpuscular Hemoglobin 30.0, Mean Corpuscular Hemoglobin Concent 35.0, Red Cell Distribution Width 12.3, Platelet Count 220, Mean Platelet Volume 6.1L, Neutrophils (%) (Auto) 70.1, Lymphocytes ( %) (Auto) 18.6L, Monocytes (%) (Auto) 8.4, Eosinophils (%) (Auto) 2.6, Basophils (%) (Auto) 0.4, Sodium Level 139, Potassium Level 3.6, Chloride Level 104, Carbon Dioxide Level 26, Anion Gap 9, Blood Urea Nitrogen 12, Creatinine 0.7, Estimat Glomerular Filtration Rate > 60, Glucose Level 96, Calcium Level 8.4L, Vancomycin Level Trough 13.9H Current Medications Medications (Trade) Dose Ordered Sig/Zee Route PRN Reason Start Time Stop Time Status Last Admin Dose Admin Acetaminophen (Tylenol) 650 mg Q4H PRN ORAL T>100.4 09/29/19 18:30 10/21/19 18:29 Amiodarone HCl (Cordarone) 200 mg EVERY 12 HOURS ORAL 09/29/19 21:00 12/26/19 18:59 09/30/19 09:10 Aspirin (ASA) 81 mg DAILY ORAL 09/30/19 09:00 11/06/19 09:14 09/30/19 09:10 Atorvastatin Calcium (Lipitor) 10 mg BEDTIME ORAL 09/29/19 21:00 12/20/19 20:59 09/29/19 20:56 Carbidopa/Levodopa (Sinemet 25/100) 1 tab THREE TIMES A DAY ORAL 09/30/19 09:00 10/21/19 17:59 09/30/19 09:10 Docusate Sodium (Colace) 100 mg TWICE A DAY ORAL 09/30/19 09:00 10/22/19 17:59 Levothyroxine Sodium (Synthroid) 100 mcg ACBREAKFAST ORAL 09/30/19 06:30 10/22/19 06:29 09/30/19 06:11 Linaclotide (Linzess) 290 mcg BEFORE BREAKFAST ORAL 09/30/19 06:30 12/24/19 06:29 09/30/19 06:11 Metoprolol Tartrate (Lopressor) 2.5 mg Q6H PRN IVP HR > 120 bpm 09/29/19 20:45 12/26/19 08:44 Nitroglycerin (Ntg) 0.4 mg Q5M PRN SL Prn Chest Pain 09/29/19 18:30 10/21/19 16:44 Ondansetron HCl (Zofran) 4 mg Q6H PRN IVP Nausea & Vomiting 09/29/19 18:30 10/21/19 18:29 Polyethylene Glycol (Miralax) 17 gm BEDTIME ORAL 09/29/19 21:00 10/22/19 20:59 Polyethylene Glycol (Miralax) 17 gm DAILYPRN PRN ORAL Constipation 09/29/19 18:30 10/29/19 18:29 Promethazine HCl/ Codeine (Phenergan with Codeine) 5 ml Q4H PRN ORAL For Cough 09/29/19 18:30 10/21/19 18:29 Rivaroxaban (Xarelto) 15 mg DAILY ORAL 09/30/19 09:00 12/26/19 08:59 09/30/19 09:10 Vancomycin HCl (Vanco rx to dose) 1 ea DAILY PRN MISC Per rx protocol 09/30/19 09:00 10/26/19 09:59 Vancomycin HCl 750 mg/Dextrose 275 ml @ 183.333 mls/hr Q12H IVPB 09/30/19 06:00 10/05/19 05:59 09/30/19 06:12 Koko Gee MD Sep 30, 2019 10:39
--- NOTE | 2019-09-30 10:57 | General Progress Note ---
Assessment/Plan Assessment/Plan: 1. Atrial fibrillation. 2. History of coronary artery disease. 3. Diabetes type 2. 4. DVT. 5. Hypertension. 6. Hypothyroidism. 7. Seizure disorder. 8. History of CVA. 9. History of subdural hematoma. 10. Parkinson's. 11. Hypercholesteremia. 12. Dementia. 13. Trigeminal neuralgia. 14. Anemia 15. stool impaction 16. fatty liver cont linzess. dc all other laxatives given loose stools had BM neg stool obx1 neg hepatitis panel kub reviewed fu labs drop in H&H without active bleeding repeat CBC and stool ob Subjective Allergies: Coded Allergies: INFLIXIMAB (Verified Allergy, Intermediate, 04/20/16) NIACIN (Verified Allergy, Intermediate, 04/20/16) SULFA (SULFONAMIDE ANTIBIOTICS) (Verified Allergy, Intermediate, 04/20/16) Uncoded Allergies: SULFONAMIDES (Allergy, Unknown, 04/28/18) Objective Last 24 Hour Vital Signs Date Time Temp Pulse Resp B/P (MAP) Pulse Ox O2 Delivery O2 Flow Rate FiO2 09/30/19 04:00 53 09/30/19 04:00 97.0 50 16 120/55 (76) 99 09/30/19 00:00 97.6 52 20 146/68 (94) 100 09/30/19 00:00 55 09/29/19 21:00 Nasal Cannula 2.0 09/29/19 20:00 97.9 58 16 146/59 (88) 100 09/29/19 20:00 60 09/29/19 16:00 97.7 55 17 121/58 (79) 100 09/29/19 16:00 Nasal Cannula 2.0 09/29/19 16:00 54 09/29/19 15:00 54 19 124/45 (71) 100 09/29/19 14:00 64 20 123/46 (71) 100 09/29/19 13:00 55 18 126/49 (74) 99 09/29/19 12:00 97.5 55 17 132/49 (76) 100 09/29/19 12:00 56 09/29/19 12:00 Nasal Cannula 2.0 09/29/19 11:00 56 19 126/48 (74) 99 Intake and Output 09/29/19 09/30/19 19:00 07:00 Intake Total 833.333 ml Output Total 410 ml Balance 423.333 ml Intake Oral 340 ml IV Total 493.333 ml Output Urine Total 410 ml # Voids 2 # Bowel Movements 3 2 Laboratory Tests 09/30/19 03:30: White Blood Count 5.6, Red Blood Count 2.80L, Hemoglobin 8.4L, Hematocrit 24.0L , Mean Corpuscular Volume 86, Mean Corpuscular Hemoglobin 30.0, Mean Corpuscular Hemoglobin Concent 35.0, Red Cell Distribution Width 12.3, Platelet Count 220, Mean Platelet Volume 6.1L, Neutrophils (%) (Auto) 70.1, Lymphocytes ( %) (Auto) 18.6L, Monocytes (%) (Auto) 8.4, Eosinophils (%) (Auto) 2.6, Basophils (%) (Auto) 0.4, Sodium Level 139, Potassium Level 3.6, Chloride Level 104, Carbon Dioxide Level 26, Anion Gap 9, Blood Urea Nitrogen 12, Creatinine 0.7, Estimat Glomerular Filtration Rate > 60, Glucose Level 96, Calcium Level 8.4L, Vancomycin Level Trough 13.9H Height (Feet): 5 Height (Inches): 2.00 Weight (Pounds): 114 General Appearance: alert EENT: normal ENT inspection Neck: supple Cardiovascular: normal rate Respiratory/Chest: decreased breath sounds Abdomen: normal bowel sounds, non tender, soft Extremities: non-tender Abhishek Langford MD Sep 30, 2019 10:57
[2019-09-30 12:00] VITALS: BP 131/62
--- NOTE | 2019-09-30 14:13 | Surgery Progress Note ---
Surgery Progress Note Subjective Additional Comments out of icu h/h noted diet adv pending mbss Objective Last 24 Hour Vital Signs Date Time Temp Pulse Resp B/P (MAP) Pulse Ox O2 Delivery O2 Flow Rate FiO2 09/30/19 12:00 98.4 59 19 131/62 (85) 100 09/30/19 09:00 Nasal Cannula 2.0 09/30/19 08:00 98.1 55 17 129/69 (89) 100 09/30/19 04:00 53 09/30/19 04:00 97.0 50 16 120/55 (76) 99 09/30/19 00:00 97.6 52 20 146/68 (94) 100 09/30/19 00:00 55 09/29/19 21:00 Nasal Cannula 2.0 09/29/19 20:00 97.9 58 16 146/59 (88) 100 09/29/19 20:00 60 09/29/19 16:00 97.7 55 17 121/58 (79) 100 09/29/19 16:00 Nasal Cannula 2.0 09/29/19 16:00 54 09/29/19 15:00 54 19 124/45 (71) 100 I&O Intake and Output 09/29/19 09/30/19 19:00 07:00 Intake Total 833.333 ml Output Total 410 ml Balance 423.333 ml Intake Oral 340 ml IV Total 493.333 ml Output Urine Total 410 ml # Voids 2 # Bowel Movements 3 2 Dressing: other Wound: other Drains: other Cardiovascular: RSR Respiratory: decreased breath sounds Abdomen: soft, non-tender, present bowel sounds Extremities: no tenderness, no cyanosis Laboratory Tests Test 09/30/19 03:30 White Blood Count 5.6 K/UL (4.8-10.8) Red Blood Count 2.80 M/UL (4.20-5.40) L Hemoglobin 8.4 G/DL (12.0-16.0) L Hematocrit 24.0 % (37.0-47.0) L Mean Corpuscular Volume 86 FL (80-99) Mean Corpuscular Hemoglobin 30.0 PG (27.0-31.0) Mean Corpuscular Hemoglobin Concent 35.0 G/DL (32.0-36.0) Red Cell Distribution Width 12.3 % (11.6-14.8) Platelet Count 220 K/UL (150-450) Mean Platelet Volume 6.1 FL (6.5-10.1) L Neutrophils (%) (Auto) 70.1 % (45.0-75.0) Lymphocytes (%) (Auto) 18.6 % (20.0-45.0) L Monocytes (%) (Auto) 8.4 % (1.0-10.0) Eosinophils (%) (Auto) 2.6 % (0.0-3.0) Basophils (%) (Auto) 0.4 % (0.0-2.0) Sodium Level 139 MMOL/L (136-145) Potassium Level 3.6 MMOL/L (3.5-5.1) Chloride Level 104 MMOL/L (98-107) Carbon Dioxide Level 26 MMOL/L (21-32) Anion Gap 9 mmol/L (5-15) Blood Urea Nitrogen 12 mg/dL (7-18) Creatinine 0.7 MG/DL (0.55-1.30) Estimat Glomerular Filtration Rate > 60 mL/min (>60) Glucose Level 96 MG/DL (74-106) Calcium Level 8.4 MG/DL (8.5-10.1) L Vancomycin Level Trough 13.9 ug/mL (5.0-12.0) H Assessment Post-op Diagnosis Abdominal pain Assessment & Plan: Asked by Dr. Jackson to evaluate for abdominal pain, r/o obstruction vs impaction 79-year-old female with abdominal pain generalized no nausea vomiting fever chills. Cough and shortness of breath. Labs noted. CT reviewed. KUB ordered for 09/22 and reviewed. Improving now since admission. Currently states she is hungry and wants food. Abdominal exam stable improved otherwise. Bowel sounds noted. distended gb stable as asymptomatic and likely from age No acute surgical intervention planned Okay for diet from surgical standpoint Bowel regimen stool softeners appreciate GI input Nutritional evaluation enema prn will follow with recommendations thank you for let me participate in patient's care improving overall abd pain resolved no n/v/v/f FINDINGS: Lung bases: Right lower lobe of the lung small consolidation and mild bibasilar lung septal thickening. Heart: Cardiomegaly. Mitral valve prosthesis. ABDOMEN: Liver: Fatty prominent liver. Gallbladder and bile ducts: Distended gallbladder. No calcified stones. No ductal dilation. Pancreas: Unremarkable. No mass. No ductal dilation. Spleen: Unremarkable. No splenomegaly. Adrenals: Unremarkable. No mass. Kidneys and ureters: Mild bilateral hydronephrosis, greater on the right, may be due to external compression of the distal ureters from the overly distended rectum. Stomach and bowel: Dilated rectosigmoid colon to 11.3 cm., large amount of stool in the remainder of the colon. Findings may be due to fecal impaction with obstipation. Differential includes Colonic ileus or distal colonic obstruction and early stercoral colitis. Trace free fluid. No free air or abscess. PELVIS: Appendix: No findings to suggest acute appendicitis. Bladder: See below. Reproductive: Uterus and urinary bladder anteriorly placed from the markedly distended rectum. ABDOMEN and PELVIS: Intraperitoneal space: See above. Bones/joints: Mild superior endplate compression of L5 likely chronic. Dynamic left hip screws. No dislocation. Soft tissues: Unremarkable. Vasculature: Atherosclerotic vascular disease. No abdominal aortic aneurysm. Lymph nodes: Unremarkable. No enlarged lymph nodes. IMPRESSION: 1. Dilated rectosigmoid colon to 11.3 cm., large amount of stool in the remainder of the colon. Mild thickening of the colonic wall. Findings may be due to fecal impaction with obstipation. Differential includes Colonic ileus or distal colonic obstruction and early stercoral colitis. Trace free fluid. No free air or abscess. 2. Mild bilateral hydronephrosis, greater on the right, may be due to external compression of the distal ureters from the overly distended rectum. 3. Right lower lobe of the lung small consolidation and mild bibasilar lung septal thickening. 4. Fatty prominent liver. Distended gallbladder. ICD Codes: R10.9 - Unspecified abdominal pain SNOMED: [id number] Qualifiers: Qualified Codes: R10.9 - Unspecified abdominal pain Noe Hirsch Sep 30, 2019 14:13
--- NOTE | 2019-09-30 14:48 | Consultation ---
History of Present Illness General Date patient seen: Sep 30, 2019 Time patient seen: 17:05 Chief Complaint: Abdominal Pain Referring physician: Dr Junior Reason for Consultation: SOB Present Illness HPI 79yo woman with PMH DM, HTN, Afib, GERD, CVA, dementia. Pt presented from SNF for cough, sob, vomiting and abd pain for one day. No fever or chills. Pt states that her main concern was her abdominal discomfort, which has now improved. Continues to have cough and states that she feels phlegm in her throat that she cannot get out. No sore throat, no congestion, no diarrhea. Unsure if anyone at her assisted is sick. PMH: DM, HTN, Afib, GERD, CVA, dementia FHx: noncontributory SHx: [facility] resident. denies cig, etoh, drug use. Allergies: Coded Allergies: INFLIXIMAB (Verified Allergy, Intermediate, 04/20/16) NIACIN (Verified Allergy, Intermediate, 04/20/16) SULFA (SULFONAMIDE ANTIBIOTICS) (Verified Allergy, Intermediate, 04/20/16) Uncoded Allergies: SULFONAMIDES (Allergy, Unknown, 04/28/18) Medication History Scheduled Aspirin* (Aspirin*), 81 MG ORAL DAILY, (Reported) Atorvastatin Calcium* (Lipitor*), 40 MG ORAL BEDTIME, (Reported) Carbamazepine* (Carbamazepine*), 200 MG ORAL BID, (Reported) Carbidopa/Levodopa 25-100 Mg* (Sinemet 25-100 Mg Tablet*), 1 TAB ORAL THREE TIMES A DAY, (Reported) Cranberry Fruit (Cranberry), 450 MG PO DAILY, (Reported) Digoxin* (Digoxin*), 250 MCG ORAL DAILY, (Reported) Docusate Sodium (Docusate Sodium), 100 MG ORAL TWICE A DAY, (Reported) Fenofibric Acid (Fenofibric Acid), 45 MG PO DAILY, (Reported) Fish Oil/Dha/Epa (Fish Oil 1,200 Mg Fish Oil), 2 EACH PO BID, (Reported) Folic Acid* (Folic Acid*), 1 MG ORAL DAILY, (Reported) Levothyroxine Sodium (Euthyrox), 100 MCG PO DAILY, (Reported) Linaclotide (Linzess), 290 MCG PO AC BREAKFAST, (Reported) Magnesium Oxide (Magnesium Oxide), 400 MG ORAL DAILY, (Reported) Metoprolol Tartrate* (Metoprolol Tartrate*), 12.5 MG ORAL BID, (Reported) Ranitidine Hcl* (Zantac*), 150 MG ORAL TWICE A DAY, (Reported) Sennosides (Senna), 17.2 MG PO QHS, (Reported) Simethicone* (Simethicone*), 80 MG ORAL TID, (Reported) Scheduled PRN Acetaminophen* (Tylenol Extra Strength*), 500 MG ORAL Q6H PRN for PAIN, PAIN SCALE 1 - 4, (Reported) Acetaminophen* (Acetaminophen 325MG Tablet*), 650 MG ORAL Q6H PRN for PAIN SCALE 5 - 7, TEMP > 100F, (Reported) Acetaminophen* (Acetaminophen Extra Strength*), 1,000 MG ORAL Q6H PRN for PAIN, PAIN SCALE 8 - 10, (Reported) Bisacodyl (Bisacodyl), 10 MG RC DAILY PRN for Constipation, (Reported) Glycerin* (Adult Glycerin*), 1 SUPP RECTAL DAILY PRN for Constipation, (Reported ) Guaifenesin/Dextromethorphan* (Guaifenesin Dm Syrup*), 5 ML ORAL Q4HR PRN for For Cough, (Reported) Magnesium Hydroxide* (Milk Of Magnesia*), 30 ML ORAL DAILY PRN for Constipation, (Reported) Nitroglycerin (Nitrostat), 0.4 MG SL Q5M X3 DOSES PRN for CHEST PAIN, (Reported) Polyethylene Glycol 3350* (Miralax*), 17 GM ORAL BID PRN for Constipation, ( Reported) Miscellaneous Medications Rivaroxaban (Xarelto), 15 MG ORAL, (Reported) Discontinued Medications Levothyroxine Sodium (Synthroid), 50 MCG ORAL DAILY, (Reported) Discontinued Reason: Medication dose changed Tramadol Hcl* (Ultram*), 50 MG ORAL Q6H PRN for Severe Pain (Pain Scale 7-10), ( Reported) Discontinued Reason: Therapy completed Patient History Healthcare decision maker Resuscitation status Full Code Advanced Directive on File No Review of Systems All Other Systems: negative except mentioned in HPI Physical Exam Last 24 Hour Vital Signs Date Time Temp Pulse Resp B/P (MAP) Pulse Ox O2 Delivery O2 Flow Rate FiO2 09/30/19 12:00 98.4 59 19 131/62 (85) 100 09/30/19 09:00 Nasal Cannula 2.0 09/30/19 08:00 98.1 55 17 129/69 (89) 100 09/30/19 04:00 53 09/30/19 04:00 97.0 50 16 120/55 (76) 99 09/30/19 00:00 97.6 52 20 146/68 (94) 100 09/30/19 00:00 55 09/29/19 21:00 Nasal Cannula 2.0 09/29/19 20:00 97.9 58 16 146/59 (88) 100 09/29/19 20:00 60 09/29/19 16:00 97.7 55 17 121/58 (79) 100 09/29/19 16:00 Nasal Cannula 2.0 09/29/19 16:00 54 09/29/19 15:00 54 19 124/45 (71) 100 Intake and Output 09/29/19 09/30/19 19:00 07:00 Intake Total 833.333 ml Output Total 410 ml Balance 423.333 ml Intake Oral 340 ml IV Total 493.333 ml Output Urine Total 410 ml # Voids 2 # Bowel Movements 3 2 Laboratory Tests Test 09/30/19 03:30 White Blood Count 5.6 K/UL (4.8-10.8) Red Blood Count 2.80 M/UL (4.20-5.40) L Hemoglobin 8.4 G/DL (12.0-16.0) L Hematocrit 24.0 % (37.0-47.0) L Mean Corpuscular Volume 86 FL (80-99) Mean Corpuscular Hemoglobin 30.0 PG (27.0-31.0) Mean Corpuscular Hemoglobin Concent 35.0 G/DL (32.0-36.0) Red Cell Distribution Width 12.3 % (11.6-14.8) Platelet Count 220 K/UL (150-450) Mean Platelet Volume 6.1 FL (6.5-10.1) L Neutrophils (%) (Auto) 70.1 % (45.0-75.0) Lymphocytes (%) (Auto) 18.6 % (20.0-45.0) L Monocytes (%) (Auto) 8.4 % (1.0-10.0) Eosinophils (%) (Auto) 2.6 % (0.0-3.0) Basophils (%) (Auto) 0.4 % (0.0-2.0) Sodium Level 139 MMOL/L (136-145) Potassium Level 3.6 MMOL/L (3.5-5.1) Chloride Level 104 MMOL/L (98-107) Carbon Dioxide Level 26 MMOL/L (21-32) Anion Gap 9 mmol/L (5-15) Blood Urea Nitrogen 12 mg/dL (7-18) Creatinine 0.7 MG/DL (0.55-1.30) Estimat Glomerular Filtration Rate > 60 mL/min (>60) Glucose Level 96 MG/DL (74-106) Calcium Level 8.4 MG/DL (8.5-10.1) L Vancomycin Level Trough 13.9 ug/mL (5.0-12.0) H Height (Feet): 5 Height (Inches): 2.00 Weight (Pounds): 114 Medications Current Medications Medications (Trade) Dose Ordered Sig/Zee Route PRN Reason Start Time Stop Time Status Last Admin Dose Admin Acetaminophen (Tylenol) 650 mg Q4H PRN ORAL T>100.4 09/29/19 18:30 10/21/19 18:29 Amiodarone HCl (Cordarone) 200 mg EVERY 12 HOURS ORAL 09/29/19 21:00 12/26/19 18:59 09/30/19 09:10 Aspirin (ASA) 81 mg DAILY ORAL 09/30/19 09:00 11/06/19 09:14 09/30/19 09:10 Atorvastatin Calcium (Lipitor) 10 mg BEDTIME ORAL 09/29/19 21:00 12/20/19 20:59 09/29/19 20:56 Carbidopa/Levodopa (Sinemet 25/100) 1 tab THREE TIMES A DAY ORAL 09/30/19 09:00 10/21/19 17:59 09/30/19 09:10 Levothyroxine Sodium (Synthroid) 100 mcg ACBREAKFAST ORAL 09/30/19 06:30 10/22/19 06:29 09/30/19 06:11 Linaclotide (Linzess) 288 mcg BEFORE BREAKFAST ORAL 10/01/19 06:30 12/30/19 06:29 Metoprolol Tartrate (Lopressor) 2.5 mg Q6H PRN IVP HR > 120 bpm 09/29/19 20:45 12/26/19 08:44 Nitroglycerin (Ntg) 0.4 mg Q5M PRN SL Prn Chest Pain 09/29/19 18:30 10/21/19 16:44 Ondansetron HCl (Zofran) 4 mg Q6H PRN IVP Nausea & Vomiting 09/29/19 18:30 10/21/19 18:29 Polyethylene Glycol (Miralax) 17 gm BEDTIME ORAL 09/29/19 21:00 10/22/19 20:59 Polyethylene Glycol (Miralax) 17 gm DAILYPRN PRN ORAL Constipation 09/29/19 18:30 10/29/19 18:29 Promethazine HCl/ Codeine (Phenergan with Codeine) 5 ml Q4H PRN ORAL For Cough 09/29/19 18:30 10/21/19 18:29 Rivaroxaban (Xarelto) 15 mg DAILY ORAL 09/30/19 09:00 12/26/19 08:59 09/30/19 09:10 Vancomycin HCl (Vanco rx to dose) 1 ea DAILY PRN MISC Per rx protocol 09/30/19 09:00 10/26/19 09:59 Vancomycin HCl 750 mg/Dextrose 275 ml @ 183.333 mls/hr Q12H IVPB 09/30/19 06:00 10/05/19 05:59 09/30/19 06:12 Objective Narrative Gen: NAD. calm. frail thin elderly woman HEENT: anicteric sclera. MMM. no cervical LAD. no sinsu tenderness. CV: RRR. no rubs or gallop. Resp: RRR. rhonchi. no wheezes or crackles. unlabored. Abd: normoactive Bs+. Soft. slightly distended. no rebound. no guarding Neuro: Alert. follows commands. answer questions appropriately. Psych: nonlabile. affect is mood congruent. Skin: warm. dry. Assessment/Plan Assessment/Plan: 79yo woman with PMH DM, HTN, Afib, GERD, CVA, dementia. Pt presented from SNF for cough, sob, vomiting and abd pain for one day. No fever or chills. Afebrile 2L NC Mild leukocytosis RLL pneumonia Flu swab negative 09/20 CXR: Mild interstitial prominence and tiny left pleural effusion may be mild CHF. 09/20 CT A/P: Dilated rectosigmoid colon to 11.3 cm., large amount of stool in the remainder of the colon. Mild thickening of the colonic wall. Findings may be due to fecal impaction with obstipation. Differential includes Colonic ileus or distal colonic obstruction and early stercoral colitis. Trace free fluid. No free air or abscess. Mild bilateral hydronephrosis, greater on the right, may be due to external compression of the distal ureters from the overly distended rectum. Right lower lobe of the lung small consolidation and mild bibasilar lung septal thickening. Fatty prominent liver. Distended gallbladder. 09/27 CXR: Similar trace left pleural effusion. Interstitial opacities throughout the lungs, most prominent at the left lung base may represent chronic interstitial lung changes with possible superimposed infectious/inflammatory process, stable compared to prior exam. GI symptoms--vomiting, pain KUB: moderate to severe fecal retention Unlikely UTI UA negative r/o bacteremia BCx: NG NH resident Alzheimer's dementia GERD Afib DM HTN CVA DVT Subdural hematoma MV/AV bioprosthesis L hemiparesis Seizure disorder Hypothyroidism Plan: Vanc #10 Sp Cefepime 09/20-09/27 monitor temp and CBC r/o COVID 19--GI symptoms, lymphopenia, NH resident, pneumonia are all concerning isolation precaution monitor resp status [place] RN and cante[facility] attendant Marbin Mac MD Sep 30, 2019 14:48
[2019-09-30 16:00] VITALS: BP 147/55
--- NOTE | 2019-09-30 18:22 | Internal Med Progress Note ---
Subjective Date of Service: Sep 30, 2019 Physician Name Bryan Jackson Attending Physician Carlos Junior MD Current Medications Medications (Trade) Dose Ordered Sig/Zee Route PRN Reason Start Time Stop Time Status Last Admin Dose Admin Acetaminophen (Tylenol) 650 mg Q4H PRN ORAL T>100.4 09/29/19 18:30 10/21/19 18:29 Amiodarone HCl (Cordarone) 200 mg EVERY 12 HOURS ORAL 09/29/19 21:00 12/26/19 18:59 09/30/19 09:10 Aspirin (ASA) 81 mg DAILY ORAL 09/30/19 09:00 11/06/19 09:14 09/30/19 09:10 Atorvastatin Calcium (Lipitor) 10 mg BEDTIME ORAL 09/29/19 21:00 12/20/19 20:59 09/29/19 20:56 Carbidopa/Levodopa (Sinemet 25/100) 1 tab THREE TIMES A DAY ORAL 09/30/19 09:00 10/21/19 17:59 09/30/19 18:13 Levothyroxine Sodium (Synthroid) 100 mcg ACBREAKFAST ORAL 09/30/19 06:30 10/22/19 06:29 09/30/19 06:11 Linaclotide (Linzess) 288 mcg BEFORE BREAKFAST ORAL 10/01/19 06:30 12/30/19 06:29 Metoprolol Tartrate (Lopressor) 2.5 mg Q6H PRN IVP HR > 120 bpm 09/29/19 20:45 12/26/19 08:44 Nitroglycerin (Ntg) 0.4 mg Q5M PRN SL Prn Chest Pain 09/29/19 18:30 10/21/19 16:44 Ondansetron HCl (Zofran) 4 mg Q6H PRN IVP Nausea & Vomiting 09/29/19 18:30 10/21/19 18:29 Polyethylene Glycol (Miralax) 17 gm BEDTIME ORAL 09/29/19 21:00 10/22/19 20:59 Polyethylene Glycol (Miralax) 17 gm DAILYPRN PRN ORAL Constipation 09/29/19 18:30 10/29/19 18:29 Promethazine HCl/ Codeine (Phenergan with Codeine) 5 ml Q4H PRN ORAL For Cough 09/29/19 18:30 10/21/19 18:29 Rivaroxaban (Xarelto) 15 mg DAILY ORAL 09/30/19 09:00 12/26/19 08:59 09/30/19 09:10 Vancomycin HCl (Vanco rx to dose) 1 ea DAILY PRN MISC Per rx protocol 09/30/19 09:00 10/26/19 09:59 Vancomycin HCl 750 mg/Dextrose 275 ml @ 183.333 mls/hr Q12H IVPB 09/30/19 06:00 10/05/19 05:59 09/30/19 18:09 Allergies: Coded Allergies: INFLIXIMAB (Verified Allergy, Intermediate, 04/20/16) NIACIN (Verified Allergy, Intermediate, 04/20/16) SULFA (SULFONAMIDE ANTIBIOTICS) (Verified Allergy, Intermediate, 04/20/16) Uncoded Allergies: SULFONAMIDES (Allergy, Unknown, 04/28/18) ROS Limited/Unobtainable: No Constitutional: Reports: no symptoms HEENT: Reports: no symptoms Cardiovascular: Reports: no symptoms Respiratory: Reports: no symptoms Gastrointestinal/Abdominal: Reports: no symptoms Genitourinary: Reports: no symptoms Neurologic/Psychiatric: Reports: no symptoms Subjective 79 YO F admitted with abdominal pain. Now atrial fibrillation with rapid ventricular rate. Cover for Int Med-DR Junior. Objective Last Vital Signs Date Time Temp Pulse Resp B/P (MAP) Pulse Ox O2 Delivery O2 Flow Rate FiO2 09/30/19 12:00 98.4 59 19 131/62 (85) 100 09/30/19 09:00 Nasal Cannula 2.0 09/28/19 18:51 28 Laboratory Tests Test 09/30/19 03:30 White Blood Count 5.6 K/UL (4.8-10.8) Red Blood Count 2.80 M/UL (4.20-5.40) L Hemoglobin 8.4 G/DL (12.0-16.0) L Hematocrit 24.0 % (37.0-47.0) L Mean Corpuscular Volume 86 FL (80-99) Mean Corpuscular Hemoglobin 30.0 PG (27.0-31.0) Mean Corpuscular Hemoglobin Concent 35.0 G/DL (32.0-36.0) Red Cell Distribution Width 12.3 % (11.6-14.8) Platelet Count 220 K/UL (150-450) Mean Platelet Volume 6.1 FL (6.5-10.1) L Neutrophils (%) (Auto) 70.1 % (45.0-75.0) Lymphocytes (%) (Auto) 18.6 % (20.0-45.0) L Monocytes (%) (Auto) 8.4 % (1.0-10.0) Eosinophils (%) (Auto) 2.6 % (0.0-3.0) Basophils (%) (Auto) 0.4 % (0.0-2.0) Sodium Level 139 MMOL/L (136-145) Potassium Level 3.6 MMOL/L (3.5-5.1) Chloride Level 104 MMOL/L (98-107) Carbon Dioxide Level 26 MMOL/L (21-32) Anion Gap 9 mmol/L (5-15) Blood Urea Nitrogen 12 mg/dL (7-18) Creatinine 0.7 MG/DL (0.55-1.30) Estimat Glomerular Filtration Rate > 60 mL/min (>60) Glucose Level 96 MG/DL (74-106) Calcium Level 8.4 MG/DL (8.5-10.1) L Vancomycin Level Trough 13.9 ug/mL (5.0-12.0) H Intake and Output 09/29/19 09/30/19 19:00 07:00 Intake Total 833.333 ml Output Total 410 ml Balance 423.333 ml Intake Oral 340 ml IV Total 493.333 ml Output Urine Total 410 ml # Voids 2 # Bowel Movements 3 2 Objective PHYSICAL EXAMINATION: GENERAL: The patient is a well-developed and well-nourished thin-appearing female, in no apparent distress. HEENT: Eyes, pupils are equal and responsive to light and accommodation. Extraocular movements are intact. NECK: Supple without lymphadenopathy. CHEST: Lungs are clear to auscultation bilaterally without wheezes or rales. CARDIOVASCULAR: Regular rate. S1 and S2 normal without murmurs, rubs, or gallops. ABDOMEN: Soft, distended with decreased bowel sounds. There is increased tympany. There is tenderness to palpation in all four quadrants. There is no rebound or guarding noted. EXTREMITIES: Negative for clubbing, cyanosis, or edema. RECTAL/GENITAL: Not performed. NEUROLOGIC: Cranial nerves II through XII are grossly intact without focal deficits. Motor strength is 5/5 bilaterally. Deep tendon reflexes are 2+ plantar. Assessment/Plan Assessment/Plan ASSESSMENT: This is a 79-year-old female with: 1. Abdominal pain. 2. Congestive heart failure. 3. Right lower lobe pneumonia. 4. Atrial fibrillation with rapid ventricular rate 5. Coronary artery disease. 6. Diabetes type 2. 7. Hypertension. 8. Hypercholesterolemia. 9. Hypothyroidism. 10. Seizure disorder. 11. Cerebrovascular disease. 12. Left hemiparesis. 13. Subdural hematoma. 14. History of deep venous thrombosis. 15. Mitral and aortic valve biosynthetic prosthesis. 16. Anemia TREATMENT: 1. Abdominal pain/distention. Improved with laxatives. A General Surgery consultation has been obtained with Dr. Hirsch. A Gastroenterology consultation has been obtained with Dr. Abhishek Langford. We will follow recommendations of General Surgery and Gastroenterology. 2. Congestive heart failure. Cardiology consultation has been obtained with Dr. Barber Mack. The patient has been started empirically on intravenous Lasix. An echocardiogram is pending. 3. Right lower lobe pneumonia. A Pulmonary consultation has been obtained with Dr. Koko Gee. The patient has been started empirically on cefepime and vancomycin. We will follow recommendations of Pulmonary. 4. Atrial fibrillation. Cardiology consultation=Dr. Barber Mack. Continue metoprolol and amiodarone per cardiology 5. Coronary artery disease. The patient is status post coronary artery bypass graft. 6. Diabetes type 2. The patient is not on any antihyperglycemic medication at the long-term. 7. Hypertension. Continue metoprolol as above. 8. Hypercholesteremia. Continue atorvastatin as above. 9. Hypothyroidism. Continue levothyroxine as above. 10. Seizure disorder. Continue carbamazepine as above. 11. Cerebrovascular disease. 12. Left hemiparesis. 13. History of subdural hematoma. 14. History of deep venous thrombosis. 15. History of mitral and aortic valve bioprosthesis replacement. 16. Anemia workup per GI 17. Discharge planning: [facility] Bryan Jackson MD Sep 30, 2019 18:22
--- NOTE | 2019-09-30 18:37 | Cardiology Progress Note ---
Assessment/Plan Assessment/Plan 1. Atrial fibrillation with rapid ventricular response, paroxysmal in nature. now back in [facility] as of 09/28 2. Large left atrial presumed calcified thrombus, present since 2018. 3. Coronary artery disease, status post coronary artery bypass grafting. 4. Prosthetic mitral and aortic valve with normal function at the present time. 5. History of prosthetic valve endocarditis. 6. Fecal impaction. 7. Colonic distention secondary to fecal impaction. 8. Diabetes mellitus. 9. History of hypertension. 10. History of subdural hematoma. 11. Dementia. on amiod bid remain in sinus of bb on[place] for stroke prevention tele reviewed ekg noted midl abn trop due to demand po amiod bid leidy of 09/26 pm just placed on covid 19 isolation Subjective ROS Limited/Unobtainable: Yes Objective Last 24 Hour Vital Signs Date Time Temp Pulse Resp B/P (MAP) Pulse Ox O2 Delivery O2 Flow Rate FiO2 09/30/19 12:00 98.4 59 19 131/62 (85) 100 09/30/19 09:00 Nasal Cannula 2.0 09/30/19 08:00 98.1 55 17 129/69 (89) 100 09/30/19 04:00 53 09/30/19 04:00 97.0 50 16 120/55 (76) 99 09/30/19 00:00 97.6 52 20 146/68 (94) 100 09/30/19 00:00 55 09/29/19 21:00 Nasal Cannula 2.0 09/29/19 20:00 97.9 58 16 146/59 (88) 100 09/29/19 20:00 60 General Appearance: no apparent distress, alert Intake and Output 09/29/19 09/30/19 19:00 07:00 Intake Total 833.333 ml Output Total 410 ml Balance 423.333 ml Intake Oral 340 ml IV Total 493.333 ml Output Urine Total 410 ml # Voids 2 # Bowel Movements 3 2 Laboratory Tests Test 09/30/19 03:30 White Blood Count 5.6 K/UL (4.8-10.8) Red Blood Count 2.80 M/UL (4.20-5.40) L Hemoglobin 8.4 G/DL (12.0-16.0) L Hematocrit 24.0 % (37.0-47.0) L Mean Corpuscular Volume 86 FL (80-99) Mean Corpuscular Hemoglobin 30.0 PG (27.0-31.0) Mean Corpuscular Hemoglobin Concent 35.0 G/DL (32.0-36.0) Red Cell Distribution Width 12.3 % (11.6-14.8) Platelet Count 220 K/UL (150-450) Mean Platelet Volume 6.1 FL (6.5-10.1) L Neutrophils (%) (Auto) 70.1 % (45.0-75.0) Lymphocytes (%) (Auto) 18.6 % (20.0-45.0) L Monocytes (%) (Auto) 8.4 % (1.0-10.0) Eosinophils (%) (Auto) 2.6 % (0.0-3.0) Basophils (%) (Auto) 0.4 % (0.0-2.0) Sodium Level 139 MMOL/L (136-145) Potassium Level 3.6 MMOL/L (3.5-5.1) Chloride Level 104 MMOL/L (98-107) Carbon Dioxide Level 26 MMOL/L (21-32) Anion Gap 9 mmol/L (5-15) Blood Urea Nitrogen 12 mg/dL (7-18) Creatinine 0.7 MG/DL (0.55-1.30) Estimat Glomerular Filtration Rate > 60 mL/min (>60) Glucose Level 96 MG/DL (74-106) Calcium Level 8.4 MG/DL (8.5-10.1) L Vancomycin Level Trough 13.9 ug/mL (5.0-12.0) H Barber Mack MD Sep 30, 2019 18:37
[2019-09-30 20:00] VITALS: BP 154/62
[2019-09-30] MEDS: Miralax 17gm pkt ORAL SCH (21:00)
[2019-10-01] VITALS: BP 156/71
[2019-10-01 04:00] VITALS: BP 156/74
[2019-10-01] MEDS: Linaclotide 72mcg ORAL SCH (05:45)
[2019-10-01] MEDS: Vancomycin 750mg/D5W 275ml IVPB SCH ×4 (05:46→17:37)
[2019-10-01 07:08] LABS: ANION GAP 13 mmol/L (5-15); BLOOD UREA NITROGEN 8 mg/dL (7-18); CARBON DIOXIDE 25 MMOL/L (21-32); CHLORIDE 104 MMOL/L (98-107); CREATININE 0.7 MG/DL (0.55-1.30); POTASSIUM 3.7 MMOL/L (3.5-5.1); SODIUM 142 MMOL/L (136-145)
[2019-10-01 07:18] LABS: BASOPHILS % (AUTO) 0.3 % (0.0-2.0); EOSINOPHILS % (AUTO) 1.4 % (0.0-3.0); HEMATOCRIT 28.6 % (37.0-47.0); HEMOGLOBIN 9.8 G/DL (12.0-16.0); LYMPHOCYTES % (AUTO) 15.7 % (20.0-45.0); MEAN CORPUSCULAR VOLUME 87 FL (80-99); MONOCYTES % (AUTO) 7.5 % (1.0-10.0); PLATELET COUNT 264 K/UL (150-450); RED CELL DISTRIBUTION WIDTH 12.4 % (11.6-14.8); WHITE BLOOD COUNT 6.3 K/UL (4.8-10.8)
[2019-10-01 08:00] VITALS: BP 166/87
--- NOTE | 2019-10-01 10:35 | General Progress Note ---
Assessment/Plan Assessment/Plan: 1. Atrial fibrillation. 2. History of coronary artery disease. 3. Diabetes type 2. 4. DVT. 5. Hypertension. 6. Hypothyroidism. 7. Seizure disorder. 8. History of CVA. 9. History of subdural hematoma. 10. Parkinson's. 11. Hypercholesteremia. 12. Dementia. 13. Trigeminal neuralgia. 14. Anemia 15. stool impaction 16. fatty liver cont linzess. dc all other laxatives given loose stools neg stool obx1 neg hepatitis panel kub reviewed fu labs drop in H&H without active bleeding repeat CBC and stool ob Subjective ROS Limited/Unobtainable: No Allergies: Coded Allergies: INFLIXIMAB (Verified Allergy, Intermediate, 04/20/16) NIACIN (Verified Allergy, Intermediate, 04/20/16) SULFA (SULFONAMIDE ANTIBIOTICS) (Verified Allergy, Intermediate, 04/20/16) Uncoded Allergies: SULFONAMIDES (Allergy, Unknown, 04/28/18) Objective Last 24 Hour Vital Signs Date Time Temp Pulse Resp B/P (MAP) Pulse Ox O2 Delivery O2 Flow Rate FiO2 10/01/19 07:50 98 Nasal Cannula 2.0 28 10/01/19 04:00 97.1 57 19 156/74 (101) 98 10/01/19 04:00 59 10/01/19 00:00 97.1 59 18 156/71 (99) 100 10/01/19 00:00 56 09/30/19 20:00 96.8 59 19 154/62 (92) 99 09/30/19 20:00 58 09/30/19 19:56 99 Nasal Cannula 2.0 28 09/30/19 16:00 98.0 62 18 147/55 (85) 100 09/30/19 16:00 60 09/30/19 12:00 59 09/30/19 12:00 98.4 59 19 131/62 (85) 100 Intake and Output 09/30/19 10/01/19 19:00 07:00 Intake Total 520 ml 749.999 ml Balance 520 ml 749.999 ml Intake Oral 520 ml IV Total 749.999 ml # Voids 3 2 # Bowel Movements 2 Laboratory Tests 10/01/19 06:19: White Blood Count 6.3, Red Blood Count 3.30L, Hemoglobin 9.8L, Hematocrit 28.6L , Mean Corpuscular Volume 87, Mean Corpuscular Hemoglobin 29.6, Mean Corpuscular Hemoglobin Concent 34.2, Red Cell Distribution Width 12.4, Platelet Count 264, Mean Platelet Volume 5.5L, Neutrophils (%) (Auto) 75.0, Lymphocytes ( %) (Auto) 15.7L, Monocytes (%) (Auto) 7.5, Eosinophils (%) (Auto) 1.4, Basophils (%) (Auto) 0.3, Sodium Level 142, Potassium Level 3.7, Chloride Level 104, Carbon Dioxide Level 25, Anion Gap 13, Blood Urea Nitrogen 8, Creatinine 0.7, Estimat Glomerular Filtration Rate > 60, Glucose Level 118H, Calcium Level 9.0 Height (Feet): 5 Height (Inches): 2.00 Weight (Pounds): 114 General Appearance: alert EENT: normal ENT inspection Neck: supple Cardiovascular: normal rate Respiratory/Chest: lungs clear Abdomen: normal bowel sounds, non tender, soft Extremities: non-tender Abhishek Langford MD Oct 01, 2019 10:35
[2019-10-01] MEDS: Aspirin Baby 81mg ORAL SCH (10:48)
[2019-10-01] MEDS: Levodopa/Carbidopa 25/100 tab ORAL SCH ×3 (10:48→17:36)
[2019-10-01] MEDS: Xarelto 15mg tab ORAL SCH (10:48)
[2019-10-01] MEDS: Amiodarone 200mg tab ORAL SCH ×2 (10:49→20:43)
--- NOTE | 2019-10-01 11:24 | Pulmonology Progress Note ---
Assessment/Plan Problems: (1) Nosocomial pneumonia (2) SVT (supraventricular tachycardia) (3) Hypothyroidism (4) Alzheimer's dementia (5) Seizure disorder (6) Diabetes mellitus type II, controlled (7) HTN (hypertension) (8) Intractable abdominal pain (9) Parkinson disease (10) History of subdural hematoma Assessment/Plan check sputum, not collected yet. VRE negative, MRSA negative swallow study: she will be reevaluated ID evaluation appreciated, On isolation for Covid-19 KUB ordered for am echo reviewed EF of 65% sliding scale dvt prophylaxis Subjective ROS Limited/Unobtainable: No HEENT: Repors: no symptoms Allergies: Coded Allergies: INFLIXIMAB (Verified Allergy, Intermediate, 04/20/16) NIACIN (Verified Allergy, Intermediate, 04/20/16) SULFA (SULFONAMIDE ANTIBIOTICS) (Verified Allergy, Intermediate, 04/20/16) Uncoded Allergies: SULFONAMIDES (Allergy, Unknown, 04/28/18) Objective Last 24 Hour Vital Signs Date Time Temp Pulse Resp B/P (MAP) Pulse Ox O2 Delivery O2 Flow Rate FiO2 10/01/19 07:50 98 Nasal Cannula 2.0 28 10/01/19 04:00 97.1 57 19 156/74 (101) 98 10/01/19 04:00 59 10/01/19 00:00 97.1 59 18 156/71 (99) 100 10/01/19 00:00 56 09/30/19 20:00 96.8 59 19 154/62 (92) 99 09/30/19 20:00 58 09/30/19 19:56 99 Nasal Cannula 2.0 28 09/30/19 16:00 98.0 62 18 147/55 (85) 100 09/30/19 16:00 60 09/30/19 12:00 59 09/30/19 12:00 98.4 59 19 131/62 (85) 100 Intake and Output 09/30/19 10/01/19 19:00 07:00 Intake Total 520 ml 749.999 ml Balance 520 ml 749.999 ml Intake Oral 520 ml IV Total 749.999 ml # Voids 3 2 # Bowel Movements 2 Objective General Appearance: WD/WN HEENT: normocephalic, atraumatic Respiratory/Chest: chest wall non-tender,rhonchi Breasts: no masses Cardiovascular: normal peripheral pulses Abdomen: normal bowel sounds, soft, non tender Genitourinary: normal external genitalia Extremities: no cyanosis Skin: no rash Laboratory Tests 10/01/19 06:19: White Blood Count 6.3, Red Blood Count 3.30L, Hemoglobin 9.8L, Hematocrit 28.6L , Mean Corpuscular Volume 87, Mean Corpuscular Hemoglobin 29.6, Mean Corpuscular Hemoglobin Concent 34.2, Red Cell Distribution Width 12.4, Platelet Count 264, Mean Platelet Volume 5.5L, Neutrophils (%) (Auto) 75.0, Lymphocytes ( %) (Auto) 15.7L, Monocytes (%) (Auto) 7.5, Eosinophils (%) (Auto) 1.4, Basophils (%) (Auto) 0.3, Sodium Level 142, Potassium Level 3.7, Chloride Level 104, Carbon Dioxide Level 25, Anion Gap 13, Blood Urea Nitrogen 8, Creatinine 0.7, Estimat Glomerular Filtration Rate > 60, Glucose Level 118H, Calcium Level 9.0 Current Medications Medications (Trade) Dose Ordered Sig/Zee Route PRN Reason Start Time Stop Time Status Last Admin Dose Admin Acetaminophen (Tylenol) 650 mg Q4H PRN ORAL T>100.4 09/29/19 18:30 10/21/19 18:29 Amiodarone HCl (Cordarone) 200 mg EVERY 12 HOURS ORAL 09/29/19 21:00 12/26/19 18:59 10/01/19 10:49 Aspirin (ASA) 81 mg DAILY ORAL 09/30/19 09:00 11/06/19 09:14 10/01/19 10:48 Atorvastatin Calcium (Lipitor) 10 mg BEDTIME ORAL 09/29/19 21:00 12/20/19 20:59 09/30/19 21:00 Carbidopa/Levodopa (Sinemet 25/100) 1 tab THREE TIMES A DAY ORAL 09/30/19 09:00 10/21/19 17:59 10/01/19 10:48 Levothyroxine Sodium (Synthroid) 100 mcg ACBREAKFAST ORAL 09/30/19 06:30 10/22/19 06:29 10/01/19 05:44 Linaclotide (Linzess) 288 mcg BEFORE BREAKFAST ORAL 10/01/19 06:30 12/30/19 06:29 10/01/19 05:45 Metoprolol Tartrate (Lopressor) 2.5 mg Q6H PRN IVP HR > 120 bpm 09/29/19 20:45 12/26/19 08:44 Nitroglycerin (Ntg) 0.4 mg Q5M PRN SL Prn Chest Pain 09/29/19 18:30 10/21/19 16:44 Ondansetron HCl (Zofran) 4 mg Q6H PRN IVP Nausea & Vomiting 09/29/19 18:30 10/21/19 18:29 Polyethylene Glycol (Miralax) 17 gm BEDTIME ORAL 09/29/19 21:00 10/22/19 20:59 Polyethylene Glycol (Miralax) 17 gm DAILYPRN PRN ORAL Constipation 09/29/19 18:30 10/29/19 18:29 Promethazine HCl/ Codeine (Phenergan with Codeine) 5 ml Q4H PRN ORAL For Cough 09/29/19 18:30 10/21/19 18:29 Rivaroxaban (Xarelto) 15 mg DAILY ORAL 09/30/19 09:00 12/26/19 08:59 10/01/19 10:48 Vancomycin HCl (Vanco rx to dose) 1 ea DAILY PRN MISC Per rx protocol 09/30/19 09:00 10/26/19 09:59 Vancomycin HCl 750 mg/Dextrose 275 ml @ 183.333 mls/hr Q12H IVPB 09/30/19 06:00 10/05/19 05:59 10/01/19 05:46 Koko Gee MD Oct 01, 2019 11:24
[2019-10-01 12:00] VITALS: BP 150/62
--- NOTE | 2019-10-01 13:52 | Surgery Progress Note ---
Surgery Progress Note Subjective Symptoms: improved, tolerating diet, voiding well, passing flatus Objective Last 24 Hour Vital Signs Date Time Temp Pulse Resp B/P (MAP) Pulse Ox O2 Delivery O2 Flow Rate FiO2 10/01/19 12:00 68 10/01/19 09:00 Nasal Cannula 2.0 10/01/19 08:00 63 10/01/19 07:50 98 Nasal Cannula 2.0 28 10/01/19 04:00 97.1 57 19 156/74 (101) 98 10/01/19 04:00 59 10/01/19 00:00 97.1 59 18 156/71 (99) 100 10/01/19 00:00 56 09/30/19 20:00 96.8 59 19 154/62 (92) 99 09/30/19 20:00 58 09/30/19 19:56 99 Nasal Cannula 2.0 28 09/30/19 16:00 98.0 62 18 147/55 (85) 100 09/30/19 16:00 60 I&O Intake and Output 09/30/19 10/01/19 19:00 07:00 Intake Total 520 ml 749.999 ml Balance 520 ml 749.999 ml Intake Oral 520 ml IV Total 749.999 ml # Voids 3 2 # Bowel Movements 2 Dressing: dry Wound: clean Cardiovascular: RSR Respiratory: clear Abdomen: soft, non-tender, present bowel sounds Extremities: no cyanosis Laboratory Tests Test 10/01/19 06:19 White Blood Count 6.3 K/UL (4.8-10.8) Red Blood Count 3.30 M/UL (4.20-5.40) L Hemoglobin 9.8 G/DL (12.0-16.0) L Hematocrit 28.6 % (37.0-47.0) L Mean Corpuscular Volume 87 FL (80-99) Mean Corpuscular Hemoglobin 29.6 PG (27.0-31.0) Mean Corpuscular Hemoglobin Concent 34.2 G/DL (32.0-36.0) Red Cell Distribution Width 12.4 % (11.6-14.8) Platelet Count 264 K/UL (150-450) Mean Platelet Volume 5.5 FL (6.5-10.1) L Neutrophils (%) (Auto) 75.0 % (45.0-75.0) Lymphocytes (%) (Auto) 15.7 % (20.0-45.0) L Monocytes (%) (Auto) 7.5 % (1.0-10.0) Eosinophils (%) (Auto) 1.4 % (0.0-3.0) Basophils (%) (Auto) 0.3 % (0.0-2.0) Sodium Level 142 MMOL/L (136-145) Potassium Level 3.7 MMOL/L (3.5-5.1) Chloride Level 104 MMOL/L (98-107) Carbon Dioxide Level 25 MMOL/L (21-32) Anion Gap 13 mmol/L (5-15) Blood Urea Nitrogen 8 mg/dL (7-18) Creatinine 0.7 MG/DL (0.55-1.30) Estimat Glomerular Filtration Rate > 60 mL/min (>60) Glucose Level 118 MG/DL (74-106) H Calcium Level 9.0 MG/DL (8.5-10.1) Assessment Post-op Diagnosis Abdominal pain Assessment & Plan: Asked by Dr. Jackson to evaluate for abdominal pain, r/o obstruction vs impaction 79-year-old female with abdominal pain generalized no nausea vomiting fever chills. Cough and shortness of breath. Labs noted. CT reviewed. KUB ordered for 09/22 and reviewed. Improving now since admission. Currently states she is hungry and wants food. Abdominal exam stable improved otherwise. Bowel sounds noted. distended gb stable as asymptomatic and likely from age No acute surgical intervention planned Okay for diet from surgical standpoint Bowel regimen stool softeners appreciate GI input Nutritional evaluation enema prn will follow with recommendations thank you for let me participate in patient's care improving overall abd pain resolved no n/v/v/f FINDINGS: Lung bases: Right lower lobe of the lung small consolidation and mild bibasilar lung septal thickening. Heart: Cardiomegaly. Mitral valve prosthesis. ABDOMEN: Liver: Fatty prominent liver. Gallbladder and bile ducts: Distended gallbladder. No calcified stones. No ductal dilation. Pancreas: Unremarkable. No mass. No ductal dilation. Spleen: Unremarkable. No splenomegaly. Adrenals: Unremarkable. No mass. Kidneys and ureters: Mild bilateral hydronephrosis, greater on the right, may be due to external compression of the distal ureters from the overly distended rectum. Stomach and bowel: Dilated rectosigmoid colon to 11.3 cm., large amount of stool in the remainder of the colon. Findings may be due to fecal impaction with obstipation. Differential includes Colonic ileus or distal colonic obstruction and early stercoral colitis. Trace free fluid. No free air or abscess. PELVIS: Appendix: No findings to suggest acute appendicitis. Bladder: See below. Reproductive: Uterus and urinary bladder anteriorly placed from the markedly distended rectum. ABDOMEN and PELVIS: Intraperitoneal space: See above. Bones/joints: Mild superior endplate compression of L5 likely chronic. Dynamic left hip screws. No dislocation. Soft tissues: Unremarkable. Vasculature: Atherosclerotic vascular disease. No abdominal aortic aneurysm. Lymph nodes: Unremarkable. No enlarged lymph nodes. IMPRESSION: 1. Dilated rectosigmoid colon to 11.3 cm., large amount of stool in the remainder of the colon. Mild thickening of the colonic wall. Findings may be due to fecal impaction with obstipation. Differential includes Colonic ileus or distal colonic obstruction and early stercoral colitis. Trace free fluid. No free air or abscess. 2. Mild bilateral hydronephrosis, greater on the right, may be due to external compression of the distal ureters from the overly distended rectum. 3. Right lower lobe of the lung small consolidation and mild bibasilar lung septal thickening. 4. Fatty prominent liver. Distended gallbladder. ICD Codes: R10.9 - Unspecified abdominal pain SNOMED: [id number] Qualifiers: Qualified Codes: R10.9 - Unspecified abdominal pain Noe Hirsch Oct 01, 2019 13:52
--- NOTE | 2019-10-01 13:58 | Infectious Diseases Prog Note ---
Assessment/Plan Assessment/Plan 79yo woman with PMH DM, HTN, Afib, GERD, CVA, dementia. Pt presented from SN[facility] for cough, sob, vomiting and abd pain for one day. No fever or chills. Afebrile 2L NC Mild leukocytosis RLL pneumonia Flu swab negative 09/20 CXR: Mild interstitial prominence and tiny left pleural effusion may be mild CHF. 09/20 CT A/P: Dilated rectosigmoid colon to 11.3 cm., large amount of stool in the remainder of the colon. Mild thickening of the colonic wall. Findings may be due to fecal impaction with obstipation. Differential includes Colonic ileus or distal colonic obstruction and early stercoral colitis. Trace free fluid. No free air or abscess. Mild bilateral hydronephrosis, greater on the right, may be due to external compression of the distal ureters from the overly distended rectum. Right lower lobe of the lung small consolidation and mild bibasilar lung septal thickening. Fatty prominent liver. Distended gallbladder. 09/27 CXR: Similar trace left pleural effusion. Interstitial opacities throughout the lungs, most prominent at the left lung base may represent chronic interstitial lung changes with possible superimposed infectious/inflammatory process, stable compared to prior exam. GI symptoms--vomiting, pain KUB: moderate to severe fecal retention Unlikely UTI UA negative r/o bacteremia BCx: NG NH resident Alzheimer's dementia GERD Afib DM HTN CVA DVT Subdural hematoma MV/AV bioprosthesis L hemiparesis Seizure disorder Hypothyroidism Plan: DC Vanc #05/13 Sp Cefepime 09/20-09/27 monitor temp and CBC r/o COVID 19--GI symptoms, lymphopenia, NH resident, pneumonia are all concerning isolation precaution monitor resp status DW RN Subjective Allergies: Coded Allergies: INFLIXIMAB (Verified Allergy, Intermediate, 04/20/16) NIACIN (Verified Allergy, Intermediate, 04/20/16) SULFA (SULFONAMIDE ANTIBIOTICS) (Verified Allergy, Intermediate, 04/20/16) Uncoded Allergies: SULFONAMIDES (Allergy, Unknown, 04/28/18) Subjective Afebrile. 2L NC. No leukocytosis. coughed big piece of phlegm Objective Vital Signs Last 24 Hour Vital Signs Date Time Temp Pulse Resp B/P (MAP) Pulse Ox O2 Delivery O2 Flow Rate FiO2 10/01/19 12:00 68 10/01/19 08:00 63 10/01/19 07:50 98 Nasal Cannula 2.0 28 10/01/19 04:00 97.1 57 19 156/74 (101) 98 10/01/19 04:00 59 10/01/19 00:00 97.1 59 18 156/71 (99) 100 10/01/19 00:00 56 09/30/19 20:00 96.8 59 19 154/62 (92) 99 09/30/19 20:00 58 09/30/19 19:56 99 Nasal Cannula 2.0 28 09/30/19 16:00 98.0 62 18 147/55 (85) 100 09/30/19 16:00 60 Height (Feet): 5 Height (Inches): 2.00 Weight (Pounds): 114 Objective Gen: NAD. calm. frail thin elderly woman CV: RRR. no rubs or gallop. Resp: RRR. rhonchi. no wheezes or crackles. unlabored. Abd: normoactive Bs+. Soft. slightly distended. no rebound. no guarding Laboratory Tests Test 10/01/19 06:19 White Blood Count 6.3 K/UL (4.8-10.8) Red Blood Count 3.30 M/UL (4.20-5.40) L Hemoglobin 9.8 G/DL (12.0-16.0) L Hematocrit 28.6 % (37.0-47.0) L Mean Corpuscular Volume 87 FL (80-99) Mean Corpuscular Hemoglobin 29.6 PG (27.0-31.0) Mean Corpuscular Hemoglobin Concent 34.2 G/DL (32.0-36.0) Red Cell Distribution Width 12.4 % (11.6-14.8) Platelet Count 264 K/UL (150-450) Mean Platelet Volume 5.5 FL (6.5-10.1) L Neutrophils (%) (Auto) 75.0 % (45.0-75.0) Lymphocytes (%) (Auto) 15.7 % (20.0-45.0) L Monocytes (%) (Auto) 7.5 % (1.0-10.0) Eosinophils (%) (Auto) 1.4 % (0.0-3.0) Basophils (%) (Auto) 0.3 % (0.0-2.0) Sodium Level 142 MMOL/L (136-145) Potassium Level 3.7 MMOL/L (3.5-5.1) Chloride Level 104 MMOL/L (98-107) Carbon Dioxide Level 25 MMOL/L (21-32) Anion Gap 13 mmol/L (5-15) Blood Urea Nitrogen 8 mg/dL (7-18) Creatinine 0.7 MG/DL (0.55-1.30) Estimat Glomerular Filtration Rate > 60 mL/min (>60) Glucose Level 118 MG/DL (74-106) H Calcium Level 9.0 MG/DL (8.5-10.1) Current Medications Medications (Trade) Dose Ordered Sig/Zee Route PRN Reason Start Time Stop Time Status Last Admin Dose Admin Acetaminophen (Tylenol) 650 mg Q4H PRN ORAL T>100.4 09/29/19 18:30 10/21/19 18:29 Amiodarone HCl (Cordarone) 200 mg EVERY 12 HOURS ORAL 09/29/19 21:00 12/26/19 18:59 10/01/19 10:49 Aspirin (ASA) 81 mg DAILY ORAL 09/30/19 09:00 11/06/19 09:14 10/01/19 10:48 Atorvastatin Calcium (Lipitor) 10 mg BEDTIME ORAL 09/29/19 21:00 12/20/19 20:59 09/30/19 21:00 Carbidopa/Levodopa (Sinemet 25/100) 1 tab THREE TIMES A DAY ORAL 09/30/19 09:00 10/21/19 17:59 10/01/19 10:48 Levothyroxine Sodium (Synthroid) 100 mcg ACBREAKFAST ORAL 09/30/19 06:30 10/22/19 06:29 10/01/19 05:44 Linaclotide (Linzess) 288 mcg BEFORE BREAKFAST ORAL 10/01/19 06:30 12/30/19 06:29 10/01/19 05:45 Metoprolol Tartrate (Lopressor) 2.5 mg Q6H PRN IVP HR > 120 bpm 09/29/19 20:45 12/26/19 08:44 Nitroglycerin (Ntg) 0.4 mg Q5M PRN SL Prn Chest Pain 09/29/19 18:30 10/21/19 16:44 Ondansetron HCl (Zofran) 4 mg Q6H PRN IVP Nausea & Vomiting 09/29/19 18:30 10/21/19 18:29 Polyethylene Glycol (Miralax) 17 gm BEDTIME ORAL 09/29/19 21:00 10/22/19 20:59 Polyethylene Glycol (Miralax) 17 gm DAILYPRN PRN ORAL Constipation 09/29/19 18:30 10/29/19 18:29 Promethazine HCl/ Codeine (Phenergan with Codeine) 5 ml Q4H PRN ORAL For Cough 09/29/19 18:30 10/21/19 18:29 Rivaroxaban (Xarelto) 15 mg DAILY ORAL 09/30/19 09:00 12/26/19 08:59 10/01/19 10:48 Vancomycin HCl (Vanco rx to dose) 1 ea DAILY PRN MISC Per rx protocol 09/30/19 09:00 10/26/19 09:59 Vancomycin HCl 750 mg/Dextrose 275 ml @ 183.333 mls/hr Q12H IVPB 09/30/19 06:00 10/05/19 05:59 10/01/19 05:46 Marbin Mac MD Oct 01, 2019 13:58
--- NOTE | 2019-10-01 14:09 | Cardiology Progress Note ---
Assessment/Plan Assessment/Plan 1. Atrial fibrillation with rapid ventricular response, paroxysmal in nature. now back in [facility] as of 09/28 2. Large left atrial presumed calcified thrombus, present since 2018. 3. Coronary artery disease, status post coronary artery bypass grafting. 4. Prosthetic mitral and aortic valve with normal function at the present time. 5. History of prosthetic valve endocarditis. 6. Fecal impaction. 7. Colonic distention secondary to fecal impaction. 8. Diabetes mellitus. 9. History of hypertension. 10. History of subdural hematoma. 11. Dementia. on amiod bid remain in sinus of bb on doacs for stroke prevention tele reviewed ekg noted midl abn trop due to demand po amiod bid leidy of 09/26 pm covid 19 isolation Subjective ROS Limited/Unobtainable: Yes Objective Last 24 Hour Vital Signs Date Time Temp Pulse Resp B/P (MAP) Pulse Ox O2 Delivery O2 Flow Rate FiO2 10/01/19 12:00 68 10/01/19 09:00 Nasal Cannula 2.0 10/01/19 08:00 63 10/01/19 07:50 98 Nasal Cannula 2.0 28 10/01/19 04:00 97.1 57 19 156/74 (101) 98 10/01/19 04:00 59 10/01/19 00:00 97.1 59 18 156/71 (99) 100 10/01/19 00:00 56 09/30/19 20:00 96.8 59 19 154/62 (92) 99 09/30/19 20:00 58 09/30/19 19:56 99 Nasal Cannula 2.0 28 09/30/19 16:00 98.0 62 18 147/55 (85) 100 09/30/19 16:00 60 General Appearance: no apparent distress Neck: supple Cardiovascular: normal rate Respiratory/Chest: lungs clear Abdomen: normal bowel sounds, non tender, soft Extremities: no swelling Intake and Output 09/30/19 10/01/19 19:00 07:00 Intake Total 520 ml 749.999 ml Balance 520 ml 749.999 ml Intake Oral 520 ml IV Total 749.999 ml # Voids 3 2 # Bowel Movements 2 Laboratory Tests Test 10/01/19 06:19 White Blood Count 6.3 K/UL (4.8-10.8) Red Blood Count 3.30 M/UL (4.20-5.40) L Hemoglobin 9.8 G/DL (12.0-16.0) L Hematocrit 28.6 % (37.0-47.0) L Mean Corpuscular Volume 87 FL (80-99) Mean Corpuscular Hemoglobin 29.6 PG (27.0-31.0) Mean Corpuscular Hemoglobin Concent 34.2 G/DL (32.0-36.0) Red Cell Distribution Width 12.4 % (11.6-14.8) Platelet Count 264 K/UL (150-450) Mean Platelet Volume 5.5 FL (6.5-10.1) L Neutrophils (%) (Auto) 75.0 % (45.0-75.0) Lymphocytes (%) (Auto) 15.7 % (20.0-45.0) L Monocytes (%) (Auto) 7.5 % (1.0-10.0) Eosinophils (%) (Auto) 1.4 % (0.0-3.0) Basophils (%) (Auto) 0.3 % (0.0-2.0) Sodium Level 142 MMOL/L (136-145) Potassium Level 3.7 MMOL/L (3.5-5.1) Chloride Level 104 MMOL/L (98-107) Carbon Dioxide Level 25 MMOL/L (21-32) Anion Gap 13 mmol/L (5-15) Blood Urea Nitrogen 8 mg/dL (7-18) Creatinine 0.7 MG/DL (0.55-1.30) Estimat Glomerular Filtration Rate > 60 mL/min (>60) Glucose Level 118 MG/DL (74-106) H Calcium Level 9.0 MG/DL (8.5-10.1) Barber Mack MD Oct 01, 2019 14:09
--- NOTE | 2019-10-01 15:49 | Internal Med Progress Note ---
Subjective Date of Service: Oct 01, 2019 Physician Name Bryan Jackson Attending Physician Carlos Junior MD Current Medications Medications (Trade) Dose Ordered Sig/Zee Route PRN Reason Start Time Stop Time Status Last Admin Dose Admin Acetaminophen (Tylenol) 650 mg Q4H PRN ORAL T>100.4 09/29/19 18:30 10/21/19 18:29 Amiodarone HCl (Cordarone) 200 mg EVERY 12 HOURS ORAL 09/29/19 21:00 12/26/19 18:59 10/01/19 10:49 Aspirin (ASA) 81 mg DAILY ORAL 09/30/19 09:00 11/06/19 09:14 10/01/19 10:48 Atorvastatin Calcium (Lipitor) 10 mg BEDTIME ORAL 09/29/19 21:00 12/20/19 20:59 09/30/19 21:00 Carbidopa/Levodopa (Sinemet 25/100) 1 tab THREE TIMES A DAY ORAL 09/30/19 09:00 10/21/19 17:59 10/01/19 14:18 Levothyroxine Sodium (Synthroid) 100 mcg ACBREAKFAST ORAL 09/30/19 06:30 10/22/19 06:29 10/01/19 05:44 Linaclotide (Linzess) 288 mcg BEFORE BREAKFAST ORAL 10/01/19 06:30 12/30/19 06:29 10/01/19 05:45 Metoprolol Tartrate (Lopressor) 2.5 mg Q6H PRN IVP HR > 120 bpm 09/29/19 20:45 12/26/19 08:44 Nitroglycerin (Ntg) 0.4 mg Q5M PRN SL Prn Chest Pain 09/29/19 18:30 10/21/19 16:44 Ondansetron HCl (Zofran) 4 mg Q6H PRN IVP Nausea & Vomiting 09/29/19 18:30 10/21/19 18:29 Polyethylene Glycol (Miralax) 17 gm BEDTIME ORAL 09/29/19 21:00 10/22/19 20:59 Polyethylene Glycol (Miralax) 17 gm DAILYPRN PRN ORAL Constipation 09/29/19 18:30 10/29/19 18:29 Promethazine HCl/ Codeine (Phenergan with Codeine) 5 ml Q4H PRN ORAL For Cough 09/29/19 18:30 10/21/19 18:29 Rivaroxaban (Xarelto) 15 mg DAILY ORAL 09/30/19 09:00 12/26/19 08:59 10/01/19 10:48 Vancomycin HCl (Vanco rx to dose) 1 ea DAILY PRN MISC Per rx protocol 09/30/19 09:00 10/26/19 09:59 Vancomycin HCl 750 mg/Dextrose 275 ml @ 183.333 mls/hr Q12H IVPB 09/30/19 06:00 10/05/19 05:59 10/01/19 05:46 Allergies: Coded Allergies: INFLIXIMAB (Verified Allergy, Intermediate, 04/20/16) NIACIN (Verified Allergy, Intermediate, 04/20/16) SULFA (SULFONAMIDE ANTIBIOTICS) (Verified Allergy, Intermediate, 04/20/16) Uncoded Allergies: SULFONAMIDES (Allergy, Unknown, 04/28/18) ROS Limited/Unobtainable: No Constitutional: Reports: no symptoms HEENT: Reports: no symptoms Cardiovascular: Reports: no symptoms Respiratory: Reports: no symptoms Gastrointestinal/Abdominal: Reports: no symptoms Genitourinary: Reports: no symptoms Neurologic/Psychiatric: Reports: no symptoms Subjective 79 YO F admitted with abdominal pain. Now atrial fibrillation with rapid ventricular rate. Cover for Int Med-DR Junior. Objective Last Vital Signs Date Time Temp Pulse Resp B/P (MAP) Pulse Ox O2 Delivery O2 Flow Rate FiO2 10/01/19 12:00 68 10/01/19 09:00 Nasal Cannula 2.0 10/01/19 07:50 98 28 10/01/19 04:00 97.1 19 156/74 (101) Laboratory Tests Test 10/01/19 06:19 White Blood Count 6.3 K/UL (4.8-10.8) Red Blood Count 3.30 M/UL (4.20-5.40) L Hemoglobin 9.8 G/DL (12.0-16.0) L Hematocrit 28.6 % (37.0-47.0) L Mean Corpuscular Volume 87 FL (80-99) Mean Corpuscular Hemoglobin 29.6 PG (27.0-31.0) Mean Corpuscular Hemoglobin Concent 34.2 G/DL (32.0-36.0) Red Cell Distribution Width 12.4 % (11.6-14.8) Platelet Count 264 K/UL (150-450) Mean Platelet Volume 5.5 FL (6.5-10.1) L Neutrophils (%) (Auto) 75.0 % (45.0-75.0) Lymphocytes (%) (Auto) 15.7 % (20.0-45.0) L Monocytes (%) (Auto) 7.5 % (1.0-10.0) Eosinophils (%) (Auto) 1.4 % (0.0-3.0) Basophils (%) (Auto) 0.3 % (0.0-2.0) Sodium Level 142 MMOL/L (136-145) Potassium Level 3.7 MMOL/L (3.5-5.1) Chloride Level 104 MMOL/L (98-107) Carbon Dioxide Level 25 MMOL/L (21-32) Anion Gap 13 mmol/L (5-15) Blood Urea Nitrogen 8 mg/dL (7-18) Creatinine 0.7 MG/DL (0.55-1.30) Estimat Glomerular Filtration Rate > 60 mL/min (>60) Glucose Level 118 MG/DL (74-106) H Calcium Level 9.0 MG/DL (8.5-10.1) Intake and Output 09/30/19 10/01/19 19:00 07:00 Intake Total 520 ml 749.999 ml Balance 520 ml 749.999 ml Intake Oral 520 ml IV Total 749.999 ml # Voids 3 2 # Bowel Movements 2 Objective PHYSICAL EXAMINATION: GENERAL: The patient is a well-developed and well-nourished thin-appearing female, in no apparent distress. HEENT: Eyes, pupils are equal and responsive to light and accommodation. Extraocular movements are intact. NECK: Supple without lymphadenopathy. CHEST: Lungs are clear to auscultation bilaterally without wheezes or rales. CARDIOVASCULAR: Regular rate. S1 and S2 normal without murmurs, rubs, or gallops. ABDOMEN: Soft, distended with decreased bowel sounds. There is increased tympany. There is tenderness to palpation in all four quadrants. There is no rebound or guarding noted. EXTREMITIES: Negative for clubbing, cyanosis, or edema. RECTAL/GENITAL: Not performed. NEUROLOGIC: Cranial nerves II through XII are grossly intact without focal deficits. Motor strength is 5/5 bilaterally. Deep tendon reflexes are 2+ plantar. Assessment/Plan Assessment/Plan ASSESSMENT: This is a 79-year-old female with: 1. Abdominal pain. 2. Congestive heart failure. 3. Right lower lobe pneumonia. 4. Atrial fibrillation with rapid ventricular rate 5. Coronary artery disease. 6. Diabetes type 2. 7. Hypertension. 8. Hypercholesterolemia. 9. Hypothyroidism. 10. Seizure disorder. 11. Cerebrovascular disease. 12. Left hemiparesis. 13. Subdural hematoma. 14. History of deep venous thrombosis. 15. Mitral and aortic valve biosynthetic prosthesis. 16. Anemia TREATMENT: 1. Abdominal pain/distention. Improved with laxatives. A General Surgery consultation has been obtained with Dr. Hirsch. A Gastroenterology consultation has been obtained with Dr. Abhishek Langford. We will follow recommendations of General Surgery and Gastroenterology. 2. Congestive heart failure. Cardiology consultation has been obtained with Dr. Barber Mack. The patient has been started empirically on intravenous Lasix. An echocardiogram is pending. 3. Right lower lobe pneumonia. A Pulmonary consultation has been obtained with Dr. Koko Gee. Inf Dis=Dr. Mac. ABX=S/P cefepime and continue vancomycin. We will follow recommendations of Pulmonary and ID 4. Atrial fibrillation. Cardiology consultation=Dr. Barber Mack. Continue metoprolol and amiodarone per cardiology 5. Coronary artery disease. The patient is status post coronary artery bypass graft. 6. Diabetes type 2. The patient is not on any antihyperglycemic medication at the [facility]. 7. Hypertension. Continue metoprolol as above. 8. Hypercholesteremia. Continue atorvastatin as above. 9. Hypothyroidism. Continue levothyroxine as above. 10. Seizure disorder. Continue carbamazepine as above. 11. Cerebrovascular disease. 12. Left hemiparesis. 13. History of subdural hematoma. 14. History of deep venous thrombosis. 15. History of mitral and aortic valve bioprosthesis replacement. 16. Anemia workup per GI 17. Discharge planning: [facility] Bryan Jackson MD Oct 01, 2019 15:49
[2019-10-01 16:00] VITALS: BP 154/71
[2019-10-01 20:00] VITALS: BP 151/65
[2019-10-01] MEDS: Miralax 17gm pkt ORAL SCH (20:43)
[2019-10-02] VITALS: BP 140/54
[2019-10-02 04:00] VITALS: BP 138/55
[2019-10-02 05:07] LABS: BASOPHILS % (AUTO) 0.3 % (0.0-2.0); EOSINOPHILS % (AUTO) 1.8 % (0.0-3.0); HEMATOCRIT 26.9 % (37.0-47.0); HEMOGLOBIN 9.3 G/DL (12.0-16.0); MEAN CORPUSCULAR VOLUME 86 FL (80-99); PLATELET COUNT 245 K/UL (150-450); RED BLOOD COUNT 3.14 M/UL (4.20-5.40); RED CELL DISTRIBUTION WIDTH 12.3 % (11.6-14.8); WHITE BLOOD COUNT 5.8 K/UL (4.8-10.8)
[2019-10-02 05:09] LABS: ANION GAP 7 mmol/L (5-15); BLOOD UREA NITROGEN 7 mg/dL (7-18); CALCIUM 8.9 MG/DL (8.5-10.1); CARBON DIOXIDE 28 MMOL/L (21-32); CHLORIDE 103 MMOL/L (98-107); CREATININE 0.6 MG/DL (0.55-1.30); POTASSIUM 3.8 MMOL/L (3.5-5.1); SODIUM 138 MMOL/L (136-145)
[2019-10-02] MEDS: Linaclotide 72mcg ORAL SCH (06:29)
--- NOTE | 2019-10-02 06:58 | General Progress Note ---
Assessment/Plan Assessment/Plan: 1. Atrial fibrillation. 2. History of coronary artery disease. 3. Diabetes type 2. 4. DVT. 5. Hypertension. 6. Hypothyroidism. 7. Seizure disorder. 8. History of CVA. 9. History of subdural hematoma. 10. Parkinson's. 11. Hypercholesteremia. 12. Dementia. 13. Trigeminal neuralgia. 14. Anemia 15. stool impaction 16. fatty liver cont linzess. dc all other laxatives given loose stools neg stool obx1 neg hepatitis panel fu labs drop in H&H without active bleeding repeat CBC and stool ob Subjective Allergies: Coded Allergies: INFLIXIMAB (Verified Allergy, Intermediate, 04/20/16) NIACIN (Verified Allergy, Intermediate, 04/20/16) SULFA (SULFONAMIDE ANTIBIOTICS) (Verified Allergy, Intermediate, 04/20/16) Uncoded Allergies: SULFONAMIDES (Allergy, Unknown, 04/28/18) Objective Last 24 Hour Vital Signs Date Time Temp Pulse Resp B/P (MAP) Pulse Ox O2 Delivery O2 Flow Rate FiO2 10/02/19 04:00 97.4 55 20 138/55 (82) 100 10/02/19 04:00 53 10/02/19 00:00 97.5 58 20 140/54 (82) 100 10/02/19 00:00 56 10/01/19 21:00 97 Nasal Cannula 2.0 28 10/01/19 21:00 Nasal Cannula 2.0 10/01/19 20:00 97.9 63 20 151/65 (93) 100 10/01/19 20:00 65 10/01/19 16:00 98.2 64 20 154/71 (98) 99 10/01/19 16:00 61 10/01/19 12:00 98.0 59 20 150/62 (91) 94 10/01/19 12:00 68 10/01/19 09:00 Nasal Cannula 2.0 10/01/19 08:00 63 10/01/19 08:00 98.1 62 18 166/87 (113) 96 10/01/19 07:50 98 Nasal Cannula 2.0 28 Intake and Output 10/01/19 10/02/19 19:00 07:00 Intake Total 1322 ml Balance 1322 ml Intake Oral 480 ml Other 842 ml # Voids 2 # Bowel Movements 1 1 Laboratory Tests 10/01/19 17:50: Vancomycin Level Trough 27.1H 10/02/19 04:41: White Blood Count 5.8, Red Blood Count 3.14L, Hemoglobin 9.3L, Hematocrit 26.9L , Mean Corpuscular Volume 86, Mean Corpuscular Hemoglobin 29.6, Mean Corpuscular Hemoglobin Concent 34.6, Red Cell Distribution Width 12.3, Platelet Count 245, Mean Platelet Volume 5.2L, Neutrophils (%) (Auto) 76.0H, Lymphocytes (%) (Auto) 14.0L, Monocytes (%) (Auto) 8.0, Eosinophils (%) (Auto) 1.8, Basophils (%) (Auto) 0.3, Sodium Level 138, Potassium Level 3.8, Chloride Level 103, Carbon Dioxide Level 28, Anion Gap 7, Blood Urea Nitrogen 7, Creatinine 0.6 , Estimat Glomerular Filtration Rate > 60, Glucose Level 94, Calcium Level 8.9, Random Vancomycin Level 20.5 Height (Feet): 5 Height (Inches): 2.00 Weight (Pounds): 114 General Appearance: no apparent distress EENT: normal ENT inspection Neck: supple Cardiovascular: normal peripheral pulses Respiratory/Chest: decreased breath sounds Abdomen: normal bowel sounds, non tender, soft Extremities: non-tender Abhishek Langford MD Oct 02, 2019 06:58
[2019-10-02 08:00] VITALS: BP 130/72
[2019-10-02] MEDS: Levodopa/Carbidopa 25/100 tab ORAL SCH ×3 (09:45→18:26)
[2019-10-02] MEDS: Xarelto 15mg tab ORAL SCH (09:45)
[2019-10-02] MEDS: Amiodarone 200mg tab ORAL SCH ×2 (09:45→21:00)
[2019-10-02] MEDS: Aspirin Baby 81mg ORAL SCH (09:46)
--- NOTE | 2019-10-02 10:52 | Surgery Progress Note ---
Surgery Progress Note Subjective Symptoms: improved, tolerating diet, passing flatus, BM Objective Last 24 Hour Vital Signs Date Time Temp Pulse Resp B/P (MAP) Pulse Ox O2 Delivery O2 Flow Rate FiO2 10/02/19 08:00 98.5 62 17 130/72 (91) 97 10/02/19 08:00 64 10/02/19 04:00 97.4 55 20 138/55 (82) 100 10/02/19 04:00 53 10/02/19 00:00 97.5 58 20 140/54 (82) 100 10/02/19 00:00 56 10/01/19 21:00 97 Nasal Cannula 2.0 28 10/01/19 21:00 Nasal Cannula 2.0 10/01/19 20:00 97.9 63 20 151/65 (93) 100 10/01/19 20:00 65 10/01/19 16:00 98.2 64 20 154/71 (98) 99 10/01/19 16:00 61 10/01/19 12:00 98.0 59 20 150/62 (91) 94 10/01/19 12:00 68 I&O Intake and Output 10/01/19 10/02/19 19:00 07:00 Intake Total 1322 ml Balance 1322 ml Intake Oral 480 ml Other 842 ml # Voids 2 2 # Bowel Movements 1 1 Dressing: dry Wound: dry Cardiovascular: RSR Respiratory: clear Abdomen: soft, non-tender, present bowel sounds Extremities: no edema, no cyanosis Laboratory Tests Test 10/01/19 17:50 10/02/19 04:41 Vancomycin Level Trough 27.1 ug/mL (5.0-12.0) H White Blood Count 5.8 K/UL (4.8-10.8) Red Blood Count 3.14 M/UL (4.20-5.40) L Hemoglobin 9.3 G/DL (12.0-16.0) L Hematocrit 26.9 % (37.0-47.0) L Mean Corpuscular Volume 86 FL (80-99) Mean Corpuscular Hemoglobin 29.6 PG (27.0-31.0) Mean Corpuscular Hemoglobin Concent 34.6 G/DL (32.0-36.0) Red Cell Distribution Width 12.3 % (11.6-14.8) Platelet Count 245 K/UL (150-450) Mean Platelet Volume 5.2 FL (6.5-10.1) L Neutrophils (%) (Auto) 76.0 % (45.0-75.0) H Lymphocytes (%) (Auto) 14.0 % (20.0-45.0) L Monocytes (%) (Auto) 8.0 % (1.0-10.0) Eosinophils (%) (Auto) 1.8 % (0.0-3.0) Basophils (%) (Auto) 0.3 % (0.0-2.0) Sodium Level 138 MMOL/L (136-145) Potassium Level 3.8 MMOL/L (3.5-5.1) Chloride Level 103 MMOL/L (98-107) Carbon Dioxide Level 28 MMOL/L (21-32) Anion Gap 7 mmol/L (5-15) Blood Urea Nitrogen 7 mg/dL (7-18) Creatinine 0.6 MG/DL (0.55-1.30) Estimat Glomerular Filtration Rate > 60 mL/min (>60) Glucose Level 94 MG/DL (74-106) Calcium Level 8.9 MG/DL (8.5-10.1) Random Vancomycin Level 20.5 ug/mL Assessment Post-op Diagnosis Abdominal pain Assessment & Plan: Asked by Dr. Jackson to evaluate for abdominal pain, r/o obstruction vs impaction 79-year-old female with abdominal pain generalized no nausea vomiting fever chills. Cough and shortness of breath. Labs noted. CT reviewed. KUB ordered for 09/22 and reviewed. Improving now since admission. Currently states she is hungry and wants food. Abdominal exam stable improved otherwise. Bowel sounds noted. distended gb stable as asymptomatic and likely from age No acute surgical intervention planned Okay for diet from surgical standpoint Bowel regimen stool softeners appreciate GI input Nutritional evaluation enema prn will follow with recommendations thank you for let me participate in patient's care improving overall abd pain resolved no n/v/v/f FINDINGS: Lung bases: Right lower lobe of the lung small consolidation and mild bibasilar lung septal thickening. Heart: Cardiomegaly. Mitral valve prosthesis. ABDOMEN: Liver: Fatty prominent liver. Gallbladder and bile ducts: Distended gallbladder. No calcified stones. No ductal dilation. Pancreas: Unremarkable. No mass. No ductal dilation. Spleen: Unremarkable. No splenomegaly. Adrenals: Unremarkable. No mass. Kidneys and ureters: Mild bilateral hydronephrosis, greater on the right, may be due to external compression of the distal ureters from the overly distended rectum. Stomach and bowel: Dilated rectosigmoid colon to 11.3 cm., large amount of stool in the remainder of the colon. Findings may be due to fecal impaction with obstipation. Differential includes Colonic ileus or distal colonic obstruction and early stercoral colitis. Trace free fluid. No free air or abscess. PELVIS: Appendix: No findings to suggest acute appendicitis. Bladder: See below. Reproductive: Uterus and urinary bladder anteriorly placed from the markedly distended rectum. ABDOMEN and PELVIS: Intraperitoneal space: See above. Bones/joints: Mild superior endplate compression of L5 likely chronic. Dynamic left hip screws. No dislocation. Soft tissues: Unremarkable. Vasculature: Atherosclerotic vascular disease. No abdominal aortic aneurysm. Lymph nodes: Unremarkable. No enlarged lymph nodes. IMPRESSION: 1. Dilated rectosigmoid colon to 11.3 cm., large amount of stool in the remainder of the colon. Mild thickening of the colonic wall. Findings may be due to fecal impaction with obstipation. Differential includes Colonic ileus or distal colonic obstruction and early stercoral colitis. Trace free fluid. No free air or abscess. 2. Mild bilateral hydronephrosis, greater on the right, may be due to external compression of the distal ureters from the overly distended rectum. 3. Right lower lobe of the lung small consolidation and mild bibasilar lung septal thickening. 4. Fatty prominent liver. Distended gallbladder. ICD Codes: R10.9 - Unspecified abdominal pain SNOMED: [id number] Qualifiers: Qualified Codes: R10.9 - Unspecified abdominal pain Noe Hirsch Oct 02, 2019 10:52
[2019-10-02 12:00] VITALS: BP 131/62
--- NOTE | 2019-10-02 12:44 | Pulmonology Progress Note ---
Assessment/Plan Problems: (1) Nosocomial pneumonia (2) SVT (supraventricular tachycardia) (3) Hypothyroidism (4) Alzheimer's dementia (5) Seizure disorder (6) Diabetes mellitus type II, controlled (7) HTN (hypertension) (8) Intractable abdominal pain (9) Parkinson disease (10) History of subdural hematoma Assessment/Plan check sputum, no VRE negative, MRSA negative swallow study: she will be reevaluated ID evaluation appreciated, On isolation for Covid-19, still pending echo reviewed EF of 65% sliding scale dvt prophylaxis Subjective ROS Limited/Unobtainable: No Constitutional: Reports: no symptoms HEENT: Repors: no symptoms Allergies: Coded Allergies: INFLIXIMAB (Verified Allergy, Intermediate, 04/20/16) NIACIN (Verified Allergy, Intermediate, 04/20/16) SULFA (SULFONAMIDE ANTIBIOTICS) (Verified Allergy, Intermediate, 04/20/16) Uncoded Allergies: SULFONAMIDES (Allergy, Unknown, 04/28/18) Objective Last 24 Hour Vital Signs Date Time Temp Pulse Resp B/P (MAP) Pulse Ox O2 Delivery O2 Flow Rate FiO2 10/02/19 09:00 Nasal Cannula 2.0 10/02/19 08:00 98.5 62 17 130/72 (91) 97 10/02/19 08:00 64 10/02/19 04:00 97.4 55 20 138/55 (82) 100 10/02/19 04:00 53 10/02/19 00:00 97.5 58 20 140/54 (82) 100 10/02/19 00:00 56 10/01/19 21:00 97 Nasal Cannula 2.0 28 10/01/19 21:00 Nasal Cannula 2.0 10/01/19 20:00 97.9 63 20 151/65 (93) 100 10/01/19 20:00 65 10/01/19 16:00 98.2 64 20 154/71 (98) 99 10/01/19 16:00 61 Intake and Output 10/01/19 10/02/19 18:59 06:59 Intake Total 1322 ml Balance 1322 ml Intake Oral 480 ml Other 842 ml # Voids 2 2 # Bowel Movements 1 1 Objective General Appearance: WD/WN HEENT: normocephalic, atraumatic Respiratory/Chest: chest wall non-tender,rhonchi Breasts: no masses Cardiovascular: normal peripheral pulses Abdomen: normal bowel sounds, soft, non tender Genitourinary: normal external genitalia Extremities: no cyanosis Skin: no rash Microbiology Date/Time Source Procedure Growth Status 10/01/19 16:15 Sputum Expectorated Gram Stain Pending Resulted 10/01/19 16:15 Sputum Expectorated Sputum Culture - Preliminary NO GROWTH Resulted Laboratory Tests 10/01/19 17:50: Vancomycin Level Trough 27.1H 10/02/19 04:41: White Blood Count 5.8, Red Blood Count 3.14L, Hemoglobin 9.3L, Hematocrit 26.9L , Mean Corpuscular Volume 86, Mean Corpuscular Hemoglobin 29.6, Mean Corpuscular Hemoglobin Concent 34.6, Red Cell Distribution Width 12.3, Platelet Count 245, Mean Platelet Volume 5.2L, Neutrophils (%) (Auto) 76.0H, Lymphocytes (%) (Auto) 14.0L, Monocytes (%) (Auto) 8.0, Eosinophils (%) (Auto) 1.8, Basophils (%) (Auto) 0.3, Sodium Level 138, Potassium Level 3.8, Chloride Level 103, Carbon Dioxide Level 28, Anion Gap 7, Blood Urea Nitrogen 7, Creatinine 0.6 , Estimat Glomerular Filtration Rate > 60, Glucose Level 94, Calcium Level 8.9, Random Vancomycin Level 20.5 Current Medications Medications (Trade) Dose Ordered Sig/Zee Route PRN Reason Start Time Stop Time Status Last Admin Dose Admin Acetaminophen (Tylenol) 650 mg Q4H PRN ORAL T>100.4 09/29/19 18:30 10/21/19 18:29 Amiodarone HCl (Cordarone) 200 mg EVERY 12 HOURS ORAL 09/29/19 21:00 12/26/19 18:59 10/02/19 09:45 Aspirin (ASA) 81 mg DAILY ORAL 09/30/19 09:00 11/06/19 09:14 10/02/19 09:46 Atorvastatin Calcium (Lipitor) 10 mg BEDTIME ORAL 09/29/19 21:00 12/20/19 20:59 10/01/19 20:43 Carbidopa/Levodopa (Sinemet 25/100) 1 tab THREE TIMES A DAY ORAL 09/30/19 09:00 10/21/19 17:59 10/02/19 09:45 Levothyroxine Sodium (Synthroid) 100 mcg ACBREAKFAST ORAL 09/30/19 06:30 10/22/19 06:29 10/02/19 06:29 Linaclotide (Linzess) 290 mcg BEFORE BREAKFAST ORAL 10/03/19 06:30 01/01/20 06:29 Metoprolol Tartrate (Lopressor) 2.5 mg Q6H PRN IVP HR > 120 bpm 09/29/19 20:45 12/26/19 08:44 Nitroglycerin (Ntg) 0.4 mg Q5M PRN SL Prn Chest Pain 09/29/19 18:30 10/21/19 16:44 Ondansetron HCl (Zofran) 4 mg Q6H PRN IVP Nausea & Vomiting 09/29/19 18:30 10/21/19 18:29 Polyethylene Glycol (Miralax) 17 gm BEDTIME ORAL 09/29/19 21:00 10/22/19 20:59 10/01/19 20:43 Polyethylene Glycol (Miralax) 17 gm DAILYPRN PRN ORAL Constipation 09/29/19 18:30 10/29/19 18:29 Promethazine HCl/ Codeine (Phenergan with Codeine) 5 ml Q4H PRN ORAL For Cough 09/29/19 18:30 10/21/19 18:29 Rivaroxaban (Xarelto) 15 mg DAILY ORAL 09/30/19 09:00 12/26/19 08:59 10/02/19 09:45 Koko Gee MD Oct 02, 2019 12:44
--- NOTE | 2019-10-02 12:51 | Internal Med Progress Note ---
Subjective Date of Service: Oct 02, 2019 Physician Name Bryan Jackson Attending Physician Carlos Junior MD Current Medications Medications (Trade) Dose Ordered Sig/Zee Route PRN Reason Start Time Stop Time Status Last Admin Dose Admin Acetaminophen (Tylenol) 650 mg Q4H PRN ORAL T>100.4 09/29/19 18:30 10/21/19 18:29 Amiodarone HCl (Cordarone) 200 mg EVERY 12 HOURS ORAL 09/29/19 21:00 12/26/19 18:59 10/02/19 09:45 Aspirin (ASA) 81 mg DAILY ORAL 09/30/19 09:00 11/06/19 09:14 10/02/19 09:46 Atorvastatin Calcium (Lipitor) 10 mg BEDTIME ORAL 09/29/19 21:00 12/20/19 20:59 10/01/19 20:43 Carbidopa/Levodopa (Sinemet 25/100) 1 tab THREE TIMES A DAY ORAL 09/30/19 09:00 10/21/19 17:59 10/02/19 09:45 Levothyroxine Sodium (Synthroid) 100 mcg ACBREAKFAST ORAL 09/30/19 06:30 10/22/19 06:29 10/02/19 06:29 Linaclotide (Linzess) 290 mcg BEFORE BREAKFAST ORAL 10/03/19 06:30 01/01/20 06:29 Metoprolol Tartrate (Lopressor) 2.5 mg Q6H PRN IVP HR > 120 bpm 09/29/19 20:45 12/26/19 08:44 Nitroglycerin (Ntg) 0.4 mg Q5M PRN SL Prn Chest Pain 09/29/19 18:30 10/21/19 16:44 Ondansetron HCl (Zofran) 4 mg Q6H PRN IVP Nausea & Vomiting 09/29/19 18:30 10/21/19 18:29 Polyethylene Glycol (Miralax) 17 gm BEDTIME ORAL 09/29/19 21:00 10/22/19 20:59 10/01/19 20:43 Polyethylene Glycol (Miralax) 17 gm DAILYPRN PRN ORAL Constipation 09/29/19 18:30 10/29/19 18:29 Promethazine HCl/ Codeine (Phenergan with Codeine) 5 ml Q4H PRN ORAL For Cough 09/29/19 18:30 10/21/19 18:29 Rivaroxaban (Xarelto) 15 mg DAILY ORAL 09/30/19 09:00 12/26/19 08:59 10/02/19 09:45 Allergies: Coded Allergies: INFLIXIMAB (Verified Allergy, Intermediate, 04/20/16) NIACIN (Verified Allergy, Intermediate, 04/20/16) SULFA (SULFONAMIDE ANTIBIOTICS) (Verified Allergy, Intermediate, 04/20/16) Uncoded Allergies: SULFONAMIDES (Allergy, Unknown, 04/28/18) ROS Limited/Unobtainable: No Constitutional: Reports: no symptoms HEENT: Reports: no symptoms Cardiovascular: Reports: no symptoms Respiratory: Reports: no symptoms Gastrointestinal/Abdominal: Reports: no symptoms Genitourinary: Reports: no symptoms Neurologic/Psychiatric: Reports: no symptoms Subjective 79 YO F admitted with abdominal pain. Now atrial fibrillation with rapid ventricular rate. Cover for Int Triston-DR Junior. Objective Last Vital Signs Date Time Temp Pulse Resp B/P (MAP) Pulse Ox O2 Delivery O2 Flow Rate FiO2 10/02/19 12:00 97.9 66 18 131/62 (85) 97 10/02/19 09:00 Nasal Cannula 2.0 10/01/19 21:00 28 Laboratory Tests Test 10/01/19 17:50 10/02/19 04:41 Vancomycin Level Trough 27.1 ug/mL (5.0-12.0) H White Blood Count 5.8 K/UL (4.8-10.8) Red Blood Count 3.14 M/UL (4.20-5.40) L Hemoglobin 9.3 G/DL (12.0-16.0) L Hematocrit 26.9 % (37.0-47.0) L Mean Corpuscular Volume 86 FL (80-99) Mean Corpuscular Hemoglobin 29.6 PG (27.0-31.0) Mean Corpuscular Hemoglobin Concent 34.6 G/DL (32.0-36.0) Red Cell Distribution Width 12.3 % (11.6-14.8) Platelet Count 245 K/UL (150-450) Mean Platelet Volume 5.2 FL (6.5-10.1) L Neutrophils (%) (Auto) 76.0 % (45.0-75.0) H Lymphocytes (%) (Auto) 14.0 % (20.0-45.0) L Monocytes (%) (Auto) 8.0 % (1.0-10.0) Eosinophils (%) (Auto) 1.8 % (0.0-3.0) Basophils (%) (Auto) 0.3 % (0.0-2.0) Sodium Level 138 MMOL/L (136-145) Potassium Level 3.8 MMOL/L (3.5-5.1) Chloride Level 103 MMOL/L (98-107) Carbon Dioxide Level 28 MMOL/L (21-32) Anion Gap 7 mmol/L (5-15) Blood Urea Nitrogen 7 mg/dL (7-18) Creatinine 0.6 MG/DL (0.55-1.30) Estimat Glomerular Filtration Rate > 60 mL/min (>60) Glucose Level 94 MG/DL (74-106) Calcium Level 8.9 MG/DL (8.5-10.1) Random Vancomycin Level 20.5 ug/mL Microbiology Date/Time Source Procedure Growth Status 10/01/19 16:15 Sputum Expectorated Gram Stain Pending Resulted 10/01/19 16:15 Sputum Expectorated Sputum Culture - Preliminary NO GROWTH Resulted Intake and Output 10/01/19 10/02/19 19:00 07:00 Intake Total 1322 ml Balance 1322 ml Intake Oral 480 ml Other 842 ml # Voids 2 2 # Bowel Movements 1 1 Objective PHYSICAL EXAMINATION: GENERAL: The patient is a well-developed and well-nourished thin-appearing female, in no apparent distress. HEENT: Eyes, pupils are equal and responsive to light and accommodation. Extraocular movements are intact. NECK: Supple without lymphadenopathy. CHEST: Lungs are clear to auscultation bilaterally without wheezes or rales. CARDIOVASCULAR: Regular rate. S1 and S2 normal without murmurs, rubs, or gallops. ABDOMEN: Soft, distended with decreased bowel sounds. There is increased tympany. There is tenderness to palpation in all four quadrants. There is no rebound or guarding noted. EXTREMITIES: Negative for clubbing, cyanosis, or edema. RECTAL/GENITAL: Not performed. NEUROLOGIC: Cranial nerves II through XII are grossly intact without focal deficits. Motor strength is 5/5 bilaterally. Deep tendon reflexes are 2+ plantar. Assessment/Plan Assessment/Plan ASSESSMENT: This is a 79-year-old female with: 1. Abdominal pain. 2. Congestive heart failure. 3. Right lower lobe pneumonia. 4. Atrial fibrillation with rapid ventricular rate 5. Coronary artery disease. 6. Diabetes type 2. 7. Hypertension. 8. Hypercholesterolemia. 9. Hypothyroidism. 10. Seizure disorder. 11. Cerebrovascular disease. 12. Left hemiparesis. 13. Subdural hematoma. 14. History of deep venous thrombosis. 15. Mitral and aortic valve biosynthetic prosthesis. 16. Anemia TREATMENT: 1. Abdominal pain/distention. Improved with laxatives. A General Surgery consultation has been obtained with Dr. Hirsch. A Gastroenterology consultation has been obtained with Dr. Abhishek Langford. We will follow recommendations of General Surgery and Gastroenterology. 2. Congestive heart failure. Cardiology consultation has been obtained with Dr. Barber Mack. The patient has been started empirically on intravenous Lasix. An echocardiogram is pending. 3. Right lower lobe pneumonia. A Pulmonary consultation has been obtained with Dr. Koko Gee. Inf Dis=Dr. Mac. ABX=S/P cefepime and continue vancomycin. We will follow recommendations of Pulmonary and ID 4. Atrial fibrillation. Cardiology consultation=Dr. Barber Mack. Continue metoprolol and amiodarone per cardiology 5. Coronary artery disease. The patient is status post coronary artery bypass graft. 6. Diabetes type 2. The patient is not on any antihyperglycemic medication at the [facility]. 7. Hypertension. Continue metoprolol as above. 8. Hypercholesteremia. Continue atorvastatin as above. 9. Hypothyroidism. Continue levothyroxine as above. 10. Seizure disorder. Continue carbamazepine as above. 11. Cerebrovascular disease. 12. Left hemiparesis. 13. History of subdural hematoma. 14. History of deep venous thrombosis. 15. History of mitral and aortic valve bioprosthesis replacement. 16. Anemia workup per GI 17. Discharge planning: [facility] Bryan Jackson MD Oct 02, 2019 12:51
--- NOTE | 2019-10-02 13:38 | Infectious Diseases Prog Note ---
Assessment/Plan Assessment/Plan 79yo woman with PMH DM, HTN, Afib, GERD, CVA, dementia. Pt presented from SNF for cough, sob, vomiting and abd pain for one day. No fever or chills. Afebrile 2L NC Mild leukocytosis RLL pneumonia Flu swab negative 09/20 CXR: Mild interstitial prominence and tiny left pleural effusion may be mild CHF. 09/20 CT A/P: Dilated rectosigmoid colon to 11.3 cm., large amount of stool in the remainder of the colon. Mild thickening of the colonic wall. Findings may be due to fecal impaction with obstipation. Differential includes Colonic ileus or distal colonic obstruction and early stercoral colitis. Trace free fluid. No free air or abscess. Mild bilateral hydronephrosis, greater on the right, may be due to external compression of the distal ureters from the overly distended rectum. Right lower lobe of the lung small consolidation and mild bibasilar lung septal thickening. Fatty prominent liver. Distended gallbladder. 09/27 CXR: Similar trace left pleural effusion. Interstitial opacities throughout the lungs, most prominent at the left lung base may represent chronic interstitial lung changes with possible superimposed infectious/inflammatory process, stable compared to prior exam. GI symptoms--vomiting, pain KUB: moderate to severe fecal retention Unlikely UTI UA negative r/o bacteremia BCx: NG NH resident Alzheimer's dementia GERD Afib DM HTN CVA DVT Subdural hematoma MV/AV bioprosthesis L hemiparesis Seizure disorder Hypothyroidism Plan: monitor off abx 09/30 SP Vanc #11 Sp Cefepime 09/20-09/27 monitor temp and CBC r/o COVID 19--GI symptoms, lymphopenia, NH resident, pneumonia are all concerning isolation precaution monitor resp status DW RN Subjective Allergies: Coded Allergies: INFLIXIMAB (Verified Allergy, Intermediate, 04/20/16) NIACIN (Verified Allergy, Intermediate, 04/20/16) SULFA (SULFONAMIDE ANTIBIOTICS) (Verified Allergy, Intermediate, 04/20/16) Uncoded Allergies: SULFONAMIDES (Allergy, Unknown, 04/28/18) Subjective Afebrile. 2L NC. No leukocytosis. statse cough is minimal Objective Vital Signs Last 24 Hour Vital Signs Date Time Temp Pulse Resp B/P (MAP) Pulse Ox O2 Delivery O2 Flow Rate FiO2 10/02/19 12:00 97.9 66 18 131/62 (85) 97 10/02/19 12:00 66 10/02/19 09:00 Nasal Cannula 2.0 10/02/19 08:00 98.5 62 17 130/72 (91) 97 10/02/19 08:00 64 10/02/19 04:00 97.4 55 20 138/55 (82) 100 10/02/19 04:00 53 10/02/19 00:00 97.5 58 20 140/54 (82) 100 10/02/19 00:00 56 10/01/19 21:00 97 Nasal Cannula 2.0 28 10/01/19 21:00 Nasal Cannula 2.0 10/01/19 20:00 97.9 63 20 151/65 (93) 100 10/01/19 20:00 65 10/01/19 16:00 98.2 64 20 154/71 (98) 99 10/01/19 16:00 61 Height (Feet): 5 Height (Inches): 2.00 Weight (Pounds): 114 Objective Gen: NAD. calm. frail thin elderly woman CV: RRR. no rubs or gallop. Resp: RRR. rhonchi. no wheezes or crackles. unlabored. Abd: normoactive Bs+. Soft. slightly distended. no rebound. no guarding Neuro: alert. interactive Microbiology Date/Time Source Procedure Growth Status 10/01/19 16:15 Sputum Expectorated Gram Stain Pending Resulted 10/01/19 16:15 Sputum Expectorated Sputum Culture - Preliminary NO GROWTH Resulted Laboratory Tests Test 10/01/19 17:50 10/02/19 04:41 Vancomycin Level Trough 27.1 ug/mL (5.0-12.0) H White Blood Count 5.8 K/UL (4.8-10.8) Red Blood Count 3.14 M/UL (4.20-5.40) L Hemoglobin 9.3 G/DL (12.0-16.0) L Hematocrit 26.9 % (37.0-47.0) L Mean Corpuscular Volume 86 FL (80-99) Mean Corpuscular Hemoglobin 29.6 PG (27.0-31.0) Mean Corpuscular Hemoglobin Concent 34.6 G/DL (32.0-36.0) Red Cell Distribution Width 12.3 % (11.6-14.8) Platelet Count 245 K/UL (150-450) Mean Platelet Volume 5.2 FL (6.5-10.1) L Neutrophils (%) (Auto) 76.0 % (45.0-75.0) H Lymphocytes (%) (Auto) 14.0 % (20.0-45.0) L Monocytes (%) (Auto) 8.0 % (1.0-10.0) Eosinophils (%) (Auto) 1.8 % (0.0-3.0) Basophils (%) (Auto) 0.3 % (0.0-2.0) Sodium Level 138 MMOL/L (136-145) Potassium Level 3.8 MMOL/L (3.5-5.1) Chloride Level 103 MMOL/L (98-107) Carbon Dioxide Level 28 MMOL/L (21-32) Anion Gap 7 mmol/L (5-15) Blood Urea Nitrogen 7 mg/dL (7-18) Creatinine 0.6 MG/DL (0.55-1.30) Estimat Glomerular Filtration Rate > 60 mL/min (>60) Glucose Level 94 MG/DL (74-106) Calcium Level 8.9 MG/DL (8.5-10.1) Random Vancomycin Level 20.5 ug/mL Current Medications Medications (Trade) Dose Ordered Sig/Zee Route PRN Reason Start Time Stop Time Status Last Admin Dose Admin Acetaminophen (Tylenol) 650 mg Q4H PRN ORAL T>100.4 09/29/19 18:30 10/21/19 18:29 Amiodarone HCl (Cordarone) 200 mg EVERY 12 HOURS ORAL 09/29/19 21:00 12/26/19 18:59 10/02/19 09:45 Aspirin (ASA) 81 mg DAILY ORAL 09/30/19 09:00 11/06/19 09:14 10/02/19 09:46 Atorvastatin Calcium (Lipitor) 10 mg BEDTIME ORAL 09/29/19 21:00 12/20/19 20:59 10/01/19 20:43 Carbidopa/Levodopa (Sinemet 25/100) 1 tab THREE TIMES A DAY ORAL 09/30/19 09:00 10/21/19 17:59 10/02/19 13:13 Levothyroxine Sodium (Synthroid) 100 mcg ACBREAKFAST ORAL 09/30/19 06:30 10/22/19 06:29 10/02/19 06:29 Linaclotide (Linzess) 290 mcg BEFORE BREAKFAST ORAL 10/03/19 06:30 01/01/20 06:29 Metoprolol Tartrate (Lopressor) 2.5 mg Q6H PRN IVP HR > 120 bpm 09/29/19 20:45 12/26/19 08:44 Nitroglycerin (Ntg) 0.4 mg Q5M PRN SL Prn Chest Pain 09/29/19 18:30 10/21/19 16:44 Ondansetron HCl (Zofran) 4 mg Q6H PRN IVP Nausea & Vomiting 09/29/19 18:30 10/21/19 18:29 Polyethylene Glycol (Miralax) 17 gm BEDTIME ORAL 09/29/19 21:00 10/22/19 20:59 10/01/19 20:43 Polyethylene Glycol (Miralax) 17 gm DAILYPRN PRN ORAL Constipation 09/29/19 18:30 10/29/19 18:29 Promethazine HCl/ Codeine (Phenergan with Codeine) 5 ml Q4H PRN ORAL For Cough 09/29/19 18:30 10/21/19 18:29 Rivaroxaban (Xarelto) 15 mg DAILY ORAL 09/30/19 09:00 12/26/19 08:59 10/02/19 09:45 Marbin Mac MD Oct 02, 2019 13:38
[2019-10-02 16:00] VITALS: BP 140/72
--- NOTE | 2019-10-02 16:19 | Cardiology Progress Note ---
Assessment/Plan Assessment/Plan 1. Atrial fibrillation with rapid ventricular response, paroxysmal in nature. now back in [facility] as of 09/28 2. Large left atrial presumed calcified thrombus, present since 2018. 3. Coronary artery disease, status post coronary artery bypass grafting. 4. Prosthetic mitral and aortic valve with normal function at the present time. 5. History of prosthetic valve endocarditis. 6. Fecal impaction. 7. Colonic distention secondary to fecal impaction. 8. Diabetes mellitus. 9. History of hypertension. 10. History of subdural hematoma. 11. Dementia. remain in sinus off bb on [facility] for stroke prevention tele reviewed 10/01 sinus / jinny ekg noted po amiod bid as of 09/26 pm lab ok form 10/01 covid 19 isolation now Objective Last 24 Hour Vital Signs Date Time Temp Pulse Resp B/P (MAP) Pulse Ox O2 Delivery O2 Flow Rate FiO2 10/02/19 12:00 97.9 66 18 131/62 (85) 97 10/02/19 12:00 66 10/02/19 09:00 Nasal Cannula 2.0 10/02/19 08:00 98.5 62 17 130/72 (91) 97 10/02/19 08:00 64 10/02/19 04:00 97.4 55 20 138/55 (82) 100 10/02/19 04:00 53 10/02/19 00:00 97.5 58 20 140/54 (82) 100 10/02/19 00:00 56 10/01/19 21:00 97 Nasal Cannula 2.0 28 10/01/19 21:00 Nasal Cannula 2.0 10/01/19 20:00 97.9 63 20 151/65 (93) 100 10/01/19 20:00 65 Intake and Output 10/01/19 10/02/19 19:00 07:00 Intake Total 1322 ml Balance 1322 ml Intake Oral 480 ml Other 842 ml # Voids 2 2 # Bowel Movements 1 1 Laboratory Tests Test 10/01/19 17:50 10/02/19 04:41 Vancomycin Level Trough 27.1 ug/mL (5.0-12.0) H White Blood Count 5.8 K/UL (4.8-10.8) Red Blood Count 3.14 M/UL (4.20-5.40) L Hemoglobin 9.3 G/DL (12.0-16.0) L Hematocrit 26.9 % (37.0-47.0) L Mean Corpuscular Volume 86 FL (80-99) Mean Corpuscular Hemoglobin 29.6 PG (27.0-31.0) Mean Corpuscular Hemoglobin Concent 34.6 G/DL (32.0-36.0) Red Cell Distribution Width 12.3 % (11.6-14.8) Platelet Count 245 K/UL (150-450) Mean Platelet Volume 5.2 FL (6.5-10.1) L Neutrophils (%) (Auto) 76.0 % (45.0-75.0) H Lymphocytes (%) (Auto) 14.0 % (20.0-45.0) L Monocytes (%) (Auto) 8.0 % (1.0-10.0) Eosinophils (%) (Auto) 1.8 % (0.0-3.0) Basophils (%) (Auto) 0.3 % (0.0-2.0) Sodium Level 138 MMOL/L (136-145) Potassium Level 3.8 MMOL/L (3.5-5.1) Chloride Level 103 MMOL/L (98-107) Carbon Dioxide Level 28 MMOL/L (21-32) Anion Gap 7 mmol/L (5-15) Blood Urea Nitrogen 7 mg/dL (7-18) Creatinine 0.6 MG/DL (0.55-1.30) Estimat Glomerular Filtration Rate > 60 mL/min (>60) Glucose Level 94 MG/DL (74-106) Calcium Level 8.9 MG/DL (8.5-10.1) Random Vancomycin Level 20.5 ug/mL Microbiology Date/Time Source Procedure Growth Status 10/01/19 16:15 Sputum Expectorated Gram Stain Pending Resulted 10/01/19 16:15 Sputum Expectorated Sputum Culture - Preliminary NO GROWTH Resulted Barber Mack MD Oct 02, 2019 16:19
[2019-10-02 20:00] VITALS: BP 152/64
[2019-10-02] MEDS: Miralax 17gm pkt ORAL SCH (21:00)
[2019-10-03] VITALS: BP 150/63
[2019-10-03 07:20] LABS: BASOPHILS % (AUTO) 0.4 % (0.0-2.0); EOSINOPHILS % (AUTO) 1.9 % (0.0-3.0); HEMATOCRIT 25.4 % (37.0-47.0); HEMOGLOBIN 8.7 G/DL (12.0-16.0); LYMPHOCYTES % (AUTO) 17.9 % (20.0-45.0); MEAN CORPUSCULAR VOLUME 86 FL (80-99); MONOCYTES % (AUTO) 10.3 % (1.0-10.0); NEUTROPHILS % (AUTO) 69.5 % (45.0-75.0); PLATELET COUNT 224 K/UL (150-450); RED BLOOD COUNT 2.96 M/UL (4.20-5.40); RED CELL DISTRIBUTION WIDTH 12.5 % (11.6-14.8); WHITE BLOOD COUNT 4.5 K/UL (4.8-10.8)
[2019-10-03 07:49] LABS: ALANINE AMINOTRANSFERASE 10 U/L (12-78); ALBUMIN 2.5 G/DL (3.4-5.0); ALBUMIN/GLOBULIN RATIO 0.7 (1.0-2.7); ALKALINE PHOSPHATASE 50 U/L (46-116); ANION GAP 7 mmol/L (5-15); ASPARTATE AMINO TRANSFERASE 15 U/L (15-37); BILIRUBIN,TOTAL 0.3 MG/DL (0.2-1.0); BLOOD UREA NITROGEN 7 mg/dL (7-18); CALCIUM 8.9 MG/DL (8.5-10.1); CARBON DIOXIDE 28 MMOL/L (21-32); CHLORIDE 104 MMOL/L (98-107); CREATININE 0.6 MG/DL (0.55-1.30); PHOSPHORUS 3.6 MG/DL (2.5-4.9); SODIUM 139 MMOL/L (136-145)
[2019-10-03 08:00] VITALS: BP 154/67
--- NOTE | 2019-10-03 08:32 | Infectious Diseases Prog Note ---
Assessment/Plan Assessment/Plan 79yo woman with PMH DM, HTN, Afib, GERD, CVA, dementia. Pt presented from SNF for cough, sob, vomiting and abd pain for one day. No fever or chills. Afebrile 2L NC Mild leukocytosis, SP now leukopenia RLL pneumonia, sp rx Flu swab negative 09/20 CXR: Mild interstitial prominence and tiny left pleural effusion may be mild CHF. 09/20 CT A/P: Dilated rectosigmoid colon to 11.3 cm., large amount of stool in the remainder of the colon. Mild thickening of the colonic wall. Findings may be due to fecal impaction with obstipation. Differential includes Colonic ileus or distal colonic obstruction and early stercoral colitis. Trace free fluid. No free air or abscess. Mild bilateral hydronephrosis, greater on the right, may be due to external compression of the distal ureters from the overly distended rectum. Right lower lobe of the lung small consolidation and mild bibasilar lung septal thickening. Fatty prominent liver. Distended gallbladder. 09/27 CXR: Similar trace left pleural effusion. Interstitial opacities throughout the lungs, most prominent at the left lung base may represent chronic interstitial lung changes with possible superimposed infectious/inflammatory process, stable compared to prior exam. SARS CoV PCR negative sp cx normal padma GI symptoms--vomiting, pain, resolving KUB: moderate to severe fecal retention Unlikely UTI UA negative r/o bacteremia BCx: NG SC resident Alzheimer's dementia GERD Afib DM HTN CVA DVT Subdural hematoma MV/AV bioprosthesis L hemiparesis Seizure disorder Hypothyroidism Plan: monitor off abx 09/30 SP Vanc #11 Sp Cefepime 09/20-09/27 monitor temp and CBC DC isolation monitor resp status DW RN Subjective Allergies: Coded Allergies: INFLIXIMAB (Verified Allergy, Intermediate, 04/20/16) NIACIN (Verified Allergy, Intermediate, 04/20/16) SULFA (SULFONAMIDE ANTIBIOTICS) (Verified Allergy, Intermediate, 04/20/16) Uncoded Allergies: SULFONAMIDES (Allergy, Unknown, 04/28/18) Subjective Afebrile. 2L NC. Mild leukopenia feels well Objective Vital Signs Last 24 Hour Vital Signs Date Time Temp Pulse Resp B/P (MAP) Pulse Ox O2 Delivery O2 Flow Rate FiO2 10/03/19 04:00 50 10/03/19 04:00 50 10/03/19 00:00 97.1 53 18 150/63 (92) 99 10/03/19 00:00 53 10/02/19 21:00 Nasal Cannula 2.0 10/02/19 20:01 96 Nasal Cannula 2.0 28 10/02/19 20:00 98.2 68 18 152/64 (93) 99 10/02/19 20:00 68 10/02/19 16:00 75 10/02/19 16:00 98.6 72 16 140/72 (94) 99 10/02/19 12:00 97.9 66 18 131/62 (85) 97 10/02/19 12:00 66 10/02/19 09:00 Nasal Cannula 2.0 Height (Feet): 5 Height (Inches): 2.00 Weight (Pounds): 114 Objective Gen: NAD. calm. frail thin elderly woman CV: RRR. no rubs or gallop. Resp: RRR. rhonchi. no wheezes or crackles. unlabored. Abd: normoactive Bs+. Soft. no rebound. no guarding Neuro: alert. interactive Microbiology Date/Time Source Procedure Growth Status 10/01/19 16:15 Sputum Expectorated Gram Stain - Final Complete 10/01/19 16:15 Sputum Expectorated Sputum Culture - Final NORMAL UPPER RESPIRATORY PADMA PRESENT Complete 09/30/19 18:35 Nasopharynx Coronavirus COVID-19 PCR (MARINO) - Final Complete Laboratory Tests Test 10/03/19 05:53 White Blood Count 4.5 K/UL (4.8-10.8) L Red Blood Count 2.96 M/UL (4.20-5.40) L Hemoglobin 8.7 G/DL (12.0-16.0) L Hematocrit 25.4 % (37.0-47.0) L Mean Corpuscular Volume 86 FL (80-99) Mean Corpuscular Hemoglobin 29.5 PG (27.0-31.0) Mean Corpuscular Hemoglobin Concent 34.3 G/DL (32.0-36.0) Red Cell Distribution Width 12.5 % (11.6-14.8) Platelet Count 224 K/UL (150-450) Mean Platelet Volume 5.3 FL (6.5-10.1) L Neutrophils (%) (Auto) 69.5 % (45.0-75.0) Lymphocytes (%) (Auto) 17.9 % (20.0-45.0) L Monocytes (%) (Auto) 10.3 % (1.0-10.0) H Eosinophils (%) (Auto) 1.9 % (0.0-3.0) Basophils (%) (Auto) 0.4 % (0.0-2.0) Erythrocyte Sedimentation Rate Pending Sodium Level 139 MMOL/L (136-145) Potassium Level 4.0 MMOL/L (3.5-5.1) Chloride Level 104 MMOL/L (98-107) Carbon Dioxide Level 28 MMOL/L (21-32) Anion Gap 7 mmol/L (5-15) Blood Urea Nitrogen 7 mg/dL (7-18) Creatinine 0.6 MG/DL (0.55-1.30) Estimat Glomerular Filtration Rate > 60 mL/min (>60) Glucose Level 84 MG/DL (74-106) Calcium Level 8.9 MG/DL (8.5-10.1) Phosphorus Level 3.6 MG/DL (2.5-4.9) Magnesium Level 1.8 MG/DL (1.8-2.4) Total Bilirubin 0.3 MG/DL (0.2-1.0) Aspartate Amino Transf (AST/SGOT) 15 U/L (15-37) Alanine Aminotransferase (ALT/SGPT) 10 U/L (12-78) L Alkaline Phosphatase 50 U/L (46-116) C-Reactive Protein, Quantitative 2.0 mg/dL (0.00-0.90) H Pro-B-Type Natriuretic Peptide 1194 pg/mL (0-125) H Total Protein 5.9 G/DL (6.4-8.2) L Albumin 2.5 G/DL (3.4-5.0) L Globulin 3.4 g/dL Albumin/Globulin Ratio 0.7 (1.0-2.7) L Current Medications Medications (Trade) Dose Ordered Sig/Zee Route PRN Reason Start Time Stop Time Status Last Admin Dose Admin Acetaminophen (Tylenol) 650 mg Q4H PRN ORAL T>100.4 09/29/19 18:30 10/21/19 18:29 Amiodarone HCl (Cordarone) 200 mg EVERY 12 HOURS ORAL 09/29/19 21:00 12/26/19 18:59 10/02/19 21:00 Aspirin (ASA) 81 mg DAILY ORAL 09/30/19 09:00 11/06/19 09:14 10/02/19 09:46 Atorvastatin Calcium (Lipitor) 10 mg BEDTIME ORAL 09/29/19 21:00 12/20/19 20:59 10/02/19 21:00 Carbidopa/Levodopa (Sinemet 25/100) 1 tab THREE TIMES A DAY ORAL 09/30/19 09:00 10/21/19 17:59 10/02/19 18:26 Levothyroxine Sodium (Synthroid) 100 mcg ACBREAKFAST ORAL 09/30/19 06:30 10/22/19 06:29 10/03/19 06:29 Linaclotide (Linzess) 290 mcg BEFORE BREAKFAST ORAL 10/03/19 06:30 01/01/20 06:29 10/03/19 06:29 Metoprolol Tartrate (Lopressor) 2.5 mg Q6H PRN IVP HR > 120 bpm 09/29/19 20:45 12/26/19 08:44 Nitroglycerin (Ntg) 0.4 mg Q5M PRN SL Prn Chest Pain 09/29/19 18:30 10/21/19 16:44 Ondansetron HCl (Zofran) 4 mg Q6H PRN IVP Nausea & Vomiting 09/29/19 18:30 10/21/19 18:29 Polyethylene Glycol (Miralax) 17 gm BEDTIME ORAL 09/29/19 21:00 10/22/19 20:59 10/02/19 21:00 Polyethylene Glycol (Miralax) 17 gm DAILYPRN PRN ORAL Constipation 09/29/19 18:30 10/29/19 18:29 Promethazine HCl/ Codeine (Phenergan with Codeine) 5 ml Q4H PRN ORAL For Cough 09/29/19 18:30 10/21/19 18:29 Rivaroxaban (Xarelto) 15 mg DAILY ORAL 09/30/19 09:00 12/26/19 08:59 10/02/19 09:45 Marbin Mac MD Oct 03, 2019 08:32
[2019-10-03] MEDS: Xarelto 15mg tab ORAL SCH (09:54)
[2019-10-03] MEDS: Levodopa/Carbidopa 25/100 tab ORAL SCH ×3 (09:55→17:40)
[2019-10-03] MEDS: Aspirin Baby 81mg ORAL SCH (09:55)
[2019-10-03] MEDS: Amiodarone 200mg tab ORAL SCH ×2 (09:55→21:25)
--- NOTE | 2019-10-03 11:20 | General Progress Note ---
Assessment/Plan Assessment/Plan: 1. Atrial fibrillation. 2. History of coronary artery disease. 3. Diabetes type 2. 4. DVT. 5. Hypertension. 6. Hypothyroidism. 7. Seizure disorder. 8. History of CVA. 9. History of subdural hematoma. 10. Parkinson's. 11. Hypercholesteremia. 12. Dementia. 13. Trigeminal neuralgia. 14. Anemia 15. stool impaction 16. fatty liver cont linzess. dc all other laxatives given loose stools neg stool obx1 neg hepatitis panel fu labs drop in H&H without active bleeding repeat CBC and stool ob Subjective ROS Limited/Unobtainable: No Allergies: Coded Allergies: INFLIXIMAB (Verified Allergy, Intermediate, 04/20/16) NIACIN (Verified Allergy, Intermediate, 04/20/16) SULFA (SULFONAMIDE ANTIBIOTICS) (Verified Allergy, Intermediate, 04/20/16) Uncoded Allergies: SULFONAMIDES (Allergy, Unknown, 04/28/18) Objective Last 24 Hour Vital Signs Date Time Temp Pulse Resp B/P (MAP) Pulse Ox O2 Delivery O2 Flow Rate FiO2 10/03/19 09:17 Nasal Cannula 2.0 10/03/19 08:09 98 Nasal Cannula 2.0 28 10/03/19 08:00 98.2 20 154/67 (96) 100 10/03/19 04:00 50 10/03/19 04:00 50 10/03/19 00:00 97.1 53 18 150/63 (92) 99 10/03/19 00:00 53 10/02/19 21:00 Nasal Cannula 2.0 10/02/19 20:01 96 Nasal Cannula 2.0 28 10/02/19 20:00 98.2 68 18 152/64 (93) 99 10/02/19 20:00 68 10/02/19 16:00 75 10/02/19 16:00 98.6 72 16 140/72 (94) 99 10/02/19 12:00 97.9 66 18 131/62 (85) 97 10/02/19 12:00 66 Intake and Output 10/02/19 10/03/19 19:00 07:00 Intake Total 115 ml 120 ml Balance 115 ml 120 ml Intake Oral 115 ml 120 ml # Voids 3 1 # Bowel Movements 1 Laboratory Tests 10/03/19 05:53: White Blood Count 4.5L, Red Blood Count 2.96L, Hemoglobin 8.7L, Hematocrit 25.4L , Mean Corpuscular Volume 86, Mean Corpuscular Hemoglobin 29.5, Mean Corpuscular Hemoglobin Concent 34.3, Red Cell Distribution Width 12.5, Platelet Count 224, Mean Platelet Volume 5.3L, Neutrophils (%) (Auto) 69.5, Lymphocytes ( %) (Auto) 17.9L, Monocytes (%) (Auto) 10.3H, Eosinophils (%) (Auto) 1.9, Basophils (%) (Auto) 0.4, Erythrocyte Sedimentation Rate 65H, Sodium Level 139, Potassium Level 4.0, Chloride Level 104, Carbon Dioxide Level 28, Anion Gap 7, Blood Urea Nitrogen 7, Creatinine 0.6, Estimat Glomerular Filtration Rate > 60, Glucose Level 84, Calcium Level 8.9, Phosphorus Level 3.6, Magnesium Level 1.8, Total Bilirubin 0.3, Aspartate Amino Transf (AST/SGOT) 15, Alanine Aminotransferase (ALT/SGPT) 10L, Alkaline Phosphatase 50, C-Reactive Protein, Quantitative 2.0H, Pro-B-Type Natriuretic Peptide 1194H, Total Protein 5.9L, Albumin 2.5L, Globulin 3.4, Albumin/Globulin Ratio 0.7L Height (Feet): 5 Height (Inches): 2.00 Weight (Pounds): 114 General Appearance: alert EENT: normal ENT inspection Neck: supple Cardiovascular: normal rate Respiratory/Chest: decreased breath sounds Abdomen: normal bowel sounds, non tender, soft Extremities: non-tender Abhishek Langford MD Oct 03, 2019 11:20
--- NOTE | 2019-10-03 11:29 | Pulmonology Progress Note ---
Assessment/Plan Problems: (1) Nosocomial pneumonia (2) SVT (supraventricular tachycardia) Assessment & Plan: sinus now (3) Hypothyroidism (4) Intractable abdominal pain (5) History of prosthetic aortic valve (6) History of prosthetic mitral valve (7) History of subdural hematoma (8) Parkinson disease (9) HTN (hypertension) (10) Diabetes mellitus type II, controlled (11) Seizure disorder (12) Alzheimer's dementia Assessment/Plan check sputum, no VRE negative, MRSA negative swallow study: she will be reevaluated ID evaluation appreciated, Off isolation, Covid-19, negative echo reviewed EF of 65% sliding scale dvt prophylaxis Subjective ROS Limited/Unobtainable: No Interval Events: doing better, jinny at 58 Allergies: Coded Allergies: INFLIXIMAB (Verified Allergy, Intermediate, 04/20/16) NIACIN (Verified Allergy, Intermediate, 04/20/16) SULFA (SULFONAMIDE ANTIBIOTICS) (Verified Allergy, Intermediate, 04/20/16) Uncoded Allergies: SULFONAMIDES (Allergy, Unknown, 04/28/18) Objective Last 24 Hour Vital Signs Date Time Temp Pulse Resp B/P (MAP) Pulse Ox O2 Delivery O2 Flow Rate FiO2 10/03/19 09:17 Nasal Cannula 2.0 10/03/19 08:09 98 Nasal Cannula 2.0 28 10/03/19 08:00 98.2 20 154/67 (96) 100 10/03/19 04:00 50 10/03/19 04:00 50 10/03/19 00:00 97.1 53 18 150/63 (92) 99 10/03/19 00:00 53 10/02/19 21:00 Nasal Cannula 2.0 10/02/19 20:01 96 Nasal Cannula 2.0 28 10/02/19 20:00 98.2 68 18 152/64 (93) 99 10/02/19 20:00 68 10/02/19 16:00 75 10/02/19 16:00 98.6 72 16 140/72 (94) 99 10/02/19 12:00 97.9 66 18 131/62 (85) 97 10/02/19 12:00 66 Intake and Output 10/02/19 10/03/19 19:00 07:00 Intake Total 115 ml 120 ml Balance 115 ml 120 ml Intake Oral 115 ml 120 ml # Voids 3 1 # Bowel Movements 1 Objective General Appearance: WD/WN HEENT: normocephalic, atraumatic Respiratory/Chest: chest wall non-tender,rhonchi Breasts: no masses Cardiovascular: normal peripheral pulses Abdomen: normal bowel sounds, soft, non tender Genitourinary: normal external genitalia Extremities: no cyanosis Skin: no rash Microbiology Date/Time Source Procedure Growth Status 10/01/19 16:15 Sputum Expectorated Gram Stain - Final Complete 10/01/19 16:15 Sputum Expectorated Sputum Culture - Final NORMAL UPPER RESPIRATORY YURY PRESENT Complete 09/30/19 18:35 Nasopharynx Coronavirus COVID-19 PCR ([facility]) - Final Complete Laboratory Tests 10/03/19 05:53: White Blood Count 4.5L, Red Blood Count 2.96L, Hemoglobin 8.7L, Hematocrit 25.4L , Mean Corpuscular Volume 86, Mean Corpuscular Hemoglobin 29.5, Mean Corpuscular Hemoglobin Concent 34.3, Red Cell Distribution Width 12.5, Platelet Count 224, Mean Platelet Volume 5.3L, Neutrophils (%) (Auto) 69.5, Lymphocytes ( %) (Auto) 17.9L, Monocytes (%) (Auto) 10.3H, Eosinophils (%) (Auto) 1.9, Basophils (%) (Auto) 0.4, Erythrocyte Sedimentation Rate 65H, Sodium Level 139, Potassium Level 4.0, Chloride Level 104, Carbon Dioxide Level 28, Anion Gap 7, Blood Urea Nitrogen 7, Creatinine 0.6, Estimat Glomerular Filtration Rate > 60, Glucose Level 84, Calcium Level 8.9, Phosphorus Level 3.6, Magnesium Level 1.8, Total Bilirubin 0.3, Aspartate Amino Transf (AST/SGOT) 15, Alanine Aminotransferase (ALT/SGPT) 10L, Alkaline Phosphatase 50, C-Reactive Protein, Quantitative 2.0H, Pro-B-Type Natriuretic Peptide 1194H, Total Protein 5.9L, Albumin 2.5L, Globulin 3.4, Albumin/Globulin Ratio 0.7L Current Medications Medications (Trade) Dose Ordered Sig/Zee Route PRN Reason Start Time Stop Time Status Last Admin Dose Admin Acetaminophen (Tylenol) 650 mg Q4H PRN ORAL T>100.4 09/29/19 18:30 10/21/19 18:29 Amiodarone HCl (Cordarone) 200 mg EVERY 12 HOURS ORAL 09/29/19 21:00 12/26/19 18:59 10/03/19 09:55 Aspirin (ASA) 81 mg DAILY ORAL 09/30/19 09:00 11/06/19 09:14 10/03/19 09:55 Atorvastatin Calcium (Lipitor) 10 mg BEDTIME ORAL 09/29/19 21:00 12/20/19 20:59 10/02/19 21:00 Carbidopa/Levodopa (Sinemet 25/100) 1 tab THREE TIMES A DAY ORAL 09/30/19 09:00 10/21/19 17:59 10/03/19 09:55 Levothyroxine Sodium (Synthroid) 100 mcg ACBREAKFAST ORAL 09/30/19 06:30 10/22/19 06:29 10/03/19 06:29 Linaclotide (Linzess) 290 mcg BEFORE BREAKFAST ORAL 10/03/19 06:30 01/01/20 06:29 10/03/19 06:29 Metoprolol Tartrate (Lopressor) 2.5 mg Q6H PRN IVP HR > 120 bpm 09/29/19 20:45 12/26/19 08:44 Nitroglycerin (Ntg) 0.4 mg Q5M PRN SL Prn Chest Pain 09/29/19 18:30 10/21/19 16:44 Ondansetron HCl (Zofran) 4 mg Q6H PRN IVP Nausea & Vomiting 09/29/19 18:30 10/21/19 18:29 Polyethylene Glycol (Miralax) 17 gm BEDTIME ORAL 09/29/19 21:00 10/22/19 20:59 10/02/19 21:00 Polyethylene Glycol (Miralax) 17 gm DAILYPRN PRN ORAL Constipation 09/29/19 18:30 10/29/19 18:29 Promethazine HCl/ Codeine (Phenergan with Codeine) 5 ml Q4H PRN ORAL For Cough 09/29/19 18:30 10/21/19 18:29 Rivaroxaban (Xarelto) 15 mg DAILY ORAL 09/30/19 09:00 12/26/19 08:59 10/03/19 09:54 Koko Gee MD Oct 03, 2019 11:29
[2019-10-03 12:00] VITALS: BP 144/66
--- NOTE | 2019-10-03 12:13 | Diagnostic Imaging Report ---
Indication: Dyspnea Comparison: 09/28/2019 A single view chest radiograph was obtained. Findings: Reticular densities demonstrated at the left lung base. The heart is enlarged. There is a mechanical aortic valve present. Sternotomy is noted. Interstitial densities and prominent vascularity are demonstrated diffusely and bilaterally. Bones are osteopenic. IMPRESSION: Suspected CHF versus interstitial pneumonitis. Scarring in the left mid to lower lung field again demonstrated unchanged Other findings as above
--- NOTE | 2019-10-03 14:14 | Surgery Progress Note ---
Surgery Progress Note Subjective Symptoms: improved Objective Last 24 Hour Vital Signs Date Time Temp Pulse Resp B/P (MAP) Pulse Ox O2 Delivery O2 Flow Rate FiO2 10/03/19 12:00 97.9 58 144/66 (92) 10/03/19 11:40 61 10/03/19 09:17 Nasal Cannula 2.0 10/03/19 08:09 98 Nasal Cannula 2.0 28 10/03/19 08:00 98.2 20 154/67 (96) 100 10/03/19 07:40 58 10/03/19 04:00 50 10/03/19 04:00 50 10/03/19 00:00 97.1 53 18 150/63 (92) 99 10/03/19 00:00 53 10/02/19 21:00 Nasal Cannula 2.0 10/02/19 20:01 96 Nasal Cannula 2.0 28 10/02/19 20:00 98.2 68 18 152/64 (93) 99 10/02/19 20:00 68 10/02/19 16:00 75 10/02/19 16:00 98.6 72 16 140/72 (94) 99 I&O Intake and Output 10/02/19 10/03/19 19:00 07:00 Intake Total 115 ml 120 ml Balance 115 ml 120 ml Intake Oral 115 ml 120 ml # Voids 3 1 # Bowel Movements 1 Dressing: dry Wound: clean Cardiovascular: RSR Respiratory: clear Abdomen: soft, non-tender, present bowel sounds Extremities: no edema, no tenderness Laboratory Tests Test 10/03/19 05:53 White Blood Count 4.5 K/UL (4.8-10.8) L Red Blood Count 2.96 M/UL (4.20-5.40) L Hemoglobin 8.7 G/DL (12.0-16.0) L Hematocrit 25.4 % (37.0-47.0) L Mean Corpuscular Volume 86 FL (80-99) Mean Corpuscular Hemoglobin 29.5 PG (27.0-31.0) Mean Corpuscular Hemoglobin Concent 34.3 G/DL (32.0-36.0) Red Cell Distribution Width 12.5 % (11.6-14.8) Platelet Count 224 K/UL (150-450) Mean Platelet Volume 5.3 FL (6.5-10.1) L Neutrophils (%) (Auto) 69.5 % (45.0-75.0) Lymphocytes (%) (Auto) 17.9 % (20.0-45.0) L Monocytes (%) (Auto) 10.3 % (1.0-10.0) H Eosinophils (%) (Auto) 1.9 % (0.0-3.0) Basophils (%) (Auto) 0.4 % (0.0-2.0) Erythrocyte Sedimentation Rate 65 MM/HR (0-30) H Sodium Level 139 MMOL/L (136-145) Potassium Level 4.0 MMOL/L (3.5-5.1) Chloride Level 104 MMOL/L (98-107) Carbon Dioxide Level 28 MMOL/L (21-32) Anion Gap 7 mmol/L (5-15) Blood Urea Nitrogen 7 mg/dL (7-18) Creatinine 0.6 MG/DL (0.55-1.30) Estimat Glomerular Filtration Rate > 60 mL/min (>60) Glucose Level 84 MG/DL (74-106) Calcium Level 8.9 MG/DL (8.5-10.1) Phosphorus Level 3.6 MG/DL (2.5-4.9) Magnesium Level 1.8 MG/DL (1.8-2.4) Total Bilirubin 0.3 MG/DL (0.2-1.0) Aspartate Amino Transf (AST/SGOT) 15 U/L (15-37) Alanine Aminotransferase (ALT/SGPT) 10 U/L (12-78) L Alkaline Phosphatase 50 U/L (46-116) C-Reactive Protein, Quantitative 2.0 mg/dL (0.00-0.90) H Pro-B-Type Natriuretic Peptide 1194 pg/mL (0-125) H Total Protein 5.9 G/DL (6.4-8.2) L Albumin 2.5 G/DL (3.4-5.0) L Globulin 3.4 g/dL Albumin/Globulin Ratio 0.7 (1.0-2.7) L Assessment Post-op Diagnosis Abdominal pain Assessment & Plan: Asked by Dr. Jackson to evaluate for abdominal pain, r/o obstruction vs impaction 79-year-old female with abdominal pain generalized no nausea vomiting fever chills. Cough and shortness of breath. Labs noted. CT reviewed. KUB ordered for 09/22 and reviewed. Improving now since admission. Currently states she is hungry and wants food. Abdominal exam stable improved otherwise. Bowel sounds noted. distended gb stable as asymptomatic and likely from age No acute surgical intervention planned Okay for diet from surgical standpoint Bowel regimen stool softeners appreciate GI input Nutritional evaluation enema prn will follow with recommendations thank you for let me participate in patient's care improving overall abd pain resolved no n/v/v/f FINDINGS: Lung bases: Right lower lobe of the lung small consolidation and mild bibasilar lung septal thickening. Heart: Cardiomegaly. Mitral valve prosthesis. ABDOMEN: Liver: Fatty prominent liver. Gallbladder and bile ducts: Distended gallbladder. No calcified stones. No ductal dilation. Pancreas: Unremarkable. No mass. No ductal dilation. Spleen: Unremarkable. No splenomegaly. Adrenals: Unremarkable. No mass. Kidneys and ureters: Mild bilateral hydronephrosis, greater on the right, may be due to external compression of the distal ureters from the overly distended rectum. Stomach and bowel: Dilated rectosigmoid colon to 11.3 cm., large amount of stool in the remainder of the colon. Findings may be due to fecal impaction with obstipation. Differential includes Colonic ileus or distal colonic obstruction and early stercoral colitis. Trace free fluid. No free air or abscess. PELVIS: Appendix: No findings to suggest acute appendicitis. Bladder: See below. Reproductive: Uterus and urinary bladder anteriorly placed from the markedly distended rectum. ABDOMEN and PELVIS: Intraperitoneal space: See above. Bones/joints: Mild superior endplate compression of L5 likely chronic. Dynamic left hip screws. No dislocation. Soft tissues: Unremarkable. Vasculature: Atherosclerotic vascular disease. No abdominal aortic aneurysm. Lymph nodes: Unremarkable. No enlarged lymph nodes. IMPRESSION: 1. Dilated rectosigmoid colon to 11.3 cm., large amount of stool in the remainder of the colon. Mild thickening of the colonic wall. Findings may be due to fecal impaction with obstipation. Differential includes Colonic ileus or distal colonic obstruction and early stercoral colitis. Trace free fluid. No free air or abscess. 2. Mild bilateral hydronephrosis, greater on the right, may be due to external compression of the distal ureters from the overly distended rectum. 3. Right lower lobe of the lung small consolidation and mild bibasilar lung septal thickening. 4. Fatty prominent liver. Distended gallbladder. ICD Codes: R10.9 - Unspecified abdominal pain SNOMED: [id number] Qualifiers: Qualified Codes: R10.9 - Unspecified abdominal pain Noe Hirsch Oct 03, 2019 14:14
[2019-10-03] MEDS ORDERED: D5W 275ml ONE (14:55)
[2019-10-03] MEDS ORDERED: Tubing IV Secondary IV ONE (14:55)
[2019-10-03] MEDS ORDERED: NS 275ml ONE (14:55)
[2019-10-03 16:00] VITALS: BP 145/65
--- NOTE | 2019-10-03 16:25 | Cardiology Progress Note ---
Assessment/Plan Assessment/Plan 1. Atrial fibrillation with rapid ventricular response, paroxysmal in nature. now back in sin as of 09/28 2. Large left atrial presumed calcified thrombus, present since 2018. 3. Coronary artery disease, status post coronary artery bypass grafting. 4. Prosthetic mitral and aortic valve with normal function at the present time. 5. History of prosthetic valve endocarditis. 6. Fecal impaction. 7. Colonic distention secondary to fecal impaction. 8. Diabetes mellitus. 9. History of hypertension. 10. History of subdural hematoma. 11. Dementia. remain in sinus off bb on doacs for stroke prevention tele reviewed 10/02 sinus / jinny po amiod bid as of 09/26 pm will need to be on dialy amio once dcd iwill change in active meds sow it will acarryover lab ok form 10/02 covid 19 excluded neg swab Subjective Cardiovascular: Denies: chest pain, lightheadedness, palpitations Respiratory: Denies: cough, shortness of breath Gastrointestinal/Abdominal: Denies: abdominal pain Genitourinary: Denies: burning Objective Last 24 Hour Vital Signs Date Time Temp Pulse Resp B/P (MAP) Pulse Ox O2 Delivery O2 Flow Rate FiO2 10/03/19 12:00 97.9 58 144/66 (92) 10/03/19 11:40 61 10/03/19 09:17 Nasal Cannula 2.0 10/03/19 08:09 98 Nasal Cannula 2.0 28 10/03/19 08:00 98.2 20 154/67 (96) 100 10/03/19 07:40 58 10/03/19 04:00 50 10/03/19 04:00 50 10/03/19 00:00 97.1 53 18 150/63 (92) 99 10/03/19 00:00 53 10/02/19 21:00 Nasal Cannula 2.0 10/02/19 20:01 96 Nasal Cannula 2.0 28 10/02/19 20:00 98.2 68 18 152/64 (93) 99 10/02/19 20:00 68 General Appearance: no apparent distress, alert Neck: supple Cardiovascular: normal rate Respiratory/Chest: lungs clear Abdomen: normal bowel sounds, non tender, soft Extremities: no swelling Intake and Output 10/02/19 10/03/19 19:00 07:00 Intake Total 115 ml 120 ml Balance 115 ml 120 ml Intake Oral 115 ml 120 ml # Voids 3 1 # Bowel Movements 1 Laboratory Tests Test 10/03/19 05:53 White Blood Count 4.5 K/UL (4.8-10.8) L Red Blood Count 2.96 M/UL (4.20-5.40) L Hemoglobin 8.7 G/DL (12.0-16.0) L Hematocrit 25.4 % (37.0-47.0) L Mean Corpuscular Volume 86 FL (80-99) Mean Corpuscular Hemoglobin 29.5 PG (27.0-31.0) Mean Corpuscular Hemoglobin Concent 34.3 G/DL (32.0-36.0) Red Cell Distribution Width 12.5 % (11.6-14.8) Platelet Count 224 K/UL (150-450) Mean Platelet Volume 5.3 FL (6.5-10.1) L Neutrophils (%) (Auto) 69.5 % (45.0-75.0) Lymphocytes (%) (Auto) 17.9 % (20.0-45.0) L Monocytes (%) (Auto) 10.3 % (1.0-10.0) H Eosinophils (%) (Auto) 1.9 % (0.0-3.0) Basophils (%) (Auto) 0.4 % (0.0-2.0) Erythrocyte Sedimentation Rate 65 MM/HR (0-30) H Sodium Level 139 MMOL/L (136-145) Potassium Level 4.0 MMOL/L (3.5-5.1) Chloride Level 104 MMOL/L (98-107) Carbon Dioxide Level 28 MMOL/L (21-32) Anion Gap 7 mmol/L (5-15) Blood Urea Nitrogen 7 mg/dL (7-18) Creatinine 0.6 MG/DL (0.55-1.30) Estimat Glomerular Filtration Rate > 60 mL/min (>60) Glucose Level 84 MG/DL (74-106) Calcium Level 8.9 MG/DL (8.5-10.1) Phosphorus Level 3.6 MG/DL (2.5-4.9) Magnesium Level 1.8 MG/DL (1.8-2.4) Total Bilirubin 0.3 MG/DL (0.2-1.0) Aspartate Amino Transf (AST/SGOT) 15 U/L (15-37) Alanine Aminotransferase (ALT/SGPT) 10 U/L (12-78) L Alkaline Phosphatase 50 U/L (46-116) C-Reactive Protein, Quantitative 2.0 mg/dL (0.00-0.90) H Pro-B-Type Natriuretic Peptide 1194 pg/mL (0-125) H Total Protein 5.9 G/DL (6.4-8.2) L Albumin 2.5 G/DL (3.4-5.0) L Globulin 3.4 g/dL Albumin/Globulin Ratio 0.7 (1.0-2.7) L Microbiology Date/Time Source Procedure Growth Status 10/01/19 16:15 Sputum Expectorated Gram Stain - Final Complete 10/01/19 16:15 Sputum Expectorated Sputum Culture - Final NORMAL UPPER RESPIRATORY YURY PRESENT Complete 09/30/19 18:35 Nasopharynx Coronavirus COVID-19 PCR ([facility]) - Final Complete Barber Mack MD Oct 03, 2019 16:25
--- NOTE | 2019-10-03 17:45 | Internal Med Progress Note ---
Subjective Date of Service: Oct 03, 2019 Physician Name JacksonBryan Attending Physician Carlos Junior MD Current Medications Medications (Trade) Dose Ordered Sig/Zee Route PRN Reason Start Time Stop Time Status Last Admin Dose Admin Acetaminophen (Tylenol) 650 mg Q4H PRN ORAL T>100.4 09/29/19 18:30 10/21/19 18:29 Amiodarone HCl (Cordarone) 200 mg DAILY ORAL 10/04/19 09:00 01/02/20 08:59 Amiodarone HCl (Cordarone) 200 mg EVERY 12 HOURS ORAL 09/29/19 21:00 10/03/19 23:59 10/03/19 09:55 Aspirin (ASA) 81 mg DAILY ORAL 09/30/19 09:00 11/06/19 09:14 10/03/19 09:55 Atorvastatin Calcium (Lipitor) 10 mg BEDTIME ORAL 09/29/19 21:00 12/20/19 20:59 10/02/19 21:00 Carbidopa/Levodopa (Sinemet 25/100) 1 tab THREE TIMES A DAY ORAL 09/30/19 09:00 10/21/19 17:59 10/03/19 17:40 Levothyroxine Sodium (Synthroid) 100 mcg ACBREAKFAST ORAL 09/30/19 06:30 10/22/19 06:29 10/03/19 06:29 Linaclotide (Linzess) 290 mcg BEFORE BREAKFAST ORAL 10/03/19 06:30 01/01/20 06:29 10/03/19 06:29 Metoprolol Tartrate (Lopressor) 2.5 mg Q6H PRN IVP HR > 120 bpm 09/29/19 20:45 12/26/19 08:44 Nitroglycerin (Ntg) 0.4 mg Q5M PRN SL Prn Chest Pain 09/29/19 18:30 10/21/19 16:44 Ondansetron HCl (Zofran) 4 mg Q6H PRN IVP Nausea & Vomiting 09/29/19 18:30 10/21/19 18:29 Polyethylene Glycol (Miralax) 17 gm BEDTIME ORAL 09/29/19 21:00 10/22/19 20:59 10/02/19 21:00 Polyethylene Glycol (Miralax) 17 gm DAILYPRN PRN ORAL Constipation 09/29/19 18:30 10/29/19 18:29 Promethazine HCl/ Codeine (Phenergan with Codeine) 5 ml Q4H PRN ORAL For Cough 09/29/19 18:30 10/21/19 18:29 Rivaroxaban (Xarelto) 15 mg DAILY ORAL 09/30/19 09:00 12/26/19 08:59 10/03/19 09:54 Allergies: Coded Allergies: INFLIXIMAB (Verified Allergy, Intermediate, 04/20/16) NIACIN (Verified Allergy, Intermediate, 04/20/16) SULFA (SULFONAMIDE ANTIBIOTICS) (Verified Allergy, Intermediate, 04/20/16) Uncoded Allergies: SULFONAMIDES (Allergy, Unknown, 04/28/18) ROS Limited/Unobtainable: No Constitutional: Reports: no symptoms HEENT: Reports: no symptoms Cardiovascular: Reports: no symptoms Respiratory: Reports: no symptoms Gastrointestinal/Abdominal: Reports: no symptoms Genitourinary: Reports: no symptoms Neurologic/Psychiatric: Reports: no symptoms Subjective 79 YO F admitted with abdominal pain. Now atrial fibrillation with rapid ventricular rate. Cover for Int Med-DR Junior. Objective Last Vital Signs Date Time Temp Pulse Resp B/P (MAP) Pulse Ox O2 Delivery O2 Flow Rate FiO2 10/03/19 12:00 97.9 58 144/66 (92) 10/03/19 09:17 Nasal Cannula 2.0 10/03/19 08:09 98 28 10/03/19 08:00 20 Laboratory Tests Test 10/03/19 05:53 White Blood Count 4.5 K/UL (4.8-10.8) L Red Blood Count 2.96 M/UL (4.20-5.40) L Hemoglobin 8.7 G/DL (12.0-16.0) L Hematocrit 25.4 % (37.0-47.0) L Mean Corpuscular Volume 86 FL (80-99) Mean Corpuscular Hemoglobin 29.5 PG (27.0-31.0) Mean Corpuscular Hemoglobin Concent 34.3 G/DL (32.0-36.0) Red Cell Distribution Width 12.5 % (11.6-14.8) Platelet Count 224 K/UL (150-450) Mean Platelet Volume 5.3 FL (6.5-10.1) L Neutrophils (%) (Auto) 69.5 % (45.0-75.0) Lymphocytes (%) (Auto) 17.9 % (20.0-45.0) L Monocytes (%) (Auto) 10.3 % (1.0-10.0) H Eosinophils (%) (Auto) 1.9 % (0.0-3.0) Basophils (%) (Auto) 0.4 % (0.0-2.0) Erythrocyte Sedimentation Rate 65 MM/HR (0-30) H Sodium Level 139 MMOL/L (136-145) Potassium Level 4.0 MMOL/L (3.5-5.1) Chloride Level 104 MMOL/L (98-107) Carbon Dioxide Level 28 MMOL/L (21-32) Anion Gap 7 mmol/L (5-15) Blood Urea Nitrogen 7 mg/dL (7-18) Creatinine 0.6 MG/DL (0.55-1.30) Estimat Glomerular Filtration Rate > 60 mL/min (>60) Glucose Level 84 MG/DL (74-106) Calcium Level 8.9 MG/DL (8.5-10.1) Phosphorus Level 3.6 MG/DL (2.5-4.9) Magnesium Level 1.8 MG/DL (1.8-2.4) Total Bilirubin 0.3 MG/DL (0.2-1.0) Aspartate Amino Transf (AST/SGOT) 15 U/L (15-37) Alanine Aminotransferase (ALT/SGPT) 10 U/L (12-78) L Alkaline Phosphatase 50 U/L (46-116) C-Reactive Protein, Quantitative 2.0 mg/dL (0.00-0.90) H Pro-B-Type Natriuretic Peptide 1194 pg/mL (0-125) H Total Protein 5.9 G/DL (6.4-8.2) L Albumin 2.5 G/DL (3.4-5.0) L Globulin 3.4 g/dL Albumin/Globulin Ratio 0.7 (1.0-2.7) L Microbiology Date/Time Source Procedure Growth Status 10/01/19 16:15 Sputum Expectorated Gram Stain - Final Complete 10/01/19 16:15 Sputum Expectorated Sputum Culture - Final NORMAL UPPER RESPIRATORY YURY PRESENT Complete 09/30/19 18:35 Nasopharynx Coronavirus COVID-19 PCR (MARINO) - Final Complete Intake and Output 10/02/19 10/03/19 19:00 07:00 Intake Total 115 ml 120 ml Balance 115 ml 120 ml Intake Oral 115 ml 120 ml # Voids 3 1 # Bowel Movements 1 Objective PHYSICAL EXAMINATION: GENERAL: The patient is a well-developed and well-nourished thin-appearing female, in no apparent distress. HEENT: Eyes, pupils are equal and responsive to light and accommodation. Extraocular movements are intact. NECK: Supple without lymphadenopathy. CHEST: Lungs are clear to auscultation bilaterally without wheezes or rales. CARDIOVASCULAR: Regular rate. S1 and S2 normal without murmurs, rubs, or gallops. ABDOMEN: Soft, distended with decreased bowel sounds. There is increased tympany. There is tenderness to palpation in all four quadrants. There is no rebound or guarding noted. EXTREMITIES: Negative for clubbing, cyanosis, or edema. RECTAL/GENITAL: Not performed. NEUROLOGIC: Cranial nerves II through XII are grossly intact without focal deficits. Motor strength is 5/5 bilaterally. Deep tendon reflexes are 2+ plantar. Assessment/Plan Assessment/Plan ASSESSMENT: This is a 79-year-old female with: 1. Abdominal pain. 2. Congestive heart failure. 3. Right lower lobe pneumonia. 4. Atrial fibrillation with rapid ventricular rate 5. Coronary artery disease. 6. Diabetes type 2. 7. Hypertension. 8. Hypercholesterolemia. 9. Hypothyroidism. 10. Seizure disorder. 11. Cerebrovascular disease. 12. Left hemiparesis. 13. Subdural hematoma. 14. History of deep venous thrombosis. 15. Mitral and aortic valve biosynthetic prosthesis. 16. Anemia TREATMENT: 1. Abdominal pain/distention. Improved with laxatives. A General Surgery consultation has been obtained with Dr. Hirsch. A Gastroenterology consultation has been obtained with Dr. Abhishek Langford. We will follow recommendations of General Surgery and Gastroenterology. 2. Congestive heart failure. Cardiology consultation has been obtained with Dr. Barber Mack. The patient has been started empirically on intravenous Lasix. An echocardiogram is pending. 3. Right lower lobe pneumonia. A Pulmonary consultation has been obtained with Dr. Koko Gee. Inf Dis=Dr. Mac. ABX=S/P cefepime and vancomycin. We will follow recommendations of Pulmonary and ID 4. Atrial fibrillation. Cardiology consultation=Dr. Barber Mack. Continue metoprolol and amiodarone per cardiology 5. Coronary artery disease. The patient is status post coronary artery bypass graft. 6. Diabetes type 2. The patient is not on any antihyperglycemic medication at the [facility]. 7. Hypertension. Continue metoprolol as above. 8. Hypercholesteremia. Continue atorvastatin as above. 9. Hypothyroidism. Continue levothyroxine as above. 10. Seizure disorder. Continue carbamazepine as above. 11. Cerebrovascular disease. 12. Left hemiparesis. 13. History of subdural hematoma. 14. History of deep venous thrombosis. 15. History of mitral and aortic valve bioprosthesis replacement. 16. Anemia workup per GI 17. Discharge planning: [facility] Bryan Jackson MD Oct 03, 2019 17:45
[2019-10-03 20:00] VITALS: BP 149/70
[2019-10-03] MEDS: Miralax 17gm pkt ORAL SCH (21:00)
[2019-10-04] VITALS: BP 156/58
[2019-10-04 04:00] VITALS: BP 154/56
[2019-10-04 07:33] LABS: BASOPHILS % (AUTO) 0.4 % (0.0-2.0); EOSINOPHILS % (AUTO) 1.9 % (0.0-3.0); HEMATOCRIT 29.2 % (37.0-47.0); HEMOGLOBIN 9.7 G/DL (12.0-16.0); LYMPHOCYTES % (AUTO) 18.8 % (20.0-45.0); MEAN CORPUSCULAR VOLUME 87 FL (80-99); MONOCYTES % (AUTO) 9.9 % (1.0-10.0); PLATELET COUNT 223 K/UL (150-450); RED BLOOD COUNT 3.36 M/UL (4.20-5.40); RED CELL DISTRIBUTION WIDTH 12.6 % (11.6-14.8); WHITE BLOOD COUNT 3.8 K/UL (4.8-10.8)
[2019-10-04 08:00] VITALS: BP 159/86
[2019-10-04 08:12] LABS: ANION GAP 11 mmol/L (5-15); BLOOD UREA NITROGEN 6 mg/dL (7-18); CALCIUM 9.3 MG/DL (8.5-10.1); CARBON DIOXIDE 26 MMOL/L (21-32); CHLORIDE 104 MMOL/L (98-107); CREATININE 0.7 MG/DL (0.55-1.30); SODIUM 141 MMOL/L (136-145)
[2019-10-04] MEDS: Xarelto 15mg tab ORAL SCH (08:55)
[2019-10-04] MEDS: Levodopa/Carbidopa 25/100 tab ORAL SCH ×2 (08:56→12:37)
[2019-10-04] MEDS: Aspirin Baby 81mg ORAL SCH (08:56)
[2019-10-04] MEDS ORDERED: Amiodarone 200mg tab ORAL SCH (09:00)
--- NOTE | 2019-10-04 10:12 | General Progress Note ---
Assessment/Plan Assessment/Plan: 1. Atrial fibrillation. 2. History of coronary artery disease. 3. Diabetes type 2. 4. DVT. 5. Hypertension. 6. Hypothyroidism. 7. Seizure disorder. 8. History of CVA. 9. History of subdural hematoma. 10. Parkinson's. 11. Hypercholesteremia. 12. Dementia. 13. Trigeminal neuralgia. 14. Anemia 15. stool impaction 16. fatty liver cont linzess. neg stool obx1 neg hepatitis panel fu labs drop in H&H without active bleeding repeat CBC >>> stable Subjective ROS Limited/Unobtainable: Yes Allergies: Coded Allergies: INFLIXIMAB (Verified Allergy, Intermediate, 04/20/16) NIACIN (Verified Allergy, Intermediate, 04/20/16) SULFA (SULFONAMIDE ANTIBIOTICS) (Verified Allergy, Intermediate, 04/20/16) Uncoded Allergies: SULFONAMIDES (Allergy, Unknown, 04/28/18) Objective Last 24 Hour Vital Signs Date Time Temp Pulse Resp B/P (MAP) Pulse Ox O2 Delivery O2 Flow Rate FiO2 10/04/19 08:00 98.0 55 20 159/86 (110) 99 10/04/19 04:00 98.0 54 20 154/56 (88) 100 10/04/19 04:00 52 10/04/19 00:00 97.5 57 18 156/58 (90) 100 10/04/19 00:00 53 10/03/19 21:00 Nasal Cannula 2.0 10/03/19 20:00 97.0 56 18 149/70 (96) 95 10/03/19 20:00 54 10/03/19 19:43 97 Nasal Cannula 2.0 28 10/03/19 16:00 98.0 58 20 145/65 (91) 100 10/03/19 15:52 54 10/03/19 12:00 97.9 58 144/66 (92) 10/03/19 11:40 61 Intake and Output 10/03/19 10/04/19 19:00 07:00 Intake Total 500 ml 120 ml Output Total 400 ml Balance 500 ml -280 ml Intake Oral 500 ml 120 ml Output Urine Total 400 ml Stool Total 0 ml Laboratory Tests 10/04/19 06:16: White Blood Count 3.8L, Red Blood Count 3.36L, Hemoglobin 9.7L, Hematocrit 29.2L , Mean Corpuscular Volume 87, Mean Corpuscular Hemoglobin 28.9, Mean Corpuscular Hemoglobin Concent 33.4, Red Cell Distribution Width 12.6, Platelet Count 223, Mean Platelet Volume 5.2L, Neutrophils (%) (Auto) 69.0, Lymphocytes ( %) (Auto) 18.8L, Monocytes (%) (Auto) 9.9, Eosinophils (%) (Auto) 1.9, Basophils (%) (Auto) 0.4, Sodium Level 141, Potassium Level 4.0, Chloride Level 104, Carbon Dioxide Level 26, Anion Gap 11, Blood Urea Nitrogen 6L, Creatinine 0.7, Estimat Glomerular Filtration Rate > 60, Glucose Level 85, Calcium Level 9.3 Height (Feet): 5 Height (Inches): 2.00 Weight (Pounds): 114 General Appearance: no apparent distress EENT: normal ENT inspection Neck: supple Cardiovascular: normal rate Respiratory/Chest: decreased breath sounds Abdomen: normal bowel sounds, non tender, soft Extremities: non-tender Abhishek Langford MD Oct 04, 2019 10:11
[2019-10-04 12:00] VITALS: BP 161/70
[2019-10-04] MEDS ORDERED: Sennosides 8.6mg tab ORAL SCH (12:45)
[2019-10-04] MEDS ORDERED: PACERONE200 MG ORAL (12:49)
--- NOTE | 2019-10-04 12:59 | Pulmonology Progress Note ---
Assessment/Plan Problems: (1) Nosocomial pneumonia (2) SVT (supraventricular tachycardia) Assessment & Plan: sinus now (3) Hypothyroidism (4) Intractable abdominal pain (5) History of prosthetic aortic valve (6) History of prosthetic mitral valve (7) History of subdural hematoma (8) Parkinson disease (9) HTN (hypertension) (10) Diabetes mellitus type II, controlled (11) Seizure disorder (12) Alzheimer's dementia Assessment/Plan check sputum, no VRE negative, MRSA negative swallow study: she will be reevaluated ID evaluation appreciated, Off isolation, Covid-19, negative echo reviewed EF of 65% sliding scale dvt prophylaxis Subjective ROS Limited/Unobtainable: No Constitutional: Reports: no symptoms HEENT: Repors: no symptoms Allergies: Coded Allergies: INFLIXIMAB (Verified Allergy, Intermediate, 04/20/16) NIACIN (Verified Allergy, Intermediate, 04/20/16) SULFA (SULFONAMIDE ANTIBIOTICS) (Verified Allergy, Intermediate, 04/20/16) Uncoded Allergies: SULFONAMIDES (Allergy, Unknown, 04/28/18) Objective Last 24 Hour Vital Signs Date Time Temp Pulse Resp B/P (MAP) Pulse Ox O2 Delivery O2 Flow Rate FiO2 10/04/19 12:00 98.0 56 20 161/70 (100) 100 10/04/19 09:00 Nasal Cannula 2.0 10/04/19 08:00 98.0 55 20 159/86 (110) 99 10/04/19 08:00 58 10/04/19 04:00 98.0 54 20 154/56 (88) 100 10/04/19 04:00 52 10/04/19 00:00 97.5 57 18 156/58 (90) 100 10/04/19 00:00 53 10/03/19 21:00 Nasal Cannula 2.0 10/03/19 20:00 97.0 56 18 149/70 (96) 95 10/03/19 20:00 54 10/03/19 19:43 97 Nasal Cannula 2.0 28 10/03/19 16:00 98.0 58 20 145/65 (91) 100 10/03/19 15:52 54 Intake and Output 10/03/19 10/04/19 19:00 07:00 Intake Total 500 ml 120 ml Output Total 400 ml Balance 500 ml -280 ml Intake Oral 500 ml 120 ml Output Urine Total 400 ml Stool Total 0 ml Objective General Appearance: WD/WN HEENT: normocephalic, atraumatic Respiratory/Chest: chest wall non-tender,rhonchi Breasts: no masses Cardiovascular: normal peripheral pulses Abdomen: normal bowel sounds, soft, non tender Genitourinary: normal external genitalia Extremities: no cyanosis Skin: no rash Microbiology Date/Time Source Procedure Growth Status 10/01/19 16:15 Sputum Expectorated Gram Stain - Final Complete 10/01/19 16:15 Sputum Expectorated Sputum Culture - Final NORMAL UPPER RESPIRATORY YURY PRESENT Complete Laboratory Tests 10/04/19 06:16: White Blood Count 3.8L, Red Blood Count 3.36L, Hemoglobin 9.7L, Hematocrit 29.2L , Mean Corpuscular Volume 87, Mean Corpuscular Hemoglobin 28.9, Mean Corpuscular Hemoglobin Concent 33.4, Red Cell Distribution Width 12.6, Platelet Count 223, Mean Platelet Volume 5.2L, Neutrophils (%) (Auto) 69.0, Lymphocytes ( %) (Auto) 18.8L, Monocytes (%) (Auto) 9.9, Eosinophils (%) (Auto) 1.9, Basophils (%) (Auto) 0.4, Sodium Level 141, Potassium Level 4.0, Chloride Level 104, Carbon Dioxide Level 26, Anion Gap 11, Blood Urea Nitrogen 6L, Creatinine 0.7, Estimat Glomerular Filtration Rate > 60, Glucose Level 85, Calcium Level 9.3 Current Medications Medications (Trade) Dose Ordered Sig/Zee Route PRN Reason Start Time Stop Time Status Last Admin Dose Admin Acetaminophen (Tylenol) 650 mg Q4H PRN ORAL T>100.4 09/29/19 18:30 10/21/19 18:29 Amiodarone HCl (Cordarone) 200 mg DAILY ORAL 10/04/19 09:00 01/02/20 08:59 10/04/19 08:55 Aspirin (ASA) 81 mg DAILY ORAL 09/30/19 09:00 11/06/19 09:14 10/04/19 08:56 Atorvastatin Calcium (Lipitor) 10 mg BEDTIME ORAL 09/29/19 21:00 12/20/19 20:59 10/03/19 21:25 Carbidopa/Levodopa (Sinemet 25/100) 1 tab THREE TIMES A DAY ORAL 09/30/19 09:00 10/21/19 17:59 10/04/19 12:37 Docusate Sodium (Colace) 100 mg THREE TIMES A DAY ORAL 10/04/19 13:00 11/03/19 12:59 UNV Lactulose (Cephulac) 10 gm THREE TIMES A DAY ORAL 10/04/19 13:00 11/03/19 12:59 10/04/19 12:37 Lactulose (Cephulac) 30 gm THREE TIMES A DAY ORAL 10/04/19 13:00 11/03/19 12:59 UNV Levothyroxine Sodium (Synthroid) 100 mcg ACBREAKFAST ORAL 09/30/19 06:30 10/22/19 06:29 10/04/19 06:42 Linaclotide (Linzess) 290 mcg BEFORE BREAKFAST ORAL 10/03/19 06:30 01/01/20 06:29 10/04/19 06:42 Metoprolol Tartrate (Lopressor) 2.5 mg Q6H PRN IVP HR > 120 bpm 09/29/19 20:45 12/26/19 08:44 Mineral Oil (Fleet's Mineral Oil Enema) 133 ml EVERY OTHER DAY RECTAL 10/06/19 09:00 11/05/19 08:59 UNV Nitroglycerin (Ntg) 0.4 mg Q5M PRN SL Prn Chest Pain 09/29/19 18:30 10/21/19 16:44 Ondansetron HCl (Zofran) 4 mg Q6H PRN IVP Nausea & Vomiting 09/29/19 18:30 10/21/19 18:29 Polyethylene Glycol (Miralax) 17 gm BEDTIME ORAL 09/29/19 21:00 10/22/19 20:59 10/02/19 21:00 Polyethylene Glycol (Miralax) 17 gm DAILYPRN PRN ORAL Constipation 09/29/19 18:30 10/29/19 18:29 Promethazine HCl/ Codeine (Phenergan with Codeine) 5 ml Q4H PRN ORAL For Cough 09/29/19 18:30 10/21/19 18:29 Rivaroxaban (Xarelto) 15 mg DAILY ORAL 09/30/19 09:00 12/26/19 08:59 10/04/19 08:55 Sennosides (Senokot) 8.6 mg DAILY ORAL 10/04/19 12:45 11/03/19 12:44 Koko Reyez MD Oct 04, 2019 12:59
[2019-10-04] MEDS ORDERED: Lactulose 10gm/15ml UDC ORAL SCH (13:00)
[2019-10-04] MEDS ORDERED: Docusate 100mg cap ORAL SCH (13:00)
[2019-10-04] MEDS ORDERED: Lactulose 20gm/30ml UDC ORAL SCH (13:00)
--- NOTE | 2019-10-04 15:37 | Cardiology Progress Note ---
Assessment/Plan Assessment/Plan 1. Atrial fibrillation with rapid ventricular response, paroxysmal in nature. now back in [facility] as of 09/28 2. Large left atrial presumed calcified thrombus, present since 2018. 3. Coronary artery disease, status post coronary artery bypass grafting. 4. Prosthetic mitral and aortic valve with normal function at the present time. 5. History of prosthetic valve endocarditis. 6. Fecal impaction. 7. Colonic distention secondary to fecal impaction. 8. Diabetes mellitus. 9. History of hypertension. 10. History of subdural hematoma. 11. Dementia. remain in sinus off bb on doacs for stroke prevention tele reviewed 10/02 sinus / jinny amio 200 mg daily lab ok form 10/02 covid 19 excluded neg swab Subjective Subjective goign to snf today Objective Last 24 Hour Vital Signs Date Time Temp Pulse Resp B/P (MAP) Pulse Ox O2 Delivery O2 Flow Rate FiO2 10/04/19 12:00 98.0 56 20 161/70 (100) 100 10/04/19 12:00 55 10/04/19 09:00 Nasal Cannula 2.0 10/04/19 08:00 98.0 55 20 159/86 (110) 99 10/04/19 08:00 58 10/04/19 04:00 98.0 54 20 154/56 (88) 100 10/04/19 04:00 52 10/04/19 00:00 97.5 57 18 156/58 (90) 100 10/04/19 00:00 53 10/03/19 21:00 Nasal Cannula 2.0 10/03/19 20:00 97.0 56 18 149/70 (96) 95 10/03/19 20:00 54 10/03/19 19:43 97 Nasal Cannula 2.0 28 10/03/19 16:00 98.0 58 20 145/65 (91) 100 10/03/19 15:52 54 General Appearance: no apparent distress Intake and Output 10/03/19 10/04/19 19:00 07:00 Intake Total 500 ml 120 ml Output Total 400 ml Balance 500 ml -280 ml Intake Oral 500 ml 120 ml Output Urine Total 400 ml Stool Total 0 ml Laboratory Tests Test 10/04/19 06:16 White Blood Count 3.8 K/UL (4.8-10.8) L Red Blood Count 3.36 M/UL (4.20-5.40) L Hemoglobin 9.7 G/DL (12.0-16.0) L Hematocrit 29.2 % (37.0-47.0) L Mean Corpuscular Volume 87 FL (80-99) Mean Corpuscular Hemoglobin 28.9 PG (27.0-31.0) Mean Corpuscular Hemoglobin Concent 33.4 G/DL (32.0-36.0) Red Cell Distribution Width 12.6 % (11.6-14.8) Platelet Count 223 K/UL (150-450) Mean Platelet Volume 5.2 FL (6.5-10.1) L Neutrophils (%) (Auto) 69.0 % (45.0-75.0) Lymphocytes (%) (Auto) 18.8 % (20.0-45.0) L Monocytes (%) (Auto) 9.9 % (1.0-10.0) Eosinophils (%) (Auto) 1.9 % (0.0-3.0) Basophils (%) (Auto) 0.4 % (0.0-2.0) Sodium Level 141 MMOL/L (136-145) Potassium Level 4.0 MMOL/L (3.5-5.1) Chloride Level 104 MMOL/L (98-107) Carbon Dioxide Level 26 MMOL/L (21-32) Anion Gap 11 mmol/L (5-15) Blood Urea Nitrogen 6 mg/dL (7-18) L Creatinine 0.7 MG/DL (0.55-1.30) Estimat Glomerular Filtration Rate > 60 mL/min (>60) Glucose Level 85 MG/DL (74-106) Calcium Level 9.3 MG/DL (8.5-10.1) Microbiology Date/Time Source Procedure Growth Status 10/01/19 16:15 Sputum Expectorated Gram Stain - Final Complete 10/01/19 16:15 Sputum Expectorated Sputum Culture - Final NORMAL UPPER RESPIRATORY YURY PRESENT Complete Barber Mack MD Oct 04, 2019 15:37
--- NOTE | 2019-10-04 19:50 | Surgery Progress Note ---
Surgery Progress Note Subjective Additional Comments late entry states she is doing much marielle rno n/v/f/c comfortable stable lab snoted d;c plan for today tolerating diet +BM Objective Last 24 Hour Vital Signs Date Time Temp Pulse Resp B/P (MAP) Pulse Ox O2 Delivery O2 Flow Rate FiO2 10/04/19 12:00 98.0 56 20 161/70 (100) 100 10/04/19 12:00 55 10/04/19 09:00 Nasal Cannula 2.0 10/04/19 08:00 98.0 55 20 159/86 (110) 99 10/04/19 08:00 58 10/04/19 04:00 98.0 54 20 154/56 (88) 100 10/04/19 04:00 52 10/04/19 00:00 97.5 57 18 156/58 (90) 100 10/04/19 00:00 53 10/03/19 21:00 Nasal Cannula 2.0 10/03/19 20:00 97.0 56 18 149/70 (96) 95 10/03/19 20:00 54 I&O Intake and Output 10/03/19 10/04/19 19:00 07:00 Intake Total 500 ml 120 ml Output Total 400 ml Balance 500 ml -280 ml Intake Oral 500 ml 120 ml Output Urine Total 400 ml Stool Total 0 ml Dressing: dry Wound: clean Cardiovascular: RSR Respiratory: clear Abdomen: soft, non-tender, present bowel sounds Extremities: no tenderness, no cyanosis Laboratory Tests Test 10/04/19 06:16 White Blood Count 3.8 K/UL (4.8-10.8) L Red Blood Count 3.36 M/UL (4.20-5.40) L Hemoglobin 9.7 G/DL (12.0-16.0) L Hematocrit 29.2 % (37.0-47.0) L Mean Corpuscular Volume 87 FL (80-99) Mean Corpuscular Hemoglobin 28.9 PG (27.0-31.0) Mean Corpuscular Hemoglobin Concent 33.4 G/DL (32.0-36.0) Red Cell Distribution Width 12.6 % (11.6-14.8) Platelet Count 223 K/UL (150-450) Mean Platelet Volume 5.2 FL (6.5-10.1) L Neutrophils (%) (Auto) 69.0 % (45.0-75.0) Lymphocytes (%) (Auto) 18.8 % (20.0-45.0) L Monocytes (%) (Auto) 9.9 % (1.0-10.0) Eosinophils (%) (Auto) 1.9 % (0.0-3.0) Basophils (%) (Auto) 0.4 % (0.0-2.0) Sodium Level 141 MMOL/L (136-145) Potassium Level 4.0 MMOL/L (3.5-5.1) Chloride Level 104 MMOL/L (98-107) Carbon Dioxide Level 26 MMOL/L (21-32) Anion Gap 11 mmol/L (5-15) Blood Urea Nitrogen 6 mg/dL (7-18) L Creatinine 0.7 MG/DL (0.55-1.30) Estimat Glomerular Filtration Rate > 60 mL/min (>60) Glucose Level 85 MG/DL (74-106) Calcium Level 9.3 MG/DL (8.5-10.1) Assessment Post-op Diagnosis Abdominal pain Assessment & Plan: Asked by Dr. Jackson to evaluate for abdominal pain, r/o obstruction vs impaction 79-year-old female with abdominal pain generalized no nausea vomiting fever chills. Cough and shortness of breath. Labs noted. CT reviewed. KUB ordered for 09/22 and reviewed. Improving now since admission. Currently states she is hungry and wants food. Abdominal exam stable improved otherwise. Bowel sounds noted. distended gb stable as asymptomatic and likely from age No acute surgical intervention planned Okay for diet from surgical standpoint Bowel regimen stool softeners appreciate GI input Nutritional evaluation enema prn will follow with recommendations thank you for let me participate in patient's care improving overall abd pain resolved no n/v/v/f FINDINGS: Lung bases: Right lower lobe of the lung small consolidation and mild bibasilar lung septal thickening. Heart: Cardiomegaly. Mitral valve prosthesis. ABDOMEN: Liver: Fatty prominent liver. Gallbladder and bile ducts: Distended gallbladder. No calcified stones. No ductal dilation. Pancreas: Unremarkable. No mass. No ductal dilation. Spleen: Unremarkable. No splenomegaly. Adrenals: Unremarkable. No mass. Kidneys and ureters: Mild bilateral hydronephrosis, greater on the right, may be due to external compression of the distal ureters from the overly distended rectum. Stomach and bowel: Dilated rectosigmoid colon to 11.3 cm., large amount of stool in the remainder of the colon. Findings may be due to fecal impaction with obstipation. Differential includes Colonic ileus or distal colonic obstruction and early stercoral colitis. Trace free fluid. No free air or abscess. PELVIS: Appendix: No findings to suggest acute appendicitis. Bladder: See below. Reproductive: Uterus and urinary bladder anteriorly placed from the markedly distended rectum. ABDOMEN and PELVIS: Intraperitoneal space: See above. Bones/joints: Mild superior endplate compression of L5 likely chronic. Dynamic left hip screws. No dislocation. Soft tissues: Unremarkable. Vasculature: Atherosclerotic vascular disease. No abdominal aortic aneurysm. Lymph nodes: Unremarkable. No enlarged lymph nodes. IMPRESSION: 1. Dilated rectosigmoid colon to 11.3 cm., large amount of stool in the remainder of the colon. Mild thickening of the colonic wall. Findings may be due to fecal impaction with obstipation. Differential includes Colonic ileus or distal colonic obstruction and early stercoral colitis. Trace free fluid. No free air or abscess. 2. Mild bilateral hydronephrosis, greater on the right, may be due to external compression of the distal ureters from the overly distended rectum. 3. Right lower lobe of the lung small consolidation and mild bibasilar lung septal thickening. 4. Fatty prominent liver. Distended gallbladder. ICD Codes: R10.9 - Unspecified abdominal pain SNOMED: [id number] Qualifiers: Qualified Codes: R10.9 - Unspecified abdominal pain d/c diet was advance and she was tolerating well pain resolved Noe Hirsch Oct 04, 2019 19:50
--- NOTE | 2019-10-04 23:06 | Internal Med Progress Note ---
Subjective Physician Name Carlos Junior Attending Physician Carlos Junior MD Allergies: Coded Allergies: INFLIXIMAB (Verified Allergy, Intermediate, 04/20/16) NIACIN (Verified Allergy, Intermediate, 04/20/16) SULFA (SULFONAMIDE ANTIBIOTICS) (Verified Allergy, Intermediate, 04/20/16) Uncoded Allergies: SULFONAMIDES (Allergy, Unknown, 04/28/18) Subjective Awake, alert, responsive, NAD, No CP or SOB, + BM Objective Last Vital Signs Date Time Temp Pulse Resp B/P (MAP) Pulse Ox O2 Delivery O2 Flow Rate FiO2 10/04/19 12:00 98.0 56 20 161/70 (100) 100 10/04/19 09:00 Nasal Cannula 2.0 10/03/19 19:43 28 Laboratory Tests Test 10/04/19 06:16 White Blood Count 3.8 K/UL (4.8-10.8) L Red Blood Count 3.36 M/UL (4.20-5.40) L Hemoglobin 9.7 G/DL (12.0-16.0) L Hematocrit 29.2 % (37.0-47.0) L Mean Corpuscular Volume 87 FL (80-99) Mean Corpuscular Hemoglobin 28.9 PG (27.0-31.0) Mean Corpuscular Hemoglobin Concent 33.4 G/DL (32.0-36.0) Red Cell Distribution Width 12.6 % (11.6-14.8) Platelet Count 223 K/UL (150-450) Mean Platelet Volume 5.2 FL (6.5-10.1) L Neutrophils (%) (Auto) 69.0 % (45.0-75.0) Lymphocytes (%) (Auto) 18.8 % (20.0-45.0) L Monocytes (%) (Auto) 9.9 % (1.0-10.0) Eosinophils (%) (Auto) 1.9 % (0.0-3.0) Basophils (%) (Auto) 0.4 % (0.0-2.0) Sodium Level 141 MMOL/L (136-145) Potassium Level 4.0 MMOL/L (3.5-5.1) Chloride Level 104 MMOL/L (98-107) Carbon Dioxide Level 26 MMOL/L (21-32) Anion Gap 11 mmol/L (5-15) Blood Urea Nitrogen 6 mg/dL (7-18) L Creatinine 0.7 MG/DL (0.55-1.30) Estimat Glomerular Filtration Rate > 60 mL/min (>60) Glucose Level 85 MG/DL (74-106) Calcium Level 9.3 MG/DL (8.5-10.1) Intake and Output 10/03/19 10/04/19 19:00 07:00 Intake Total 500 ml 120 ml Output Total 400 ml Balance 500 ml -280 ml Intake Oral 500 ml 120 ml Output Urine Total 400 ml Stool Total 0 ml Objective General: No acute distress, awake and alert HEENT: NCAT, sclera anicteric, PERRL, EOMI. Neck: Supple, no significant jugular venous distention, Lungs: Good inspiratory effort, no accessory muscle use, clear to auscultation bilaterally, no Wheeze or Rales. Heart: Regular rate and tachycardia, S1/S2, no murmurs. Abdomen: soft, nontender, nondistended. Normoactive bowel sounds. / Rectal: Refused and deferred. Extremities: No Cyanosis , clubbing or edema. Neuro: A&O x 3, Able to move all extremities Skin: warm, no rash. Psych: Normal mood and affect Assessment/Plan Assessment/Plan ASSESSMENT: This is a 79-year-old female with: 1. Abdominal pain. 2. Congestive heart failure. 3. Right lower lobe pneumonia. 4. Atrial fibrillation with rapid ventricular rate. 5. Coronary artery disease. 6. Diabetes type 2. 7. Hypertension. 8. Hypercholesterolemia. 9. Hypothyroidism. 10. Seizure disorder. 11. Right MCA Cerebrovascular disease s/p craniotomy with Left hemiparesis.. 12. Anemia of chronic diease 13. Subdural hematoma. 14. History of deep venous thrombosis. 15. Mitral and aortic valve biosynthetic prosthesis. TREATMENT: 1. Abdominal pain/distention. Improved with laxatives. A General Surgery consultation has been obtained with Dr. Hirsch. A Gastroenterology consultation has been obtained with Dr. Abhishek Langford. We will follow recommendations of General Surgery and Gastroenterology. 2. Congestive heart failure. Cardiology consultation has been obtained with Dr. Barber Mack. The patient has been started empirically on intravenous Lasix. An echocardiogram is pending. 3. Right lower lobe pneumonia. A Pulmonary consultation has been obtained with Dr. Koko Gee. The patient has been started empirically on cefepime and vancomycin. We will follow recommendations of Pulmonary. 4. Atrial fibrillation RVR, 5. Coronary artery disease. The patient is status post coronary artery bypass graft. 6. Diabetes type 2. The patient is not on any antihyperglycemic medication at the senior living. 7. Hypertension. Continue metoprolol as above. 8. Hypercholesteremia. Continue atorvastatin as above. 9. Hypothyroidism. Continue levothyroxine as above. 10. Seizure disorder. Continue carbamazepine as above. 11. Cerebrovascular disease. 12. Left hemiparesis. 13. History of subdural hematoma. 14. History of deep venous thrombosis. 15. History of mitral and aortic valve bioprosthesis replacement. 16. Anemia workup per GI 17. Discharge planning: [facility] On Xarelto Abx: Off Code status: DNAR Off isolation, Covid-19, negative DC to SNF today. Carlos Junior MD Oct 04, 2019 23:06
[2019-10-06] MEDS ORDERED: Fleet's Mineral Oil Enema RECTAL SCH (09:00)
--- NOTE | 2019-10-06 18:22 | Discharge Summary ---
Discharge Summary Discharge Summary _ DATE OF ADMISSION: 09/21/2019 DATE OF DISCHARGE: 10/04/2019 DISCHARGED BY: Dr. Koko Gee ADMITTING MD: Dr. Carlos Junior CONSULTANTS: Dr. Koko Mac BRIEF HOSPITAL COURSE: Patient is a 79-year-old female, who presented with chief complaint of abdominal pain, cough and wheezing. Patient stated she had been constipated for a while. She was unable to have a bowel movement without laxatives. Patient is a resident of [facility]. Patient stated she began to have cough and shortness of breath for 1 day. Cough was nonproductive with wheezing. She has medical history significant for atrial fibrillation, coronary artery disease, type 2 diabetes, history of DVT, hypertension, hypothyroidism, seizure disorder, history of CVA with left hemiparesis, history of subdural hematoma, Parkinson's disease, hypercholesterolemia, Alzheimer's dementia and trigeminal neuralgia. Upon evaluation at the ED, blood work showed WBC of 11.7. Hemoglobin and hematocrit were stable. Electrolytes normal. Troponin was 0.041. BNP 1464. EKG showed sinus tachycardia with ST depression in lateral leads. Chest x-ray showed cardiomegaly with interstitial prominence and presence of sternal wires. CT of the abdomen and pelvis showed dilated rectosigmoid colon to 11.3 cm, large amount of stool in the colon. She was initially hypotensive and tachycardic. She was given IV Lopressor, cardioversion was achieved. Mild thickening of colonic wall. Patient was then admitted for evaluation of shortness of breath, possible pneumonia, CHF, abdominal pain, fecal impaction. She was admitted to monitored floor. She was placed on n.p.o. She was placed on O2 support. She was given nebulizer treatment. She was given heparin for DVT prophylaxis. She was started empirically on cefepime and vancomycin. Abdominal examination improved. Bowel sounds were noted. No acute surgical intervention planned per surgeon. She was started on diet. Patient was given bowel regimen by GI consisting of lactulose, Colace, MiraLAX, enema and Dulcolax suppository. She had moderate amount of stool. She was started on Linzess. On September 25, patient developed rapid A. fib of 170. She was transferred to ICU and was started on Cardizem drip. Claims Adjuster Supervisor was consulted. [facility] records were reviewed. Patient had a bovine pericardial prosthetic aortic valve and [place] porcine prosthetic mitral valve in position. She is positive for history of coronary artery disease status post CABG in 2007, BELCHER to LAD and saphenous vein graft to right posterior descending artery. She underwent cryo-maze procedure as well at that time. Patient was maintained on beta-sudheer and digoxin and Xarelto. She was on aspirin and statin. She had abnormal cardiac enzymes on April 2018. At that time, she decided she did not want any further invasive work-up. Patient was in and out of A. fib. Beta-sudheer dose was increased. She was eventually placed on amiodarone. She had a mild elevation in troponin secondary to demand. Echocardiogram showed EF of 65%. She was continued on anticoagulation. ID was consulted. Patient had isolation precautions for Novel coronavirus. Influenza screening was negative. Patient had GI symptoms, lymphopenia, pneumonia and is a alf resident. Patient was having loose stools. Laxatives were discontinued except Linzess. She completed antibiotic treatment. Covid 19 test was negative. She was taken off isolation and was eventually discharged back to alf. FINAL DIAGNOSES: Right lower lobe pneumonia/nosocomial pneumonia Acute CHF, diastolic Paroxysmal atrial fibrillation with RVR Fecal impaction, resolved Colonic distention secondary to fecal impaction Large left atrial presumed calcified thrombus, present since 2017 Coronary artery disease Diabetes type 2 Hypertension Hypercholesterolemia Hypothyroidism Seizure disorder Old right MCA status post craniotomy with left hemiparesis Anemia of chronic disease Subdural hematoma History of DVT Mitral and aortic valve biosynthetic prostheses Parkinson's Trigeminal neuralgia Fatty liver DISPOSITION: DC to SNF DISCHARGE MEDICATIONS: Refer to Discharge Medication List. I have been assigned to complete a discharge summary on this account, I was not involved with the patient's management.--STEWART Gonzales Jacqueline Robles NP Oct 06, 2019 18:21
== END 2019-10-04 15:00 | DRG 308 ==
LOC: EDBD 10:09 → EMR 10:59 → 2E 11:27 → EDBEDREQ 11:27 → EDBEDREQSVC 11:27 → EDBEDREQ 13:45 → 2E 14:51 → ICU 09-26 09:31 → 2E 09-29 18:21
DX: I47.1 Supraventricular tachycardia (principal); J18.9 Pneumonia, unspecified organism; N17.9 Acute kidney failure, unspecified; E46 Unspecified protein-calorie malnutrition; Z68.1 Body mass index [BMI] 19.9 or less, adult; I69.954 Hemiplegia and hemiparesis following unspecified cerebrovascular disease affecting left non-dominant side; G40.909 Epilepsy, unspecified, not intractable, without status epilepticus; K56.41 Fecal impaction; Y95 Nosocomial condition; I48.0 Paroxysmal atrial fibrillation; I25.10 Atherosclerotic heart disease of native coronary artery without angina pectoris; Z95.1 Presence of aortocoronary bypass graft; E11.9 Type 2 diabetes mellitus without complications; I11.0 Hypertensive heart disease with heart failure; I50.9 Heart failure, unspecified; E03.9 Hypothyroidism, unspecified; G20 Parkinson's disease; G30.9 Alzheimer's disease, unspecified; F02.80 Dementia in other diseases classified elsewhere, unspecified severity, without behavioral disturbance, psychotic disturbance, mood disturbance, and anxiety; G50.0 Trigeminal neuralgia; Z95.3 Presence of xenogenic heart valve; R13.10 Dysphagia, unspecified; D64.9 Anemia, unspecified; K76.0 Fatty (change of) liver, not elsewhere classified; Z03.818 Encounter for observation for suspected exposure to other biological agents ruled out
CPT/HCPCS: 36415; 71045; 74018; 74177; 80048; 80053; 80069; 80162; 80202; 81003; 82150; 82270; 82746; 82947; 82962; 83036; 83540; 83550; 83605; 83690; 83735; 83880; 84100; 84439; 84443; 84484; 85007; 85025; 85610; 85651; 85730; 86140; 86705; 86709; 86710; 86803; 87040; 87070; 87081; 87205; 87340; 87635; 93005; 93306; 93971; 94664; 96374; 96375; 97802; 99291; J2405; J8499